=== PATIENT | female | born 1955 | race Caucasian/White ===

== ENCOUNTER → 2016-02-23 | Outpatient (CLI) | payer MEDICAID, OTHER ==
[~2016-02-23] MED LIST: ALPR.5 PO; FLUC200T63 PO; FLUO20CA4 PO; GABA300C3 PO; HYDR-3129 PO; HYDR-3583 PO; IOHEXOL 350 MG/ML 10 ML VIAL (for RAD DIAG) IV ONE; LISI-363 PO; LISI-515 PO; NYST100010 PO; PROZ40CA PO; SULF-154 PO
--- NOTE | 2016-02-23 15:13 | RADRPT ---
EXAM DATE/TIME: 02/23/2016 14:25 This report includes an Addendum and supersedes previous reports for this exam. [facility] COMPARISON: ABDOMEN KUB ONLY, August 03, 2015, 11:28. CT SIMULATION, June 10, 2015, 14:32. INDICATIONS : History of tongue cancer, abnormal abdominal finding on PET/CT scan. IV CONTRAST: 75 cc Omnipaque 350 (iohexol) IV ORAL CONTRAST: Prescribed oral contrast ingested. RADIATION DOSE: 9.96 CTDIvol (mGy) MEDICAL HISTORY : Carcinoma, tongue. Hypertension. SURGICAL HISTORY : None. ENCOUNTER: Initial ACUITY: 1 day PAIN SCALE: 0/10 LOCATION: abdomen TECHNIQUE: Volumetric scanning of the abdomen and pelvis was performed. Using automated exposure control and adjustment of the mA and/or kV according to patient size, radiation dose was kept as low as reasonably achievable to obtain optimal diagnostic quality images. FINDINGS: LOWER LUNGS: The visualized lower lungs are clear. LIVER: Homogeneous density without lesion. The there is mild dilation of the biliary system with the common bile duct dilated to 1.1 cm. There is also dilation of the pancreatic duct. No obstructing pancreatic head mass is seen. SPLEEN: Normal size without lesion. PANCREAS: Dilation of the common bile duct and main pancreatic duct. No visualized pancreatic mas s. KIDNEYS: Normal in size and shape. There is no mass, stone or hydronephrosis. ADRENAL GLANDS: Within normal limits. VASCULAR: There is no aortic aneurysm. BOWEL/MESENTERY: There is significant stool seen throughout the colon. In the region of the sigmo id colon there appears to be wall thickening and adjacent stranding of the mesenteric fat concerning for fluid or inflammation. ABDOMINAL WALL: Within normal limits. RETROPERITONEUM: There is no lymphadenopathy. BLADDER: No wall thickening or mass. REPRODUCTIVE: The uterus is absent. INGUINAL: There is no lymphadenopathy or hernia. MUSCULOSKELETAL: Within normal limits for patient age. No lytic or blastic lesion. CONCLUSION: 1. Abnormal biliary ductal dilation, prominence of the common bile duct and pancreatic duct without v isible obstructing mass. Recommend consultation with GI. 2. Significant stone burden seen throughout the colon. Within the sigmoid colon there is bowel wall t hickening and stranding of the adjacent mesenteric fat concerning for inflammation or edema. Correlat e with the patient's white count for possible colitis. Elaine Augustin MD on February 23, 2016 at 15:04 Board Certified Radiologist. This report was verified electronically. ADDENDUM: Not mentioned above is an 18 x 13 mm spiculated subpleural nodule on the left lateral basilar segment of the lower lobe. Rounded atelectasis is seen within the medial right lung base. This pulmonary nod ule is worrisome for malignancy. Consider PET CT to further evaluate. Alternatively, a percutaneous b iopsy could be performed as this lesion is accessible percutaneously. Dr. Solorzano is aware of the nodul luis Muller Jr., MD on March 03, 2016 at 13:58 Board Certified Radiologist. This report was verified electronically.
== END ==
LOC: HRAD 11:52
PROVIDERS: ATTEND Internal Medicine Hematology & Oncology
DX: C76.0 Malignant neoplasm of head, face and neck (principal)
CPT/HCPCS: 74177; Q9967

== ENCOUNTER 2016-04-25 07:59 | Day surgery (SDC) | payer MEDICAID, OTHER ==
[2016-04-25] VITALS (9 sets, daily range): BP systolic 79–126; BP diastolic 57–80; PULSE 75–96; RESP 16–20; TEMP 98.1–98.6; O2SAT 87–96
[~2016-04-25] VITALS: Ht 162.6 cm; Wt 45.5 kg
[~2016-04-25 07:59] MED LIST changes: -ALPR.5 PO; -FLUO20CA4 PO; -HYDR-3583 PO; -IOHEXOL 350 MG/ML 10 ML VIAL (for RAD DIAG) IV ONE; -LISI-515 PO
[2016-04-25] MEDS ORDERED: LISI-515 PO (08:25)
[2016-04-25] MEDS ORDERED: HYDR-3583 PO (08:25)
[2016-04-25] MEDS ORDERED: FLUO20CA4 PO (08:25)
[2016-04-25] MEDS ORDERED: ALPR.5 PO (08:25)
[2016-04-25] MEDS ORDERED: LIDOCAINE 1%/EPINEPHrine 1:100,000 SOLN 20 ML VIAL ONE ×2 (09:39→10:43)
[2016-04-25] MEDS ORDERED: SODIUM CHLORIDE 5 ML FLUSH PRN IVF (09:45)
[2016-04-25] MEDS ORDERED: IMPLANTED VASCULAR ACCESS DEVICE/PORT - SODIUM CHLORIDE FLUSH IVF SCH (09:45)
[2016-04-25] MEDS ORDERED: SODIUM CHLOR 0.9% 1000 ML IV SCH (09:45)
[2016-04-25] MEDS ORDERED: IMPLANTED VASCULAR ACCESS DEVICE/PORT - SODIUM CHLORIDE FLUSH PRN IVF (09:45)
[2016-04-25] MEDS ORDERED: MIDAZOLAM HCL 5 MG/5 ML VIAL ONE (10:11)
[2016-04-25] MEDS ORDERED: fentaNYL CITRATE 250 MCG/5 ML AMP ONE (10:11)
--- NOTE | 2016-04-25 11:10 | PD.RAD ---
Post CT Procedure Prog Note Pre Procedure Diagnosis: (1) Mass of left lung Post Procedure Diagnosis: (1) Mass of left lung Procedure Date: Apr 25, 2016 Supervising Radiologist: Sunny Farfan Proceduralist/Assist: Nichole Addison RT(R)(CT) Anesthesia: Local, Analgesia, Conscious Sedation Plan of Activity Patient to Unit: ROPU Patient Condition: Good See PACS Report for procedural detail/treatment Biopsy Imaging Guidance: CT Biopsy Procedure: Lung Specimen: Core Biopsy (18 gauge) Findings: Perilesional hemorrhage. No Sunny Douglas MD Apr 25, 2016 11:10
[2016-04-25] MEDS ORDERED: oxyCODONE/ACETAMINOPHEN 5 MG/325 MG TAB PO PRN (11:15)
--- NOTE | 2016-04-25 11:20 | RADRPT ---
EXAM DATE/TIME: 04/25/2016 10:19 [facility] COMPARISON: No previous studies available for comparison. INDICATIONS : Left lung mass. SEDATION TIME: 30 minutes BIOPSY SITE: Left MEDICATION(S): 1.) 3 mg midazolam (Versed) IV 2.) 150 mcg fentanyl (Sublimaze) IV DEVICE(S): 1.) 18 gauge Temno core biopsy needle MEDICAL HISTORY : Hypertension. Tongue cancer. SURGICAL HISTORY : section. ENCOUNTER: Initial ACUITY: 1 day PAIN SCORE: 0/10 LOCATION: Left chest A total of one core specimen(s) were obtained and sent to the laboratory for pathologic evaluation. PROCEDURE: 1. CT guided lung biopsy. 2. Conscious sedation with continuous EKG and oximetry monitoring. 3. EKG and oximetry remained stable throughout the procedure. Prior to the procedure informed consent was obtained. Any appropriate prior imaging studies were rev iewed. Using automated exposure control and adjustment of the mA and/or kV according to patient size, radiation dose was kept as low as reasonably achievable to obtain optimal diagnostic quality images. The site was prepped in a sterile fashion. Full sterile technique was used, including cap, mask, chuyita rile gloves and gown and a large sterile sheet. Hand hygiene and 2% chlorhexidine and/or betadine/al cohol prep was utilized per protocol for cutaneous antisepsis. The skin and subcutaneous tissues wer e infiltrated with local anesthetic solution. With CT guidance the previously identified target was localized. Biopsy was performed using the presc ribed needle as above. A single 18 gauge core biopsy was obtained. Adequate hemostasis was obtained with compression at the puncture site. Follow-up CT scan reveals no pneumothorax. However, there was perilesional hemorrhage. Conscious sedation was performed with the prescribed dosages and duration as above in the presence of an independent trained radiology nurse to assist in the monitoring of the patient. EKG and oximetry remained stable throughout the procedure. The patient tolerated the procedure well and there were no complications. The patient was sent to Radiology Outpatient Unit in stable condition. CONCLUSION: Uncomplicated CT guided biopsy. Sunny Farfan MD on April 25, 2016 at 11:18 Board Certified Radiologist. This report was verified electronically.
--- NOTE | 2016-04-25 13:26 | RADRPT ---
EXAM DATE/TIME: 04/25/2016 12:49 [facility] COMPARISON: No previous studies available for comparison. INDICATIONS : Post left side biopsy MEDICAL HISTORY : Carcinoma, tongue. Hypertension SURGICAL HISTORY : None. ENCOUNTER: Initial ACUITY: 1 day PAIN SCORE: 0/10 LOCATION: Bilateral chest FINDINGS: A single frontal expiratory view of the chest was performed. Bilateral pulmonary masses are seen in t he perihilar distribution. Interstitial-type density in the lower left lung field probably represents perilesional hemorrhage post biopsy. No pneumothorax. Right IJ [id number] catheter with the tip p rojecting over the central venous system. CONCLUSION: 1. Bilateral pulmonary mass lesions. 2. Interstitial density in the left lower lung field is characteristic of perilesional hemorrhage pos t biopsy. 3. No pneumothorax. Sunny Farfan MD on April 25, 2016 at 13:22 Board Certified Radiologist. This report was verified electronically.
[2016-04-25] MEDS ORDERED: SODIUM CHLORIDE 5 ML FLUSH BID IVF SCH (21:00)
== END 2016-04-25 15:20 | disposition home or self-care (01) ==
LOC: HRAD 07:59 → HRIP 08:02 → HRAD 15:20
PROVIDERS: ATTEND Internal Medicine Hematology & Oncology
DX: R91.8 Other nonspecific abnormal finding of lung field (principal); I10 Essential (primary) hypertension; Z85.810 Personal history of malignant neoplasm of tongue
CPT/HCPCS: 32405; 71010; 77012; 88305; 88341; 88342; J1642; J2250; J3010; J7030

== ENCOUNTER 2016-11-23 20:30 | Emergency (ER) | payer MEDICAID, OTHER ==
[~2016-11-23] VITALS: Ht 165.1 cm; Wt 43.0 kg
[~2016-11-23 20:30] MED LIST changes: +ALPR.5 PO; -FLUC200T63 PO; +FLUO20CA4 PO; -GABA300C3 PO; -HYDR-3129 PO; +HYDR-3583 PO; -LISI-363 PO; +LISI-515 PO; -NYST100010 PO; -PROZ40CA PO; -SULF-154 PO
[2016-11-23 20:34] VITALS: BP 101/68; PULSE 94; RESP 20; TEMP 98.1; O2SAT 96
--- NOTE | 2016-11-23 20:38 | PD ---
Physical Exam Date Seen by Provider: Nov 23, 2016 Time Seen by Provider: 20:34 Narrative 61-year-old female with history of stage IV lung cancer presents emergency Department with nausea, vomiting, chest and abdominal pain. She is here due to that she can't take the pain anymore. Patient also reports hoarseness and generalized pain. Patient states he has not eaten in 3 days due to loss of appetite and abdominal pain. Dr. Turcios is her oncologist. Patient has had Lortab for pain which she is currently out of, she is to see Dr. Turcios next Sunday. She states she is going to request a different pain medication at that time. Patient denies fevers. Patient states pain is 10 over 10. She has no known drug allergies. Data Data Last Documented VS Vital Signs Date Time Temp Pulse Resp B/P (MAP) Pulse Ox O2 Delivery O2 Flow Rate FiO2 11/23/16 20:34 98.1 94 20 101/68 (79) [address] [facility] Medical Record Reviewed: Yes Supervised Visit with BLAINE: Yes Narrative Course Vital signs are reviewed and found to be stable. Patient is awaiting bed placement. Condition: Stable Prabhakar Chavez Nov 23, 2016 20:38
--- NOTE | 2016-11-23 20:38 | PD ---
Physical Exam Date Seen by Provider: Nov 23, 2016 Time Seen by Provider: 20:34 Narrative 61-year-old female with history of stage IV lung cancer presents emergency Department with nausea, vomiting, chest and abdominal pain. She is here due to that she can't take the pain anymore. Patient also reports hoarseness and generalized pain. Patient states he has not eaten in 3 days due to loss of appetite and abdominal pain. Dr. Turcios is her oncologist. Patient has had Lortab for pain which she is currently out of, she is to see Dr. Turcios next Sunday. She states she is going to request a different pain medication at that time. Patient denies fevers. Patient states pain is 10 over 10. She has no known drug allergies. Data Data Last Documented VS Vital Signs Date Time Temp Pulse Resp B/P (MAP) Pulse Ox O2 Delivery O2 Flow Rate FiO2 11/23/16 20:34 98.1 94 20 101/68 (79) 96 Room Air [facility] Medical Record Reviewed: Yes Supervised Visit with BLAINE: Yes Narrative Course Vital signs are reviewed and found to be stable. Patient is awaiting bed placement. Condition: Stable Prabhakar Chavez Nov 23, 2016 20:38
[2016-11-23] MEDS ORDERED: ONDANSETRON HCL 4 MG/2 ML VIAL IV PUSH ONE (21:45)
[2016-11-23] MEDS ORDERED: SODIUM CHLOR 0.9% 1000 ML INJ 1,000 ML IV ONE (21:45)
[2016-11-23] MEDS ORDERED: MORPHINE SULFATE 2 MG/ML INJ IV PUSH ONE (21:45)
[2016-11-23 22:20] LABS: AMORPHOUS SEDIMENT, URINE RARE; BILIRUBIN, URINE NEG (NEG); BLOOD, URINE NEG (NEG); GLUCOSE,URINE NEG (NEG); HYALINE CAST, URINE 13 /lpf (RARE); KETONE, URINE NEG (NEG); MUCUS URINE FEW /lpf (OCC); NITRITE,URINE NEG (NEG); PH, URINE 5.5 (5.0-8.5); SQUAMOUS EPITHELIAL CELL URINE 1 /hpf (0-5); URINE COLOR YELLOW (YELLW/STRAW); URINE LEUKOCYTE ESTERASE TRACE (NEG)
[2016-11-23 22:24] LABS: AUTOMATED NEUTROPHIL # 13.3 TH/MM3 (1.8-7.7); BASOPHIL # 0.1 TH/MM3 (0-0.2); BASOPHIL % 0.4 % (0.0-2.0); EOSINOPHIL # 0.2 TH/MM3 (0-0.4); EOSINOPHIL % 1.2 % (0.0-4.0); HEMATOCRIT 34.2 % (35.0-46.0); HEMOGLOBIN 11.2 GM/DL (11.6-15.3); LYMPH % 3.6 % (9.0-44.0); LYMPHOCYTE # 0.6 TH/MM3 (1.0-4.8); MEAN CORPUSCULAR HGB CONC 32.6 % (32.0-36.0); MEAN PLATELET VOLUME 7.5 FL (7.0-11.0); MONO % 9.4 % (0.0-8.0); MONOCYTE # 1.5 TH/MM3 (0-0.9); NEUT % 85.4 % (16.0-70.0); PLATELET COUNT 649 TH/MM3 (150-450); RED BLOOD COUNT 3.98 MIL/MM3 (4.00-5.30); RED CELL DISTRIBUTION WIDTH 14.9 % (11.6-17.2); WHITE BLOOD COUNT 15.5 TH/MM3 (4.0-11.0)
[2016-11-23 22:32] LABS: ALBUMIN 3.5 GM/DL (3.4-5.0); AST (GOT) 9 U/L (15-37); BICARBONATE 26.6 MEQ/L (21.0-32.0); BLOOD UREA NITROGEN 19 MG/DL (7-18); CALCIUM 9.8 MG/DL (8.5-10.1); CHLORIDE 94 MEQ/L (98-107); CREATININE 1.09 MG/DL (0.50-1.00); GLOMERULAR FILTRATION RATE 51 ML/MIN (>89); GLUCOSE,RANDOM 104 MG/DL (74-106); SODIUM (NA) 131 MEQ/L (136-145)
[2016-11-23 22:33] LABS: ALT (GPT) 13 U/L (10-53)
[2016-11-23 22:36] LABS: ALKALINE PHOSPHATASE 111 U/L (45-117); TOTAL BILIRUBIN ADULT 0.2 MG/DL (0.2-1.0)
[2016-11-23] MEDS ORDERED: PERC5TAB12 PO (23:02)
[2016-11-23] MEDS ORDERED: PROM25TA10 PO (23:02)
--- NOTE | 2016-11-23 23:03 | PD ---
HPI Chief Complaint: Pain: Acute or Chronic Time Seen by Provider: 21:09 Travel History International Travel<30 days: No Contact w/Intl Traveler<30days: No Traveled to known affect area: No History of Present Illness HPI This is a 61-year-old female who has a history of head and neck cancer with metastatic lung cancer who is currently being treated by Dr. Solorzano who presents to the emergency department with generalized fatigue, weakness, increasing nausea and vomiting and pain all over her body that's been going on for several weeks, constant, moderate severity, worse with exerting herself. She's been taking Lortab for her pain but it's not been helping and she's been taking Zofran for the nausea but she feels that has not been helping either. She's getting weaker on her feet and has difficulty going about her daily tasks. She has an appointment with Dr. Solorzano scheduled on Sunday and she recently had a CT of her chest abdomen pelvis that she doesn't know the results of. PFSH Past Medical History Anxiety: No Depression: Yes Cancer: Yes (TONGUE CANCER, LUNG CANCER) Cardiovascular Problems: No Diabetes: No Diminished Hearing: No Endocrine: No Genitourinary: No Hepatitis: No Hiatal Hernia: No Hypertension: Yes Immune Disorder: No Implanted Vascular Access Dvce: Yes Musculoskeletal: No Neurologic: No Psychiatric: No Reproductive: No Respiratory: No Immunizations Current: No Radiation Therapy: No (HX) Thyroid Disease: No Tetanus Vaccination: > 5 Years Influenza Vaccination: No Menopausal: Yes Past Surgical History Abdominal Surgery: Yes (g tube placement 12/21) AICD: No Cardiac Surgery: No Section: Yes (X 2) Ear Surgery: No Endocrine Surgery: No Eye Surgery: No Genitourinary Surgery: No Gynecologic Surgery: Yes (2 CSECTIONS) Joint Replacement: No Neurologic Surgery: No Oral Surgery: No Pacemaker: No Thoracic Surgery: No Other Surgery: Yes (PORT PLACEMENT TO RIGTH CHEST WALL) Social History Alcohol Use: No Tobacco Use: No Substance Use: No Allergies-Medications (Allergen,Severity, Reaction): Coded Allergies: No Known Allergies (Verified , 04/25/16) Reported Meds & Prescriptions Reported Meds & Active Scripts Active Reported Xanax (Alprazolam) 0.5 Mg Tab 0.5 Mg PO Q6H PRN Lisinopril 20 Mg Tab 20 Mg PO DAILY Hydrocodone-Acetaminophen 10-325 mg Tab 1 Tab PO Q4H PRN Fluoxetine (Fluoxetine HCl) 20 Mg Cap 20 Mg PO DAILY Review of Systems Except as stated in HPI: all other systems reviewed are Neg Physical Exam Narrative GENERAL: Frail SKIN: Dry with skin tenting HEAD: Atraumatic. Normocephalic. EYES: Pupils equal and round. No injection or drainage. ENT: Dry mucous membranes NECK: Trachea midline. CARDIOVASCULAR: Regular rate and rhythm. No murmur appreciated. RESPIRATORY: Clear to auscultation. Breath sounds equal bilaterally. GASTROINTESTINAL: Abdomen soft, mildly tender to palpation in the epigastrium with no rebound or guarding. MUSCULOSKELETAL: No obvious deformities. NEUROLOGICAL: Awake and alert. No obvious cranial nerve deficits. Moving all extremities. PSYCHIATRIC: Appropriate mood and affect; insight and judgment normal. Data Data Last Documented VS Vital Signs Date Time Temp Pulse Resp B/P (MAP) Pulse Ox O2 Delivery O2 Flow Rate FiO2 11/23/16 20:34 98.1 94 20 101/68 (79) 96 Room Air Orders Orders Complete Blood Count With Diff (11/23/16 21:39) Comprehensive Metabolic Panel (11/23/16 21:39) ^ Insert Iv (11/23/16 21:39) Urinalysis - C+S If Indicated (11/23/16 21:39) Sodium Chlor 0.9% 1000 Ml Inj (Ns 1000 M (11/23/16 21:45) Ondansetron Inj (Zofran Inj) (11/23/16 21:45) Morphine Inj (Morphine Inj) (11/23/16 21:45) Electrocardiogram (11/23/16 21:09) Labs Laboratory Tests Test 11/23/16 21:40 11/23/16 21:45 White Blood Count 15.5 TH/MM3 Red Blood Count 3.98 MIL/MM3 Hemoglobin 11.2 GM/DL Hematocrit 34.2 % Mean Corpuscular Volume 86.0 FL Mean Corpuscular Hemoglobin 28.0 PG Mean Corpuscular Hemoglobin Concent 32.6 % Red Cell Distribution Width 14.9 % Platelet Count 649 TH/MM3 Mean Platelet Volume 7.5 FL Neutrophils (%) (Auto) 85.4 % Lymphocytes (%) (Auto) 3.6 % Monocytes (%) (Auto) 9.4 % Eosinophils (%) (Auto) 1.2 % Basophils (%) (Auto) 0.4 % Neutrophils # (Auto) 13.3 TH/MM3 Lymphocytes # (Auto) 0.6 TH/MM3 Monocytes # (Auto) 1.5 TH/MM3 Eosinophils # (Auto) 0.2 TH/MM3 Basophils # (Auto) 0.1 TH/MM3 CBC Comment DIFF FINAL Differential Comment Blood Urea Nitrogen 19 MG/DL Creatinine 1.09 MG/DL Random Glucose 104 MG/DL Total Protein 8.0 GM/DL Albumin 3.5 GM/DL Calcium Level 9.8 MG/DL Alkaline Phosphatase 111 U/L Aspartate Amino Transf (AST/SGOT) 9 U/L Alanine Aminotransferase (ALT/SGPT) 13 U/L Total Bilirubin 0.2 MG/DL Sodium Level 131 MEQ/L Potassium Level 3.5 MEQ/L Chloride Level 94 MEQ/L Carbon Dioxide Level 26.6 MEQ/L Anion Gap 10 MEQ/L Estimat Glomerular Filtration Rate 51 ML/MIN Urine Color YELLOW Urine Turbidity HAZY Urine pH 5.5 Urine Specific [place] 1.018 Urine Protein 30 mg/dL Urine Glucose (UA) NEG mg/dL Urine Ketones NEG mg/dL Urine Occult Blood NEG Urine Nitrite NEG Urine Bilirubin NEG Urine Urobilinogen LESS THAN 2.0 MG/DL Urine Leukocyte Esterase TRACE Urine RBC 1 /hpf Urine WBC 4 /hpf Urine Squamous Epithelial Cells 1 /hpf Urine Amorphous Sediment RARE Urine Hyaline Casts 13 /lpf Urine Mucus FEW /lpf Microscopic Urinalysis Comment CULT NOT INDICATED MDM Medical Decision Making Medical Screen Exam Complete: Yes Emergency Medical Condition: Yes Medical Record Reviewed: Yes (CT of the chest from November 15 demonstrates advancing disease in the lungs) Interpretation(s) Afebrile, mild tachycardia, normotensive Leukocytosis Anemia Thrombocytosis Mild hyponatremia Urinalysis negative for infection CT chest from November 15 demonstrates deterioration in the appearance of the left chest with advancing adenopathy and mass in the left lung base Differential Diagnosis Cancer pain, dehydration, electrolyte abnormality Narrative Course This is a 61-year-old female who presents to the emergency department with metastatic cancer with increasing generalized pain, weakness and vomiting. Labs are obtained which demonstrated a leukocytosis which is likely in the setting of her baseline malignancy as she is afebrile and has no signs or symptoms of infection at this time. She has some mild hyponatremia. Urinalysis is negative for infection. CT from 1 week ago demonstrates worsening malignancy and the patient's chest as well as a new lesion at the L3 vertebral body. I had a long conversation with the patient. I did offer her admission but I made a recommendation to try stronger pain medication and antiemetics. She was given a liter of IV fluid. She would like to try to go home. She will follow up with Dr. Solorzaon as scheduled on Sunday and she'll call tomorrow to see if he can move up her appointment. She understands that she can return at any time if her symptoms worsen. Diagnosis Primary Impression: Cancer related pain Patient Instructions: General Instructions Additional Instructions: If you develop weakness of your legs, difficulty walking, numbness of your legs or your genital or rectal area, loss of your bowel or bladder, or difficulty urinating return to the emergency department immediately. Follow-up with Dr. Solorzano as soon as possible. Med/Other Pt SpecificInfo: Prescription(s) given Scripts Promethazine (Phenergan) 25 Mg Tablet 25 MG PO Q6H Y for NAUSEA OR VOMITING, #15 TAB 0 Refills Prov: Dia Oh MD 11/23/16 Oxycodone-Acetaminophen (Percocet) 5-325 mg Tab 1 TAB PO Q6H Y for PAIN, #20 TAB 0 Refills Prov: Dia Oh MD 11/23/16 Disposition: 01 DISCHARGE HOME Condition: Stable Dia Oh MD Nov 23, 2016 23:02
--- NOTE | 2016-11-24 21:28 | EKG ---
Date Performed: 11/23/2016 Time Performed: 21:09:36 PTAGE: 61 years EKG: Sinus rhythm NORMAL ECG NO PREVIOUS TRACING DOCTOR: Ld Marie Interpretating Date/Time 11/24/2016 21:26:42
--- NOTE | 2016-11-24 21:28 | EKG ---
Date Performed: 11/23/2016 Time Performed: 21:09:36 PTAGE: 61 years EKG: Sinus rhythm NORMAL ECG NO PREVIOUS TRACING DOCTOR: Ld Marie Interpretating Date/Time 11/24/2016 21:26:42
--- NOTE | 2016-11-24 21:28 | EKG ---
Date Performed: 11/23/2016 Time Performed: 21:09:36 PTAGE: 61 years EKG: Sinus rhythm NORMAL ECG NO PREVIOUS TRACING DOCTOR: Ld Marie Interpretating Date/Time 11/24/2016 21:26:42
== END 2016-11-23 23:19 | disposition home or self-care (01) ==
LOC: NEPD 20:30
DX: G89.3 Neoplasm related pain (acute) (chronic) (principal); R53.1 Weakness; R11.2 Nausea with vomiting, unspecified; D72.829 Elevated white blood cell count, unspecified; E87.1 Hypo-osmolality and hyponatremia; D64.9 Anemia, unspecified; D47.3 Essential (hemorrhagic) thrombocythemia; C76.0 Malignant neoplasm of head, face and neck; C78.00 Secondary malignant neoplasm of unspecified lung; I10 Essential (primary) hypertension; Z86.59 Personal history of other mental and behavioral disorders
CPT/HCPCS: 80053; 81001; 85025; 93005; 96361; 96374; 96375; 99284; J2270; J2405; J7030

== ENCOUNTER 2016-12-15 13:44 | Inpatient (IN) | payer MEDICAID, OTHER ==
[~2016-12-15] VITALS: Ht 167.6 cm; Wt 41.0 kg
[~2016-12-15 13:44] MED LIST changes: +PERC5TAB12 PO; +PROM25TA10 PO
[2016-12-15 13:48] VITALS: BP 106/58; PULSE 97; RESP 18; TEMP 97.7; O2SAT 94
--- NOTE | 2016-12-15 14:03 | PD ---
HPI Chief Complaint: Pain: Acute or Chronic Time Seen by Provider: 13:55 Travel History International Travel<30 days: No Contact w/Intl Traveler<30days: No Traveled to known affect area: No History of Present Illness HPI 61-year-old female with PMH of metastatic oropharyngeal cancer under the care of Dr. Solorzano presents to the ED for evaluation of worsening pain in the lower back accompanied by weakness and pain in the right lower extremity. Pain rated 8/10. Worsened by ambulation. No alleviating factors reported. She has a known lesion of the vertebral body at L3. She denies saddle anesthesia, urinary or fecal incontinence. She is prescribed MS Contin 30 mg twice a day but has been taking it 3 times a day due to worsening pain. She discussed comfort measures with Dr. Solorzano but is also seeing Dr. Graves for palliative radiation of the spinal lesion. At her last visit with Dr. Solorzano on 12/04 she was ordered to undergo radiological studies of the back but she has not followed up. She is unable to state clearly what her treatment goals are today. PFSH Past Medical History Anxiety: No Depression: Yes Cancer: Yes (TONGUE CANCER, LUNG CANCER) Cardiovascular Problems: No Chemotherapy: Yes Diabetes: No Diminished Hearing: No Endocrine: No Genitourinary: No Hepatitis: No Hiatal Hernia: No Hypertension: Yes Immune Disorder: No Implanted Vascular Access Dvce: Yes Musculoskeletal: No Neurologic: No Psychiatric: No Reproductive: No Respiratory: No Immunizations Current: No Radiation Therapy: No (HX) Thyroid Disease: No Menopausal: Yes Past Surgical History Abdominal Surgery: Yes (g tube placement 12/21) AICD: No Cardiac Surgery: No Section: Yes (X 2) Ear Surgery: No Endocrine Surgery: No Eye Surgery: No Genitourinary Surgery: No Gynecologic Surgery: Yes (2 CSECTIONS) Joint Replacement: No Neurologic Surgery: No Oral Surgery: No Pacemaker: No Thoracic Surgery: No Other Surgery: Yes (PORT PLACEMENT TO RIGTH CHEST WALL) Social History Alcohol Use: No Tobacco Use: No Substance Use: No Allergies-Medications (Allergen,Severity, Reaction): Coded Allergies: No Known Allergies (Verified , 04/25/16) Reported Meds & Prescriptions Reported Meds & Active Scripts Active Phenergan (Promethazine HCl) 25 Mg Tablet 25 Mg PO Q6H PRN Percocet (Oxycodone-Acetaminophen) 5-325 mg Tab 1 Tab PO Q6H PRN Reported Xanax (Alprazolam) 0.5 Mg Tab 0.5 Mg PO Q6H PRN Lisinopril 20 Mg Tab 20 Mg PO DAILY Hydrocodone-Acetaminophen 10-325 mg Tab 1 Tab PO Q4H PRN Fluoxetine (Fluoxetine HCl) 20 Mg Cap 20 Mg PO DAILY Review of Systems Except as stated in HPI: all other systems reviewed are Neg Physical Exam Narrative GENERAL: Frail, petite, chronically ill-appearing white female in no acute distress. SKIN: Focused skin assessment warm/dry. HEAD: Normocephalic. EYES: No scleral icterus. No injection or drainage. NECK: Supple, trachea midline. No JVD or lymphadenopathy. CARDIOVASCULAR: Regular rate and rhythm without murmurs, gallops, or rubs. RESPIRATORY: Breath sounds clear and equal bilaterally. No accessory muscle use. GASTROINTESTINAL: Abdomen scaphoid, soft, non-tender, nondistended. MUSCULOSKELETAL: No cyanosis, or edema. NEUROLOGICAL: Awake and alert. Cranial nerves II through XII intact. Motor and sensory grossly within normal limits. 5/5 strength of dorsiflexion, plantarflexion, hip and knee flexion bilaterally. Normal speech. BACK: No obvious deformity. No CVA tenderness. Tender to palpation in the midline lumbar spine. Data Data Last Documented VS Vital Signs Date Time Temp Pulse Resp B/P (MAP) Pulse Ox O2 Delivery O2 Flow Rate FiO2 12/15/16 13:48 97.7 97 18 106/58 (74) 94 Orders Orders Consult Palliative Care (12/15/16 ) Iv Access Insert/Monitor (12/15/16 14:16) Sodium Chlor 0.9% 1000 Ml Inj (Ns 1000 M (12/15/16 14:30) Hydromorphone Pf Inj (Dilaudid Pf Inj) (12/15/16 14:30) (Hub Use Only)Inp Phy Cons/Ref (12/15/16 ) Complete Blood Count With Diff (12/15/16 16:53) Comprehensive Metabolic Panel (12/15/16 16:53) Urinalysis - C+S If Indicated (12/15/16 16:53) Admit Order (Ed Use Only) (12/15/16 16:53) MDM Medical Decision Making Medical Screen Exam Complete: Yes Emergency Medical Condition: Yes Differential Diagnosis Metastatic cancer versus cauda equina syndrome versus intractable pain versus other Narrative Course 61-year-old female with PMH of metastatic oropharyngeal cancer under the care of Dr. Solorzano presents to the ED for evaluation of worsening pain in the lower back accompanied by weakness and pain in the right lower extremity. She has a known lesion of the vertebral body at L3. She denies saddle anesthesia, urinary or fecal incontinence. She discussed comfort measures with Dr. Solorzano and is also seeing Dr. Graves for palliative radiation of the spinal lesion. At her last visit with Dr. Solorzano on 12/04 she was ordered to undergo radiological studies of the back but she has not followed up. She is unable to state clearly what her treatment goals are today. The patient is afebrile, heart rate 97, BP 106/78 on presentation. She is a chronically ill appearing, petite, thin white female in no acute distress. There is a port in the left chest, well-healed without signs of infection. She does have tenderness to palpation in the low lumbar area but she has 5/5 strength in the bilateral lower extremities. IV was established. Patient was administered a liter of normal saline and 0.5 mg Dilaudid. Palliative care consult was placed. I discussed the case with the palliativecare nurse. The patient has chosen to complete a DNR. She would still like to explore her palliative treatments with Dr. Graves. At this point I think that we should admit her for intractable pain and have Dr. Graves consult with her in the hospital. The patient and her family are agreeable with this plan. Spoke with Dr. Lauren who agrees to accept the patient to the medicine service under Dr. Bravo. Please see medicine notes for disposition. Xuan Rain Dec 15, 2016 14:03
[2016-12-15] MEDS ORDERED: HYDROmorphone HCL PF 0.5 MG/0.5 ML SYRINGE IV PUSH ONE (14:30)
[2016-12-15] MEDS ORDERED: SODIUM CHLOR 0.9% 1000 ML INJ 1,000 ML IV ONE (14:30)
--- NOTE | 2016-12-15 15:20 | PD.CONS ---
Consult Service Palliative Care . Consult Requested By Xuan FIGUEROA . Primary Care Physician Steve Graves MD . Reason for Consultation a. To assist with evaluation and management of symptoms including: pain, weakness, decreased appetite b. To assist medical decision maker(s) with: better understanding of current medical conditions; weighing benefits/burdens of medical treatment options; making medical treatment decisions. . HPI History of Present Illness Mrs. 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 Patient received concurrent chemotherapy and radiation. In February, the patient presented with a pulmonary mass consistent with metastatic disease; the presence of poorly differentiated squamous cell carcinoma was confirmed in April, via CT- guided biopsy. Patient has a known lesion of the vertebral body at L3. She has progressive disease in the thorax. The most recent CT imaging scans did not include the pelvis. However, metastatic disease is present in the pelvis is suspected given the patient's symptoms of increasing pain and tenderness along the right hip and proximal femur. Patient presented to [facility] ED on 12/15/2016 ED with complaints of progressively increased lower back pain accompanied by weakness and pain in the right lower extremity. Hemodynamically stable. Pulse; 97, respirations 18, BP 106/58, oxygen saturation 94% on room air, oral temperature 97.7. The patient's spouse is increasingly forgetful/confused. He reports the patient has almost fallen several times in the past week. There is a known lesion of the vertebral body at L3. Patient denies saddle anesthesia; denies urinary or fecal incontinence. She reports severe pain in her right hip and leg. She is prescribed MS Contin 30 mg twice a day but has been taking it 3 times a day due to worsening pain; pain is currently poorly controlled rated 8 out of 10 after pain medication. She has discussed comfort measures with Dr. Solorzano but is also seeing Dr. Graves for palliative radiation of the spinal lesion. Palliative Care was consulted to assist with symptom management and to discuss with the patient/family the benefits and burdens of her current illnesses and the options regarding future care. Palliative care met with the patient and her ; hospice services were introduced. Patient would like to continue following Dr. Graves for palliative radiation of the spinal lesion if it will improve her quality of life; she is considering transitioning to comfort focused care when radiation treatments are completed. Function/Cognitive Trajectory Ms. Wagoner is a 61-year-old female who was first diagnosed with squamous cell carcinoma of the oropharynx in May,. She is increasingly symptomatic with worsening appetite and reports a 20+ weight loss in the past 12 months. She is having Increasing difficulty ambulating; generally failing to thrive. The patient's reports it is more difficult for the patient to be left alone. He states she is increasingly confused and has had multiple recent falls in the past week secondary to increasing with weakness in the right lower extremity. . Review of Systems ROS Limitations: Clinical Condition Constitutional: COMPLAINS OF: Fatigue, Weight loss (20+ pound weight loss), Change in appetite (decreased weight loss), Pain (severe pain in right hip and right lower extremity; patient rates pain 8 out of 10 AFTER pain medication.), Generalized weakness Ears, nose, mouth, throat: DENIES: Hearing loss Respiratory: DENIES: Hemoptysis Cardiovascular: COMPLAINS OF: Dyspnea on Exertion, DENIES: Chest pain, Lower Extremity Edema Musculoskeletal: COMPLAINS OF: Back pain (lower back pain) Integumentary: COMPLAINS OF: Excessive dryness Neurologic: COMPLAINS OF: Abnormal gait, Localized weakness (right lower extremity), Poor Balance Psychiatric: COMPLAINS OF: Anxiety Past Family Social History Coded Allergies: No Known Allergies (Verified , 04/25/16) Past Medical History Essential hypertension, Depression, Squamous cell carcinoma left mandible, known to Dr. Graves (radiation oncology) , Dr. Solorzano (medical oncology) and Dr. Corral (interventional radiology). . Past Surgical History Colonoscopy in 2005 U/S guided left lung mass in 2017 CT-guided left lung mass biopsy in 2017 Teeth extraction in 2015 Port placement in 2016 Feeding tube in 2015 Reported Medications Xanax (Alprazolam) 0.5 Mg Tab 0.5 Mg PO Q6H PRN Lisinopril 20 Mg Tab 20 Mg PO DAILY Hydrocodone-Acetaminophen 10-325 mg Tab 1 Tab PO Q4H PRN Fluoxetine (Fluoxetine HCl) 20 Mg Cap 20 Mg PO DAILY . Current Medications Medications (Trade) Dose Ordered Sig/Acacia Route Start Time Stop Time Status Last Admin Sodium Chloride 1,000 ml @ 999 mls/hr BOLUS ONCE IV 12/15/16 14:30 12/15/16 15:30 12/15/16 14:43 . Family History Mother with colon Carcinoma at the age of 80. No throat cancer in the family. . Substance Use Tobacco: Smoked 1 PPD x 40 years. Quit several months ago Alcohol: No excessive alcohol consumption reported Prescription med abuse: None known Illicits: None known . Psychosocial History Patient is originally from [place]. She moved to [place] in the mid 1970s. She met her , Gene, after moving to [place]. They have been for approximately 22 years. They have adult children who live locally ( Gene and Jane, ages 22 and 20). The patient and her work as a [employer]. . Spiritual/Cultural Factors Taoist gustabo . Living Will: Never completed Health Care Surrogate: Never completed Durable Power of Cabinet Finisher: Never completed Documented care wishes: No known documented care wishes were completed. . Today's verbally stated goals: Palliative care met with the patient and her ; hospice services were introduced. Patient would like to continue following Dr. Graves for palliative radiation of the spinal lesion if it will improve her quality of life; she is considering transitioning to comfort focused care when radiation treatments are completed. . Family/friends goals: Patient's , Gene, would like the patient to be admitted for symptom management of pain. He is encouraging his to complete palliative radiation with Dr. Graves and then consider hospice services at some point in the future. . Ethical and Legal Issues Per [place] statutes, in the absence of written advanced directives healthcare proxy decision-making falls to the patient's (Gene Ciaran). . Physical Exam Vital Signs Date Time Temp Pulse Resp B/P (MAP) Pulse Ox O2 Delivery O2 Flow Rate FiO2 12/15/16 13:48 97.7 97 18 106/58 (74) 94 . Exam CONSTITUTIONAL/GENERAL: This is a cachectic 61-year-old female who appears older than her stated age. TUBES/LINES/DRAINS: [id number], PIV 1 SKIN: No jaundice, rashes, or lesions. No wounds seen anteriorly. Skin temperature appropriate. Not diaphoretic. HEAD: Atraumatic. Normocephalic. EYES: Pupils equal and round and reactive. Extraocular motions intact. No scleral icterus. No injection or drainage. Fundi not examined. ENT: Hearing grossly normal. Nose without bleeding or purulent drainage. Poor dentition NECK: Trachea midline. Supple, nontender. No palpable thyroid enlargement or nodularity. CARDIOVASCULAR: Regular rate and rhythm without murmurs, gallops, or rubs. No JVD. Peripheral pulses symmetric. RESPIRATORY/CHEST: Symmetric, unlabored respirations. Clear to auscultation. Diminished breath sounds bilaterally, left >right. GASTROINTESTINAL: Abdomen soft, non-tender, nondistended. No guarding. Bowel sounds present. GENITOURINARY: Without palpable bladder distension. MUSCULOSKELETAL: Extremities without clubbing, cyanosis, or edema. Right hip and right lower extremity painful to touch LYMPHATICS: No palpable cervical or supraclavicular adenopathy. NEUROLOGICAL: Awake and alert. Follows commands. Cognitively sharp. Moves all extremities. PSYCHIATRIC: No obvious anxiety/depression. no apparent hallucinations or other psychotic thought process. . Patient/Family Conference Present at Family Conference: Met with the patient and her spouse in the emergency department, room C-30 . Family Conference Location: Bedside Issues Discussed: * Palliative care role, purpose, approach * Additional medical, psychosocial, and spiritual history * Patients general health, functional status, and cognitive changes in the months leading up to the current hospitalization * Patient/family understanding of the current medical problems * Patient/family understanding of prognosis * Patients goals of care as best understood from advance directives and/or conversations and/or values * Current medical treatment options and benefits/burdens of those options * Likely scenarios comparing ongoing aggressive care with a transition to comfort measures only * Questions answered to the best of my ability * Palliative care contact information provided . Assessment and Plan Disease Oriented Problem List: (1) Protein calorie malnutrition (2) Cancer (3) Depression (4) Squamous cell carcinoma of neck (5) HTN (hypertension) Symptom Scale: (1) Pain (2) Decrease in appetite (3) Weakness Pertinent Non-Medical Issues Psychosocial:Patient is originally from [place]. She moved to [place] in the mid . She met her , Gene, after moving to [place]. They have been for approximately 22 years. They have adult children who live locally (Gene and Jane, ages 22 and 20). 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 Spiritual: Taoist gustabo Legal: Per [place] statutes, in the absence of written advanced directives healthcare proxy decision-making falls to the patient's spouse Ethical issues impacting care: No known ethical issues impacting care. . Important Contacts Gene Wagoner, spouse: [phone] and [phone] . 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 Patient has a known lesion of the vertebral body at L3. She has progressive disease in the thorax. Metastatic disease to the pelvis suspected given the patient's symptoms of increasing pain and tenderness along the right hip and proximal femur. Patient would like to pursue ongoing palliative radiation with Dr. Graves despite general decline with increasing pain, increasing weakness and poor nutritional intake. Patient's overall prognosis is quite poor. . Code Status: No Code Plan * NO CODE * Decision-making: Patient currently has adequate insight and judgment related to her current medical conditions. In the event that the patient loses capacity , [place] statutes state in the absence of written advanced directives healthcare proxy decision-making falls to the patient's spouse (Gene Pillai). * Goals:Palliative care met with the patient and her ; hospice services were introduced. Patient would like to continue following Dr. Graves for palliative radiation of the spinal lesion if it will improve her quality of life ; she is considering transitioning to comfort focused care when radiation treatments are completed. * Discussed with patient with Dr. Roach and Xuan FIGUEROA * Palliative care contact information provided to the patient and her spouse * Symptom management-pain: Patient reports severe pain in her right hip and leg. She is prescribed MS Contin 30 mg twice a day but has been taking it 3 times a day due to worsening pain; pain is currently poorly controlled rated 8 out of 10 after pain medication. Would recommend starting the patient on short acting morphine PRN for improved symptom management. * Symptom management-debility: Patient is is increasingly symptomatic. She is having Increasing difficulty ambulating; generally failing to thrive. The patient's reports it is more difficult for the patient to be left alone. He states she is increasingly confused and has had multiple recent falls in the past week secondary to increasing with weakness in the right lower extremity. Expected ongoing decline secondary to disease progression. * Symptom management-decreased appetite: Patient reports worsening appetite and reports a 20+ weight loss in the past 12 months. She states she was started on Megace and Dexamethasone last week but cannot tell me the dose. May consider titrating dexamethasone upward, depending on current dose, to 2mg PO BID which may assist with patient's poor appetite, pain and decreased energy. * Palliative care will continue to follow this patient throughout her hospitalization to establish trust, assist with symptom management and clarification of medical treatment goals. . Thank you for the opportunity to participate in the care of Ms. Wagoner. . Attestation To help prompt me to consider important information that might be impacting today's encounter and assessment, information from prior notes written by myself or my colleagues may have been "brought forward" into today's note. My signature on this note, however, is an attestation that I personally performed the exam, history, and/or decision-making noted today, and, unless otherwise indicated, the interactions with patient, family, and staff as well as the review of records all occurred today. I also attest that the listed assessment and stated plan reflect my best clinical judgment today based on the combination of historical information, prior notes, and today's exam/ interactions. When time spent is documented, it refers only to time spent today by the signer, or if indicated, combined time spent today by collaborating physician/nurse practitioner. . Belinda Sanders Dec 15, 2016 15:20
[2016-12-15] MEDS ORDERED: GADODIAMIDE PF 287 MG/ML 10 ML VIAL (for RAD MRI) IVCONTRAST ONE (16:57)
[2016-12-15 17:51] VITALS: BP 128/74; PULSE 71; RESP 15; O2SAT 97
[2016-12-15 18:14] LABS: AUTOMATED NEUTROPHIL # 20.4 TH/MM3 (1.8-7.7); BASOPHIL # 0.1 TH/MM3 (0-0.2); BASOPHIL % 0.4 % (0.0-2.0); EOSINOPHIL # 0.1 TH/MM3 (0-0.4); EOSINOPHIL % 0.5 % (0.0-4.0); HEMATOCRIT 31.3 % (35.0-46.0); HEMO FLAGS DIFF FINAL; LYMPH % 2.2 % (9.0-44.0); LYMPHOCYTE # 0.5 TH/MM3 (1.0-4.8); MEAN CELL VOLUME 86.5 FL (80.0-100.0); MEAN CORPUSCULAR HEMOGLOBIN 28.9 PG (27.0-34.0); MEAN CORPUSCULAR HGB CONC 33.4 % (32.0-36.0); MONO % 5.3 % (0.0-8.0); NEUT % 91.6 % (16.0-70.0); PLATELET COUNT 654 TH/MM3 (150-450); RED BLOOD COUNT 3.62 MIL/MM3 (4.00-5.30); RED CELL DISTRIBUTION WIDTH 15.4 % (11.6-17.2); WHITE BLOOD COUNT 22.2 TH/MM3 (4.0-11.0)
[2016-12-15 18:35] LABS: ALT (GPT) 74 U/L (10-53); ANION GAP 8 MEQ/L (5-15); AST (GOT) 18 U/L (15-37); BICARBONATE 25.3 MEQ/L (21.0-32.0); BLOOD UREA NITROGEN 19 MG/DL (7-18); CHLORIDE 100 MEQ/L (98-107); GLOMERULAR FILTRATION RATE 82 ML/MIN (>89); POTASSIUM 4.1 MEQ/L (3.5-5.1); SODIUM (NA) 133 MEQ/L (136-145)
[2016-12-15 18:37] LABS: ALKALINE PHOSPHATASE 194 U/L (45-117); TOTAL BILIRUBIN ADULT 0.3 MG/DL (0.2-1.0)
--- NOTE | 2016-12-15 19:19 | HHI.HP ---
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 Patient has chronic pain from metastasized cancer but states that the pain in her back has become increasingly worse. She was at the ED 3 weeks ago for pain but was discharged and states that she was told to return if the pain got worse. She reports that she has had difficulty walking due to pain okay. Notably, the patient missed an appointment with radiation oncology for palliative treatment for her back with radiation oncologist Dr. Graves because she was in a lot of pain. Her PCP is Dr. Olsen. (Mena Lauren MD R2) Review of Systems Constitutional: COMPLAINS OF: Fatigue, Chills, Dizziness, DENIES: Fever Eyes: COMPLAINS OF: Blurred vision (sometimes) Ears, nose, mouth, throat: DENIES: Throat pain, Running Nose, Sinus Pain Respiratory: COMPLAINS OF: Cough (yellowish-green), Shortness of breath Cardiovascular: COMPLAINS OF: Chest pain, DENIES: Syncope Gastrointestinal: COMPLAINS OF: Abdominal pain, Nausea, Vomiting, DENIES: Diarrhea Genitourinary: DENIES: Dysuria Musculoskeletal: COMPLAINS OF: Joint pain, Muscle aches Integumentary: COMPLAINS OF: Pruritus, DENIES: Rash Neurologic: COMPLAINS OF: Headache, Paresthesias (numbness and tingling in feet and hands) Psychiatric: COMPLAINS OF: Confusion (at times ) (Mena Lauren MD R2) Past Family Social History Past Medical History Essential hypertension, Depression, Squamous cell carcinoma of the oropharynx, first diagnosed in May 2015, known to Dr. Graves (radiation oncology), Dr. Solorzano (medical oncology) Past Surgical History PEG tube placement Reported Medications Reported Meds & Active Scripts Active Phenergan (Promethazine HCl) 25 Mg Tablet 25 Mg PO Q6H PRN Percocet (Oxycodone-Acetaminophen) 5-325 mg Tab 1 Tab PO Q6H PRN Reported Xanax (Alprazolam) 0.5 Mg Tab 0.5 Mg PO Q6H PRN Lisinopril 20 Mg Tab 20 Mg PO DAILY Hydrocodone-Acetaminophen 10-325 mg Tab 1 Tab PO Q4H PRN Fluoxetine (Fluoxetine HCl) 20 Mg Cap 20 Mg PO DAILY (Mena Lauren MD R2) Allergies: Coded Allergies: No Known Allergies (Verified , 04/25/16) Family History Mother with colon Carcinoma at the age of 80 No throat cancer in the family Social History Smoked for 40 years, 1 pack per day. Quit 2 years ago. Denies alcohol use currently, no IV drug use. 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 (Mena Lauren MD R2) Physical Exam Vital Signs Vital Signs Date Time Temp Pulse Resp B/P (MAP) Pulse Ox O2 Delivery O2 Flow Rate FiO2 12/15/16 17:51 71 15 128/74 (92) 97 Room Air 12/15/16 13:48 97.7 97 18 106/58 (74) 94 Physical Exam GENERAL: This is a thin, well-developed patient, in no apparent distress. SKIN: No rashes, ecchymoses or lesions. Cool and dry. HEAD: Atraumatic. Normocephalic. No temporal or scalp tenderness. EYES: Pupils equal round and reactive. Extraocular motions intact. No scleral icterus. No injection or drainage. ENT: Nose without bleeding, purulent drainage or septal hematoma. Throat without erythema, tonsillar hypertrophy or exudate. MMM. Uvula midline. Airway patent. NECK: Trachea midline. No JVD or lymphadenopathy. Supple, nontender, no meningeal signs. CARDIOVASCULAR: Regular rate and rhythm without murmurs, gallops, or rubs. RESPIRATORY: Clear to auscultation. Breath sounds equal bilaterally. No wheezes , vibratory sound with expiration GASTROINTESTINAL: Abdomen soft, non-tender, nondistended. No hepato-splenomegaly , or palpable masses. No guarding. MUSCULOSKELETAL: Extremities without clubbing, cyanosis, or edema. Tender to palpation over the right leg and right lower back. No calf tenderness. NEUROLOGICAL: Awake and alert. Cranial nerves II through XII intact. Motor and sensory grossly within normal limits. Five out of 5 muscle strength in all muscle groups. Normal speech. Laboratory Laboratory Tests Test 12/15/16 17:47 White Blood Count 22.2 Red Blood Count 3.62 Hemoglobin 10.5 Hematocrit 31.3 Mean Corpuscular Volume 86.5 Mean Corpuscular Hemoglobin 28.9 Mean Corpuscular Hemoglobin Concent 33.4 Red Cell Distribution Width 15.4 Platelet Count 654 Mean Platelet Volume 7.2 Neutrophils (%) (Auto) 91.6 Lymphocytes (%) (Auto) 2.2 Monocytes (%) (Auto) 5.3 Eosinophils (%) (Auto) 0.5 Basophils (%) (Auto) 0.4 Neutrophils # (Auto) 20.4 Lymphocytes # (Auto) 0.5 Monocytes # (Auto) 1.2 Eosinophils # (Auto) 0.1 Basophils # (Auto) 0.1 CBC Comment DIFF FINAL Differential Comment Blood Urea Nitrogen 19 Creatinine 0.72 Random Glucose 89 Total Protein 6.8 Albumin 2.7 Calcium Level 7.8 Alkaline Phosphatase 194 Aspartate Amino Transf (AST/SGOT) 18 Alanine Aminotransferase (ALT/SGPT) 74 Total Bilirubin 0.3 Sodium Level 133 Potassium Level 4.1 Chloride Level 100 Carbon Dioxide Level 25.3 Anion Gap 8 Estimat Glomerular Filtration Rate 82 (Mena Lauren MD R2) Result Diagram: 12/15/16174612/15/161746 Course In the ED, patient received 0.5 mg IV push of Dilaudid which helped control her pain. Palliative care was consulted who spent a lot time answering the patient' s and her 's questions. At the end of the discussion, patient was placed on DNR CODE STATUS. (Mena Lauren MD R2) Caprini VTE Risk Assessment Caprini VTE Risk Assessment: Mod/High Risk (score >= 2) Caprini Risk Assessment Model Point Value = 1 Point Value = 2 Point Value = 3 Point Value = 5 Age 41-60 Minor surgery BMI > 25 kg/m2 Swollen legs Varicose veins or History of unexplained or recurrent spontaneous Oral contraceptives or hormone replacement Sepsis (< 1 month) Serious lung disease, including pneumonia (< 1 month) Abnormal pulmonary function Acute myocardial infarction Congestive heart failure (< 1 month) History of inflammatory bowel disease Medical patient at bed rest Age 61-74 Arthroscopic surgery Major open surgery (> 45 min) Laparoscopic surgery (> 45 min) Malignancy Confined to bed (> 72 hours) Immobilizing plaster cast Central venous access Age >= 75 History of VTE Family history of VTE Factor V Leiden Prothrombin [id number] Lupus anticoagulant Anticardiolipin antibodies Elevated serum homocysteine Heparin-induced thrombocytopenia Other congenital or acquired thrombophilia Stroke (< 1 month) Elective arthroplasty Hip, pelvis, or leg fracture Acute spinal cord injury (< 1 month) Prophylaxis Regimen Total Risk Factor Score Risk Level Prophylaxis Regimen 0-1 Low Early ambulation 2 Moderate Order ONE of the following: *Sequential Compression Device (SCD) *Heparin 5000 units SQ BID 3-4 Higher Order ONE of the following medications: *Heparin 5000 units SQ TID *Enoxaparin/Lovenox 40 mg SQ daily (WT < 150 kg, CrCl > 30 mL/min) *Enoxaparin/Lovenox 30 mg SQ daily (WT < 150 kg, CrCl > 10-29 mL/min) *Enoxaparin/Lovenox 30 mg SQ BID (WT < 150 kg, CrCl > 30 mL/min) AND/OR *Sequential Compression Device (SCD) 5 or more Highest Order ONE of the following medications: *Heparin 5000 units SQ TID (Preferred with Epidurals) *Enoxaparin/Lovenox 40 mg SQ daily (WT < 150 kg, CrCl > 30 mL/min) *Enoxaparin/Lovenox 30 mg SQ daily (WT < 150 kg, CrCl > 10-29 mL/min) *Enoxaparin/Lovenox 30 mg SQ BID (WT < 150 kg, CrCl > 30 mL/min) AND *Sequential Compression Device (SCD) (Mena Lauren MD R2) Assessment and Plan Assessment and Plan 61-year-old female with history of oropharyngeal cancer presents with intractable pain secondary to metastatic cancer. Initially, goals of care were unclear but were clarified after discussion with a palliative nurse practitioner. Patient would be admitted under observation for management of pain and pending consult with Dr. Graves for palliative chemotherapy for her back. Code Status DNR Discussed Condition With Discussed with Dr. Bravo (Mena Lauren MD R2) Attending Attestation The patient has been seen and examined. The chart and all resident notes have been reviewed. I agree that inpatient care is appropriate and that a two midnight stay is expected for the reasons documented in the resident history and physical. I have discussed this with the resident and certify the resident s order for inpatient admission. 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 Graves for possible palliative radiation treatment for her back -Hospice has been introduced but she would like to discuss palliative treatments with Dr. Graves first (3) Decrease in appetite ICD Codes: R63.0 - Anorexia Plan: -Patient recently started on Megace for anorexia but unsure of dose -Will attempt to confirm patient's current dose and titrate up to 2 mg by mouth twice a day 2 assist with her for appetite, pain, and decreased energy (4) Depression ICD Codes: F32.9 - Major depressive disorder, single episode, unspecified Status: Acute Plan: -Continue fluoxetine 20 mg by mouth daily -Continue alprazolam 0.5 mg every 6 hours when necessary anxiety (5) FEN/DVT PPX/GI PPX/Nursing Orders Plan: Fluids: Oral fluids currently Electrolytes: Will monitor and replace as needed. Currently mildly hyponatremic , consider fluids if does not improve Nutrition: Regular adult diet, DVT Prophylaxis: Lovenox 40mg daily Constipation prophylaxis: Constipation regimen PRN Medications Tylenol 650 mg by mouth every 4 hours when necessary pain 1-10 or temperature greater than 100.4F Zofran 4 mg IV push every 6 hours when necessary nausea vomiting Morphine 4 mg IV push every 3 hours pain greater than 5 -Vitals Q4h -Monitor I's and O's -Neurochecks -Seizure precautions -Activity OOB ad kathy -PT to assist with ambulation -Case management consult to assist with discharge disposition Disposition: Possibly in 1-2 days pending consult with radiation oncology or if patient opts for hospice (Mena Lauren MD R2) Mena Lauren MD R2 Dec 15, 2016 19:19 Monica Bravo MD Dec 16, 2016 14:39
[2016-12-15] MEDS: MORPHINE SULFATE 4 MG/ML INJ IV PUSH PRN (19:54)
[2016-12-15] MEDS: SODIUM CHLORIDE 0.9% FLUSH 10 ML FLUSH IV FLUSH SCH (19:54)
[2016-12-15 20:02] VITALS: O2SAT 94
[2016-12-15 21:02] VITALS: BP 102/67; PULSE 68; RESP 18; TEMP 98.7; O2SAT 98
[2016-12-15] MEDS ORDERED: MAGNESIUM HYDROXIDE SUSP 30 ML CUP PO PRN (21:15)
[2016-12-15] MEDS ORDERED: ACETAMINOPHEN 325 MG TAB PO PRN (21:15)
[2016-12-15] MEDS: ENOXAPARIN SODIUM 40 MG/0.4 ML SYRINGE SQ SCH (22:00)
[2016-12-16] VITALS (8 sets, daily range): BP systolic 89–112; BP diastolic 53–70; PULSE 68–95; RESP 16–18; TEMP 98–99.9; O2SAT 93–98
[2016-12-16] MEDS ORDERED: SENNOSIDES 8.6 MG TAB PO PRN (04:30)
[2016-12-16] MEDS ORDERED: LACTULOSE SYRUP 20 GM/30 ML CUP PO PRN (04:30)
[2016-12-16] MEDS ORDERED: BISACODYL 10 MG SUPP RECTAL PRN (04:30)
[2016-12-16] MEDS ORDERED: ONDANSETRON HCL 4 MG/2 ML VIAL IV PUSH PRN (04:45)
[2016-12-16] MEDS: MORPHINE SULFATE 4 MG/ML INJ IV PUSH PRN ×2 (05:11→08:54)
[2016-12-16] MEDS: FLUoxetine HCL 20 MG CAP PO SCH (08:51)
[2016-12-16] MEDS: SODIUM CHLORIDE 0.9% FLUSH 10 ML FLUSH IV FLUSH SCH ×2 (08:52→20:37)
[2016-12-16] MEDS: DOCUSATE SODIUM 50 MG/SENNA 8.6 MG TAB PO SCH ×2 (08:52→20:37)
[2016-12-16] MEDS: MORPHINE SULFATE 30 MG CONTROLLED RELEASE TAB PO SCH ×2 (12:32→20:37)
--- NOTE | 2016-12-16 15:02 | HHI.FPPN ---
Subjective Subjective Patient seen and examined with the resident team this am. Case reviewed and discussed Please refer to resident H&P for further details regarding HPI, ROS, PMH, SurgHx , FH and SocHx In summary, patient is a very pleasant 61yoF with metastatic OP CA to the spine. She has been working through plans for palliative radiation therapy, Dr. Graves Patient came into the ED with intractable pain not controlled with her home regimen. She is seen with the resident team resting in bed, pain improved with IV morphine Hospital Objective Objective Laboratory Tests - Abnormals Test 12/15/16 17:47 12/15/16 21:20 White Blood Count 22.2 TH/MM3 Red Blood Count 3.62 MIL/MM3 Hemoglobin 10.5 GM/DL Hematocrit 31.3 % Platelet Count 654 TH/MM3 Neutrophils (%) (Auto) 91.6 % Lymphocytes (%) (Auto) 2.2 % Neutrophils # (Auto) 20.4 TH/MM3 Lymphocytes # (Auto) 0.5 TH/MM3 Monocytes # (Auto) 1.2 TH/MM3 Blood Urea Nitrogen 19 MG/DL Albumin 2.7 GM/DL Calcium Level 7.8 MG/DL Alkaline Phosphatase 194 U/L Alanine Aminotransferase (ALT/SGPT) 74 U/L Sodium Level 133 MEQ/L Estimat Glomerular Filtration Rate 82 ML/MIN Vital Signs 12/15/16 12/15/16 12/15/16 12/15/16 17:51 20:02 20:04 21:02 Temp 98.7 Pulse 71 68 Resp 15 18 B/P (MAP) 128/74 (92) 102/67 (79) Pulse Ox 97 94 98 O2 Delivery Room Air FiO2 21 12/16/16 12/16/16 12/16/16 12/16/16 00:53 04:13 04:54 07:51 Temp 98.4 98.3 98.1 99.8 Pulse 68 90 90 92 Resp 18 16 18 18 B/P (MAP) 112/58 (76) 89/57 (68) 96/60 (72) 97/70 (79) Pulse Ox 97 94 98 95 Physical exam GENERAL: Cachectic female, mild painful distress with movement. SKIN: Warm and dry. No lesions, rashes HEAD: Normocephalic. AT EYES: No scleral icterus. No injection or drainage. ENT: OP with missing bottom teeth, poor dentition NECK: Supple, trachea midline. CARDIOVASCULAR: Regular rate and rhythm without murmurs, gallops, or rubs. RESPIRATORY: Breath sounds equal bilaterally. Poor inspiratory effort. No accessory muscle use. GASTROINTESTINAL: Abdomen soft, non-tender, nondistended. MUSCULOSKELETAL: No cyanosis, or edema. No calf tenderness, muscle wasting. BACK: Nontender without obvious deformity. No CVA tenderness. NEURO: Awake and alert. Normal speech. CN grossly intact. Assessment Assessment Intractable pain Malnutrition Essential hypertension Depression Squamous cell carcinoma of the oropharynx, diagnosed May 2015, known to Dr. Graves (radiation oncology), Dr. Solorzano (medical oncology) PLAN PLAN Pain control Palliative care consult for goals of care Oncology and Rad Onc consultation Resume home meds as appropriate Boost with meals Lovenox Patient seen and examined. Case reviewed and discussed Agree with plan of care as discussed with me and documented in the resident note. Monica Bravo MD Dec 16, 2016 15:02
[2016-12-16] MEDS ORDERED: OMEP20TA93 PO (15:03)
[2016-12-16] MEDS ORDERED: HYDR-3366 PO (15:06)
[2016-12-16] MEDS ORDERED: MORP1TAB25 PO (15:06)
[2016-12-16] MEDS ORDERED: DEXA2TAB PO (15:06)
[2016-12-16] MEDS: PANTOPRAZOLE SOD 40 MG DELAYED RELEASE TAB PO SCH (15:21)
--- NOTE | 2016-12-16 15:39 | RADRPT ---
EXAM DATE/TIME: 12/16/2016 14:48 [facility] COMPARISON: No previous studies available for comparison. INDICATIONS : Right leg pain MEDICAL HISTORY : Metastatic, lung. Tongue cancer SURGICAL HISTORY : None. ENCOUNTER: Initial ACUITY: 1 day PAIN SCORE: 7/10 LOCATION: Right femur FINDINGS: Two view examination of the right femur demonstrates no evidence of fracture or dislocation. Bony mi neralization is normal. The soft tissue structures are intact. CONCLUSION: No fracture. Sunny Farfan MD on December 16, 2016 at 15:37 Board Certified Radiologist. This report was verified electronically.
[2016-12-16] MEDS: ALPRAZolam 0.5 MG TAB PO PRN (15:55)
--- NOTE | 2016-12-16 17:18 | RADRPT ---
EXAM DATE/TIME: 12/16/2016 16:19 [facility] COMPARISON: CT ABDOMEN W CONTRAST, November 15, 2016, 14:28. INDICATIONS : Metastatic disease. CONTRAST: 8 cc Omniscan (gadodiamide) IV MEDICAL HISTORY : Metastatic, bone. Carcinoma, tongue. Metastatic, lung. Hypertension. SURGICAL HISTORY : section. ENCOUNTER: Initial ACUITY: 2 day PAIN SCORE: 5/10 LOCATION: Paraspinal TECHNIQUE: Multiplanar multisequence MRI of the lumbar spine was performed with and without contrast. FINDINGS: The most caudal appearing lumbar vertebra is numbered as L5. MRI confirms the presence of a lytic process along the right posterior superior endplate of L3 with a n associated soft tissue mass the total lesion measuring approximately 2.5 cm in the AP dimension. Th ere is rim enhancement on the edges of the lesion with some epidural extension. This appears to fill the lateral recess. Otherwise, marrow signal is normal throughout the remaining portions of the lumba r spine. Spinal canal is otherwise adequate. T12-L1: The thecal sac has a normal diameter. No evidence of disc bulge or protrusion. The neural foramina are patent bilaterally. L1-L2: The thecal sac has a normal diameter. No evidence of disc bulge or protrusion. The neural foramina are patent bilaterally. L2-L3: The thecal sac has a normal diameter. No evidence of disc bulge or protrusion. The neural foramina are patent bilaterally. L3-L4: 2.5 cm lytic process in the right posterior aspect of the superior endplate of L3 with epidural exten jacinda into the lateral recess. This appears to significantly compromise the right L3 nerve root. The l eft side of the spinal canal and neural foramina are adequate despite some regional facet hypertrophy . L4-L5: Bilateral facet hypertrophy with mild to moderate central spinal stenosis. Both neural foramina are a dequate. L5-S1: The thecal sac has a normal diameter. No evidence of disc bulge or protrusion. The neural foramina are patent bilaterally. CONCLUSION: 1. 2.5 x 1.4 cm lytic area with associated soft tissue mass in the right posterior superior aspect of the L3 vertebral body. There is some epidural extension into the lateral recess which appears to com promise the right L3 nerve root. 2. Facet hypertrophy predominantly at L3-4 and L4-5 with some mild to moderate encroachment on the sp inal canal at these 2 levels, respectively. Canal and foramina are otherwise adequate at all remainin g levels. Sunny Farfan MD on December 16, 2016 at 17:06 Board Certified Radiologist. This report was verified electronically.
--- NOTE | 2016-12-16 17:36 | RADRPT ---
EXAM DATE/TIME: 12/16/2016 16:19 [facility] COMPARISON: CT ABDOMEN W CONTRAST, November 15, 2016, 14:28. INDICATIONS : Metastatic disease. CONTRAST: 8 cc Omniscan (gadodiamide) IV MEDICAL HISTORY : Metastatic, lung. Carcinoma, tongue. Metastatic, bone. Hypertension. SURGICAL HISTORY : section. ENCOUNTER: Initial ACUITY: 2 day PAIN SCORE: 5/10 LOCATION: Paraspinal TECHNIQUE: Multiplanar, multisequence magnetic resonance imaging of the pelvis was performed. FINDINGS: REPRODUCTIVE: No mass is visualized. There are high T1 and mildly high T2 signal intensity mass is adjacent to the vaginal introitus bilaterally measuring 1.3 cm on the right and 1.6 cm on the left. BLADDER: No wall thickening or mass. RETROPERITONEUM: There is no lymphadenopathy. Vascular structures demonstrate no acute finding. BOWEL/MESENTERY: Visualized small and large bowel demonstrates no acute abnormality. There is no free fluid. There is sigmoid diverticulosis. INGUINAL: No lymphadenopathy or hernia. MUSCULOSKELETAL: No bone lesion is identified. CONCLUSION: 1. There are no findings to indicate metastatic disease within the pelvis. 2. There are bilateral Bartholin gland cysts. Tito Goldberg MD on December 16, 2016 at 17:17 Board Certified Radiologist. This report was verified electronically.
--- NOTE | 2016-12-16 20:18 | RC ---
cc: WALLACE MAGAÑA MD, ALVARO FACTOR, BRAD A. MD DATE OF SERVICE: 12/16/2016. DATE OF : 1955. 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 CHIEF COMPLAINT: Pain of the lower back and right hip and right femur. REASON FOR VISIT: The patient is being evaluated for palliative radiotherapeutic treatment options. HISTORY OF PRESENT ILLNESS: This is a 60-year-old white female who was seen by Dr. Graves initially in April of 2015 with a diagnosis of squamous cell carcinoma of the left base of the tongue. The patient was treated by Dr. Graves with concomitant chemoradiotherapy to a dose of 70 cGy. It appears that the patient was last seen by him developing metastatic disease to the above-mentioned areas. It appears that the patient was last seen by Dr. Graves on 12/15/2016 and was recommended to undergo radiation therapy for palliation to the right hip as well as the lumbar spine. Dr. Graves had indicated for the patient to have a lumbar imaging and pelvic imaging but she never went for this. She also was supposed to return for simulation and treatment planning and she also did not show up for planning. The patient recently has been admitted with intractable pain. I have been consulted for discussion about radiotherapeutic treatment options. PAST MEDICAL HISTORY: Her past medical history is as above as well as: 1. History of essential hypertension. 2. Depression. 3. PEG-tube placement. MEDICATIONS: 1. Pantoprazole. 2. Morphine sulfate. 3. Fluoxetine hydrochloride. 4. Ondansetron. 5. Lactulose. ALLERGIES: NO KNOWN DRUG ALLERGIES. REVIEW OF SYSTEMS: CONSTITUTIONAL: The patient has had loss of weight and general malaise. ALLERGIES: The patient has not had a major allergic reaction recently. EYES: Denies any double vision. ENT: The patient has been having difficulty with pain with swallowing but since being admitted to the hospital is able to swallow better. NECK: Denies any neck masses. CARDIOVASCULAR: Unremarkable. Denies any chest pain. RESPIRATORY: She says she has slight pain with breathing but denies any hemoptysis. GASTROINTESTINAL: Denies any rectal bleeding. No abdominal pain. GENITOURINARY: Unremarkable. MUSCULOSKELETAL: The patient admits to lower back pain and right hip pain. NEUROLOGICAL: The patient denies any decrease in cognitive functions. No motor function deficits. Denies any loss of bowel or bladder control. PSYCHIATRIC Unremarkable. ENDOCRINE: Unremarkable. HEMATOLOGIC: Unremarkable. DERMATOLOGIC: Unremarkable. PHYSICAL EXAMINATION: GENERAL: The patient is alert and oriented times three with some distress due to the pain. When I asked the patient, she says her pain is 9/10. When I evaluated the patient, the patient had her legs crossed and seemed comfortable this is the pain rating scale that she is giving. VITAL SIGNS: Temperature 98.8, pulse 92, respiratory rate 18, blood pressure 97/70, pulse oximetry 95% on room air. BACK: To deep palpation and percussion of the posterior back, no pain was elicited. LUNGS: Decreased ventilatory respiratory effort and had some wheezing and rhonchi but I believe this is from upper airway. HEART: Regular in rate and rhythm. No murmurs. NECK: Palpation of the neck and bilateral supraclavicular areas are free. ABDOMEN: Palpation of the abdominal cavity reveals no hepatosplenomegaly. No pain elicited. EXTREMITIES: Lower extremities without edema. NEUROLOGIC: No neurological deficits detected. No pain was noted to range of motion on the right femur. On deep palpation of bilateral hips, no pain. No other positive findings. SURGICAL PATHOLOGY: Surgical pathology is recorded on the electronic record. IMAGING STUDIES: CT of the abdomen 11/15/[address] CHEST on 11/15/2016 reviewed. 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 The patient being evaluated for palliative radiotherapeutic treatment options. PLAN: I had an extensive discussion with the patient in regards to the present condition. I have read Dr. Graves's last note done on 12/15/2016. I advised the patient that Dr. Graves is on vacation and I would like to continue with his plan of radiotherapy to the lumbar spine and possibly the right hip. The patient was supposed to have imaging studies and as a result of this, I have ordered an MRI of the lumbar spine, MRI of the pelvis and plain x-ray films of the right femur. Depending on the results, the radiation will be planned accordingly. The patient was advised that I would like simulate her today so we can start radiation therapy by tomorrow or Sunday. The patient declined to have simulation done today and wants to wait until Sunday. The patient was advised that I cannot do the simulation tomorrow and again, I repeated that I would like to the simulation today and she declined again. The patient was advised of the side effects and complications of radiotherapy as well as the merits, the side effects and complications including but are not limited to weakness and fatigue, decreased blood counts, necrosis of the skin, nausea, vomiting, diarrhea, bowel and bladder damage, bowel and bladder bleeding, bowel and bladder incontinence, rectal bleeding and bladder bleeding, hemorrhoidal flare-up, loss of hair in the treated area, swelling of the treated area. Pain of the treated area, bone fracture, nerve damage, spinal cord damage. After a thorough discussion again the patient does not want to proceed forward with simulation today and wants to wait until Sunday. The patient was advised that if I can be of any further assistance to please let me know. I intend to simulate on Sunday and hopefully start her treatments by next week. Arnold Ogden MD Radiation Oncologist REYNALDO VIGIL/BETH /2:57 PM /8:00 PM [place]
[2016-12-16] MEDS: DEXAMETHASONE 4 MG TAB PO SCH (20:35)
[2016-12-16] MEDS: ENOXAPARIN SODIUM 40 MG/0.4 ML SYRINGE SQ SCH (20:37)
[2016-12-17 04:05] VITALS: BP 98/57; PULSE 78; RESP 18; TEMP 98.1; O2SAT 96
[2016-12-17 08:05] LABS: HEMATOCRIT 29.9 % (35.0-46.0); MEAN CELL VOLUME 85.7 FL (80.0-100.0); MEAN CORPUSCULAR HEMOGLOBIN 28.7 PG (27.0-34.0); MEAN CORPUSCULAR HGB CONC 33.5 % (32.0-36.0); PLATELET COUNT 590 TH/MM3 (150-450); RED BLOOD COUNT 3.49 MIL/MM3 (4.00-5.30); RED CELL DISTRIBUTION WIDTH 15.1 % (11.6-17.2); REVIEW FLAG FINAL; WHITE BLOOD COUNT 21.2 TH/MM3 (4.0-11.0)
[2016-12-17 08:08] VITALS: BP 99/56; PULSE 82; RESP 16; TEMP 98.2; O2SAT 96
[2016-12-17 08:26] LABS: BICARBONATE 24.6 MEQ/L (21.0-32.0); POTASSIUM 4.7 MEQ/L (3.5-5.1)
--- NOTE | 2016-12-17 08:37 | HHI.FPPN ---
Subjective Remarks Pt is doing the same as before. She is still experiencing a lot of pain but does not want to bother the nurses so she does not call for her prn pain medications. She is looking forward to starting stimulation treatments tomorrow. (Mena Lauren MD R2) Objective Vitals Vital Signs Date Time Temp Pulse Resp B/P (MAP) Pulse Ox O2 Delivery O2 Flow Rate FiO2 12/17/16 08:08 98.2 82 16 99/56 (70) 96 12/17/16 04:05 98.1 78 18 98/57 (71) 96 12/16/16 23:59 98.8 95 18 98/53 (68) 93 12/16/16 21:10 99.9 95 18 97/62 (74) 96 12/16/16 19:25 95 12/16/16 15:30 98.0 84 16 111/59 (76) 94 I/O 12/16/16 12/16/16 12/16/16 12/17/16 12/17/16 12/17/16 07:00 15:00 23:00 07:00 15:00 23:00 Intake Total 240 ml Balance 240 ml Intake Oral 240 ml # Voids 3 (Mena Lauren MD R2) Result Diagram: 12/17/1670412/17/16704 Imaging Last 72 hours Impressions Pelvis MRI 12/16/16 0000 Signed Impressions: Service Date/Time: Friday, December 16, 2016 16:19 - CONCLUSION: 1. There are no findings to indicate metastatic disease within the pelvis. 2. There are bilateral Bartholin gland cysts. Tito Goldberg MD Lumbar Spine MRI 12/16/16 0000 Signed Impressions: Service Date/Time: Friday, December 16, 2016 16:19 - CONCLUSION: 1. 2.5 x 1.4 cm lytic area with associated soft tissue mass in the right posterior superior aspect of the L3 vertebral body. There is some epidural extension into the lateral recess which appears to compromise the right L3 nerve root. 2. Facet hypertrophy predominantly at L3-4 and L4-5 with some mild to moderate encroachment on the spinal canal at these 2 levels, respectively. Canal and foramina are otherwise adequate at all remaining levels. Sunny Farfan MD Femur X-Ray 12/16/16 0000 Signed Impressions: Service Date/Time: Friday, December 16, 2016 14:48 - CONCLUSION: No fracture. Sunny Farfan MD Objective Remarks GENERAL: This is a thin, well-developed patient, in no apparent distress. SKIN: No rashes, ecchymoses or lesions. Cool and dry. HEAD: Atraumatic. Normocephalic. No temporal or scalp tenderness. EYES: Pupils equal round and reactive. Extraocular motions intact. No scleral icterus. No injection or drainage. ENT: MMM. Uvula midline. Airway patent. NECK: Trachea midline. Supple, nontender, no meningeal signs. CARDIOVASCULAR: Regular rate and rhythm without murmurs, gallops, or rubs. RESPIRATORY: Clear to auscultation. Breath sounds equal bilaterally but faint due to weak effort. No wheezes GASTROINTESTINAL: Abdomen soft, non-tender, nondistended. No hepato-splenomegaly , or palpable masses. No guarding. MUSCULOSKELETAL: Extremities without clubbing, cyanosis, or edema. Tender to palpation over the right leg and right lower back. NEUROLOGICAL: Awake and alert. Cranial nerves II through XII intact. Motor and sensory grossly within normal limits. (Mena Lauren MD R2) A/P Assessment and Plan 61-year-old female with history of oropharyngeal cancer presents with intractable pain secondary to metastatic cancer. Initially, goals of care were unclear but were clarified after discussion with a palliative nurse practitioner. Patient was initially admitted under observation for management of pain and pending consult with Dr. Graves for palliative chemotherapy for her back. Based on consult with radiation oncologist Dr. Collins, she was fully admitted on 12/17 with plans for simulation on Sunday in preparation for palliative radiation therapy treatments per radiation oncology. Discussed with Dr. Bravo Discharge Planning Pending recommendations from radiation oncology due to need for simulation and palliative radiation therapy treatments. (Mena Lauren MD R2) Attending Attestation Patient seen and examined. Case reviewed and discussed Agree with plan of care as discussed with me and documented in the resident note. (Monica Bravo MD) Problem List: (1) Pain ICD Codes: R52 - Pain, unspecified Status: Chronic Plan: -Experiencing breakthrough pain from metastatic cancer -Continue morphine 30 mg by mouth every 12 hours scheduled -Continue morphine 4 mg IV every 3 hours when necessary for pain>5, to titrate up as needed -Patient may benefit from a TEST BAKER for pain control (2) 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 ICD Codes: C02.9 - Malignant neoplasm of tongue, unspecified; C79.89 - Secondary malignant neoplasm of other specified sites Plan: -Known lesion at L3 -Leukocytosis is most likely due to chronic inflammatory state from metastatic cancer -Will hold off on antibiotics at this time although sepsis criteria was fulfilled with tachycardia and elevated white blood cell count - patient is currently afebrile -Per radiation oncology and patient's preference, simulation to begin on Sunday in preparation for palliative radiation therapy treatment (3) Decrease in appetite ICD Codes: R63.0 - Anorexia Plan: -Continue dexamethasone 2 mg by mouth twice a day (4) Depression ICD Codes: F32.9 - Major depressive disorder, single episode, unspecified Status: Acute Plan: -Continue fluoxetine 20 mg by mouth daily -Continue alprazolam 0.5 mg every 6 hours when necessary anxiety (5) FEN/DVT PPX/GI PPX/Nursing Orders Plan: Fluids: Oral fluids currently Electrolytes: Will monitor and replace as needed. Nutrition: Regular adult diet DVT Prophylaxis: Lovenox 40mg daily Constipation prophylaxis: Constipation regimen PRN Medications Tylenol 650 mg by mouth every 4 hours when necessary pain 1-10 or temperature greater than 100.4F Zofran 4 mg IV push every 6 hours when necessary nausea vomiting Morphine 4 mg IV push every 3 hours pain greater than 5 -Vitals Q4h -Monitor I's and O's -Neurochecks -Seizure precautions -Activity OOB ad kathy -PT to assist with ambulation and strengthening exercises - recommend home with home health -Case management consult to assist with discharge disposition (Mena Lauren MD R2) Mena Lauren MD R2 Dec 17, 2016 08:37 Monica Bravo MD Dec 18, 2016 08:57
[2016-12-17] MEDS: MORPHINE SULFATE 30 MG CONTROLLED RELEASE TAB PO SCH ×2 (08:50→20:52)
[2016-12-17] MEDS: DOCUSATE SODIUM 50 MG/SENNA 8.6 MG TAB PO SCH ×2 (08:50→20:53)
[2016-12-17] MEDS: PANTOPRAZOLE SOD 40 MG DELAYED RELEASE TAB PO SCH (08:50)
[2016-12-17] MEDS: FLUoxetine HCL 20 MG CAP PO SCH (08:50)
[2016-12-17] MEDS: SODIUM CHLORIDE 0.9% FLUSH 10 ML FLUSH IV FLUSH SCH ×2 (08:50→20:56)
[2016-12-17] MEDS: DEXAMETHASONE 4 MG TAB PO SCH ×2 (08:51→23:00)
--- NOTE | 2016-12-17 09:02 | PD.ONC.PN ---
Subjective Subjective Remarks Patient seen on 12/16/16 Consult Note dictated Patient with progressive oropharyngeal cancer poor PFS she is requesting hospice referral will ask palliative to see patient continue pain management Objective Data Date Time Temp Pulse Resp B/P (MAP) Pulse Ox O2 Delivery O2 Flow Rate FiO2 12/17/16 08:08 98.2 82 16 99/56 (70) 96 12/17/16 04:05 98.1 78 18 98/57 (71) 96 12/16/16 23:59 98.8 95 18 98/53 (68) 93 12/16/16 21:10 99.9 95 18 97/62 (74) 96 12/16/16 19:25 95 12/16/16 15:30 98.0 84 16 111/59 (76) 94 Result Diagram: 12/17/1670412/17/16704 Laboratory Results Laboratory Tests Test 12/17/16 07:05 White Blood Count 21.2 TH/MM3 Red Blood Count 3.49 MIL/MM3 Hemoglobin 10.0 GM/DL Hematocrit 29.9 % Mean Corpuscular Volume 85.7 FL Mean Corpuscular Hemoglobin 28.7 PG Mean Corpuscular Hemoglobin Concent 33.5 % Red Cell Distribution Width 15.1 % Platelet Count 590 TH/MM3 Mean Platelet Volume 7.6 FL Blood Urea Nitrogen 11 MG/DL Creatinine 0.52 MG/DL Random Glucose 111 MG/DL Calcium Level 7.9 MG/DL Sodium Level 134 MEQ/L Potassium Level 4.7 MEQ/L Chloride Level 102 MEQ/L Carbon Dioxide Level 24.6 MEQ/L Anion Gap 7 MEQ/L Estimat Glomerular Filtration Rate 119 ML/MIN Administered Medications Medications (Trade) Dose Ordered Sig/Acacia Route PRN Reason Start Time Stop Time Status Last Admin Dose Admin Sodium Chloride (NS Flush) 2 ml BID IV FLUSH 12/15/16 21:00 12/17/16 08:50 Alprazolam (Xanax) 0.5 mg Q6H PRN PO ANXIETY 12/15/16 19:45 12/16/16 15:55 Morphine Sulfate (Morphine Inj) 4 mg Q3H PRN IV PUSH PAIN GREATER THAN 5 12/15/16 20:00 12/16/16 08:54 Fluoxetine HCl (PROzac) 20 mg DAILY PO 12/16/16 09:00 12/17/16 08:50 Senna/Docusate Sodium (Dasha-Colace) 1 tab BID PO 12/16/16 09:00 12/17/16 08:50 Morphine Sulfate (Oramorph Sr) 30 mg Q12HR PO 12/16/16 11:30 12/17/16 08:50 Pantoprazole Sodium (Protonix) 40 mg DAILY PO 12/16/16 14:15 12/17/16 08:50 Dexamethasone (Decadron) 2 mg BID PO 12/16/16 21:00 12/17/16 08:51 Objective Remarks GENERAL: thin, cachectic SKIN: Warm and dry. NECK: Supple, trachea midline. No JVD or lymphadenopathy. LYMPHATIC: No adenopathy. CARDIOVASCULAR: Regular rate and rhythm without murmurs. RESPIRATORY: Breath sounds equal bilaterally. No accessory muscle use. GASTROINTESTINAL: Abdomen soft, non-tender, nondistended. EXTREMITIES: No cyanosis, or edema. MUSCULOSKELETAL: Adequate muscle tone. Assessment/Plan Problem List: (1) 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: C02.9 - Malignant neoplasm of tongue, unspecified Status: Acute (2) Mass of left lung ICD Codes: R91.8 - Other nonspecific abnormal finding of lung field Status: Acute (3) Weakness ICD Codes: R53.1 - Weakness (4) HTN (hypertension) ICD Codes: I10 - Essential (primary) hypertension Status: Acute (5) 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 ICD Codes: C02.9 - Malignant neoplasm of tongue, unspecified; C79.89 - Secondary malignant neoplasm of other specified sites (6) Pain ICD Codes: R52 - Pain, unspecified Status: Chronic (7) Physical deconditioning ICD Codes: R53.81 - Other malaise Ismael Vizcaino MD Dec 17, 2016 09:02
[2016-12-17 09:25] LABS: BACTERIA, URINE RARE /hpf; BLOOD, URINE NEG (NEG); COMMENT (UR) CULT NOT INDICATED; CULTURE IF INDICATED CULT NOT INDICATED; GLUCOSE,URINE NEG (NEG); KETONE, URINE NEG (NEG); MUCUS URINE FEW /lpf (OCC); NITRITE,URINE NEG (NEG); SQUAMOUS EPITHELIAL CELL URINE <1 /hpf (0-5); URINE COLOR YELLOW (YELLW/STRAW)
[2016-12-17 11:51] VITALS: BP 105/56; PULSE 80; RESP 18; TEMP 98.2; O2SAT 96
[2016-12-17 15:40] VITALS: BP 94/56; PULSE 88; RESP 16; TEMP 98.6; O2SAT 95
--- NOTE | 2016-12-17 15:53 | PD.ONC.PN ---
Subjective Subjective Remarks Afebrile Patient reports her pain is the same She is hopeful that palliative radiation will ease some of the pain Complains of some wheezing Objective Data Date Time Temp Pulse Resp B/P (MAP) Pulse Ox O2 Delivery O2 Flow Rate FiO2 12/17/16 11:51 98.2 80 18 105/56 (72) 96 12/17/16 08:08 98.2 82 16 99/56 (70) 96 12/17/16 04:05 98.1 78 18 98/57 (71) 96 12/16/16 23:59 98.8 95 18 98/53 (68) 93 12/16/16 21:10 99.9 95 18 97/62 (74) 96 12/16/16 19:25 95 Result Diagram: 12/17/1670412/17/16704 Laboratory Results Laboratory Tests Test 12/17/16 07:05 12/17/16 08:30 White Blood Count 21.2 TH/MM3 Red Blood Count 3.49 MIL/MM3 Hemoglobin 10.0 GM/DL Hematocrit 29.9 % Mean Corpuscular Volume 85.7 FL Mean Corpuscular Hemoglobin 28.7 PG Mean Corpuscular Hemoglobin Concent 33.5 % Red Cell Distribution Width 15.1 % Platelet Count 590 TH/MM3 Mean Platelet Volume 7.6 FL Blood Urea Nitrogen 11 MG/DL Creatinine 0.52 MG/DL Random Glucose 111 MG/DL Calcium Level 7.9 MG/DL Sodium Level 134 MEQ/L Potassium Level 4.7 MEQ/L Chloride Level 102 MEQ/L Carbon Dioxide Level 24.6 MEQ/L Anion Gap 7 MEQ/L Estimat Glomerular Filtration Rate 119 ML/MIN Urine Color YELLOW Urine Turbidity CLEAR Urine pH 6.0 Urine Specific [place] 1.013 Urine Protein TRACE mg/dL Urine Glucose (UA) NEG mg/dL Urine Ketones NEG mg/dL Urine Occult Blood NEG Urine Nitrite NEG Urine Bilirubin NEG Urine Urobilinogen LESS THAN 2.0 MG/DL Urine Leukocyte Esterase TRACE Urine RBC LESS THAN 1 /hpf Urine WBC 2 /hpf Urine Squamous Epithelial Cells <1 /hpf Urine Bacteria RARE /hpf Urine Mucus FEW /lpf Microscopic Urinalysis Comment CULT NOT INDICATED Imaging Studies Last Impressions Pelvis MRI 12/16/16 0000 Signed Impressions: Service Date/Time: Friday, December 16, 2016 16:19 - CONCLUSION: 1. There are no findings to indicate metastatic disease within the pelvis. 2. There are bilateral Bartholin gland cysts. Tito Goldberg MD Lumbar Spine MRI 12/16/16 0000 Signed Impressions: Service Date/Time: Friday, December 16, 2016 16:19 - CONCLUSION: 1. 2.5 x 1.4 cm lytic area with associated soft tissue mass in the right posterior superior aspect of the L3 vertebral body. There is some epidural extension into the lateral recess which appears to compromise the right L3 nerve root. 2. Facet hypertrophy predominantly at L3-4 and L4-5 with some mild to moderate encroachment on the spinal canal at these 2 levels, respectively. Canal and foramina are otherwise adequate at all remaining levels. Sunny Farfan MD Femur X-Ray 12/16/16 0000 Signed Impressions: Service Date/Time: Friday, December 16, 2016 14:48 - CONCLUSION: No fracture. Sunny Farfan MD Administered Medications Medications (Trade) Dose Ordered Sig/Acacia Route PRN Reason Start Time Stop Time Status Last Admin Dose Admin Sodium Chloride (NS Flush) 2 ml BID IV FLUSH 12/15/16 21:00 12/17/16 08:50 Alprazolam (Xanax) 0.5 mg Q6H PRN PO ANXIETY 12/15/16 19:45 12/16/16 15:55 Morphine Sulfate (Morphine Inj) 4 mg Q3H PRN IV PUSH PAIN GREATER THAN 5 12/15/16 20:00 12/16/16 08:54 Fluoxetine HCl (PROzac) 20 mg DAILY PO 12/16/16 09:00 12/17/16 08:50 Senna/Docusate Sodium (Dasha-Colace) 1 tab BID PO 12/16/16 09:00 12/17/16 08:50 Morphine Sulfate (Oramorph Sr) 30 mg Q12HR PO 12/16/16 11:30 12/17/16 08:50 Pantoprazole Sodium (Protonix) 40 mg DAILY PO 12/16/16 14:15 12/17/16 08:50 Dexamethasone (Decadron) 2 mg BID PO 12/16/16 21:00 12/17/16 08:51 Objective Remarks GENERAL: Cachectic older female sitting up in bed watching TV in no acute distress SKIN: Warm and dry. HEAD: Normocephalic. EYES: No injection or drainage. NECK: Supple, trachea midline. CARDIOVASCULAR: + S1/S2 RESPIRATORY: Extremity wheezing heard bilaterally. Breathing unlabored at rest GASTROINTESTINAL: Abdomen soft, non-tender, nondistended. EXTREMITIES: No cyanosis, or edema. MUSCULOSKELETAL: Adequate muscle tone. NEUROLOGICAL: No obvious focal deficit. Awake, alert, and oriented x3. Assessment/Plan Problem List: (1) Oropharyngeal carcinoma ICD Codes: C10.9 - Malignant neoplasm of oropharynx, unspecified Plan: -- MRI shows 2.5 x 1.4 cm lytic area with associated soft tissue mass in the right posterior superior aspect of the L3 vertebral body. -- Plan for XRT simulation on Sunday for palliation to symptoms. -- Pt with overall poor prognosis; palliative care following -- Has Oramorph scheduled 30mg po BID with prn morphine 4mg IV Q3H. Hx/Workup: Pt has an extensive past history of tobaccoism. 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 She underwent concurrent chemoradiotherapy to a definitive dose and had a good local response to treatment. Unfortunately in February 2016 she presented with pulmonary masses consistent with metastatic disease. These were biopsy proven. She was subsequently initiated on systemic therapy and has been on treatment with pembrolizumab Assessment 61 y/o female with metastatic oropharyngeal carcinoma admitted for relentless pain Plan 1. Continue current pain regimen. 2. Will add on Duonebs for expiratory wheeze. 3. Transfer to Hem/onc floor. 4. Supportive care. Attending Statement The exam, history, and the medical decision-making described in the above note were completed with the assistance of the mid-level provider. I reviewed and agree with the findings presented. I attest that I had a [id number] encounter with the patient on the same day, and personally performed and documented my assessment and findings in the medical record Palliative XRT on sunday Palliative care to see on sunday//wants to pursue hospice on Oramorph and prn Morphine sulfate for pain control d/w rn o/n events reviewed Tammy Hatfield Dec 17, 2016 15:53 Ismael Vizcaino MD Dec 17, 2016 15:57
[2016-12-17] MEDS ORDERED: RESP: ALBUTEROL 2.5 MG/IPRATROPIUM 0.5 MG NEB (SCH) NEB ONE (16:00)
[2016-12-17] MEDS ORDERED: RESP: ALBUTEROL 2.5 MG/IPRATROPIUM 0.5 MG NEB (PRN) NEB (20:00)
[2016-12-17 20:22] VITALS: PULSE 78
[2016-12-17 20:53] VITALS: BP 104/68; PULSE 84; RESP 16; TEMP 99; O2SAT 95
[2016-12-17] MEDS: MORPHINE SULFATE 4 MG/ML INJ IV PUSH PRN (20:53)
[2016-12-17] MEDS: ENOXAPARIN SODIUM 40 MG/0.4 ML SYRINGE SQ SCH (23:04)
[2016-12-18] VITALS (9 sets, daily range): BP systolic 92–109; BP diastolic 65–73; PULSE 72–83; RESP 16–18; TEMP 98–98.7; O2SAT 95–99
[2016-12-18] MEDS: SODIUM CHLORIDE 0.9% FLUSH 10 ML FLUSH IV FLUSH SCH ×2 (04:50→20:44)
[2016-12-18] MEDS: MORPHINE SULFATE 4 MG/ML INJ IV PUSH PRN ×4 (04:50→16:25)
[2016-12-18] MEDS: PANTOPRAZOLE SOD 40 MG DELAYED RELEASE TAB PO SCH (07:52)
[2016-12-18] MEDS: DOCUSATE SODIUM 50 MG/SENNA 8.6 MG TAB PO SCH ×2 (07:53→20:40)
[2016-12-18] MEDS: FLUoxetine HCL 20 MG CAP PO SCH (07:53)
[2016-12-18] MEDS: DEXAMETHASONE 4 MG TAB PO SCH ×2 (07:53→20:40)
[2016-12-18] MEDS: MORPHINE SULFATE 30 MG CONTROLLED RELEASE TAB PO SCH ×2 (07:53→20:43)
--- NOTE | 2016-12-18 08:25 | PD.ONC.PN ---
Subjective Subjective Remarks Ms. Wagoner was seen and examined, events of the weekend, imaging studies, vital signs, medications were reviewed. She tells me her back pain had been progressing over the past 1 week to the point where she was unable to walk. She came in to [facility] for further workup and management. MRI of the lumbar spine indicated destructive metastatic lesion involving the upper lumbar vertebral bodies. She was evaluated by radiation oncology and is scheduled to undergo simulation for palliative radiation to the lumbar spine later today. She tells me her pain control has improved since she's been in the hospital. Palliative care has been appropriately involved in her care as the patient will be transitioned to hospice following completion of palliative radiation. Objective Data Date Time Temp Pulse Resp B/P (MAP) Pulse Ox O2 Delivery O2 Flow Rate FiO2 12/18/16 07:49 98.7 78 16 109/69 (82) 95 12/18/16 04:48 98.0 72 16 106/69 (81) 95 12/18/16 04:00 75 12/18/16 00:06 82 12/18/16 00:02 98.4 75 16 92/66 (75) 95 12/17/16 20:53 99.0 84 16 104/68 (80) 95 12/17/16 20:22 78 12/17/16 15:40 98.6 88 16 94/56 (69) 95 12/17/16 11:51 98.2 80 18 105/56 (72) 96 12/18/16 12/18/16 12/18/16 07:00 15:00 23:00 Intake Total 720 ml Balance 720 ml Result Diagram: 12/17/1670412/17/16704 Laboratory Results Laboratory Tests Test 12/17/16 08:30 Urine Color YELLOW Urine Turbidity CLEAR Urine pH 6.0 Urine Specific [place] 1.013 Urine Protein TRACE mg/dL Urine Glucose (UA) NEG mg/dL Urine Ketones NEG mg/dL Urine Occult Blood NEG Urine Nitrite NEG Urine Bilirubin NEG Urine Urobilinogen LESS THAN 2.0 MG/DL Urine Leukocyte Esterase TRACE Urine RBC LESS THAN 1 /hpf Urine WBC 2 /hpf Urine Squamous Epithelial Cells <1 /hpf Urine Bacteria RARE /hpf Urine Mucus FEW /lpf Microscopic Urinalysis Comment CULT NOT INDICATED Administered Medications Medications (Trade) Dose Ordered Sig/Acacia Route PRN Reason Start Time Stop Time Status Last Admin Dose Admin Sodium Chloride (NS Flush) 2 ml BID IV FLUSH 12/15/16 21:00 12/18/16 04:50 Alprazolam (Xanax) 0.5 mg Q6H PRN PO ANXIETY 12/15/16 19:45 12/16/16 15:55 Morphine Sulfate (Morphine Inj) 4 mg Q3H PRN IV PUSH PAIN GREATER THAN 5 12/15/16 20:00 12/18/16 07:53 Fluoxetine HCl (PROzac) 20 mg DAILY PO 12/16/16 09:00 12/18/16 07:53 Enoxaparin Sodium (Lovenox Inj) 40 mg Q24H SQ 12/15/16 22:00 12/17/16 23:04 Senna/Docusate Sodium (Dasha-Colace) 1 tab BID PO 12/16/16 09:00 12/18/16 07:53 Morphine Sulfate (Oramorph Sr) 30 mg Q12HR PO 12/16/16 11:30 12/18/16 07:53 Pantoprazole Sodium (Protonix) 40 mg DAILY PO 12/16/16 14:15 12/18/16 07:52 Dexamethasone (Decadron) 2 mg BID PO 12/16/16 21:00 12/18/16 07:53 Objective Remarks GENERAL: Middle-aged female, she appears to be cachectic and chronically ill. She is awake and alert. She appears to be no acute distress at this time. SKIN: Warm and dry. HEAD: Normocephalic. EYES: No scleral icterus. No injection or drainage. NECK: Supple, trachea midline. No JVD or lymphadenopathy. LYMPHATIC: No adenopathy. CARDIOVASCULAR: Regular rate and rhythm without murmurs. RESPIRATORY: Breath sounds equal bilaterally. No accessory muscle use. GASTROINTESTINAL: Abdomen soft, non-tender, nondistended. Thin abdomen, no organ enlargement. EXTREMITIES: No cyanosis, or edema. MUSCULOSKELETAL: Atrophic muscle mass, adequate tone decreased strength. Tenderness over her back and posterior ribs in the midline. NEUROLOGICAL: No obvious focal deficit. Awake, alert, and oriented x3. PSYCHIATRIC: Appropriate mood and affect; insight and judgment normal. Assessment/Plan Problem List: (1) Oropharyngeal carcinoma ICD Codes: C10.9 - Malignant neoplasm of oropharynx, unspecified Plan: -- MRI shows 2.5 x 1.4 cm lytic area with associated soft tissue mass in the right posterior superior aspect of the L3 vertebral body. -- Plan for XRT simulation on Sunday for palliation to symptoms. -- Pt with overall poor prognosis; palliative care following -- Has Oramorph scheduled 30mg po BID with prn morphine 4mg IV Q3H. Hx/Workup: Pt has an extensive past history of tobaccoism. 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 She underwent concurrent chemoradiotherapy to a definitive dose and had a good local response to treatment. Unfortunately in February 2016 she presented with pulmonary masses consistent with metastatic disease. These were biopsy proven. She was subsequently initiated on systemic therapy and has been on treatment with pembrolizumab Assessment 61 y/o female with metastatic oropharyngeal carcinoma admitted for relentless pain. Initially diagnosed in the spring with locally advanced disease without metastases. She was treated with definitive dose chemoradiotherapy. She subsequently was found to have metastatic disease with pulmonary metastases in February 2016. She has been on palliative systemic therapy ever since with Keytruda. Her disease is now progressive and she has multiple new metastatic deposits involving her spine and pelvis. She was admitted to the hospital for symptom management. Plan 1. Continue current pain regimen; long-acting morphine sulfate with IV morphine for breakthrough pain. She is also on dexamethasone. 2. Continue duo nebs. 3. Simulation for palliative radiation to the lumbar spine later today. Appreciate palliative care input. Patient is an appropriate candidate for hospice upon completion of palliative radiation. Jenaro Solorzano MD Dec 18, 2016 08:25
--- NOTE | 2016-12-18 10:51 | HHI.HCPN ---
Reason for visit a. To assist with evaluation and management of symptoms including: pain, weakness, decreased appetite, constipation b. To assist medical decision maker(s) with: better understanding of current medical conditions; weighing benefits/burdens of medical treatment options; making medical treatment decisions. . Subjective/Interval History Mrs. 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 Patient presented to [facility] on 12/[facility]16 for evaluation of intractable pain and generalized weakness; she was subsequently admitted with metastatic cancer versus cauda equina syndrome intractable pain versus other. Follow-up visit for symptom management and clarification of medical treatment goals. Patient reporting ongoing back and hip pain that makes it difficult for her to walk. Pain is exacerbated with movement and rated 10 out of 10; patient states baseline pain is constant and rated 5 out of 5. However, she states her pain is currently adequately managed on Oramorph SR 30 mg PO q12 hours and PRN morphine 4 mg IV q4 hours or pain > 5; patient has required 3 doses of PRN morphine and past 24 hours for breakthrough pain. Patient is frail and cachetic with poor nutritional intake. Current weight: 96 pounds; BMI 15.5. She states her nutritional intake is further compromised secondary to poor dentition and some pain with swallowing. A mechanically soft diet with supplemental shakes has been ordered. Patient is on dexamethasone 2 mg PO BID which may improve patient's appetite. May consider starting the patient on Megace 400mg-800mg PO daily. Imaging showed no indication of metastatic disease in the pelvis and confirmed disease progression to the lumbar spine. No fracture was noted on an x-ray of the femur. Oncology and radiation oncology were consulted; patient would like to proceed with palliative radiation and simulation is planned for today. Patient has previously experienced anxiety with radiation treatments; alprazolam is available every 6 hours as needed. Palliative care met with Ms. Wagoner who states she would like to complete her the recommended number of palliative radiation treatments for symptom management, but she thinks she will transition to comfort focused care when that is completed. . Advance Directives Living Will: Never completed Health Care Surrogate: Never completed Durable Power of Carpet Floor Layer Apprentice: Never completed Advance Directive Specifics Documented care wishes: No known documented care wishes were completed. . Objective Vital Signs Date Time Temp Pulse Resp B/P (MAP) Pulse Ox O2 Delivery O2 Flow Rate FiO2 12/18/16 07:49 98.7 78 16 109/69 (82) 95 12/18/16 04:48 98.0 72 16 106/69 (81) 95 12/18/16 04:00 75 12/18/16 00:06 82 12/18/16 00:02 98.4 75 16 92/66 (75) 95 12/17/16 20:53 99.0 84 16 104/68 (80) 95 12/17/16 20:22 78 12/17/16 15:40 98.6 88 16 94/56 (69) 95 12/17/16 11:51 98.2 80 18 105/56 (72) 96 Intake & Output 12/18/16 12/18/16 07:00 19:00 Intake Total 720 ml Balance 720 ml Intake Oral 720 ml # Voids 2 . Physical Exam CONSTITUTIONAL/GENERAL: This is a cachectic 61-year-old female who appears older than her stated age. TUBES/LINES/DRAINS: Eqxale-[id number], PIV 1 SKIN: No jaundice, rashes, or lesions. No wounds seen anteriorly. Skin temperature appropriate. Not diaphoretic. HEAD: Atraumatic. Normocephalic. EYES: Pupils equal and round and reactive. Extraocular motions intact. No scleral icterus. No injection or drainage. Fundi not examined. ENT: Hearing grossly normal. Nose without bleeding or purulent drainage. Poor dentition NECK: Trachea midline. Supple, nontender. No palpable thyroid enlargement or nodularity. CARDIOVASCULAR: Regular rate and rhythm without murmurs, gallops, or rubs. No JVD. Peripheral pulses symmetric. RESPIRATORY/CHEST: Symmetric, unlabored respirations. Diminished breath sounds bilaterally, left >right. + Wheezing GASTROINTESTINAL: Abdomen soft, non-tender, nondistended. No guarding. Bowel sounds present. GENITOURINARY: Without palpable bladder distension. MUSCULOSKELETAL: Extremities without clubbing, cyanosis, or edema. Right hip and right lower extremity painful to touch LYMPHATICS: No palpable cervical or supraclavicular adenopathy. NEUROLOGICAL: Awake and alert. Follows commands. Cognitively sharp. Moves all extremities. PSYCHIATRIC: No obvious anxiety/depression. no apparent hallucinations or other psychotic thought process. . Diagnostic Tests Laboratory Laboratory Tests Test 12/15/16 17:47 11/12/17 07:05 12/17/16 08:30 White Blood Count 22.2 TH/MM3 (4.0-11.0) 21.2 TH/MM3 (4.0-11.0) Red Blood Count 3.62 MIL/MM3 (4.00-5.30) 3.49 MIL/MM3 (4.00-5.30) Hemoglobin 10.5 GM/DL (11.6-15.3) 10.0 GM/DL (11.6-15.3) Hematocrit 31.3 % (35.0-46.0) 29.9 % (35.0-46.0) Mean Corpuscular Volume 86.5 FL (80.0-100.0) 85.7 FL (80.0-100.0) Mean Corpuscular Hemoglobin 28.9 PG (27.0-34.0) 28.7 PG (27.0-34.0) Mean Corpuscular Hemoglobin Concent 33.4 % (32.0-36.0) 33.5 % (32.0-36.0) Red Cell Distribution Width 15.4 % (11.6-17.2) 15.1 % (11.6-17.2) Platelet Count 654 TH/MM3 (150-450) 590 TH/MM3 (150-450) Mean Platelet Volume 7.2 FL (7.0-11.0) 7.6 FL (7.0-11.0) Neutrophils (%) (Auto) 91.6 % (16.0-70.0) Lymphocytes (%) (Auto) 2.2 % (9.0-44.0) Monocytes (%) (Auto) 5.3 % (0.0-8.0) Eosinophils (%) (Auto) 0.5 % (0.0-4.0) Basophils (%) (Auto) 0.4 % (0.0-2.0) Neutrophils # (Auto) 20.4 TH/MM3 (1.8-7.7) Lymphocytes # (Auto) 0.5 TH/MM3 (1.0-4.8) Monocytes # (Auto) 1.2 TH/MM3 (0-0.9) Eosinophils # (Auto) 0.1 TH/MM3 (0-0.4) Basophils # (Auto) 0.1 TH/MM3 (0-0.2) CBC Comment DIFF FINAL Differential Comment Blood Urea Nitrogen 19 MG/DL (7-18) 11 MG/DL (7-18) Creatinine 0.72 MG/DL (0.50-1.00) 0.52 MG/DL (0.50-1.00) Random Glucose 89 MG/DL (74-106) 111 MG/DL (74-106) Total Protein 6.8 GM/DL (6.4-8.2) Albumin 2.7 GM/DL (3.4-5.0) Calcium Level 7.8 MG/DL (8.5-10.1) 7.9 MG/DL (8.5-10.1) Alkaline Phosphatase 194 U/L (45-117) Aspartate Amino Transf (AST/SGOT) 18 U/L (15-37) Alanine Aminotransferase (ALT/SGPT) 74 U/L (10-53) Total Bilirubin 0.3 MG/DL (0.2-1.0) Sodium Level 133 MEQ/L (136-145) 134 MEQ/L (136-145) Potassium Level 4.1 MEQ/L (3.5-5.1) 4.7 MEQ/L (3.5-5.1) Chloride Level 100 MEQ/L (98-107) 102 MEQ/L (98-107) Carbon Dioxide Level 25.3 MEQ/L (21.0-32.0) 24.6 MEQ/L (21.0-32.0) Anion Gap 8 MEQ/L (5-15) 7 MEQ/L (5-15) Estimat Glomerular Filtration Rate 82 ML/MIN (>89) 119 ML/MIN (>89) Urine Color YELLOW (YELLW/STRAW) Urine Turbidity CLEAR (CLEAR) Urine pH 6.0 (5.0-8.5) Urine Specific [place] 1.013 (1.002-1.035) Urine Protein TRACE mg/dL (NEG-TRACE) Urine Glucose (UA) NEG mg/dL (NEG) Urine Ketones NEG mg/dL (NEG) Urine Occult Blood NEG (NEG) Urine Nitrite NEG (NEG) Urine Bilirubin NEG (NEG) Urine Urobilinogen LESS THAN 2.0 MG/DL (LESS Urine Leukocyte Esterase TRACE (NEG) Urine RBC LESS THAN 1 /hpf (0-3) Urine WBC 2 /hpf (0-5) Urine Squamous Epithelial Cells <1 /hpf (0-5) Urine Bacteria RARE /hpf (NONE) Urine Mucus FEW /lpf (OCC) Microscopic Urinalysis Comment CULT NOT INDICATED . Result Diagram: 12/17/1605 12/17/16704 Imaging Last 72 hours Impressions Pelvis MRI 12/16/16 0000 Signed Impressions: Service Date/Time: Friday, December 16, 2016 16:19 - CONCLUSION: 1. There are no findings to indicate metastatic disease within the pelvis. 2. There are bilateral Bartholin gland cysts. Tito Goldberg MD Lumbar Spine MRI 12/16/16 0000 Signed Impressions: Service Date/Time: Friday, December 16, 2016 16:19 - CONCLUSION: 1. 2.5 x 1.4 cm lytic area with associated soft tissue mass in the right posterior superior aspect of the L3 vertebral body. There is some epidural extension into the lateral recess which appears to compromise the right L3 nerve root. 2. Facet hypertrophy predominantly at L3-4 and L4-5 with some mild to moderate encroachment on the spinal canal at these 2 levels, respectively. Canal and foramina are otherwise adequate at all remaining levels. Sunny Farfan MD Femur X-Ray 12/16/16 0000 Signed Impressions: Service Date/Time: Friday, December 16, 2016 14:48 - CONCLUSION: No fracture. Sunny Farfan MD . Assessment and Plan Disease Oriented Problem List: (1) Protein calorie malnutrition (2) Cancer (3) Depression (4) Squamous cell carcinoma of neck (5) HTN (hypertension) Symptom Scale: (1) Pain (2) Decrease in appetite (3) Weakness (4) Constipation Pertinent Non-Medical Issues Psychosocial:Patient is originally from [place]. She moved to [place] in the mid 1970s. She met her , Gene, after moving to [place]. They have been for approximately 22 years. They have adult children who live locally (Gene and Jane, ages 22 and 20). 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 Spiritual: [employer] gustabo Legal: Per [place] statutes, in the absence of written advanced directives healthcare proxy decision-making falls to the patient's spouse Ethical issues impacting care: No known ethical issues impacting care. . Important Contacts Gene Wagoner, spouse: [phone] and [phone] . 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 Patient has a known lesion of the vertebral body at L3. She has progressive disease in the thorax. Metastatic disease to the pelvis suspected given the patient's symptoms of increasing pain and tenderness along the right hip and proximal femur. Patient would like to pursue ongoing palliative radiation with Dr. Graves despite general decline with increasing pain, increasing weakness and poor nutritional intake. Patient's overall prognosis is quite poor. . Code Status: No Code Plan * NO CODE * Decision-making: Patient currently has adequate insight and judgment related to her current medical conditions. In the event that the patient loses capacity , [place] statutes state in the absence of written advanced directives healthcare proxy decision-making falls to the patient's spouse (Gene Pillai). * Goals:Palliative care met with the patient and her ; hospice services were introduced. Patient would like to continue following Dr. Graves for palliative radiation of the spinal lesion if it will improve her quality of life ; she is considering transitioning to comfort focused care when radiation treatments are completed. * Discussed with patient with Dr. Roach and Xuan FIGUEROA * Palliative care contact information provided to the patient and her spouse * Symptom management-pain: Patient reporting ongoing back and hip pain that makes it difficult for her to walk. Pain is exacerbated with movement and rated 10 out of 10; patient states baseline pain is constant and rated 5 out of 5. However, she states her pain is currently adequately managed on Oramorph SR 30 mg PO q12 hours and PRN morphine 4 mg IV q4 hours or pain > 5; patient has required 3 doses of PRN morphine and past 24 hours for breakthrough pain. * Symptom management-debility: Patient is is increasingly symptomatic. She is having Increasing difficulty ambulating; generally failing to thrive. The patient's reports it is more difficult for the patient to be left alone. He states she is increasingly confused and has had multiple recent falls in the past week secondary to increasing with weakness in the right lower extremity. Expected ongoing decline secondary to disease progression; patient considering transitioning to comfort focused care after completing recommended number of height of radiation treatments. * Symptom management-decreased appetite: Patient reports worsening appetite and reports a 20+ weight loss in the past 12 months. Patient is frail and cachetic with poor nutritional intake. Current weight: 96 pounds; BMI 15.5. She states her nutritional intake is further compromised secondary to poor dentition and some pain with swallowing. A mechanically soft diet with supplemental shakes has been ordered. Patient is on dexamethasone 2 mg PO BID which may improve patient's appetite. May consider starting the patient on Megace 400mg-800mg PO daily * Symptom management-constipation: LBM unknown, prior to hospital admission on 12/15/2016. Current orders for Dasha-Colace one tablet PO 2 times daily; PRN sennosides, PRN lactulose, PRN dulcolax suppository and PRN magnesia. * Palliative care will continue to follow this patient throughout her hospitalization to establish trust, assist with symptom management and clarification of medical treatment goals. . Attestation To help prompt me to consider important information that might be impacting today's encounter and assessment, information from prior notes written by myself or my colleagues may have been "brought forward" into today's note. My signature on this note, however, is an attestation that I personally performed the exam, history, and/or decision-making noted today, and, unless otherwise indicated, the interactions with patient, family, and staff as well as the review of records all occurred today. I also attest that the listed assessment and stated plan reflect my best clinical judgment today based on the combination of historical information, prior notes, and today's exam/ interactions. When time spent is documented, it refers only to time spent today by the signer, or if indicated, combined time spent today by collaborating physician/nurse practitioner. . Belinda Sanders Dec 18, 2016 10:51
--- NOTE | 2016-12-18 11:19 | HHI.FPPN ---
Subjective Remarks Ms Wagoner had no acute events overnight. She says her pain is controlled and she is excited to go to the simulation session today in preparation for palliative radiation. Denies CP, SOB, N/V/D and DVT pain. (Jose Manuel Carson MD R1) Objective Vitals Vital Signs Date Time Temp Pulse Resp B/P (MAP) Pulse Ox O2 Delivery O2 Flow Rate FiO2 12/18/16 11:08 98.1 77 18 106/65 (79) 97 12/18/16 07:49 98.7 78 16 109/69 (82) 95 12/18/16 04:48 98.0 72 16 106/69 (81) 95 12/18/16 04:00 75 12/18/16 00:06 82 12/18/16 00:02 98.4 75 16 92/66 (75) 95 12/17/16 20:53 99.0 84 16 104/68 (80) 95 12/17/16 20:22 78 12/17/16 15:40 98.6 88 16 94/56 (69) 95 12/17/16 11:51 98.2 80 18 105/56 (72) 96 I/O 12/17/16 12/17/16 12/17/16 12/18/16 12/18/16 12/18/16 07:00 15:00 23:00 07:00 15:00 23:00 Intake Total 720 ml Balance 720 ml Intake Oral 720 ml # Voids 2 (Jose Manuel Carson MD R1) Result Diagram: 12/17/1670412/17/1605 Imaging Last Impressions Pelvis MRI 12/16/16 0000 Signed Impressions: Service Date/Time: Friday, December 16, 2016 16:19 - CONCLUSION: 1. There are no findings to indicate metastatic disease within the pelvis. 2. There are bilateral Bartholin gland cysts. Tito Goldberg MD Lumbar Spine MRI 12/16/16 0000 Signed Impressions: Service Date/Time: Friday, December 16, 2016 16:19 - CONCLUSION: 1. 2.5 x 1.4 cm lytic area with associated soft tissue mass in the right posterior superior aspect of the L3 vertebral body. There is some epidural extension into the lateral recess which appears to compromise the right L3 nerve root. 2. Facet hypertrophy predominantly at L3-4 and L4-5 with some mild to moderate encroachment on the spinal canal at these 2 levels, respectively. Canal and foramina are otherwise adequate at all remaining levels. Sunny Farfan MD Femur X-Ray 12/16/16 0000 Signed Impressions: Service Date/Time: Friday, December 16, 2016 14:48 - CONCLUSION: No fracture. Sunny Farfan MD Objective Remarks GENERAL: This is a thin, cachectic female in no apparent distress. SKIN: No rashes, ecchymoses or lesions. Cool and dry. HEAD: Atraumatic. Normocephalic. EYES: Pupils equal round and reactive. Extraocular motions intact. No scleral icterus. No injection or drainage. ENT: MMM. Uvula midline. Airway patent. NECK: Trachea midline. Supple, nontender, no meningeal signs. CARDIOVASCULAR: Regular rate and rhythm without murmurs, gallops, or rubs. RESPIRATORY: Mild end inspiratory and end expiratory wheezing. No increased WOB. GASTROINTESTINAL: Abdomen soft, non-tender, nondistended. No hepato-splenomegaly , or palpable masses. No guarding. MUSCULOSKELETAL: Extremities without clubbing, cyanosis, or edema. NEUROLOGICAL: Awake and alert. Cranial nerves II through XII intact. Motor and sensory grossly within normal limits. Medications and IVs Current Medications Medications (Trade) Dose Ordered Sig/Acacia Route Start Time Stop Time Status Last Admin (NS Flush) 2 ml UNSCH PRN IV FLUSH 12/15/16 18:00 (NS Flush) 2 ml BID IV FLUSH 12/15/16 21:00 12/18/16 04:50 (Xanax) 0.5 mg Q6H PRN PO 12/15/16 19:45 12/16/16 15:55 (Morphine Inj) 4 mg Q3H PRN IV PUSH 12/15/16 20:00 12/18/16 16:25 (PROzac) 20 mg DAILY PO 12/16/16 09:00 12/18/16 07:53 (Milk Of Magnesia Liq) 15 ml DAILY PRN PO 12/15/16 21:15 (Tylenol) 650 mg Q4H PRN PO 12/15/16 21:15 (Lovenox Inj) 40 mg Q24H SQ 12/15/16 22:00 12/17/16 23:04 (Dasha-Colace) 1 tab BID PO 12/16/16 09:00 12/18/16 07:53 (Senokot) 17.2 mg Q12H PRN PO 12/16/16 04:30 (Dulcolax Supp) 10 mg DAILY PRN RECTAL 12/16/16 04:30 (Lactulose Liq) 30 ml DAILY PRN PO 12/16/16 04:30 (Zofran Inj) 4 mg Q6HR PRN IV PUSH 12/16/16 04:45 (Oramorph Sr) 30 mg Q12HR PO 12/16/16 11:30 12/18/16 07:53 (Protonix) 40 mg DAILY PO 12/16/16 14:15 12/18/16 07:52 (Decadron) 2 mg BID PO 12/16/16 21:00 12/18/16 07:53 (Pill Splitter) 1 ea UNSCH PRN OTHER 12/16/16 15:15 (Duoneb Neb) 1 ampule Q4HR NEB PRN NEB 12/17/16 20:00 ([place] 10-325 Mg) 1 tab Q6H PRN PO 12/18/16 16:30 UNV (Jose Manuel Carson MD R1) A/P Assessment and Plan 61-year-old female with history of oropharyngeal cancer presents with intractable pain secondary to metastatic cancer. Initially, goals of care were unclear but were clarified after discussion with a palliative nurse practitioner. Patient was initially admitted under observation for management of pain and pending consult with Dr. Graves for palliative chemotherapy for her back. Based on consult with radiation oncologist Dr. Collins, she was fully admitted on 12/17 with plans for simulation on Sunday in preparation for palliative radiation therapy treatments per radiation oncology. Discussed with Drs. Bravo and Xin Discharge Planning Pending recommendations from radiation oncology due to need for simulation and palliative radiation therapy treatments. (Jose Manuel Carson MD R1) Attending Attestation Patient seen and examined. Case reviewed and discussed Agree with plan of care as discussed with me and documented in the resident note. 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 ICD Codes: C02.9 - Malignant neoplasm of tongue, unspecified; C79.89 - Secondary malignant neoplasm of other specified sites Plan: -Known lesion at L3 -Leukocytosis is most likely due to chronic inflammatory state from metastatic cancer -Will hold off on antibiotics at this time although sepsis criteria was fulfilled with tachycardia and elevated white blood cell count - patient is currently afebrile -Per radiation oncology and patient's preference, simulation to begin 12/18 in preparation for palliative radiation therapy treatment (3) Decrease in appetite ICD Codes: R63.0 - Anorexia Plan: -Continue dexamethasone 2 mg by mouth twice a day (4) Depression ICD Codes: F32.9 - Major depressive disorder, single episode, unspecified Status: Acute Plan: -Continue fluoxetine 20 mg by mouth daily -Continue alprazolam 0.5 mg every 6 hours when necessary anxiety (5) FEN/DVT PPX/GI PPX/Nursing Orders Plan: Fluids: Oral fluids currently Electrolytes: Will monitor and replace as needed. Nutrition: Regular adult diet DVT Prophylaxis: Lovenox 40mg daily Constipation prophylaxis: Constipation regimen PRN Medications Tylenol 650 mg by mouth every 4 hours when necessary temperature greater than 100.4F Zofran 4 mg IV push every 6 hours when necessary nausea vomiting Morphine 4 mg IV push every 3 hours breakthrough pain -Vitals Q4h -Monitor I's and O's -Neurochecks -Seizure precautions -Activity OOB ad kathy -PT to assist with ambulation and strengthening exercises - recommend home with home health -Case management consult to assist with discharge disposition (Jose Manuel Carson MD R1) Jose Manuel Carson MD R1 Dec 18, 2016 11:19 Monica Bravo MD Dec 25, 2016 16:32
[2016-12-18] MEDS ORDERED: ACETAMINOPHEN/HYDROcodone 325 MG/10 MG TAB PO PRN ×2 (16:30→17:15)
[2016-12-18] MEDS: ACETAMINOPHEN/HYDROcodone 325 MG/10 MG TAB PO PRN (19:10)
[2016-12-18] MEDS: ENOXAPARIN SODIUM 40 MG/0.4 ML SYRINGE SQ SCH (20:43)
[2016-12-19] VITALS (7 sets, daily range): BP systolic 95–125; BP diastolic 64–82; PULSE 70–83; RESP 16–22; TEMP 98.3–99; O2SAT 94–97
[2016-12-19] MEDS: ACETAMINOPHEN/HYDROcodone 325 MG/10 MG TAB PO PRN ×4 (04:15→23:51)
[2016-12-19 06:49] LABS: AUTOMATED NEUTROPHIL # 19.1 TH/MM3 (1.8-7.7); BASOPHIL # 0.1 TH/MM3 (0-0.2); BASOPHIL % 0.5 % (0.0-2.0); EOSINOPHIL % 0.1 % (0.0-4.0); HEMATOCRIT 29.5 % (35.0-46.0); HEMO FLAGS DIFF FINAL; LYMPH % 1.7 % (9.0-44.0); LYMPHOCYTE # 0.3 TH/MM3 (1.0-4.8); MEAN CELL VOLUME 86.1 FL (80.0-100.0); MEAN CORPUSCULAR HEMOGLOBIN 28.7 PG (27.0-34.0); MEAN CORPUSCULAR HGB CONC 33.4 % (32.0-36.0); MONO % 5.2 % (0.0-8.0); NEUT % 92.5 % (16.0-70.0); PLATELET COUNT 555 TH/MM3 (150-450); RED BLOOD COUNT 3.43 MIL/MM3 (4.00-5.30); WHITE BLOOD COUNT 20.7 TH/MM3 (4.0-11.0)
[2016-12-19] MEDS: MORPHINE SULFATE 4 MG/ML INJ IV PUSH PRN ×2 (06:55→20:44)
[2016-12-19] MEDS: SODIUM CHLORIDE 0.9% FLUSH 10 ML FLUSH IV FLUSH PRN (06:55)
[2016-12-19 07:15] LABS: ANION GAP 10 MEQ/L (5-15); AST (GOT) 15 U/L (15-37); BICARBONATE 24.3 MEQ/L (21.0-32.0); BLOOD UREA NITROGEN 13 MG/DL (7-18); CHLORIDE 98 MEQ/L (98-107); GLOMERULAR FILTRATION RATE 112 ML/MIN (>89); POTASSIUM 4.4 MEQ/L (3.5-5.1); SODIUM (NA) 132 MEQ/L (136-145)
[2016-12-19 07:17] LABS: ALT (GPT) 32 U/L (10-53)
[2016-12-19 07:19] LABS: ALKALINE PHOSPHATASE 130 U/L (45-117); TOTAL BILIRUBIN ADULT 0.3 MG/DL (0.2-1.0)
--- NOTE | 2016-12-19 07:52 | PD.ONC.PN ---
Subjective Subjective Remarks Patient seen and examined, she continues to have pain in her back. She feels the long and short acting opioids help. She underwent simulation for palliative RT to the L spine yesterday. Objective Data Date Time Temp Pulse Resp B/P (MAP) Pulse Ox O2 Delivery O2 Flow Rate FiO2 12/19/16 04:07 98.3 76 16 97/71 (80) 96 12/19/16 00:01 98.5 82 16 95/70 (78) 95 12/18/16 20:30 98.7 83 18 104/67 (79) 95 12/18/16 16:18 98.1 72 18 109/73 (85) 99 12/18/16 11:38 74 12/18/16 11:08 98.1 77 18 106/65 (79) 97 12/19/16 12/19/16 12/19/16 07:00 15:00 23:00 Intake Total 480 ml Balance 480 ml Result Diagram: 12/19/16 0443 12/19/16 0443 Laboratory Results Laboratory Tests Test 12/19/16 04:43 White Blood Count 20.7 TH/MM3 Red Blood Count 3.43 MIL/MM3 Hemoglobin 9.9 GM/DL Hematocrit 29.5 % Mean Corpuscular Volume 86.1 FL Mean Corpuscular Hemoglobin 28.7 PG Mean Corpuscular Hemoglobin Concent 33.4 % Red Cell Distribution Width 15.0 % Platelet Count 555 TH/MM3 Mean Platelet Volume 7.7 FL Neutrophils (%) (Auto) 92.5 % Lymphocytes (%) (Auto) 1.7 % Monocytes (%) (Auto) 5.2 % Eosinophils (%) (Auto) 0.1 % Basophils (%) (Auto) 0.5 % Neutrophils # (Auto) 19.1 TH/MM3 Lymphocytes # (Auto) 0.3 TH/MM3 Monocytes # (Auto) 1.1 TH/MM3 Eosinophils # (Auto) 0.0 TH/MM3 Basophils # (Auto) 0.1 TH/MM3 CBC Comment DIFF FINAL Differential Comment Blood Urea Nitrogen 13 MG/DL Creatinine 0.55 MG/DL Random Glucose 98 MG/DL Total Protein 6.5 GM/DL Albumin 2.5 GM/DL Calcium Level 8.3 MG/DL Alkaline Phosphatase 130 U/L Aspartate Amino Transf (AST/SGOT) 15 U/L Alanine Aminotransferase (ALT/SGPT) 32 U/L Total Bilirubin 0.3 MG/DL Sodium Level 132 MEQ/L Potassium Level 4.4 MEQ/L Chloride Level 98 MEQ/L Carbon Dioxide Level 24.3 MEQ/L Anion Gap 10 MEQ/L Estimat Glomerular Filtration Rate 112 ML/MIN Administered Medications Medications (Trade) Dose Ordered Sig/Acacia Route PRN Reason Start Time Stop Time Status Last Admin Dose Admin Sodium Chloride (NS Flush) 2 ml UNSCH PRN IV FLUSH FLUSH AFTER USING IV ACCESS 12/15/16 18:00 12/19/16 06:55 Sodium Chloride (NS Flush) 2 ml BID IV FLUSH 12/15/16 21:00 12/18/16 20:44 Alprazolam (Xanax) 0.5 mg Q6H PRN PO ANXIETY 12/15/16 19:45 12/16/16 15:55 Morphine Sulfate (Morphine Inj) 4 mg Q3H PRN IV PUSH BREAKTHROUGH PAIN 12/15/16 20:00 12/19/16 06:55 Fluoxetine HCl (PROzac) 20 mg DAILY PO 12/16/16 09:00 12/18/16 07:53 Enoxaparin Sodium (Lovenox Inj) 40 mg Q24H SQ 12/15/16 22:00 12/18/16 20:43 Senna/Docusate Sodium (Dasha-Colace) 1 tab BID PO 12/16/16 09:00 12/18/16 20:40 Morphine Sulfate (Oramorph Sr) 30 mg Q12HR PO 12/16/16 11:30 12/18/16 20:43 Pantoprazole Sodium (Protonix) 40 mg DAILY PO 12/16/16 14:15 12/18/16 07:52 Dexamethasone (Decadron) 2 mg BID PO 12/16/16 21:00 12/18/16 20:40 Acetaminophen/ Hydrocodone Bitart ([place] 10-325 Mg) 2 tab Q6H PRN PO PAIN SCALE 5 TO 10 12/18/16 17:15 12/19/16 04:15 Objective Remarks GENERAL: Middle-aged female, she appears to be cachectic and chronically ill. She is awake and alert. She appears to be no acute distress at this time. SKIN: Warm and dry. HEAD: Normocephalic. EYES: No scleral icterus. No injection or drainage. NECK: Supple, trachea midline. No JVD or lymphadenopathy. LYMPHATIC: No adenopathy. CARDIOVASCULAR: Regular rate and rhythm without murmurs. RESPIRATORY: Breath sounds equal bilaterally. No accessory muscle use. GASTROINTESTINAL: Abdomen soft, non-tender, nondistended. Thin abdomen, no organ enlargement. EXTREMITIES: No cyanosis, or edema. MUSCULOSKELETAL: Atrophic muscle mass, adequate tone decreased strength. Tenderness over her back and posterior ribs in the midline. NEUROLOGICAL: No obvious focal deficit. Awake, alert, and oriented x3. PSYCHIATRIC: Appropriate mood and affect; insight and judgment normal. Assessment/Plan Problem List: (1) Oropharyngeal carcinoma ICD Codes: C10.9 - Malignant neoplasm of oropharynx, unspecified Plan: -- MRI shows 2.5 x 1.4 cm lytic area with associated soft tissue mass in the right posterior superior aspect of the L3 vertebral body. -- Plan for XRT simulation on Sunday for palliation to symptoms. -- Pt with overall poor prognosis; palliative care following -- Has Oramorph scheduled 30mg po BID with prn morphine 4mg IV Q3H. Hx/Workup: Pt has an extensive past history of tobaccoism. 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 She underwent concurrent chemoradiotherapy to a definitive dose and had a good local response to treatment. Unfortunately in February 2016 she presented with pulmonary masses consistent with metastatic disease. These were biopsy proven. She was subsequently initiated on systemic therapy and has been on treatment with pembrolizumab Assessment 61 y/o female with metastatic oropharyngeal carcinoma admitted for relentless pain. Initially diagnosed in the spring with locally advanced disease without metastases. She was treated with definitive dose chemoradiotherapy. She subsequently was found to have metastatic disease with pulmonary metastases in February 2016. She has been on palliative systemic therapy ever since with Keytruda. Her disease is now progressive and she has multiple new metastatic deposits involving her spine and pelvis. She was admitted to the hospital for symptom management. Plan 1. Continue current pain regimen, this seems to be effective. Long-acting morphine sulfate with IV morphine for breakthrough pain. She is also on dexamethasone. 2. Continue duo nebs. 3. Palliative RT to the L spine. This may take a few days to plan and initiate. She may be d/minor home with out patient follow up for RT. Appreciate palliative care input. Patient is an appropriate candidate for hospice upon completion of palliative radiation. May d/c home if pain meds can be transitioned to oral. Jenaro Solorzano MD Dec 19, 2016 07:52
[2016-12-19] MEDS: PILL SPLITTER OTHER PRN (09:23)
[2016-12-19] MEDS: MORPHINE SULFATE 30 MG CONTROLLED RELEASE TAB PO SCH ×2 (09:24→20:48)
[2016-12-19] MEDS: PANTOPRAZOLE SOD 40 MG DELAYED RELEASE TAB PO SCH (09:24)
[2016-12-19] MEDS: FLUoxetine HCL 20 MG CAP PO SCH (09:24)
[2016-12-19] MEDS: SODIUM CHLORIDE 0.9% FLUSH 10 ML FLUSH IV FLUSH SCH ×2 (09:24→20:45)
[2016-12-19] MEDS: DOCUSATE SODIUM 50 MG/SENNA 8.6 MG TAB PO SCH ×2 (09:24→20:48)
[2016-12-19] MEDS: DEXAMETHASONE 4 MG TAB PO SCH ×2 (09:24→20:48)
--- NOTE | 2016-12-19 10:55 | HHI.FPPN ---
Subjective Remarks Ms Wagoner is doing okay today although she was a little irritated by how many people come into the room. She had the simulation performed yesterday and did well with it. She is not sure when she will have the palliative radiation treatments for her back. (Mena Lauren MD R2) Objective Vitals Vital Signs Date Time Temp Pulse Resp B/P (MAP) Pulse Ox O2 Delivery O2 Flow Rate FiO2 12/19/16 08:23 98.7 77 16 110/70 (83) 95 12/19/16 04:07 98.3 76 16 97/71 (80) 96 12/19/16 00:01 98.5 82 16 95/70 (78) 95 12/18/16 20:30 98.7 83 18 104/67 (79) 95 12/18/16 16:18 98.1 72 18 109/73 (85) 99 12/18/16 11:38 74 12/18/16 11:08 98.1 77 18 106/65 (79) 97 I/O 12/18/16 12/18/16 12/18/16 12/19/16 12/19/16 12/19/16 07:00 15:00 23:00 07:00 15:00 23:00 Intake Total 720 ml 375 ml 480 ml Balance 720 ml 375 ml 480 ml Intake Oral 720 ml 375 ml 480 ml # Voids 2 5 3 # Bowel Movements 1 (Mena Lauren MD R2) Result Diagram: 12/19/1644212/19/163 Objective Remarks GENERAL: This is a thin, cachectic female in no apparent distress. SKIN: No rashes, ecchymoses or lesions. Cool and dry. HEAD: Atraumatic. Normocephalic. EYES: Pupils equal round and reactive. No scleral icterus. No injection or drainage. ENT: MMM. Uvula midline. Airway patent. NECK: Trachea midline. Supple, nontender, no meningeal signs. CARDIOVASCULAR. No increased WOB. GASTROINTESTINAL: Abdomen soft, non-tender, nondistended. No guarding. MUSCULOSKELETAL: Extremities without clubbing, cyanosis, or edema. NEUROLOGICAL: Awake and alert. Motor and sensory grossly within normal limits. (Mena Lauren MD R2) A/P Assessment and Plan 61-year-old female with history of oropharyngeal cancer presents with intractable pain secondary to metastatic cancer. Initially, goals of care were unclear but were clarified after discussion with a palliative nurse practitioner. Patient was initially admitted under observation for management of pain and pending consult with Dr. Graves for palliative chemotherapy for her back. Based on consult with radiation oncologist Dr. Collins, she was fully admitted on 12/17 and simulation was performed on Sunday in preparation for palliative radiation therapy treatments per radiation oncology. Seen and examined with Dr. Carson Discharge Planning Pending recommendations from radiation oncology based on when palliative radiation therapy treatments will be performed. (Mena Lauren MD R2) Attending Attestation Patient seen and examined. Case reviewed and discussed Agree with plan of care as discussed with me and documented in the resident note. 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 ICD Codes: C02.9 - Malignant neoplasm of tongue, unspecified; C79.89 - Secondary malignant neoplasm of other specified sites Plan: -Known lesion at L3 -Leukocytosis is most likely due to chronic inflammatory state from metastatic cancer -Simulation was performed on 12/18 in preparation for palliative radiation therapy treatments (3) Decrease in appetite ICD Codes: R63.0 - Anorexia Plan: -Continue dexamethasone 2 mg by mouth twice a day (4) Depression ICD Codes: F32.9 - Major depressive disorder, single episode, unspecified Status: Acute Plan: -Continue fluoxetine 20 mg by mouth daily -Continue alprazolam 0.5 mg every 6 hours when necessary anxiety (5) FEN/DVT PPX/GI PPX/Nursing Orders Plan: Fluids: Oral fluids currently Electrolytes: Will monitor and replace as needed. Nutrition: Regular adult diet DVT Prophylaxis: Lovenox 40mg daily Constipation prophylaxis: Constipation regimen PRN Medications Tylenol 650 mg by mouth every 4 hours when necessary temperature greater than 100.4F Zofran 4 mg IV push every 6 hours when necessary nausea vomiting Morphine 4 mg IV push every 3 hours breakthrough pain -Vitals Q4h -Monitor I's and O's -Activity OOB ad kathy -PT to assist with ambulation and strengthening exercises - recommend home with home health -Case management consult to assist with discharge disposition (Mena Lauren MD R2) Mena Lauren MD R2 Dec 19, 2016 10:55 Monica Bravo MD Dec 25, 2016 16:32
[2016-12-19] MEDS: ALPRAZolam 0.5 MG TAB PO PRN (12:15)
--- NOTE | 2016-12-19 14:08 | HHI.HCPN ---
Reason for visit a. To assist with evaluation and management of symptoms including: pain, debility, decreased appetite, constipation b. To assist medical decision maker(s) with: better understanding of current medical conditions; weighing benefits/burdens of medical treatment options; making medical treatment decisions. . Subjective/Interval History Mrs. 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 Patient presented to [facility] on 12/15/16 for evaluation of intractable pain and generalized weakness; she was subsequently admitted with metastatic cancer versus cauda equina syndrome intractable pain versus other. Follow-up visit for symptom management and clarification of medical treatment goals. Patient had first palliative radiation treatment earlier today, required alprazolam 0.5 mg prior treatment secondary to anxiety. She reports persistent back and hip pain that makes it difficult for her to walk; painful sitting in the w/c waiting for radiation. Pain is exacerbated with movement and rated 10 out of 10; patient states baseline pain is constant and rated 5 out of 5. However, she states her pain is currently adequately managed on Oramorph SR 30 mg PO q12 hours and PRN morphine 4 mg IV q4 hours or pain > 5, started on Bromide (10-325mg/tab) 2 tabs PO q6 hours PRN for pain scale 5-10. PRN 24 hours requirements: Bromide (2 tabs) x 3; morphine 4 mg IV 2. Patient is frail and cachetic with poor nutritional intake. Current weight: 96 pounds; BMI 15.5. She states her nutritional intake is further compromised secondary to poor dentition and some pain with swallowing. A mechanically soft diet with supplemental shakes has been ordered. Patient is on dexamethasone 2 mg PO BID which may improve patient's appetite. LBM: 12/19/16 Imaging showed no indication of metastatic disease in the pelvis and confirmed disease progression to the lumbar spine. No fracture was noted on an x-ray of the femur. She is having increasing difficulty ambulating; generally failing to thrive. The patient's reports it is more difficult for the patient to be left alone. He states she is increasingly confused and has had multiple recent falls in the past week secondary to increasing with weakness in the right lower extremity. Expect ongoing decline secondary to disease progression ; patient considering transitioning to comfort focused care after completing recommended number of palliative radiation treatments. . Advance Directives Living Will: Never completed Health Care Surrogate: Never completed Durable Power of Cable Puller: Never completed Advance Directive Specifics Documented care wishes: No known documented care wishes were completed. . Objective Vital Signs Date Time Temp Pulse Resp B/P (MAP) Pulse Ox O2 Delivery O2 Flow Rate FiO2 12/19/16 08:23 98.7 77 16 110/70 (83) 95 12/19/16 04:07 98.3 76 16 97/71 (80) 96 12/19/16 00:01 98.5 82 16 95/70 (78) 95 12/18/16 20:30 98.7 83 18 104/67 (79) 95 12/18/16 16:18 98.1 72 18 109/73 (85) 99 Intake & Output 12/19/16 12/19/16 07:00 19:00 Intake Total 480 ml Balance 480 ml Intake Oral 480 ml # Voids 3 # Bowel Movements 1 . Physical Exam CONSTITUTIONAL/GENERAL: This is a cachectic 61-year-old female who appears older than her stated age. TUBES/LINES/DRAINS: [id number], PIV 1 SKIN: No jaundice, rashes, or lesions. No wounds seen anteriorly. Skin temperature appropriate. Not diaphoretic. HEAD: Atraumatic. Normocephalic. EYES: Pupils equal and round and reactive. Extraocular motions intact. No scleral icterus. No injection or drainage. Fundi not examined. ENT: Hearing grossly normal. Nose without bleeding or purulent drainage. Poor dentition NECK: Trachea midline. Supple, nontender. No palpable thyroid enlargement or nodularity. CARDIOVASCULAR: Regular rate and rhythm without murmurs, gallops, or rubs. No JVD. Peripheral pulses symmetric. RESPIRATORY/CHEST: Symmetric, unlabored respirations. Diminished breath sounds bilaterally, left >right. + Wheezing GASTROINTESTINAL: Abdomen soft, non-tender, nondistended. No guarding. Bowel sounds present. GENITOURINARY: Without palpable bladder distension. MUSCULOSKELETAL: Extremities without clubbing, cyanosis, or edema. No obvious deformities. LYMPHATICS: No palpable cervical or supraclavicular adenopathy. NEUROLOGICAL: Awake and alert. Follows commands. Cognitively sharp. Moves all extremities. PSYCHIATRIC: No apparent hallucinations or other psychotic thought process. Intermittent anxiety . Diagnostic Tests Laboratory Laboratory Tests Test 12/17/16 07:05 12/17/16 08:30 12/19/16 04:43 White Blood Count 21.2 TH/MM3 (4.0-11.0) 20.7 TH/MM3 (4.0-11.0) Red Blood Count 3.49 MIL/MM3 (4.00-5.30) 3.43 MIL/MM3 (4.00-5.30) Hemoglobin 10.0 GM/DL (11.6-15.3) 9.9 GM/DL (11.6-15.3) Hematocrit 29.9 % (35.0-46.0) 29.5 % (35.0-46.0) Mean Corpuscular Volume 85.7 FL (80.0-100.0) 86.1 FL (80.0-100.0) Mean Corpuscular Hemoglobin 28.7 PG (27.0-34.0) 28.7 PG (27.0-34.0) Mean Corpuscular Hemoglobin Concent 33.5 % (32.0-36.0) 33.4 % (32.0-36.0) Red Cell Distribution Width 15.1 % (11.6-17.2) 15.0 % (11.6-17.2) Platelet Count 590 TH/MM3 (150-450) 555 TH/MM3 (150-450) Mean Platelet Volume 7.6 FL (7.0-11.0) 7.7 FL (7.0-11.0) Blood Urea Nitrogen 11 MG/DL (7-18) 13 MG/DL (7-18) Creatinine 0.52 MG/DL (0.50-1.00) 0.55 MG/DL (0.50-1.00) Random Glucose 111 MG/DL (74-106) 98 MG/DL (74-106) Calcium Level 7.9 MG/DL (8.5-10.1) 8.3 MG/DL (8.5-10.1) Sodium Level 134 MEQ/L (136-145) 132 MEQ/L (136-145) Potassium Level 4.7 MEQ/L (3.5-5.1) 4.4 MEQ/L (3.5-5.1) Chloride Level 102 MEQ/L (98-107) 98 MEQ/L (98-107) Carbon Dioxide Level 24.6 MEQ/L (21.0-32.0) 24.3 MEQ/L (21.0-32.0) Anion Gap 7 MEQ/L (5-15) 10 MEQ/L (5-15) Estimat Glomerular Filtration Rate 119 ML/MIN (>89) 112 ML/MIN (>89) Urine Color YELLOW (YELLW/STRAW) Urine Turbidity CLEAR (CLEAR) Urine pH 6.0 (5.0-8.5) Urine Specific Grady 1.013 (1.002-1.035) Urine Protein TRACE mg/dL (NEG-TRACE) Urine Glucose (UA) NEG mg/dL (NEG) Urine Ketones NEG mg/dL (NEG) Urine Occult Blood NEG (NEG) Urine Nitrite NEG (NEG) Urine Bilirubin NEG (NEG) Urine Urobilinogen LESS THAN 2.0 MG/DL (LESS Urine Leukocyte Esterase TRACE (NEG) Urine RBC LESS THAN 1 /hpf (0-3) Urine WBC 2 /hpf (0-5) Urine Squamous Epithelial Cells <1 /hpf (0-5) Urine Bacteria RARE /hpf (NONE) Urine Mucus FEW /lpf (OCC) Microscopic Urinalysis Comment CULT NOT INDICATED Neutrophils (%) (Auto) 92.5 % (16.0-70.0) Lymphocytes (%) (Auto) 1.7 % (9.0-44.0) Monocytes (%) (Auto) 5.2 % (0.0-8.0) Eosinophils (%) (Auto) 0.1 % (0.0-4.0) Basophils (%) (Auto) 0.5 % (0.0-2.0) Neutrophils # (Auto) 19.1 TH/MM3 (1.8-7.7) Lymphocytes # (Auto) 0.3 TH/MM3 (1.0-4.8) Monocytes # (Auto) 1.1 TH/MM3 (0-0.9) Eosinophils # (Auto) 0.0 TH/MM3 (0-0.4) Basophils # (Auto) 0.1 TH/MM3 (0-0.2) CBC Comment DIFF FINAL Differential Comment Total Protein 6.5 GM/DL (6.4-8.2) Albumin 2.5 GM/DL (3.4-5.0) Alkaline Phosphatase 130 U/L (45-117) Aspartate Amino Transf (AST/SGOT) 15 U/L (15-37) Alanine Aminotransferase (ALT/SGPT) 32 U/L (10-53) Total Bilirubin 0.3 MG/DL (0.2-1.0) Result Diagram: 12/19/1644212/19/16442 Assessment and Plan Disease Oriented Problem List: (1) Protein calorie malnutrition (2) Cancer (3) Depression (4) Squamous cell carcinoma of neck (5) HTN (hypertension) Symptom Scale: (1) Pain (2) Decrease in appetite (3) Constipation (4) Debility Pertinent Non-Medical Issues Psychosocial:Patient is originally from [place]. She moved to [place] in the mid 1970s. She met her , Gene, after moving to [place]. They have been for approximately 22 years. They have adult children who live locally (Gene and Jane, ages 22 and 20). 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 Spiritual: [employer] Legal: Per [place] statutes, in the absence of written advanced directives healthcare proxy decision-making falls to the patient's spouse Ethical issues impacting care: No known ethical issues impacting care. . Important Contacts Gene Wagoner, spouse: [phone] and [phone] . 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 Patient has a known lesion of the vertebral body at L3. She has progressive disease in the thorax. Metastatic disease to the pelvis suspected given the patient's symptoms of increasing pain and tenderness along the right hip and proximal femur. Patient would like to pursue ongoing palliative radiation with Dr. Graves despite general decline with increasing pain, increasing weakness and poor nutritional intake. Patient's overall prognosis is quite poor. . Code Status: No Code Plan * NO CODE * Decision-making: Patient currently has adequate insight and judgment related to her current medical conditions. In the event that the patient loses capacity , [place] statutes state in the absence of written advanced directives healthcare proxy decision-making falls to the patient's spouse (Gene Pillai). * Goals:Palliative care met with the patient and her ; hospice services were introduced. Patient would like to continue following Dr. Graves for palliative radiation of the spinal lesion if it will improve her quality of life ; she is considering transitioning to comfort focused care when radiation treatments are completed. * Discussed with patient with Dr. Roach and Xuan FIGUEROA * Palliative care contact information provided to the patient and her spouse * Symptom management-pain: Patient reports persistent back and hip pain that makes it difficult for her to walk; painful sitting in the w/c waiting for radiation. Pain is exacerbated with movement and rated 10 out of 10; patient states baseline pain is constant and rated 5 out of 5. However, she states her pain is currently adequately managed on Oramorph SR 30 mg PO q12 hours and PRN morphine 4 mg IV q4 hours or pain > 5, started on Bromide (10-325mg/tab) 2 tabs PO q6 hours PRN for pain scale 5-10. PRN 24 hours requirements: Bromide (2 tabs) x 3; morphine 4 mg IV 2. * Symptom management-debility: Patient is is increasingly symptomatic. She is having Increasing difficulty ambulating; generally failing to thrive. The patient's reports it is more difficult for the patient to be left alone. He states she is increasingly confused and has had multiple recent falls in the past week secondary to increasing with weakness in the right lower extremity. Expected ongoing decline secondary to disease progression; patient considering transitioning to comfort focused care after completing recommended number of palliative radiation treatments. * Symptom management-decreased appetite: Patient reports worsening appetite and reports a 20+ weight loss in the past 12 months. Patient is frail and cachetic with poor nutritional intake. Current weight: 96 pounds; BMI 15.5. She states her nutritional intake is further compromised secondary to poor dentition and some pain with swallowing. A mechanically soft diet with supplemental shakes has been ordered. Patient is on dexamethasone 2 mg PO BID which may improve patient's appetite. May consider starting the patient on Megace 400mg-800mg PO daily * Symptom management-constipation: LBM: 12/19/16 Current orders for Dasha- Colace one tablet PO 2 times daily; PRN sennosides, PRN lactulose, PRN dulcolax suppository and PRN magnesia. * Palliative care will continue to follow this patient throughout her hospitalization to establish trust, assist with symptom management and clarification of medical treatment goals. . Attestation To help prompt me to consider important information that might be impacting today's encounter and assessment, information from prior notes written by myself or my colleagues may have been "brought forward" into today's note. My signature on this note, however, is an attestation that I personally performed the exam, history, and/or decision-making noted today, and, unless otherwise indicated, the interactions with patient, family, and staff as well as the review of records all occurred today. I also attest that the listed assessment and stated plan reflect my best clinical judgment today based on the combination of historical information, prior notes, and today's exam/ interactions. When time spent is documented, it refers only to time spent today by the signer, or if indicated, combined time spent today by collaborating physician/nurse practitioner. . Belinda Sanders Dec 19, 2016 14:08
[2016-12-19] MEDS: ENOXAPARIN SODIUM 40 MG/0.4 ML SYRINGE SQ SCH (22:51)
[2016-12-20 04:48] VITALS: BP 104/66; PULSE 73; RESP 18; TEMP 98.9; O2SAT 96
[2016-12-20] MEDS: MORPHINE SULFATE 4 MG/ML INJ IV PUSH PRN ×4 (04:57→18:45)
[2016-12-20] MEDS: SODIUM CHLORIDE 0.9% FLUSH 10 ML FLUSH IV FLUSH PRN ×2 (04:58→12:49)
[2016-12-20 06:13] LABS: BASOPHIL # 0.1 TH/MM3 (0-0.2); BASOPHIL % 0.3 % (0.0-2.0); EOSINOPHIL % 0.1 % (0.0-4.0); HEMATOCRIT 30.3 % (35.0-46.0); HEMO FLAGS DIFF FINAL; LYMPH % 2.3 % (9.0-44.0); LYMPHOCYTE # 0.5 TH/MM3 (1.0-4.8); MEAN CELL VOLUME 85.7 FL (80.0-100.0); MEAN CORPUSCULAR HEMOGLOBIN 27.3 PG (27.0-34.0); MEAN CORPUSCULAR HGB CONC 31.9 % (32.0-36.0); MONO % 5.7 % (0.0-8.0); NEUT % 91.6 % (16.0-70.0); PLATELET COUNT 579 TH/MM3 (150-450); RED BLOOD COUNT 3.54 MIL/MM3 (4.00-5.30); RED CELL DISTRIBUTION WIDTH 14.8 % (11.6-17.2); WHITE BLOOD COUNT 19.6 TH/MM3 (4.0-11.0)
[2016-12-20 06:41] LABS: BICARBONATE 24.8 MEQ/L (21.0-32.0); POTASSIUM 4.3 MEQ/L (3.5-5.1)
[2016-12-20] MEDS: ACETAMINOPHEN/HYDROcodone 325 MG/10 MG TAB PO PRN (07:18)
[2016-12-20 09:00] VITALS: BP 104/75; PULSE 77; RESP 18; TEMP 98.9; O2SAT 95
[2016-12-20] MEDS: DEXAMETHASONE 4 MG TAB PO SCH ×2 (09:41→21:00)
[2016-12-20] MEDS: MORPHINE SULFATE 30 MG CONTROLLED RELEASE TAB PO SCH ×3 (09:41→23:34)
[2016-12-20] MEDS: PANTOPRAZOLE SOD 40 MG DELAYED RELEASE TAB PO SCH (09:41)
[2016-12-20] MEDS: FLUoxetine HCL 20 MG CAP PO SCH (09:41)
[2016-12-20] MEDS: DOCUSATE SODIUM 50 MG/SENNA 8.6 MG TAB PO SCH ×2 (09:41→21:00)
[2016-12-20] MEDS: SODIUM CHLORIDE 0.9% FLUSH 10 ML FLUSH IV FLUSH SCH ×2 (09:43→21:00)
[2016-12-20 12:00] VITALS: BP 91/65; PULSE 76; RESP 18; TEMP 98.5; O2SAT 96
[2016-12-20] MEDS ORDERED: PROCHLORPERAZINE INJ 10 MG/2 ML VIAL IM ONE (12:30)
[2016-12-20] MEDS ORDERED: oxyCODONE/ACETAMINOPHEN 5 MG/325 MG TAB PO PRN ×3 (12:45→12:46)
--- NOTE | 2016-12-20 13:10 | HHI.FPPN ---
Subjective Remarks Ms Wagoner is doing okay this morning although she still has a lot of pain. Bedside nurse states that she was given double her dose of hydrocodone but it did not touch her pain. She states that she does not think she can go home because she cannot walk due to pain. She has a palliative radiation therapy treatment at 5pm today. (Mena Lauren MD R2) Objective Vitals Vital Signs Date Time Temp Pulse Resp B/P (MAP) Pulse Ox O2 Delivery O2 Flow Rate FiO2 12/20/16 04:48 98.9 73 18 104/66 (79) 96 12/19/16 23:51 98.9 83 20 111/73 (86) 94 12/19/16 20:39 98.7 81 20 125/82 (96) 97 12/19/16 16:00 99.0 77 22 101/64 (76) 96 12/19/16 14:05 98.8 70 18 111/68 (82) 97 I/O 12/19/16 12/19/16 12/19/16 12/20/16 12/20/16 12/20/16 07:00 15:00 23:00 07:00 15:00 23:00 Intake Total 480 ml 840 ml 270 ml Balance 480 ml 840 ml 270 ml Intake Oral 480 ml 840 ml 270 ml # Voids 3 3 3 # Bowel Movements 1 1 0 (Mena Lauren MD R2) Result Diagram: 12/20/1652512/20/16525 Objective Remarks GENERAL: This is a thin, cachectic female in no apparent distress. SKIN: No rashes, ecchymoses or lesions. Cool and dry. HEAD: Atraumatic. Normocephalic. EYES: Pupils equal round and reactive. No scleral icterus. No injection or drainage. ENT: MMM. Uvula midline. Airway patent. NECK: Trachea midline. Supple, nontender, no meningeal signs. CARDIOVASCULAR. No increased WOB. GASTROINTESTINAL: Abdomen soft, non-tender, nondistended. No guarding. MUSCULOSKELETAL: Extremities without clubbing, cyanosis, or edema. NEUROLOGICAL: Awake and alert. Motor and sensory grossly within normal limits. (Mena Lauren MD R2) A/P Assessment and Plan 61-year-old female with history of oropharyngeal cancer presents with intractable pain secondary to metastatic cancer. Initially, goals of care were unclear but were clarified after discussion with a palliative nurse practitioner. Patient was initially admitted under observation for management of pain and pending consult with Dr. Graves for palliative chemotherapy for her back. Based on consult with radiation oncologist Dr. Collins, she was fully admitted on 12/17 and simulation was performed on Sunday with palliative radiation therapy treatments begun on 12/20. Per oncology, she can be discharged home as soon as her pain is well controlled and she is not requiring IV pain medication. She is being followed by palliative care during this hospitalization. Seen and examined with Dr. Bravo and Dr. Carson Discharge Planning Pending management of patient's pain. (Mena Lauren MD R2) Attending Attestation Patient seen and examined. Case reviewed and discussed Agree with plan of care as discussed with me and documented in the resident note. 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 ICD Codes: C02.9 - Malignant neoplasm of tongue, unspecified; C79.89 - Secondary malignant neoplasm of other specified sites Plan: -Known lesion at L3 -Leukocytosis is most likely due to chronic inflammatory state from metastatic cancer -Simulation was performed on 12/18 in preparation for palliative radiation therapy treatments (3) Decrease in appetite ICD Codes: R63.0 - Anorexia Plan: -Continue dexamethasone 2 mg by mouth twice a day -Consider Megace per palliative care (4) Depression ICD Codes: F32.9 - Major depressive disorder, single episode, unspecified Status: Acute Plan: -Continue fluoxetine 20 mg by mouth daily -Continue alprazolam 0.5 mg every 6 hours when necessary anxiety (5) FEN/DVT PPX/GI PPX/Nursing Orders Plan: Fluids: Oral fluids currently Electrolytes: Will monitor and replace as needed. Nutrition: Regular adult diet DVT Prophylaxis: Lovenox 40mg daily Constipation prophylaxis: Constipation regimen PRN Medications Tylenol 650 mg by mouth every 4 hours when necessary temperature greater than 100.4F Zofran 4 mg IV push every 6 hours when necessary nausea vomiting -Vitals Q4h -Monitor I's and O's -Activity OOB ad kathy -PT to assist with ambulation and strengthening exercises - recommend home with home health -Case management consult to assist with discharge disposition (Mena Lauren MD R2) Mena Lauren MD R2 Dec 20, 2016 13:10 Monica Bravo MD Dec 25, 2016 16:32
[2016-12-20] MEDS: ALPRAZolam 0.5 MG TAB PO PRN (15:52)
--- NOTE | 2016-12-20 16:24 | HHI.HCPN ---
Reason for visit a. To assist with evaluation and management of symptoms including: pain, debility, decreased appetite, constipation b. To assist medical decision maker(s) with: better understanding of current medical conditions; weighing benefits/burdens of medical treatment options; making medical treatment decisions. . Subjective/Interval History Mrs. 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 Patient presented to [facility] on 12/15/16 for evaluation of intractable pain and generalized weakness; she was subsequently admitted with metastatic cancer versus cauda equina syndrome intractable pain versus other. Follow-up visit for symptom management and clarification of medical treatment goals. Patient had her first palliative radiation treatment yesterday, second treatment latter today. Lethargic, complaining of progressively worsening generalized weakness. She reports intractable pain rated 10 out of 10 in her back and hip. Previous orders for Oramorph SR 30 mg PO q12 hours; PRN morphine 4 mg IV q4 hours or pain > 5 and PRN [place] (10-325mg/tab) 1-2 tabs PO q6 hours PRN for pain scale 5-10. 24 hour PRN total = [place] (10-325mg/tab) 2 tabs x 3 and Morphine 4mg IV x 4. Oramorph was increased to 30mg PO q8 hours and [place] frequency was increased to q4 hours PRN Patient is frail and cachetic with poor nutritional intake < 25%. Current weight: 96 pounds; BMI 15.5. She states her nutritional intake is further compromised secondary to poor dentition and some pain with swallowing. A mechanically soft diet with supplemental shakes has been ordered. Patient is on dexamethasone 2 mg PO BID which may improve patient's appetite. LBM: 12/19/16 Imaging showed no indication of metastatic disease in the pelvis and confirmed disease progression to the lumbar spine. No fracture was noted on an x-ray of the femur. She is having increasing difficulty ambulating; generally failing to thrive. The patient's reports it is more difficult for the patient to be left alone. He states she is increasingly confused and has had multiple recent falls in the past week secondary to increasing with weakness in the right lower extremity. Expect ongoing decline secondary to disease progression ; patient considering transitioning to comfort focused care after completing recommended number of palliative radiation treatments. . Advance Directives Living Will: Never completed Health Care Surrogate: Never completed Durable Power of State Assessed Properties Director: Never completed Advance Directive Specifics Documented care wishes: No known documented care wishes were completed. . Objective Vital Signs Date Time Temp Pulse Resp B/P (MAP) Pulse Ox O2 Delivery O2 Flow Rate FiO2 12/20/16 12:00 98.5 76 18 91/65 (74) 96 12/20/16 09:00 98.9 77 18 104/75 (85) 95 12/20/16 04:48 98.9 73 18 104/66 (79) 96 12/19/16 23:51 98.9 83 20 111/73 (86) 94 12/19/16 20:39 98.7 81 20 125/82 (96) 97 Intake & Output 12/20/16 12/20/16 07:00 19:00 Intake Total 270 ml Balance 270 ml Intake Oral 270 ml # Voids 3 # Bowel Movements 0 . Physical Exam CONSTITUTIONAL/GENERAL: This is a cachectic 61-year-old female who appears older than her stated age. TUBES/LINES/DRAINS: [id number], PIV 1 SKIN: No jaundice, rashes, or lesions. No wounds seen anteriorly. Skin temperature appropriate. Not diaphoretic. HEAD: Atraumatic. Normocephalic. EYES: Pupils equal and round and reactive. Extraocular motions intact. No scleral icterus. No injection or drainage. Fundi not examined. ENT: Hearing grossly normal. Nose without bleeding or purulent drainage. Poor dentition NECK: Trachea midline. Supple, nontender. No palpable thyroid enlargement or nodularity. CARDIOVASCULAR: Regular rate and rhythm without murmurs, gallops, or rubs. No JVD. Peripheral pulses symmetric. RESPIRATORY/CHEST: Symmetric, unlabored respirations. Diminished breath sounds bilaterally, left >right. + Wheezing GASTROINTESTINAL: Abdomen soft, non-tender, nondistended. No guarding. Bowel sounds present. GENITOURINARY: Without palpable bladder distension. MUSCULOSKELETAL: Extremities without clubbing, cyanosis, or edema. No obvious deformities. LYMPHATICS: No palpable cervical or supraclavicular adenopathy. NEUROLOGICAL: Awake and alert. Follows commands. Cognitively sharp. Moves all extremities. PSYCHIATRIC: No apparent hallucinations or other psychotic thought process. Intermittent anxiety . Diagnostic Tests Laboratory Laboratory Tests Test 12/19/16 04:43 12/20/16 05:26 White Blood Count 20.7 TH/MM3 (4.0-11.0) 19.6 TH/MM3 (4.0-11.0) Red Blood Count 3.43 MIL/MM3 (4.00-5.30) 3.54 MIL/MM3 (4.00-5.30) Hemoglobin 9.9 GM/DL (11.6-15.3) 9.7 GM/DL (11.6-15.3) Hematocrit 29.5 % (35.0-46.0) 30.3 % (35.0-46.0) Mean Corpuscular Volume 86.1 FL (80.0-100.0) 85.7 FL (80.0-100.0) Mean Corpuscular Hemoglobin 28.7 PG (27.0-34.0) 27.3 PG (27.0-34.0) Mean Corpuscular Hemoglobin Concent 33.4 % (32.0-36.0) 31.9 % (32.0-36.0) Red Cell Distribution Width 15.0 % (11.6-17.2) 14.8 % (11.6-17.2) Platelet Count 555 TH/MM3 (150-450) 579 TH/MM3 (150-450) Mean Platelet Volume 7.7 FL (7.0-11.0) 7.2 FL (7.0-11.0) Neutrophils (%) (Auto) 92.5 % (16.0-70.0) 91.6 % (16.0-70.0) Lymphocytes (%) (Auto) 1.7 % (9.0-44.0) 2.3 % (9.0-44.0) Monocytes (%) (Auto) 5.2 % (0.0-8.0) 5.7 % (0.0-8.0) Eosinophils (%) (Auto) 0.1 % (0.0-4.0) 0.1 % (0.0-4.0) Basophils (%) (Auto) 0.5 % (0.0-2.0) 0.3 % (0.0-2.0) Neutrophils # (Auto) 19.1 TH/MM3 (1.8-7.7) 18.0 TH/MM3 (1.8-7.7) Lymphocytes # (Auto) 0.3 TH/MM3 (1.0-4.8) 0.5 TH/MM3 (1.0-4.8) Monocytes # (Auto) 1.1 TH/MM3 (0-0.9) 1.1 TH/MM3 (0-0.9) Eosinophils # (Auto) 0.0 TH/MM3 (0-0.4) 0.0 TH/MM3 (0-0.4) Basophils # (Auto) 0.1 TH/MM3 (0-0.2) 0.1 TH/MM3 (0-0.2) CBC Comment DIFF FINAL DIFF FINAL Differential Comment Blood Urea Nitrogen 13 MG/DL (7-18) 13 MG/DL (7-18) Creatinine 0.55 MG/DL (0.50-1.00) 0.50 MG/DL (0.50-1.00) Random Glucose 98 MG/DL (74-106) 112 MG/DL (74-106) Total Protein 6.5 GM/DL (6.4-8.2) Albumin 2.5 GM/DL (3.4-5.0) Calcium Level 8.3 MG/DL (8.5-10.1) 8.3 MG/DL (8.5-10.1) Alkaline Phosphatase 130 U/L (45-117) Aspartate Amino Transf (AST/SGOT) 15 U/L (15-37) Alanine Aminotransferase (ALT/SGPT) 32 U/L (10-53) Total Bilirubin 0.3 MG/DL (0.2-1.0) Sodium Level 132 MEQ/L (136-145) 133 MEQ/L (136-145) Potassium Level 4.4 MEQ/L (3.5-5.1) 4.3 MEQ/L (3.5-5.1) Chloride Level 98 MEQ/L (98-107) 99 MEQ/L (98-107) Carbon Dioxide Level 24.3 MEQ/L (21.0-32.0) 24.8 MEQ/L (21.0-32.0) Anion Gap 10 MEQ/L (5-15) 9 MEQ/L (5-15) Estimat Glomerular Filtration Rate 112 ML/MIN (>89) 125 ML/MIN (>89) . Result Diagram: 12/20/1652512/20/16525 Assessment and Plan Disease Oriented Problem List: (1) Protein calorie malnutrition (2) Cancer (3) Depression (4) Squamous cell carcinoma of neck (5) HTN (hypertension) Symptom Scale: (1) Pain (2) Decrease in appetite (3) Constipation (4) Debility Pertinent Non-Medical Issues Psychosocial:Patient is originally from [place]. She moved to [place] in the mid 1970s. She met her , Gene, after moving to [place]. They have been for approximately 22 years. They have adult children who live locally (Gene and Jane, ages 22 and 20). The patient and her work as a [employer]. Spiritual: Alevism gustabo Legal: Per [place] statutes, in the absence of written advanced directives healthcare proxy decision-making falls to the patient's spouse Ethical issues impacting care: No known ethical issues impacting care. . Important Contacts Gene Wagoner, spouse: [phone] and [phone] . 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 Patient has a known lesion of the vertebral body at L3. She has progressive disease in the thorax. Metastatic disease to the pelvis suspected given the patient's symptoms of increasing pain and tenderness along the right hip and proximal femur. Patient would like to pursue ongoing palliative radiation with Dr. Graves despite general decline with increasing pain, increasing weakness and poor nutritional intake. Patient's overall prognosis is quite poor. . Code Status: No Code Plan * NO CODE * Decision-making: Patient currently has adequate insight and judgment related to her current medical conditions. In the event that the patient loses capacity , [place] statutes state in the absence of written advanced directives healthcare proxy decision-making falls to the patient's spouse (Gene Dodsonnk). * Goals:Palliative care met with the patient and her ; hospice services were introduced. Patient would like to continue following Dr. Graves for palliative radiation of the spinal lesion if it will improve her quality of life ; she is considering transitioning to comfort focused care when radiation treatments are completed. * Symptom management-pain: Patient She reports intractable pain rated 10 out of 10 in her back and hip. Previous orders for Oramorph SR 30 mg PO q12 hours; PRN morphine 4 mg IV q4 hours or pain > 5 and PRN [place] (10-325mg/tab) 1-2 tabs PO q6 hours PRN for pain scale 5-10. 24 hour PRN total = [place] (10-325mg/tab) 2 tabs x 3 and Morphine 4mg IV x 4. Oramorph was increased to 30mg PO q8 hours and [place] frequency was increased to q4 hours PRN. * Symptom management-debility: Patient is is increasingly symptomatic. She is having Increasing difficulty ambulating; generally failing to thrive. The patient's reports it is more difficult for the patient to be left alone. He states she is increasingly confused and has had multiple recent falls in the past week secondary to increasing with weakness in the right lower extremity. Expected ongoing decline secondary to disease progression; patient considering transitioning to comfort focused care after completing recommended number of palliative radiation treatments. * Symptom management-decreased appetite: Patient reports worsening appetite and reports a 20+ weight loss in the past 12 months. Patient is frail and cachetic with poor nutritional intake. Current weight: 96 pounds; BMI 15.5. She states her nutritional intake is further compromised secondary to poor dentition and some pain with swallowing. A mechanically soft diet with supplemental shakes has been ordered. Patient is on dexamethasone 2 mg PO BID which may improve patient's appetite. May consider starting the patient on Megace 400mg-800mg PO daily * Symptom management-constipation: LBM: 12/19/16 Current orders for Dasha- Colace one tablet PO 2 times daily; PRN sennosides, PRN lactulose, PRN dulcolax suppository and PRN magnesia. * Palliative care will continue to follow this patient throughout her hospitalization to establish trust, assist with symptom management and clarification of medical treatment goals. . Attestation To help prompt me to consider important information that might be impacting today's encounter and assessment, information from prior notes written by myself or my colleagues may have been "brought forward" into today's note. My signature on this note, however, is an attestation that I personally performed the exam, history, and/or decision-making noted today, and, unless otherwise indicated, the interactions with patient, family, and staff as well as the review of records all occurred today. I also attest that the listed assessment and stated plan reflect my best clinical judgment today based on the combination of historical information, prior notes, and today's exam/ interactions. When time spent is documented, it refers only to time spent today by the signer, or if indicated, combined time spent today by collaborating physician/nurse practitioner. . Belinda Sanders Dec 20, 2016 16:24
[2016-12-20] MEDS ORDERED: MORPHINE SULFATE 30 MG CONTROLLED RELEASE TAB PO SCH (17:00)
[2016-12-20] MEDS: oxyCODONE/ACETAMINOPHEN 10 MG/325 MG TAB PO PRN (17:38)
[2016-12-20 20:00] VITALS: BP 112/72; PULSE 81; RESP 20; TEMP 98.6; O2SAT 97
[2016-12-20] MEDS: ENOXAPARIN SODIUM 40 MG/0.4 ML SYRINGE SQ SCH (21:17)
[2016-12-21] VITALS (7 sets, daily range): BP systolic 101–124; BP diastolic 62–80; PULSE 74–83; RESP 16–20; TEMP 98.6–98.9; O2SAT 94–98
[2016-12-21 06:56] LABS: HEMATOCRIT 29.8 % (35.0-46.0); MEAN CELL VOLUME 85.8 FL (80.0-100.0); MEAN CORPUSCULAR HEMOGLOBIN 28.7 PG (27.0-34.0); MEAN CORPUSCULAR HGB CONC 33.4 % (32.0-36.0); PLATELET COUNT 515 TH/MM3 (150-450); RED BLOOD COUNT 3.47 MIL/MM3 (4.00-5.30); RED CELL DISTRIBUTION WIDTH 14.7 % (11.6-17.2); REVIEW FLAG FINAL; WHITE BLOOD COUNT 20.1 TH/MM3 (4.0-11.0)
[2016-12-21 07:31] LABS: BICARBONATE 26.9 MEQ/L (21.0-32.0); POTASSIUM 4.2 MEQ/L (3.5-5.1)
--- NOTE | 2016-12-21 07:42 | HHI.FPPN ---
Subjective Remarks Patient is doing okay this morning except for continuous pain in her lower back and right leg. She did not have the palliative radiation treatments yesterday because she was given her pain medication too close to the time for the treatments. She is scheduled to have radiation treatment at 11:30 AM this morning and she let her nurse know to give her the medication at least an hour before. (Mena Lauren MD R2) Objective Vitals Vital Signs Date Time Temp Pulse Resp B/P (MAP) Pulse Ox O2 Delivery O2 Flow Rate FiO2 12/21/16 04:39 98.9 74 16 114/72 (86) 97 12/21/16 01:15 18 12/21/16 00:22 98.8 83 20 124/80 (95) 94 12/20/16 20:00 98.6 81 20 112/72 (85) 97 12/20/16 12:00 98.5 76 18 91/65 (74) 96 12/20/16 09:00 98.9 77 18 104/75 (85) 95 I/O 12/20/16 12/20/16 12/20/16 12/21/16 12/21/16 12/21/16 07:00 15:00 23:00 07:00 15:00 23:00 Intake Total 270 ml 240 ml Balance 270 ml 240 ml Intake Oral 270 ml 240 ml # Voids 3 1 # Bowel Movements 0 (Mena Lauren MD R2) Result Diagram: 12/21/16 0542 12/21/16 0541 Objective Remarks GENERAL: This is a thin, cachectic female in no apparent distress. SKIN: No rashes, ecchymoses or lesions. Cool and dry. HEAD: Atraumatic. Normocephalic. EYES: Pupils equal round and reactive. No scleral icterus. No injection or drainage. ENT: MMM. Uvula midline. Airway patent. NECK: Trachea midline. Supple, nontender, no meningeal signs. CARDIOVASCULAR. No increased WOB. GASTROINTESTINAL: Abdomen soft, non-tender, nondistended. No guarding. MUSCULOSKELETAL: Extremities without clubbing, cyanosis, or edema. NEUROLOGICAL: Awake and alert. Motor and sensory grossly within normal limits. (Mena Lauren MD R2) A/P Assessment and Plan 61-year-old female with history of oropharyngeal cancer presents with intractable pain secondary to metastatic cancer. Initially, goals of care were unclear but were clarified after discussion with a palliative nurse practitioner. Patient was initially admitted under observation for management of pain and pending consult with Dr. Graves for palliative chemotherapy for her back. Based on consult with radiation oncologist Dr. Collins, she was fully admitted on 12/17 and simulation was performed on Sunday with palliative radiation therapy treatment attempted on 12/20. Per oncology, she can be discharged home as soon as her pain is well controlled and she is not requiring IV pain medication. She is being followed by palliative care during this hospitalization. Seen and examined with Dr. Carson Discharge Planning Pending management of patient's pain. (Mena Lauren MD R2) Attending Attestation Patient seen and examined. Case reviewed and discussed Agree with plan of care as discussed with me and documented in the resident note. 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 ICD Codes: C02.9 - Malignant neoplasm of tongue, unspecified; C79.89 - Secondary malignant neoplasm of other specified sites Plan: -Known lesion at L3 -Leukocytosis is most likely due to chronic inflammatory state from metastatic cancer -Simulation was performed on 12/18 in preparation for palliative radiation therapy treatment -Palliative radiation therapy was attempted on 12/20 that could not be performed because patient had been given too soon before she was picked up - pain medication should be given 1 hour before radiation therapy -Plan for palliative radiation at 11:30 am today (3) Decrease in appetite ICD Codes: R63.0 - Anorexia Plan: -Continue dexamethasone 2 mg by mouth twice a day -Consider Megace per palliative care (4) Depression ICD Codes: F32.9 - Major depressive disorder, single episode, unspecified Status: Acute Plan: -Continue fluoxetine 20 mg by mouth daily -Continue alprazolam 0.5 mg every 6 hours when necessary anxiety (5) FEN/DVT PPX/GI PPX/Nursing Orders Plan: Fluids: Oral fluids currently Electrolytes: Will monitor and replace as needed. Nutrition: Regular adult diet DVT Prophylaxis: Lovenox 40mg daily Constipation prophylaxis: Constipation regimen PRN Medications Tylenol 650 mg by mouth every 4 hours when necessary temperature greater than 100.4F Zofran 4 mg IV push every 6 hours when necessary nausea vomiting -Vitals Q4h -Monitor I's and O's -Activity OOB ad kathy -PT to assist with ambulation and strengthening exercises - recommend home with home health -Case management consult to assist with discharge disposition (Mena Lauren MD R2) Mena Lauren MD R2 Dec 21, 2016 07:42 Monica Bravo MD Dec 25, 2016 16:31
[2016-12-21] MEDS: DOCUSATE SODIUM 50 MG/SENNA 8.6 MG TAB PO SCH ×2 (09:00→21:14)
[2016-12-21] MEDS: FLUoxetine HCL 20 MG CAP PO SCH (09:22)
[2016-12-21] MEDS: DEXAMETHASONE 4 MG TAB PO SCH ×2 (09:22→21:14)
[2016-12-21] MEDS: MORPHINE SULFATE 30 MG CONTROLLED RELEASE TAB PO SCH ×2 (09:22→15:07)
[2016-12-21] MEDS: PANTOPRAZOLE SOD 40 MG DELAYED RELEASE TAB PO SCH (09:22)
[2016-12-21] MEDS: SODIUM CHLORIDE 0.9% FLUSH 10 ML FLUSH IV FLUSH SCH ×2 (09:23→21:14)
[2016-12-21] MEDS: oxyCODONE/ACETAMINOPHEN 10 MG/325 MG TAB PO PRN ×3 (09:30→18:16)
[2016-12-21] MEDS: MORPHINE SULFATE 4 MG/ML INJ IV PUSH PRN (10:46)
[2016-12-21] MEDS: ALPRAZolam 0.5 MG TAB PO PRN ×2 (10:50→21:14)
--- NOTE | 2016-12-21 13:42 | HHI.FF ---
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 My clinical findings support the need for the requested home health care services because: Ltd mobility - disease progression Deconditioned w/ increased weakness Limited ability to care for self Need for psychosocial assistance High risk of falls I certify that my clinical findings support that this patient is homebound because: Unsteady gait/balance Unsafe to leave home unassisted Need for psychosocial assistance [id number] bed/chair Unable to use public transportation Mena Lauren MD R2 Dec 21, 2016 13:42
[2016-12-21] MEDS ORDERED: COMMODE 3-IN-11 MIS (14:31)
[2016-12-21] MEDS ORDERED: WALKER WHEELS/F1 MIS (14:31)
[2016-12-21] MEDS ORDERED: fentaNYL 25 MCG/HR PATCH T-DERMAL ONE (15:00)
--- NOTE | 2016-12-21 15:21 | HHI.HCPN ---
Reason for visit a. To assist with evaluation and management of symptoms including: pain, debility, decreased appetite, constipation b. To assist medical decision maker(s) with: better understanding of current medical conditions; weighing benefits/burdens of medical treatment options; making medical treatment decisions. . Subjective/Interval History Mrs. 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 Patient presented to [facility] on 12/15/16 for evaluation of intractable pain and generalized weakness; she was subsequently admitted with metastatic cancer versus cauda equina syndrome intractable pain versus other. Follow-up visit for symptom management and clarification of medical treatment goals. Patient was unable to receive palliative radiation yesterday 12/20/16 because her pain medication had not taken effect, and she was too painful to tolerate the treatment. She did go to scheduled radiation treatment earlier today. The patient states she is able to ambulate to the bathroom but is unable to get back to bed secondary to her progressively increasing weakness. She reports intractable pain rated 10 out of 10 in her right hip and femur. Imaging showed no indication of metastatic disease in the pelvis, confirmed disease progression to the lumbar spine. No fracture was noted on an x-ray of the femur. Patient's pain medication regimen has required frequent changes for better symptom management. Patient is currently on long-acting morphine 30 mg PO every 8 hours, additionally the patient was started on a Duragesic patch today 12/21/2016 - 25 g every 72 hours. She has Percocet 5-325mg q4 hours PRN for pain <5 and Percocet 10-325mg q4 hours PRN for pain < 5. Morphine 4mg IV is also available q3 hours PRN. 24-hour PRN requirements = Percocet 10-325mg x 3 ; Morphine 4mg IV x 2 Per oncology, she can be discharged home as soon as her pain is well controlled and she is not requiring IV pain medication. Patient is frail and cachetic with poor nutritional intake < 20%. Current weight: 88 pounds; BMI 14.3 She states her nutritional intake is further compromised secondary to poor dentition and some pain with swallowing. A mechanically soft diet with supplemental shakes has been ordered; she states she tries to drink 2-3 Ensures daily.Patient is on dexamethasone 2 mg PO BID which may improve patient's appetite. LBM: 12/19/16 Patient is having increasing difficulty ambulating; generally failing to thrive. The patient's has stated that the patient's gait is unsteady with multiple recent falls secondary to increasing weakness in the right lower extremity. Physical therapy is following. Expect ongoing decline secondary to disease progression. Palliative care met with the patient today to clarify treatment goals moving forward. The patient states she thinks hospice is the only option to get the pain under control. She states she does not think she will be a candidate for further palliative radiation and she would not opt for further chemotherapy even if it was an option. I offered to consult hospice today so hospice could follow the patient until she is ready to transition to comfort focused care, but the patient stated she wanted to speak with Dr. Solorzano first to hear his opinions. Discussed with Tammy Lau, oncology PLUSH FINISHER. . Advance Directives Living Will: Never completed Health Care Surrogate: Never completed Durable Power of Interior Design Director: Never completed Advance Directive Specifics Documented care wishes: No known documented care wishes were completed. . Objective Vital Signs Date Time Temp Pulse Resp B/P (MAP) Pulse Ox O2 Delivery O2 Flow Rate FiO2 12/21/16 12:49 98.8 83 18 101/62 (75) 98 12/21/16 09:38 98.9 80 16 105/71 (82) 96 12/21/16 04:39 98.9 74 16 114/72 (86) 97 12/21/16 01:15 18 12/21/16 00:22 98.8 83 20 124/80 (95) 94 12/20/16 20:00 98.6 81 20 112/72 (85) 97 Intake & Output 12/21/16 12/21/16 07:00 19:00 Intake Total 240 ml 680 ml Balance 240 ml 680 ml Intake Oral 240 ml 240 ml Oral Supplement 440 ml # Voids 1 Physical Exam CONSTITUTIONAL/GENERAL: This is a cachectic 61-year-old female who appears older than her stated age. TUBES/LINES/DRAINS: [id number], PIV 1 SKIN: No jaundice, rashes, or lesions. No wounds seen anteriorly. Skin temperature appropriate. Not diaphoretic. HEAD: Atraumatic. Normocephalic. EYES: Pupils equal and round and reactive. Extraocular motions intact. No scleral icterus. No injection or drainage. Fundi not examined. ENT: Hearing grossly normal. Nose without bleeding or purulent drainage. Poor dentition NECK: Trachea midline. Supple, nontender. No palpable thyroid enlargement or nodularity. CARDIOVASCULAR: Regular rate and rhythm without murmurs, gallops, or rubs. No JVD. Peripheral pulses symmetric. RESPIRATORY/CHEST: Symmetric, unlabored respirations. Diminished breath sounds bilaterally, left >right. + Wheezing GASTROINTESTINAL: Abdomen soft, non-tender, nondistended. No guarding. Bowel sounds present. GENITOURINARY: Without palpable bladder distension. MUSCULOSKELETAL: Extremities without clubbing, cyanosis, or edema. No obvious deformities. LYMPHATICS: No palpable cervical or supraclavicular adenopathy. NEUROLOGICAL: Awake and alert. Follows commands. Cognitively sharp. Moves all extremities. PSYCHIATRIC: No apparent hallucinations or other psychotic thought process. Intermittent anxiety . Diagnostic Tests Laboratory Laboratory Tests Test 12/19/16 04:43 12/20/16 05:26 12/21/16 05:41 12/21/16 05:42 White Blood Count 20.7 TH/MM3 (4.0-11.0) 19.6 TH/MM3 (4.0-11.0) 20.1 TH/MM3 (4.0-11.0) Red Blood Count 3.43 MIL/MM3 (4.00-5.30) 3.54 MIL/MM3 (4.00-5.30) 3.47 MIL/MM3 (4.00-5.30) Hemoglobin 9.9 GM/DL (11.6-15.3) 9.7 GM/DL (11.6-15.3) 9.9 GM/DL (11.6-15.3) Hematocrit 29.5 % (35.0-46.0) 30.3 % (35.0-46.0) 29.8 % (35.0-46.0) Mean Corpuscular Volume 86.1 FL (80.0-100.0) 85.7 FL (80.0-100.0) 85.8 FL (80.0-100.0) Mean Corpuscular Hemoglobin 28.7 PG (27.0-34.0) 27.3 PG (27.0-34.0) 28.7 PG (27.0-34.0) Mean Corpuscular Hemoglobin Concent 33.4 % (32.0-36.0) 31.9 % (32.0-36.0) 33.4 % (32.0-36.0) Red Cell Distribution Width 15.0 % (11.6-17.2) 14.8 % (11.6-17.2) 14.7 % (11.6-17.2) Platelet Count 555 TH/MM3 (150-450) 579 TH/MM3 (150-450) 515 TH/MM3 (150-450) Mean Platelet Volume 7.7 FL (7.0-11.0) 7.2 FL (7.0-11.0) 7.4 FL (7.0-11.0) Neutrophils (%) (Auto) 92.5 % (16.0-70.0) 91.6 % (16.0-70.0) Lymphocytes (%) (Auto) 1.7 % (9.0-44.0) 2.3 % (9.0-44.0) Monocytes (%) (Auto) 5.2 % (0.0-8.0) 5.7 % (0.0-8.0) Eosinophils (%) (Auto) 0.1 % (0.0-4.0) 0.1 % (0.0-4.0) Basophils (%) (Auto) 0.5 % (0.0-2.0) 0.3 % (0.0-2.0) Neutrophils # (Auto) 19.1 TH/MM3 (1.8-7.7) 18.0 TH/MM3 (1.8-7.7) Lymphocytes # (Auto) 0.3 TH/MM3 (1.0-4.8) 0.5 TH/MM3 (1.0-4.8) Monocytes # (Auto) 1.1 TH/MM3 (0-0.9) 1.1 TH/MM3 (0-0.9) Eosinophils # (Auto) 0.0 TH/MM3 (0-0.4) 0.0 TH/MM3 (0-0.4) Basophils # (Auto) 0.1 TH/MM3 (0-0.2) 0.1 TH/MM3 (0-0.2) CBC Comment DIFF FINAL DIFF FINAL Differential Comment Blood Urea Nitrogen 13 MG/DL (7-18) 13 MG/DL (7-18) 12 MG/DL (7-18) Creatinine 0.55 MG/DL (0.50-1.00) 0.50 MG/DL (0.50-1.00) 0.45 MG/DL (0.50-1.00) Random Glucose 98 MG/DL (74-106) 112 MG/DL (74-106) 95 MG/DL (74-106) Total Protein 6.5 GM/DL (6.4-8.2) Albumin 2.5 GM/DL (3.4-5.0) Calcium Level 8.3 MG/DL (8.5-10.1) 8.3 MG/DL (8.5-10.1) 8.3 MG/DL (8.5-10.1) Alkaline Phosphatase 130 U/L (45-117) Aspartate Amino Transf (AST/SGOT) 15 U/L (15-37) Alanine Aminotransferase (ALT/SGPT) 32 U/L (10-53) Total Bilirubin 0.3 MG/DL (0.2-1.0) Sodium Level 132 MEQ/L (136-145) 133 MEQ/L (136-145) 132 MEQ/L (136-145) Potassium Level 4.4 MEQ/L (3.5-5.1) 4.3 MEQ/L (3.5-5.1) 4.2 MEQ/L (3.5-5.1) Chloride Level 98 MEQ/L (98-107) 99 MEQ/L (98-107) 97 MEQ/L (98-107) Carbon Dioxide Level 24.3 MEQ/L (21.0-32.0) 24.8 MEQ/L (21.0-32.0) 26.9 MEQ/L (21.0-32.0) Anion Gap 10 MEQ/L (5-15) 9 MEQ/L (5-15) 8 MEQ/L (5-15) Estimat Glomerular Filtration Rate 112 ML/MIN (>89) 125 ML/MIN (>89) 141 ML/MIN (>89) Result Diagram: 12/21/16 0542 12/21/16 0541 Assessment and Plan Disease Oriented Problem List: (1) Protein calorie malnutrition (2) Cancer (3) Depression (4) Squamous cell carcinoma of neck (5) HTN (hypertension) Symptom Scale: (1) Pain (2) Decrease in appetite (3) Constipation (4) Debility Pertinent Non-Medical Issues Psychosocial:Patient is originally from [place]. She moved to [place] in the mid 1970s. She met her , Gene, after moving to [place]. They have been for approximately 22 years. They have adult children who live locally (Gene and Jane, ages 22 and 20). 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 Spiritual: Worship gustabo Legal: Per [place] statutes, in the absence of written advanced directives healthcare proxy decision-making falls to the patient's spouse Ethical issues impacting care: No known ethical issues impacting care. . Important Contacts Gene Wagoner, spouse: [phone] and [phone] . 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 Patient has a known lesion of the vertebral body at L3. She has progressive disease in the thorax. Metastatic disease to the pelvis suspected given the patient's symptoms of increasing pain and tenderness along the right hip and proximal femur. Patient would like to pursue ongoing palliative radiation with Dr. Graves despite general decline with increasing pain, increasing weakness and poor nutritional intake. Patient's overall prognosis is quite poor. . Code Status: No Code Plan * NO CODE * Decision-making: Patient currently has adequate insight and judgment related to her current medical conditions. In the event that the patient loses capacity , [place] statutes state in the absence of written advanced directives healthcare proxy decision-making falls to the patient's spouse (Gene Dodsonnk). * Goals:Palliative care met with the patient and her ; hospice services were introduced. Patient would like to continue following Dr. Graves for palliative radiation of the spinal lesion if it will improve her quality of life ; she is considering transitioning to comfort focused care when radiation treatments are completed. * Symptom management-pain: Patient was unable to receive palliative radiation yesterday her pain medication had not taken effect and she was too painful to tolerate the treatment. She did go to scheduled radiation treatment earlier today. The patient states she is able to ambulate to the bathroom but is unable to get back to bed secondary to her progressively increasing weakness. She reports intractable pain rated 10 out of 10 in her right hip and femur. Imaging showed no indication of metastatic disease in the pelvis and confirmed disease progression to the lumbar spine. No fracture was noted on an x-ray of the femur. Her first palliative radiation treatment yesterday, second treatment latter today. Lethargic, complaining of progressively worsening generalized weakness. Patient is currently on long-acting morphine 30 mg PO every 8 hours, additionally the patient was started on a Duragesic patch 2016 25 g every 72 hours. She has Percocet 5-325mg q4 hours PRN for pain <5 and Percocet 10-325mg q4 hours PRN for pain < 5. Morphine 4mg IV is also available q3 hours PRN. 24-hour PRN requirements = Percocet 10-325mg x 3; Morphine 4mg IV x 2 Per oncology, she can be discharged home as soon as her pain is well controlled and she is not requiring IV pain medication. * Symptom management-debility: Patient is is increasingly symptomatic. She is having Increasing difficulty ambulating; generally failing to thrive. The patient's reports it is more difficult for the patient to be left alone. He states she is increasingly confused and has had multiple recent falls in the past week secondary to increasing with weakness in the right lower extremity. Expected ongoing decline secondary to disease progression; patient considering transitioning to comfort focused care after completing recommended number of palliative radiation treatments. * Symptom management-decreased appetite: Patient reports worsening appetite and reports a 20+ weight loss in the past 12 months. Patient is frail and cachetic with poor nutritional intake. Current weight: 88 pounds; BMI 14.3. She states her nutritional intake is further compromised secondary to poor dentition and some pain with swallowing. A mechanically soft diet with supplemental shakes has been ordered. Patient is on dexamethasone 2 mg PO BID which may improve patient's appetite. May consider starting the patient on Megace 400mg-800mg PO daily * Symptom management-constipation: LBM: 12/19/16 Current orders for Dasha- Colace one tablet PO 2 times daily; PRN sennosides, PRN lactulose, PRN dulcolax suppository and PRN magnesia. * Palliative care met with the patient today to discuss medical treatment goals moving forward. The patient states it is becoming increasingly difficult to manage her pain and she thinks hospice is the only option to get the pain under control, and she doubts she will be offered further radiation. The patient states she would not object for further chemotherapy even if it was an option. I offered to consult hospice today and hospice could follow the patient in until she is ready to transition to comfort focused care, but the patient stated she wanted to speak with Dr. Solorzano first to hear his opinions. Discussed with Tammy Lau, oncology PLUSH FINISHER. * Palliative care will continue to follow this patient throughout her hospitalization to establish trust, assist with symptom management and clarification of medical treatment goals. . Attestation To help prompt me to consider important information that might be impacting today's encounter and assessment, information from prior notes written by myself or my colleagues may have been "brought forward" into today's note. My signature on this note, however, is an attestation that I personally performed the exam, history, and/or decision-making noted today, and, unless otherwise indicated, the interactions with patient, family, and staff as well as the review of records all occurred today. I also attest that the listed assessment and stated plan reflect my best clinical judgment today based on the combination of historical information, prior notes, and today's exam/ interactions. When time spent is documented, it refers only to time spent today by the signer, or if indicated, combined time spent today by collaborating physician/nurse practitioner. Belinda Sanders Dec 21, 2016 15:21
[2016-12-21] MEDS: ENOXAPARIN SODIUM 40 MG/0.4 ML SYRINGE SQ SCH (21:14)
[2016-12-22] VITALS: BP 105/67; PULSE 79; RESP 16; TEMP 98.8; O2SAT 94
[2016-12-22] MEDS: MORPHINE SULFATE 30 MG CONTROLLED RELEASE TAB PO SCH ×2 (00:13→06:42)
[2016-12-22 04:00] VITALS: BP 100/67; PULSE 72; RESP 16; TEMP 98.4; O2SAT 95
[2016-12-22 07:42] LABS: AUTOMATED NEUTROPHIL # 20.5 TH/MM3 (1.8-7.7); BASOPHIL % 0.1 % (0.0-2.0); EOSINOPHIL # 0.1 TH/MM3 (0-0.4); EOSINOPHIL % 0.5 % (0.0-4.0); HEMATOCRIT 29.8 % (35.0-46.0); HEMO FLAGS DIFF FINAL; LYMPH % 1.9 % (9.0-44.0); LYMPHOCYTE # 0.4 TH/MM3 (1.0-4.8); MEAN CELL VOLUME 85.9 FL (80.0-100.0); MEAN CORPUSCULAR HEMOGLOBIN 29.1 PG (27.0-34.0); MEAN CORPUSCULAR HGB CONC 33.8 % (32.0-36.0); MONO % 5.8 % (0.0-8.0); NEUT % 91.7 % (16.0-70.0); PLATELET COUNT 527 TH/MM3 (150-450); RED BLOOD COUNT 3.47 MIL/MM3 (4.00-5.30); RED CELL DISTRIBUTION WIDTH 14.9 % (11.6-17.2); WHITE BLOOD COUNT 22.3 TH/MM3 (4.0-11.0)
[2016-12-22 08:07] LABS: ANION GAP 6 MEQ/L (5-15); AST (GOT) 11 U/L (15-37); BICARBONATE 27.8 MEQ/L (21.0-32.0); BLOOD UREA NITROGEN 16 MG/DL (7-18); CHLORIDE 96 MEQ/L (98-107); GLOMERULAR FILTRATION RATE 125 ML/MIN (>89); POTASSIUM 4.1 MEQ/L (3.5-5.1); SODIUM (NA) 130 MEQ/L (136-145)
[2016-12-22 08:11] LABS: ALKALINE PHOSPHATASE 119 U/L (45-117); ALT (GPT) 22 U/L (10-53); TOTAL BILIRUBIN ADULT 0.4 MG/DL (0.2-1.0)
[2016-12-22 09:36] VITALS: BP 112/73; PULSE 82; RESP 20; TEMP 98.2; O2SAT 95
[2016-12-22] MEDS: PANTOPRAZOLE SOD 40 MG DELAYED RELEASE TAB PO SCH (09:39)
[2016-12-22] MEDS: oxyCODONE/ACETAMINOPHEN 10 MG/325 MG TAB PO PRN ×3 (09:39→19:24)
[2016-12-22] MEDS: DEXAMETHASONE 4 MG TAB PO SCH ×2 (09:39→20:36)
[2016-12-22] MEDS: FLUoxetine HCL 20 MG CAP PO SCH (09:39)
[2016-12-22] MEDS: DOCUSATE SODIUM 50 MG/SENNA 8.6 MG TAB PO SCH ×2 (09:39→20:36)
[2016-12-22] MEDS: SODIUM CHLORIDE 0.9% FLUSH 10 ML FLUSH IV FLUSH SCH ×2 (09:40→20:36)
[2016-12-22] MEDS ORDERED: DIMETHICONE/OXYBENZONE/PADMIATE LIP BALM 4.25 GM TOPICAL PRN (12:00)
[2016-12-22 12:28] VITALS: BP 118/73; PULSE 78; RESP 18; TEMP 99; O2SAT 94
[2016-12-22] MEDS: NYSTATIN SUSP 500,000 U/5 ML CUP SWISH-SWAL SCH ×3 (13:10→20:35)
--- NOTE | 2016-12-22 13:47 | HHI.FPPN ---
Subjective Remarks Ms Wagoner was in pain last night and did not sleep well. Her pain is not well controlled, especially in her right upper leg and lower back. She would like fewer people coming into her room at night. She is getting weaker and having trouble making it to the bathroom on her own. She shows us skin breakdown inside her lower lip and the white plaque on her tongue and says she is getting hoarse. Denies CP, SOB, Objective Vitals Vital Signs Date Time Temp Pulse Resp B/P (MAP) Pulse Ox O2 Delivery O2 Flow Rate FiO2 12/22/16 12:28 99.0 78 18 118/73 (88) 94 12/22/16 09:36 98.2 82 20 112/73 (86) 95 12/22/16 04:00 98.4 72 16 100/67 (78) 95 12/22/16 01:14 16 12/22/16 00:00 98.8 79 16 105/67 (80) 94 12/21/16 20:00 98.6 80 16 108/71 (83) 96 12/21/16 18:09 98.8 80 20 101/67 (78) 98 12/21/16 15:11 98.6 78 20 114/73 (87) 98 I/O 12/21/16 12/21/16 12/21/16 12/22/16 12/22/16 12/22/16 07:00 15:00 23:00 07:00 15:00 23:00 Intake Total 680 ml Balance 680 ml Intake Oral 240 ml Oral Supplement 440 ml # Voids 4 Result Diagram: 12/22/1671212/22/16712 Objective Remarks GENERAL: This is a thin, cachectic female in no apparent distress. SKIN: No rashes, ecchymoses or lesions. Cool and dry. HEAD: Atraumatic. Normocephalic. EYES: Pupils equal round and reactive. No scleral icterus. No injection or drainage. ENT: Dry mouth with epidermal peeling and erythema inside the upper and lower lips, and a white plaque on the tongue. Uvula midline. Airway patent. NECK: Trachea midline. Supple, nontender, no meningeal signs. CARDIOVASCULAR. No increased WOB. Coarse breath sounds in the lower lung cervantes and bibasilar. GASTROINTESTINAL: Abdomen soft, non-tender, nondistended. No guarding. MUSCULOSKELETAL: Extremities without clubbing, cyanosis, or edema. NEUROLOGICAL: Awake and alert. Motor and sensory grossly within normal limits. Medications and IVs Current Medications Medications (Trade) Dose Ordered Sig/Acacia Route Start Time Stop Time Status Last Admin (NS Flush) 2 ml UNSCH PRN IV FLUSH 12/15/16 18:00 12/20/16 12:49 (NS Flush) 2 ml BID IV FLUSH 12/15/16 21:00 12/22/16 09:40 (Xanax) 0.5 mg Q6H PRN PO 12/15/16 19:45 12/21/16 21:14 (Morphine Inj) 4 mg Q3H PRN IV PUSH 12/15/16 20:00 12/21/16 10:46 (PROzac) 20 mg DAILY PO 12/16/16 09:00 12/22/16 09:39 (Milk Of Magnesia Liq) 15 ml DAILY PRN PO 12/15/16 21:15 (Tylenol) 650 mg Q4H PRN PO 12/15/16 21:15 (Lovenox Inj) 40 mg Q24H SQ 12/15/16 22:00 12/21/16 21:14 (Dasha-Colace) 1 tab BID PO 12/16/16 09:00 12/22/16 09:39 (Senokot) 17.2 mg Q12H PRN PO 12/16/16 04:30 (Dulcolax Supp) 10 mg DAILY PRN RECTAL 12/16/16 04:30 (Lactulose Liq) 30 ml DAILY PRN PO 12/16/16 04:30 (Zofran Inj) 4 mg Q6HR PRN IV PUSH 12/16/16 04:45 (Protonix) 40 mg DAILY PO 12/16/16 14:15 12/22/16 09:39 (Decadron) 2 mg BID PO 12/16/16 21:00 12/22/16 09:39 (Pill Splitter) 1 ea UNSCH PRN OTHER 12/16/16 15:15 12/19/16 09:23 (Duoneb Neb) 1 ampule Q4HR NEB PRN NEB 12/17/16 20:00 (Percocet 5-325 Mg) 1 tab Q4H PRN PO 12/20/16 12:45 (Percocet 10-325 Mg) 1 tab Q4H PRN PO 12/20/16 16:45 12/22/16 13:09 Miscellaneous Information 1 ONCE ONCE T-DERMAL 12/24/16 15:00 12/24/16 15:01 (Mycostatin Liq) 5 ml QID SWISH-SWAL 12/22/16 13:00 12/22/16 13:10 (Blistex Lip Sparks) 1 applic UNSCH PRN TOPICAL 12/22/16 12:00 (Oramorph Sr) 60 mg Q12H PO 12/22/16 18:00 Urinary Catheter: No A/P Assessment and Plan 61-year-old female with history of oropharyngeal cancer presents with intractable pain secondary to metastatic cancer. Initially, goals of care were unclear but were clarified after discussion with a palliative nurse practitioner. Patient was initially admitted under observation for management of pain and pending consult with Dr. Graves for palliative chemotherapy for her back. Based on consult with radiation oncologist Dr. Collins, she was fully admitted on 12/17 and simulation was performed on Sunday with palliative radiation therapy treatment attempted on 12/20. Per oncology, she can be discharged home as soon as her pain is well controlled and she is not requiring IV pain medication. She is being followed by palliative care during this hospitalization. 12/22: Goals today: 1. Pain control: Per discussion with James in Palliative Care, have come up with following plan: increased Oramorph to 60mg q12h scheduled at 0600/1800 hours; encourage use of Percocet 10-326 PO q6h first before giving Morphine 4mg IV q3h for breakthru 2. Reduce traffic in room: discontinued neuro checks, reduced vital signs to q4h while awake only, removed telemetry 3. Treat oral thrush: nystatin swish and swallow QID Seen and examined with Dr. Simpson Discharge Planning Pending management of patient's pain. 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 ICD Codes: C02.9 - Malignant neoplasm of tongue, unspecified; C79.89 - Secondary malignant neoplasm of other specified sites Plan: -Known lesion at L3; WBC 22.3 (increased from 20.1) -Leukocytosis is most likely due to chronic inflammatory state from metastatic cancer -Simulation was performed on 12/18 in preparation for palliative radiation therapy treatment -Palliative radiation therapy was attempted on 12/20 that could not be performed because patient had been given pain medication too soon before she was picked up - pain medication should be given at least 1 hour before radiation therapy -Scheduled for 5 Palliative Radiation treatments; received 1st 12/21, 2nd @ 5: 15PM today; no radiation over the weekend; will get final 3 treatments 12/25- (3) Thrush of mouth and esophagus ICD Codes: B37.81 - Candidal esophagitis; B37.0 - Candidal stomatitis Status: Acute Plan: Pt w/metastatic cancer and cachexia on Decadron has mucositis with white plaque on tongue and becoming hoarse -Nystatin 5ml swish and swallow qid (4) Decrease in appetite ICD Codes: R63.0 - Anorexia Plan: -Continue dexamethasone 2 mg by mouth twice a day -Consider Megace per palliative care (5) Depression ICD Codes: F32.9 - Major depressive disorder, single episode, unspecified Status: Acute Plan: -Continue fluoxetine 20 mg by mouth daily -Continue alprazolam 0.5 mg every 6 hours when necessary anxiety (6) FEN/DVT PPX/GI PPX/Nursing Orders Plan: Fluids: Oral fluids currently Electrolytes: Will monitor and replace as needed. Nutrition: Regular adult diet DVT Prophylaxis: Lovenox 40mg daily Constipation prophylaxis: Constipation regimen PRN Medications Tylenol 650 mg by mouth every 4 hours when necessary temperature greater than 100.4F Zofran 4 mg IV push every 6 hours when necessary nausea vomiting -Vitals Q4h while awake -Monitor I's and O's -Activity OOB with assistance due to increasing weakness -Fall precautions due to progressive weakness -Discontinued tele and neuro checks -PT to assist with ambulation and strengthening exercises - recommend home with home health -Case management consult to assist with discharge disposition Jose Manuel Carson MD R1 Dec 22, 2016 13:47
--- NOTE | 2016-12-22 14:30 | HHI.HCPN ---
Reason for visit a. To assist with evaluation and management of symptoms including: pain, debility, decreased appetite, constipation b. To assist medical decision maker(s) with: better understanding of current medical conditions; weighing benefits/burdens of medical treatment options; making medical treatment decisions. . Subjective/Interval History Mrs. 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 Patient presented to [facility] on 12/15/16 for evaluation of intractable pain and generalized weakness; she was subsequently admitted with metastatic cancer versus cauda equina syndrome intractable pain versus other. Follow-up visit for symptom management and signing of [place] DNR Patient seen and assessed in her room. Patient is sitting up in bed, showing signs of discomfort. Patient complaining of achy pain to her right hip radiating towards her back. Patient reports her pain level as 10/10. Patient alert and oriented to self person and situation. Patient had Morphine sulfate changed today from 30mg p.o Q 8 hrs to 60mg Q 12 hrs. Patient also has a Fentanyl patch that was started 12/21/16. Patient has Morphine Sulfate 4mg IVP Q 3 hours prn and Oxycodone/Acetaminophen 10/325 po Q 4 hours prn. Patient is afebrile and hemodynamically stable. Patient`s p.o intake poor, consuming 0-25 % of her meals. Last BM 12/21/16. Reintroduced hospice philosophy and benefits and patient stated that she has not spoken to Dr. Solorzano yet and would like to speak to him first before she decides whether she would enroll in hospice or not. Patient seemed adamant to talk about hospice at this time. Case discussed with Dr. Carson and bedside RN [id number] Discussed case via telephone with Tammy HERNANDEZ. . Family/friend interactions No family at bedside. . Advance Directives Living Will: Never completed Health Care Surrogate: Never completed Durable Power of Quill Cleaning Machine Operator: Never completed Advance Directive Specifics Documented care wishes: No known documented care wishes were completed. . Objective Vital Signs Date Time Temp Pulse Resp B/P (MAP) Pulse Ox O2 Delivery O2 Flow Rate FiO2 12/22/16 12:28 99.0 78 18 118/73 (88) 94 12/22/16 09:36 98.2 82 20 112/73 (86) 95 12/22/16 04:00 98.4 72 16 100/67 (78) 95 12/22/16 01:14 16 12/22/16 00:00 98.8 79 16 105/67 (80) 94 12/21/16 20:00 98.6 80 16 108/71 (83) 96 12/21/16 18:09 98.8 80 20 101/67 (78) 98 12/21/16 15:11 98.6 78 20 114/73 (87) 98 Intake & Output 12/22/16 12/22/16 07:00 19:00 # Voids 4 Physical Exam CONSTITUTIONAL/GENERAL: This is a cachectic 61-year-old female who appears older than her stated age, in moderate discomfort- reporting pain as 10/10 to left hip area. TUBES/LINES/DRAINS: [id number], PIV 1 SKIN: No jaundice, rashes, or lesions. No wounds seen anteriorly. Skin temperature appropriate. Not diaphoretic. HEAD: Atraumatic. Normocephalic. EYES: Pupils equal and round and reactive. Extraocular motions intact. No scleral icterus. No injection or drainage. Fundi not examined. ENT: Hearing grossly normal. Nose without bleeding or purulent drainage. Poor dentition NECK: Trachea midline. Supple, nontender. CARDIOVASCULAR: Regular rate and rhythm without murmurs, gallops, or rubs. No JVD. Peripheral pulses symmetric. RESPIRATORY/CHEST: Symmetric, unlabored respirations. Diminished breath sounds bilaterally, left >right GASTROINTESTINAL: Abdomen flat, soft, non-tender, nondistended. No guarding. Positive bowel sounds. GENITOURINARY: Without palpable bladder distension. MUSCULOSKELETAL: Extremities without clubbing, cyanosis, or edema. No obvious deformities. NEUROLOGICAL: Awake and alert. Follows commands. Cognitively sharp. Moves all extremities. PSYCHIATRIC: No apparent hallucinations or other psychotic thought process. Intermittent anxiety . Diagnostic Tests Laboratory Laboratory Tests Test 12/20/16 05:26 12/21/16 05:41 12/21/16 05:42 12/22/16 07:13 White Blood Count 19.6 TH/MM3 (4.0-11.0) 20.1 TH/MM3 (4.0-11.0) 22.3 TH/MM3 (4.0-11.0) Red Blood Count 3.54 MIL/MM3 (4.00-5.30) 3.47 MIL/MM3 (4.00-5.30) 3.47 MIL/MM3 (4.00-5.30) Hemoglobin 9.7 GM/DL (11.6-15.3) 9.9 GM/DL (11.6-15.3) 10.1 GM/DL (11.6-15.3) Hematocrit 30.3 % (35.0-46.0) 29.8 % (35.0-46.0) 29.8 % (35.0-46.0) Mean Corpuscular Volume 85.7 FL (80.0-100.0) 85.8 FL (80.0-100.0) 85.9 FL (80.0-100.0) Mean Corpuscular Hemoglobin 27.3 PG (27.0-34.0) 28.7 PG (27.0-34.0) 29.1 PG (27.0-34.0) Mean Corpuscular Hemoglobin Concent 31.9 % (32.0-36.0) 33.4 % (32.0-36.0) 33.8 % (32.0-36.0) Red Cell Distribution Width 14.8 % (11.6-17.2) 14.7 % (11.6-17.2) 14.9 % (11.6-17.2) Platelet Count 579 TH/MM3 (150-450) 515 TH/MM3 (150-450) 527 TH/MM3 (150-450) Mean Platelet Volume 7.2 FL (7.0-11.0) 7.4 FL (7.0-11.0) 7.4 FL (7.0-11.0) Neutrophils (%) (Auto) 91.6 % (16.0-70.0) 91.7 % (16.0-70.0) Lymphocytes (%) (Auto) 2.3 % (9.0-44.0) 1.9 % (9.0-44.0) Monocytes (%) (Auto) 5.7 % (0.0-8.0) 5.8 % (0.0-8.0) Eosinophils (%) (Auto) 0.1 % (0.0-4.0) 0.5 % (0.0-4.0) Basophils (%) (Auto) 0.3 % (0.0-2.0) 0.1 % (0.0-2.0) Neutrophils # (Auto) 18.0 TH/MM3 (1.8-7.7) 20.5 TH/MM3 (1.8-7.7) Lymphocytes # (Auto) 0.5 TH/MM3 (1.0-4.8) 0.4 TH/MM3 (1.0-4.8) Monocytes # (Auto) 1.1 TH/MM3 (0-0.9) 1.3 TH/MM3 (0-0.9) Eosinophils # (Auto) 0.0 TH/MM3 (0-0.4) 0.1 TH/MM3 (0-0.4) Basophils # (Auto) 0.1 TH/MM3 (0-0.2) 0.0 TH/MM3 (0-0.2) CBC Comment DIFF FINAL DIFF FINAL Differential Comment Blood Urea Nitrogen 13 MG/DL (7-18) 12 MG/DL (7-18) 16 MG/DL (7-18) Creatinine 0.50 MG/DL (0.50-1.00) 0.45 MG/DL (0.50-1.00) 0.50 MG/DL (0.50-1.00) Random Glucose 112 MG/DL (74-106) 95 MG/DL (74-106) 97 MG/DL (74-106) Calcium Level 8.3 MG/DL (8.5-10.1) 8.3 MG/DL (8.5-10.1) 8.1 MG/DL (8.5-10.1) Sodium Level 133 MEQ/L (136-145) 132 MEQ/L (136-145) 130 MEQ/L (136-145) Potassium Level 4.3 MEQ/L (3.5-5.1) 4.2 MEQ/L (3.5-5.1) 4.1 MEQ/L (3.5-5.1) Chloride Level 99 MEQ/L (98-107) 97 MEQ/L (98-107) 96 MEQ/L (98-107) Carbon Dioxide Level 24.8 MEQ/L (21.0-32.0) 26.9 MEQ/L (21.0-32.0) 27.8 MEQ/L (21.0-32.0) Anion Gap 9 MEQ/L (5-15) 8 MEQ/L (5-15) 6 MEQ/L (5-15) Estimat Glomerular Filtration Rate 125 ML/MIN (>89) 141 ML/MIN (>89) 125 ML/MIN (>89) Total Protein 6.7 GM/DL (6.4-8.2) Albumin 2.6 GM/DL (3.4-5.0) Alkaline Phosphatase 119 U/L (45-117) Aspartate Amino Transf (AST/SGOT) 11 U/L (15-37) Alanine Aminotransferase (ALT/SGPT) 22 U/L (10-53) Total Bilirubin 0.4 MG/DL (0.2-1.0) Result Diagram: 12/22/1671212/22/16712 Assessment and Plan Disease Oriented Problem List: (1) Protein calorie malnutrition (2) Cancer (3) Depression (4) Squamous cell carcinoma of neck (5) HTN (hypertension) Symptom Scale: (1) Pain (2) Decrease in appetite (3) Constipation (4) Debility Pertinent Non-Medical Issues Psychosocial:Patient is originally from [place]. She moved to [place] in the mid 1970s. She met her , Gene, after moving to [place]. They have been for approximately 22 years. They have adult children who live locally (Gene and Jane, ages 22 and 20). 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 Spiritual: Baptism gustabo Legal: Per [place] statutes, in the absence of written advanced directives healthcare proxy decision-making falls to the patient's spouse Ethical issues impacting care: No known ethical issues impacting care. . Important Contacts Gene Wagoner, spouse: [phone] and [phone] . 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 Patient has a known lesion of the vertebral body at L3. She has progressive disease in the thorax. Metastatic disease to the pelvis suspected given the patient's symptoms of increasing pain and tenderness along the right hip and proximal femur. Patient would like to pursue ongoing palliative radiation with Dr. Graves despite general decline with increasing pain, increasing weakness and poor nutritional intake. Patient's overall prognosis is quite poor. . Code Status: No Code Plan * NO CODE * Decision-making: Patient currently has adequate insight and judgment related to her current medical conditions. In the event that the patient loses capacity , [place] statutes state in the absence of written advanced directives healthcare proxy decision-making falls to the patient's spouse (Gene Pillai). * Goals:12/22/16- State of [place] DNR signed today. Reintroduced hospice philosophy and benefits and patient stated that she has not spoken to Dr. Solorzano yet and would like to speak to him first before she decides whether she would enroll in hospice or not. Patient seemed adamant to talk about hospice at this time. * Symptom management-pain: Patient had palliative radiation treatment . Patient complaining of achy pain to her right hip radiating towards her back. Patient reports her pain level as 10/10. Patient had Morphine sulfate changed today from 30mg p.o Q 8 hrs to 60mg Q 12 hrs. Patient also has a Fentanyl patch that was started 12/21/16. Patient has Morphine Sulfate 4mg IVP Q 3 hours prn and has required x4 prn doses over a 24 hours period and Oxycodone /Acetaminophen 10/325 po Q 4 hours prn- patient has required x4 prn doses over 24 hours. Patient reports that her pain level drops to a 6/10 after she takes oxycodone. Recommending monitoring patient`s pain control after recent medication adjustments. Encouraged patient to request Oxycodone for breakthrough pain instead of parenteral Morphine sulfate. . * Symptom management-debility: Patient is is increasingly symptomatic. She is having Increasing difficulty ambulating; generally failing to thrive. Patient has history of recent multiple falls in the past week secondary to increasing weakness in the right lower extremity. Expected ongoing decline secondary to disease progression; patient considering transitioning to comfort focused care after completing recommended number of palliative radiation treatments. * Symptom management-decreased appetite: Patient reports worsening appetite and reports a 20+ weight loss in the past 12 months. Patient is frail and cachetic with poor nutritional intake. Current weight: 88 pounds; BMI 14.3. She states her nutritional intake is further compromised secondary to poor dentition and some pain with swallowing. A mechanically soft diet with supplemental shakes has been ordered. Patient is on dexamethasone 2 mg PO BID which may improve patient's appetite. Last aAlbumin level 12/22 = 2.6, total protein 6.7. May consider starting the patient on Megace 400mg-800mg PO daily * Symptom management-constipation: LBM: 12/21/16 Current orders for Dasha- Colace one tablet PO 2 times daily; PRN sennosides, PRN lactulose, PRN dulcolax suppository and PRN magnesia. * Reintroduced hospice philosophy and benefits and patient stated that she has not spoken to Dr. Solorzano yet and would like to speak to him first before she decides whether she would enroll in hospice or not. Patient seemed adamant to talk about hospice at this time. Patient still experiencing pain to right hip radiating to her back- Medication changes done today-recommending monitoring patient`s pain control after recent medication adjustments. * Palliative care will continue to follow this patient throughout her hospitalization to establish trust, assist with symptom management and clarification of medical treatment goals. . Nasra Fernández Dec 22, 2016 14:30
[2016-12-22] MEDS: ALPRAZolam 0.5 MG TAB PO PRN ×2 (15:43→23:35)
[2016-12-22 15:47] VITALS: BP 94/59; PULSE 88; RESP 18; TEMP 98.8; O2SAT 96
[2016-12-22] MEDS: MORPHINE SULFATE 4 MG/ML INJ IV PUSH PRN (16:56)
[2016-12-22] MEDS: MORPHINE SULFATE 60 MG CONTROLLED RELEASE TAB PO SCH (16:57)
--- NOTE | 2016-12-22 19:00 | PD.ONC.PN ---
Subjective Subjective Remarks Pt seen and examined, vitals, meds and labs reviewed. She reports severe mid line back pain and R hip pain. She has been on RT most of this week. She wants to transition to hospice, however she needs to either finish RT or to d/c RT early to enrol on hospice. Objective Data Date Time Temp Pulse Resp B/P (MAP) Pulse Ox O2 Delivery O2 Flow Rate FiO2 12/22/16 15:47 98.8 88 18 94/59 (71) 96 12/22/16 12:28 99.0 78 18 118/73 (88) 94 12/22/16 09:36 98.2 82 20 112/73 (86) 95 12/22/16 04:00 98.4 72 16 100/67 (78) 95 12/22/16 01:14 16 12/22/16 00:00 98.8 79 16 105/67 (80) 94 12/21/16 20:00 98.6 80 16 108/71 (83) 96 12/22/16 12/22/16 12/22/16 07:00 15:00 23:00 Intake Total 720 ml Balance 720 ml Result Diagram: 12/22/16 0713 12/22/16 0713 Laboratory Results Laboratory Tests Test 12/22/16 07:13 White Blood Count 22.3 TH/MM3 Red Blood Count 3.47 MIL/MM3 Hemoglobin 10.1 GM/DL Hematocrit 29.8 % Mean Corpuscular Volume 85.9 FL Mean Corpuscular Hemoglobin 29.1 PG Mean Corpuscular Hemoglobin Concent 33.8 % Red Cell Distribution Width 14.9 % Platelet Count 527 TH/MM3 Mean Platelet Volume 7.4 FL Neutrophils (%) (Auto) 91.7 % Lymphocytes (%) (Auto) 1.9 % Monocytes (%) (Auto) 5.8 % Eosinophils (%) (Auto) 0.5 % Basophils (%) (Auto) 0.1 % Neutrophils # (Auto) 20.5 TH/MM3 Lymphocytes # (Auto) 0.4 TH/MM3 Monocytes # (Auto) 1.3 TH/MM3 Eosinophils # (Auto) 0.1 TH/MM3 Basophils # (Auto) 0.0 TH/MM3 CBC Comment DIFF FINAL Differential Comment Blood Urea Nitrogen 16 MG/DL Creatinine 0.50 MG/DL Random Glucose 97 MG/DL Total Protein 6.7 GM/DL Albumin 2.6 GM/DL Calcium Level 8.1 MG/DL Alkaline Phosphatase 119 U/L Aspartate Amino Transf (AST/SGOT) 11 U/L Alanine Aminotransferase (ALT/SGPT) 22 U/L Total Bilirubin 0.4 MG/DL Sodium Level 130 MEQ/L Potassium Level 4.1 MEQ/L Chloride Level 96 MEQ/L Carbon Dioxide Level 27.8 MEQ/L Anion Gap 6 MEQ/L Estimat Glomerular Filtration Rate 125 ML/MIN Administered Medications Medications (Trade) Dose Ordered Sig/Acacia Route PRN Reason Start Time Stop Time Status Last Admin Dose Admin Sodium Chloride (NS Flush) 2 ml UNSCH PRN IV FLUSH FLUSH AFTER USING IV ACCESS 12/15/16 18:00 12/20/16 12:49 Sodium Chloride (NS Flush) 2 ml BID IV FLUSH 12/15/16 21:00 12/22/16 09:40 Alprazolam (Xanax) 0.5 mg Q6H PRN PO ANXIETY 12/15/16 19:45 12/22/16 15:43 Morphine Sulfate (Morphine Inj) 4 mg Q3H PRN IV PUSH BREAKTHROUGH PAIN 12/15/16 20:00 12/22/16 16:56 Fluoxetine HCl (PROzac) 20 mg DAILY PO 12/16/16 09:00 12/22/16 09:39 Enoxaparin Sodium (Lovenox Inj) 40 mg Q24H SQ 12/15/16 22:00 12/21/16 21:14 Senna/Docusate Sodium (Dasha-Colace) 1 tab BID PO 12/16/16 09:00 12/22/16 09:39 Pantoprazole Sodium (Protonix) 40 mg DAILY PO 12/16/16 14:15 12/22/16 09:39 Dexamethasone (Decadron) 2 mg BID PO 12/16/16 21:00 12/22/16 09:39 Miscellaneous (Pill Splitter) 1 ea UNSCH PRN OTHER SEE LABEL COMMENTS 12/16/16 15:15 12/19/16 09:23 Oxycodone/ Acetaminophen (Percocet 10-325 Mg) 1 tab Q4H PRN PO PAIN GREATER THAN 5 12/20/16 16:45 12/22/16 13:09 Nystatin (Mycostatin Liq) 5 ml QID SWISH-SWAL 12/22/16 13:00 12/22/16 15:50 Morphine Sulfate (Oramorph Sr) 60 mg Q12H PO 12/22/16 18:00 12/22/16 16:57 Objective Remarks GENERAL: Middle-aged female, she appears to be cachectic and chronically ill. She is awake and alert. She appears to be no acute distress at this time. SKIN: Warm and dry. HEAD: Normocephalic. EYES: No scleral icterus. No injection or drainage. NECK: Supple, trachea midline. No JVD or lymphadenopathy. LYMPHATIC: No adenopathy. CARDIOVASCULAR: Regular rate and rhythm without murmurs. RESPIRATORY: Breath sounds equal bilaterally. No accessory muscle use. GASTROINTESTINAL: Abdomen soft, non-tender, nondistended. Thin abdomen, no organ enlargement. EXTREMITIES: No cyanosis, or edema. MUSCULOSKELETAL: Atrophic muscle mass, adequate tone decreased strength. Tenderness over her back and posterior ribs in the midline. NEUROLOGICAL: No obvious focal deficit. Awake, alert, and oriented x3. PSYCHIATRIC: Appropriate mood and affect; insight and judgment normal. Assessment/Plan Problem List: (1) Oropharyngeal carcinoma ICD Codes: C10.9 - Malignant neoplasm of oropharynx, unspecified Plan: -- MRI shows 2.5 x 1.4 cm lytic area with associated soft tissue mass in the right posterior superior aspect of the L3 vertebral body. -- Plan for XRT simulation on Sunday for palliation to symptoms. -- Pt with overall poor prognosis; palliative care following -- Has Oramorph scheduled 30mg po BID with prn morphine 4mg IV Q3H. Hx/Workup: Pt has an extensive past history of tobaccoism. 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 She underwent concurrent chemoradiotherapy to a definitive dose and had a good local response to treatment. Unfortunately in February 2016 she presented with pulmonary masses consistent with metastatic disease. These were biopsy proven. She was subsequently initiated on systemic therapy and has been on treatment with pembrolizumab Assessment 61 y/o female with metastatic oropharyngeal carcinoma admitted for relentless pain. Initially diagnosed in the spring with locally advanced disease without metastases. She was treated with definitive dose chemoradiotherapy. She subsequently was found to have metastatic disease with pulmonary metastases in February 2016. She has been on palliative systemic therapy ever since with Keytruda. Her disease is now progressive and she has multiple new metastatic deposits involving her spine and pelvis. She was admitted to the hospital for symptom management. Plan 1. Continue current pain regimen, this seems to be effective. Now also on Fentanyl. She is also on dexamethasone. 2. Continue duo nebs. 3. Palliative RT to the L spine. Appreciate palliative care input. Patient is an appropriate candidate for hospice upon completion of palliative radiation. May d/c home if pain meds can be transitioned to oral/transdermal. Jenaro Solorzano MD Dec 22, 2016 19:00
[2016-12-22 20:00] VITALS: BP 115/70; PULSE 94; RESP 16; TEMP 98.5; O2SAT 92
[2016-12-22] MEDS: ENOXAPARIN SODIUM 40 MG/0.4 ML SYRINGE SQ SCH (20:36)
[2016-12-22] MEDS: PILL SPLITTER OTHER PRN (20:37)
[2016-12-22] MEDS ORDERED: MORPHINE SULFATE 60 MG CONTROLLED RELEASE TAB PO SCH (21:00)
[2016-12-23] VITALS: BP 97/60; PULSE 79; RESP 16; TEMP 98.7; O2SAT 95
[2016-12-23] MEDS: oxyCODONE/ACETAMINOPHEN 10 MG/325 MG TAB PO PRN ×3 (01:15→17:23)
[2016-12-23] MEDS: MORPHINE SULFATE 4 MG/ML INJ IV PUSH PRN ×3 (03:11→19:01)
[2016-12-23 04:00] VITALS: BP 93/60; PULSE 71; RESP 15; TEMP 98.6; O2SAT 96
[2016-12-23 04:54] LABS: HEMATOCRIT 29.7 % (35.0-46.0); MEAN CELL VOLUME 86.2 FL (80.0-100.0); MEAN CORPUSCULAR HEMOGLOBIN 28.9 PG (27.0-34.0); MEAN CORPUSCULAR HGB CONC 33.5 % (32.0-36.0); PLATELET COUNT 494 TH/MM3 (150-450); RED BLOOD COUNT 3.45 MIL/MM3 (4.00-5.30); RED CELL DISTRIBUTION WIDTH 14.8 % (11.6-17.2); REVIEW FLAG FINAL
[2016-12-23] MEDS: MORPHINE SULFATE 60 MG CONTROLLED RELEASE TAB PO SCH ×2 (05:19→17:23)
[2016-12-23 05:22] LABS: ANION GAP 8 MEQ/L (5-15); AST (GOT) 8 U/L (15-37); BICARBONATE 28.2 MEQ/L (21.0-32.0); BLOOD UREA NITROGEN 17 MG/DL (7-18); CHLORIDE 96 MEQ/L (98-107); GLOMERULAR FILTRATION RATE 134 ML/MIN (>89); POTASSIUM 4.4 MEQ/L (3.5-5.1); SODIUM (NA) 132 MEQ/L (136-145)
[2016-12-23 05:25] LABS: ALKALINE PHOSPHATASE 143 U/L (45-117); ALT (GPT) 23 U/L (10-53); TOTAL BILIRUBIN ADULT 0.4 MG/DL (0.2-1.0)
[2016-12-23 09:04] VITALS: BP 95/68; PULSE 92; RESP 20; TEMP 97.6; O2SAT 98
[2016-12-23] MEDS: DOCUSATE SODIUM 50 MG/SENNA 8.6 MG TAB PO SCH ×2 (09:16→21:00)
[2016-12-23] MEDS: NYSTATIN SUSP 500,000 U/5 ML CUP SWISH-SWAL SCH ×4 (09:16→20:20)
[2016-12-23] MEDS: DEXAMETHASONE 4 MG TAB PO SCH ×2 (09:16→20:21)
[2016-12-23] MEDS: PANTOPRAZOLE SOD 40 MG DELAYED RELEASE TAB PO SCH (09:16)
[2016-12-23] MEDS: FLUoxetine HCL 20 MG CAP PO SCH (09:16)
--- NOTE | 2016-12-23 09:54 | HHI.FPPN ---
Subjective Remarks Ms Wagoner had no acute events overnight, but felt like there were a lot of people coming into her room late in the evening around 10PM. She received her 2nd dose of Palliative Radiation therapy yesterday afternoon. She is still in significant pain in spite of a robust pain medication regimen. She is tolerating PO now that her mouth feels better, voiding, but hasn't stooled in at least two days. Tells us oncology wants to keep her in the hospital at least until Sunday, about the time she should complete radiation therapy. She is hungry and about to eat her breakfast during our visit today. No CP, SOB, N/V/D , DVT pain. (Jose Manuel Carson MD R1) Objective Vitals Vital Signs Date Time Temp Pulse Resp B/P (MAP) Pulse Ox O2 Delivery O2 Flow Rate FiO2 12/23/16 09:04 97.6 92 20 95/68 (77) 98 12/23/16 04:00 98.6 71 15 93/60 (71) 96 12/23/16 00:00 98.7 79 16 97/60 (72) 95 12/22/16 20:00 98.5 94 16 115/70 (85) 92 12/22/16 15:47 98.8 88 18 94/59 (71) 96 12/22/16 12:28 99.0 78 18 118/73 (88) 94 12/22/16 09:36 98.2 82 20 112/73 (86) 95 I/O 12/22/16 12/22/16 12/22/16 12/23/16 12/23/16 12/23/16 07:00 15:00 23:00 07:00 15:00 23:00 Intake Total 720 ml Balance 720 ml Intake Oral 240 ml Oral Supplement 480 ml # Voids 4 4 2 (Jose Manuel Carson MD R1) Result Diagram: 12/23/1643212/23/16432 Objective Remarks GENERAL: This is a thin, cachectic female in no apparent distress, sitting up in bed, drinking coffee. SKIN: No rashes, ecchymoses or lesions. Cool and dry. HEAD: Atraumatic. Normocephalic. EYES: Pupils equal round and reactive. No scleral icterus. No injection or drainage. ENT: Thrush resolving as well as mucositis. Uvula midline. Airway patent. NECK: Trachea midline. Supple, nontender, no meningeal signs. CARDIOVASCULAR. No increased WOB. Lung cervantes clear to auscultation bilaterally. GASTROINTESTINAL: Abdomen soft, non-tender, nondistended. No guarding. MUSCULOSKELETAL: Extremities without clubbing, cyanosis, or edema. NEUROLOGICAL: Awake and alert. Motor and sensory grossly within normal limits. Procedures Palliative Radiation therapy 12/21 and 12/22 Medications and IVs Current Medications Medications (Trade) Dose Ordered Sig/Acacia Route Start Time Stop Time Status Last Admin (NS Flush) 2 ml UNSCH PRN IV FLUSH 12/15/16 18:00 12/20/16 12:49 (NS Flush) 2 ml BID IV FLUSH 12/15/16 21:00 12/22/16 20:36 (Xanax) 0.5 mg Q6H PRN PO 12/15/16 19:45 12/22/16 23:35 (Morphine Inj) 4 mg Q3H PRN IV PUSH 12/15/16 20:00 12/23/16 03:11 (PROzac) 20 mg DAILY PO 12/16/16 09:00 12/23/16 09:16 (Milk Of Magnesia Liq) 15 ml DAILY PRN PO 12/15/16 21:15 (Tylenol) 650 mg Q4H PRN PO 12/15/16 21:15 (Lovenox Inj) 40 mg Q24H SQ 12/15/16 22:00 12/22/16 20:36 (Dasha-Colace) 1 tab BID PO 12/16/16 09:00 12/23/16 09:16 (Senokot) 17.2 mg Q12H PRN PO 12/16/16 04:30 (Dulcolax Supp) 10 mg DAILY PRN RECTAL 12/16/16 04:30 (Lactulose Liq) 30 ml DAILY PRN PO 12/16/16 04:30 (Zofran Inj) 4 mg Q6HR PRN IV PUSH 12/16/16 04:45 (Protonix) 40 mg DAILY PO 12/16/16 14:15 12/23/16 09:16 (Decadron) 2 mg BID PO 12/16/16 21:00 12/23/16 09:16 (Pill Splitter) 1 ea UNSCH PRN OTHER 12/16/16 15:15 12/22/16 20:37 (Duoneb Neb) 1 ampule Q4HR NEB PRN NEB 12/17/16 20:00 (Percocet 5-325 Mg) 1 tab Q4H PRN PO 12/20/16 12:45 (Percocet 10-325 Mg) 1 tab Q4H PRN PO 12/20/16 16:45 12/23/16 09:21 Miscellaneous Information 1 ONCE ONCE T-DERMAL 12/24/16 15:00 12/24/16 15:01 (Mycostatin Liq) 5 ml QID SWISH-SWAL 12/22/16 13:00 12/23/16 09:16 (Blistex Lip [place]) 1 applic UNSCH PRN TOPICAL 12/22/16 12:00 12/22/16 20:37 (Oramorph Sr) 60 mg Q12H PO 12/22/16 18:00 12/23/16 05:19 (Jose Manuel Carson MD R1) Urinary Catheter: No (Jose Manuel Carson MD R1) Vascular Central Line Catheter: No (Jose Manuel Carson MD R1) A/P Assessment and Plan 61-year-old female with history of oropharyngeal cancer presents with intractable pain secondary to metastatic cancer. Initially, goals of care were unclear but were clarified after discussion with a palliative nurse practitioner. Patient was initially admitted under observation for management of pain and pending consult with Dr. Graves for palliative chemotherapy for her back. Based on consult with radiation oncologist Dr. Collins, she was fully admitted on 12/17 and simulation was performed on Sunday with palliative radiation therapy treatment attempted on 12/20. Per oncology, she can be discharged home as soon as her pain is well controlled and she is not requiring IV pain medication. She is being followed by palliative care during this hospitalization. 12/23: Goals today: 1. Pain control: Continue current regimen to allow increased Oramorph to 60mg q12h scheduled at 0600/1800 hours to titrate to effect; continue to encourage use of Percocet 10-326 PO q6h first before giving Morphine 4mg IV q3h for breakthru 2. Reduce traffic in room: discontinued neuro checks, reduced vital signs to q4h while awake only, and removed telemetry 12/22; will give nursing order to limit entry into room after 9PM 3. Continue nystatin swish and swallow QID to resolve thrush; add magic mouthwash to reduce mouth pain 4. Miralax scheduled due to constipation Seen and examined with Dr. Lauren Discharge Planning Pending management of patient's pain anf Palliative Radiation therapy (5 doses scheduled) (Jose Manuel Carson MD R1) Attending Attestation Case reviewed and discussed with the resident team. Agree with plan of care as discussed with me and documented in the resident note. 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 ICD Codes: C02.9 - Malignant neoplasm of tongue, unspecified; C79.89 - Secondary malignant neoplasm of other specified sites Plan: -Known lesion at L3; WBC 22.3 (increased from 20.1) -Leukocytosis is most likely due to chronic inflammatory state from metastatic cancer -Simulation was performed on 12/18 in preparation for palliative radiation therapy treatment -Palliative radiation therapy was attempted on 12/20 that could not be performed because patient had been given pain medication too soon before she was picked up - pain medication should be given at least 1 hour before radiation therapy -Scheduled for 5 Palliative Radiation treatments; received 2 doses 1st 12/21-; no radiation over the weekend; will get final 3 treatments 12/25-12/28 (3) Thrush of mouth and esophagus ICD Codes: B37.81 - Candidal esophagitis; B37.0 - Candidal stomatitis Status: Acute Plan: Pt w/metastatic cancer and cachexia on Decadron has mucositis with white plaque on tongue and becoming hoarse; she tells us it is much improved today -Nystatin 5ml swish and swallow qid -Start magic mouthwash 5ml swish and swallow QID (4) Decrease in appetite ICD Codes: R63.0 - Anorexia Plan: She was getting ready to eat breakfast today and appeared to have more of an appetite today; reassess this afternoon -Continue dexamethasone 2 mg by mouth twice a day -Consider Megace per palliative care (5) Depression ICD Codes: F32.9 - Major depressive disorder, single episode, unspecified Status: Acute Plan: -Continue fluoxetine 20 mg by mouth daily -Continue alprazolam 0.5 mg every 6 hours when necessary anxiety (6) FEN/DVT PPX/GI PPX/Nursing Orders Plan: Fluids: Oral fluids currently Electrolytes: Will monitor and replace as needed. Nutrition: Regular adult diet DVT Prophylaxis: Lovenox 40mg daily Constipation prophylaxis: Constipation regimen -Add Miralax scheduled once per day for constipation in addition to Dasha-colace PRN Medications Tylenol 650 mg by mouth every 4 hours when necessary temperature greater than 100.4F Zofran 4 mg IV push every 6 hours when necessary nausea vomiting -Vitals Q4h while awake -Monitor I's and O's -Activity OOB with assistance due to increasing weakness -Fall precautions due to progressive weakness -Discontinued tele and neuro checks -Quiet hours in room nursing order from 9PM-6AM -PT to assist with ambulation and strengthening exercises - recommend home with home health -Case management consult to assist with discharge disposition (Jose Manuel Carson MD R1) Jose Manuel Carson MD R1 Dec 23, 2016 09:54 Dexter Arenas MD Dec 24, 2016 20:26
[2016-12-23] MEDS: ALPRAZolam 0.5 MG TAB PO PRN ×2 (11:42→20:21)
[2016-12-23] MEDS: POLYETHYLENE GLYCOL 17 GM PKG PO SCH (11:42)
[2016-12-23] MEDS: SODIUM CHLORIDE 0.9% FLUSH 10 ML FLUSH IV FLUSH SCH ×2 (11:45→20:22)
[2016-12-23] MEDS: NYSTAT/DIPHENHY/LIDO MOUTHWASH (Adult) 120ML SWISH-SWAL SCH ×3 (13:00→20:19)
[2016-12-23 13:06] VITALS: BP 100/69; PULSE 80; RESP 20; TEMP 99; O2SAT 94
[2016-12-23 17:00] VITALS: BP 98/66; PULSE 82; RESP 20; TEMP 99; O2SAT 96
[2016-12-23 20:18] VITALS: BP 93/69; PULSE 77; RESP 17; TEMP 99; O2SAT 96
[2016-12-23] MEDS: ENOXAPARIN SODIUM 40 MG/0.4 ML SYRINGE SQ SCH (20:22)
[2016-12-24 06:27] VITALS: BP 96/59; PULSE 71; RESP 18; TEMP 98.7; O2SAT 96
[2016-12-24] MEDS: MORPHINE SULFATE 60 MG CONTROLLED RELEASE TAB PO SCH ×2 (06:27→18:22)
[2016-12-24] MEDS: oxyCODONE/ACETAMINOPHEN 10 MG/325 MG TAB PO PRN ×4 (06:33→20:38)
[2016-12-24 08:02] LABS: AUTOMATED NEUTROPHIL # 17.2 TH/MM3 (1.8-7.7); BASOPHIL # 0.1 TH/MM3 (0-0.2); BASOPHIL % 0.5 % (0.0-2.0); EOSINOPHIL % 0.2 % (0.0-4.0); HEMATOCRIT 30.1 % (35.0-46.0); HEMO FLAGS DIFF FINAL; LYMPHOCYTE # 0.4 TH/MM3 (1.0-4.8); MEAN CELL VOLUME 87.1 FL (80.0-100.0); MEAN CORPUSCULAR HEMOGLOBIN 28.6 PG (27.0-34.0); MEAN CORPUSCULAR HGB CONC 32.9 % (32.0-36.0); MONO % 5.2 % (0.0-8.0); NEUT % 92.1 % (16.0-70.0); PLATELET COUNT 522 TH/MM3 (150-450); RED BLOOD COUNT 3.46 MIL/MM3 (4.00-5.30); WHITE BLOOD COUNT 18.7 TH/MM3 (4.0-11.0)
[2016-12-24 08:37] LABS: ANION GAP 9 MEQ/L (5-15); AST (GOT) 7 U/L (15-37); BICARBONATE 26.4 MEQ/L (21.0-32.0); BLOOD UREA NITROGEN 21 MG/DL (7-18); CHLORIDE 98 MEQ/L (98-107); GLOMERULAR FILTRATION RATE 105 ML/MIN (>89); POTASSIUM 4.2 MEQ/L (3.5-5.1); SODIUM (NA) 133 MEQ/L (136-145)
[2016-12-24 08:39] LABS: ALT (GPT) 17 U/L (10-53)
[2016-12-24 08:40] LABS: ALKALINE PHOSPHATASE 127 U/L (45-117); TOTAL BILIRUBIN ADULT 0.5 MG/DL (0.2-1.0)
[2016-12-24] MEDS: SODIUM CHLORIDE 0.9% FLUSH 10 ML FLUSH IV FLUSH SCH ×2 (09:00→20:37)
[2016-12-24] MEDS: FLUoxetine HCL 20 MG CAP PO SCH (09:20)
[2016-12-24] MEDS: NYSTATIN SUSP 500,000 U/5 ML CUP SWISH-SWAL SCH ×4 (09:20→20:37)
[2016-12-24] MEDS: PANTOPRAZOLE SOD 40 MG DELAYED RELEASE TAB PO SCH (09:20)
[2016-12-24] MEDS: DEXAMETHASONE 4 MG TAB PO SCH ×2 (09:20→20:37)
[2016-12-24] MEDS: DOCUSATE SODIUM 50 MG/SENNA 8.6 MG TAB PO SCH ×2 (09:20→20:38)
[2016-12-24] MEDS: POLYETHYLENE GLYCOL 17 GM PKG PO SCH (09:20)
[2016-12-24] MEDS: NYSTAT/DIPHENHY/LIDO MOUTHWASH (Adult) 120ML SWISH-SWAL SCH ×4 (09:21→20:39)
[2016-12-24 09:51] VITALS: BP 88/62; PULSE 88; RESP 20; TEMP 98.1; O2SAT 96
[2016-12-24] MEDS ORDERED: ALPRAZolam 0.25 MG TAB PO SCH (11:45)
--- NOTE | 2016-12-24 12:24 | HHI.FPPN ---
Subjective Remarks Ms Wagoner is feeling better today, especially her mouth. She is in pain as yesterday and nursing tells us she is a little dry and is not eating much except for Ensure. She slept better and is happy we cut down on the traffic in her room overnight. She has a wet cough with no sputum production, but is having no CP, SOB, N/V/D, or DVT pain. (Jose Manuel Carson MD R1) Objective Vitals Vital Signs Date Time Temp Pulse Resp B/P (MAP) Pulse Ox O2 Delivery O2 Flow Rate FiO2 12/24/16 09:51 98.1 88 20 88/62 (71) 96 12/24/16 06:27 98.7 71 18 96/59 (71) 96 12/23/16 20:18 99.0 77 17 93/69 (77) 96 12/23/16 17:00 99.0 82 20 98/66 (77) 96 12/23/16 13:06 99.0 80 20 100/69 (79) 94 I/O 12/23/16 12/23/16 12/23/16 12/24/16 12/24/16 12/24/16 07:00 15:00 23:00 07:00 15:00 23:00 Intake Total 960 ml 480 ml Output Total 400 ml Balance 960 ml 80 ml Intake Oral 960 ml 480 ml Output Urine Total 400 ml # Voids 2 4 # Bowel Movements 1 (Jose Manuel Carson MD R1) Result Diagram: 12/24/16 0707 12/24/16 0707 Objective Remarks GENERAL: This is a thin, cachectic female in no apparent distress, sitting in bed, with a hoarse voice. SKIN: No rashes, ecchymoses or lesions. Cool and dry. HEAD: Atraumatic. Normocephalic. EYES: Pupils equal round and reactive. No scleral icterus. No injection or drainage. ENT: Thrush and mucositis resolving. Uvula midline. Airway patent. NECK: Trachea midline. Supple, nontender, no meningeal signs. CARDIOVASCULAR: RRR with no murmur, rub or gallop. RESPIRATORY: No increased WOB. Lung cervantes clear to auscultation bilaterally. GASTROINTESTINAL: Abdomen soft, non-tender, nondistended. No guarding. MUSCULOSKELETAL: Extremities without clubbing, cyanosis, or edema. NEUROLOGICAL: Awake and alert. Motor and sensory grossly within normal limits. Procedures Palliative Radiation therapy 12/21 and 12/22 Medications and IVs Current Medications Medications (Trade) Dose Ordered Sig/Acacia Route Start Time Stop Time Status Last Admin (NS Flush) 2 ml UNSCH PRN IV FLUSH 12/15/16 18:00 12/20/16 12:49 (NS Flush) 2 ml BID IV FLUSH 12/15/16 21:00 12/24/16 09:00 (Xanax) 0.5 mg Q6H PRN PO 12/15/16 19:45 12/23/16 20:21 (Morphine Inj) 4 mg Q3H PRN IV PUSH 12/15/16 20:00 12/23/16 19:01 (PROzac) 20 mg DAILY PO 12/16/16 09:00 12/24/16 09:20 (Milk Of Magnesia Liq) 15 ml DAILY PRN PO 12/15/16 21:15 (Tylenol) 650 mg Q4H PRN PO 12/15/16 21:15 (Lovenox Inj) 40 mg Q24H SQ 12/15/16 22:00 12/23/16 20:22 (Dasha-Colace) 1 tab BID PO 12/16/16 09:00 12/24/16 09:20 (Senokot) 17.2 mg Q12H PRN PO 12/16/16 04:30 (Dulcolax Supp) 10 mg DAILY PRN RECTAL 12/16/16 04:30 (Lactulose Liq) 30 ml DAILY PRN PO 12/16/16 04:30 (Zofran Inj) 4 mg Q6HR PRN IV PUSH 12/16/16 04:45 (Protonix) 40 mg DAILY PO 12/16/16 14:15 12/24/16 09:20 (Decadron) 2 mg BID PO 12/16/16 21:00 12/24/16 09:20 (Pill Splitter) 1 ea UNSCH PRN OTHER 12/16/16 15:15 12/22/16 20:37 (Duoneb Neb) 1 ampule Q4HR NEB PRN NEB 12/17/16 20:00 (Percocet 5-325 Mg) 1 tab Q4H PRN PO 12/20/16 12:45 (Percocet 10-325 Mg) 1 tab Q4H PRN PO 12/20/16 16:45 12/24/16 11:13 Miscellaneous Information 1 ONCE ONCE T-DERMAL 12/24/16 15:00 12/24/16 15:01 (Mycostatin Liq) 5 ml QID SWISH-SWAL 12/22/16 13:00 12/24/16 09:20 (Blistex Lip [place]) 1 applic UNSCH PRN TOPICAL 12/22/16 12:00 12/22/16 20:37 (Oramorph Sr) 60 mg Q12H PO 12/22/16 18:00 12/24/16 06:27 (Magic Mouthwash Adult Liq) 5 ml QID SWISH-SWAL 12/23/16 13:00 12/24/16 09:21 (Miralax) 17 gm DAILY PO 12/23/16 09:45 12/24/16 09:20 Sodium Chloride 1,000 ml @ 70 mls/hr [id number] IV 12/24/16 11:45 12/24/16 20:00 (Xanax) 0.25 mg Q12HR PO 12/24/16 11:45 (Jose Manuel Carson MD R1) Urinary Catheter: No (Jose Manuel Carson MD R1) A/P Assessment and Plan 61-year-old female with history of oropharyngeal cancer presents with intractable pain secondary to metastatic cancer. Initially, goals of care were unclear but were clarified after discussion with a palliative nurse practitioner. Patient was initially admitted under observation for management of pain and pending consult with Dr. Graves for palliative chemotherapy for her back. Based on consult with radiation oncologist Dr. Collins, she was fully admitted on 12/17 and simulation was performed on Sunday with palliative radiation therapy treatment attempted on 12/20. Per oncology, she can be discharged home as soon as her pain is well controlled and she is not requiring IV pain medication. She is being followed by palliative care during this hospitalization. 12/24: Goals today: 1. Pain control: Continue current regimen (Oramorph to 60mg q12h scheduled at 0600/1800 hours; Percocet 10-326 PO q6h; Morphine 4mg IV q3h for breakthru) 2. Reduce traffic in room: discontinued neuro checks, reduced vital signs to q4h while awake only, and removed telemetry 12/22; nursing order to limit entry into room after 9PM 3. Continue nystatin swish and swallow QID to resolve thrush; add magic mouthwash to reduce mouth pain 4. Miralax scheduled due to constipation 5. Two more scheduled Palliative radiation treatments scheduled 12/25-12/26 Seen and examined with Dr. Simpson Discharge Planning Pending management of patient's pain anf Palliative Radiation therapy (5 doses scheduled) (Jose Manuel Carson MD R1) Attending Attestation Case reviewed and discussed with the resident team. Agree with plan of care as discussed with me and documented in the resident note. 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 ICD Codes: C02.9 - Malignant neoplasm of tongue, unspecified; C79.89 - Secondary malignant neoplasm of other specified sites Plan: -Known lesion at L3; WBC 22.3 (increased from 20.1) -Leukocytosis is most likely due to chronic inflammatory state from metastatic cancer -Simulation was performed on 12/18 in preparation for palliative radiation therapy treatment -Palliative radiation therapy was attempted on 12/20 that could not be performed because patient had been given pain medication too soon before she was picked up - pain medication should be given at least 1 hour before radiation therapy -Pt actively considering hospice and spoke with them yesterday -Scheduled for 5 Palliative Radiation treatments; received 2 doses 1st 12/21-; did not receive dose scheduled 12/20 due to pain meds being administered too close to the appt; no radiation over the weekend; will get 2 treatments -12/26; need to check whether 12/20 dose needs to be rescheduled (3) Thrush of mouth and esophagus ICD Codes: B37.81 - Candidal esophagitis; B37.0 - Candidal stomatitis Status: Acute Plan: Pt w/metastatic cancer and cachexia on Decadron has mucositis with white plaque on tongue and becoming hoarse; she tells us it is much improved today -Nystatin 5ml swish and swallow qid -Start magic mouthwash 5ml swish and swallow QID (4) Decrease in appetite ICD Codes: R63.0 - Anorexia Plan: Nursing tells us she is taking less PO -Continue dexamethasone 2 mg by mouth twice a day -Consider Megace per palliative care (5) Depression ICD Codes: F32.9 - Major depressive disorder, single episode, unspecified Status: Acute Plan: -Fluoxetine 20 mg by mouth daily -Xanax 0.5 mg every 6 hours when necessary anxiety (6) FEN/DVT PPX/GI PPX/Nursing Orders Plan: Fluids: Oral fluids currently Electrolytes: Will monitor and replace as needed. Nutrition: Regular adult diet DVT Prophylaxis: Lovenox 40mg daily Constipation prophylaxis: Constipation regimen -Miralax scheduled once per day for constipation in addition to Dasha-colace PRN Medications Tylenol 650 mg by mouth every 4 hours when necessary temperature greater than 100.4F Zofran 4 mg IV push every 6 hours when necessary nausea vomiting -Vitals Q4h while awake -Monitor I's and O's -Activity OOB with assistance due to increasing weakness -Fall precautions due to progressive weakness -Discontinued tele and neuro checks -Quiet hours in room nursing order from 9PM-6AM -PT to assist with ambulation and strengthening exercises - recommend home with home health -Case management consult to assist with discharge disposition (Jose Manuel Carson MD R1) Jose Manuel Carson MD R1 Dec 24, 2016 12:24 Dexter Arenas MD Dec 24, 2016 20:36
[2016-12-24 12:48] VITALS: BP 100/72; PULSE 82; RESP 18; TEMP 98.6; O2SAT 97
[2016-12-24] MEDS: ALPRAZolam 0.5 MG TAB PO PRN ×2 (12:51→20:38)
[2016-12-24] MEDS: SODIUM CHLOR 0.9% 1000 ML INJ 1,000 ML IV SCH (12:51)
[2016-12-24] MEDS ORDERED: REMOVE OLD DURAGESIC (FENTANYL) PATCH T-DERMAL ONE (15:00)
--- NOTE | 2016-12-24 16:27 | HHI.FPPN ---
Addendum to progress note ADDENDUM Reason for addendum: Additonal documentation Additional information Addendum to progress note: Nursing contacted me this afternoon about Ms Wagoner's fentanyl patch which is expiring today. The nurse indicated Ms Wagoner has been much more comfortable while the patch has been on, a fact witnessed by me and Dr Simpson. The nurse requested we continue the patch in addition to her other opioid pain medications. In consultation with Dr Simpson, we decided to continue the patch (fentanyl 25mcg). We also ordered vital signs to be conducted around 1AM to ensure no respiratory depression. This decision is also supported by my discussion with Palliative Care about the pt's pain control last week. Jose Manuel Carson MD R1 Dec 24, 2016 16:27
[2016-12-24] MEDS ORDERED: fentaNYL 25 MCG/HR PATCH T-DERMAL ONE (17:00)
[2016-12-24 17:01] VITALS: BP 107/57; PULSE 77; RESP 20; TEMP 98.6; O2SAT 95
[2016-12-24 20:00] VITALS: BP 105/66; PULSE 76; RESP 20; TEMP 99.5; O2SAT 94
[2016-12-24] MEDS: ENOXAPARIN SODIUM 40 MG/0.4 ML SYRINGE SQ SCH (20:37)
[2016-12-25] VITALS (8 sets, daily range): BP systolic 90–109; BP diastolic 56–75; PULSE 74–116; RESP 18–20; TEMP 97.6–99.1; O2SAT 95–98
[2016-12-25] MEDS: oxyCODONE/ACETAMINOPHEN 10 MG/325 MG TAB PO PRN ×5 (04:35→21:45)
[2016-12-25] MEDS: SODIUM CHLOR 0.9% 1000 ML INJ 1,000 ML IV SCH (04:35)
[2016-12-25] MEDS: MORPHINE SULFATE 60 MG CONTROLLED RELEASE TAB PO SCH ×2 (06:02→17:38)
[2016-12-25 06:24] LABS: AUTOMATED NEUTROPHIL # 17.4 TH/MM3 (1.8-7.7); BASOPHIL # 0.1 TH/MM3 (0-0.2); BASOPHIL % 0.3 % (0.0-2.0); HEMATOCRIT 30.3 % (35.0-46.0); HEMO FLAGS DIFF FINAL; LYMPH % 2.1 % (9.0-44.0); LYMPHOCYTE # 0.4 TH/MM3 (1.0-4.8); MEAN CELL VOLUME 87.1 FL (80.0-100.0); MEAN CORPUSCULAR HEMOGLOBIN 28.4 PG (27.0-34.0); MEAN CORPUSCULAR HGB CONC 32.7 % (32.0-36.0); MONO % 3.4 % (0.0-8.0); NEUT % 94.2 % (16.0-70.0); PLATELET COUNT 549 TH/MM3 (150-450); RED BLOOD COUNT 3.47 MIL/MM3 (4.00-5.30); RED CELL DISTRIBUTION WIDTH 15.2 % (11.6-17.2); WHITE BLOOD COUNT 18.4 TH/MM3 (4.0-11.0)
[2016-12-25 06:46] LABS: POTASSIUM 4.2 MEQ/L (3.5-5.1)
[2016-12-25] MEDS: DOCUSATE SODIUM 50 MG/SENNA 8.6 MG TAB PO SCH ×2 (09:00→21:45)
[2016-12-25] MEDS: NYSTAT/DIPHENHY/LIDO MOUTHWASH (Adult) 120ML SWISH-SWAL SCH ×4 (09:31→21:00)
[2016-12-25] MEDS: PANTOPRAZOLE SOD 40 MG DELAYED RELEASE TAB PO SCH (09:31)
[2016-12-25] MEDS: FLUoxetine HCL 20 MG CAP PO SCH (09:31)
[2016-12-25] MEDS: POLYETHYLENE GLYCOL 17 GM PKG PO SCH (09:31)
[2016-12-25] MEDS: DEXAMETHASONE 4 MG TAB PO SCH ×2 (09:32→21:45)
[2016-12-25] MEDS: NYSTATIN SUSP 500,000 U/5 ML CUP SWISH-SWAL SCH ×4 (09:32→21:46)
[2016-12-25] MEDS: SODIUM CHLORIDE 0.9% FLUSH 10 ML FLUSH IV FLUSH SCH ×2 (09:33→21:47)
[2016-12-25] MEDS: ALPRAZolam 0.5 MG TAB PO PRN ×2 (10:32→17:38)
[2016-12-25] MEDS ORDERED: NAPROXEN 500 MG TAB PO PRN (14:00)
--- NOTE | 2016-12-25 14:15 | HHI.FPPN ---
Subjective Remarks Ms Wagoner had no acute events overnight. She went to palliative radiation therapy today and says she is starting to feel less pain from the treatment; her pain is controlled today. She had one bout of emesis today with some nausea and felt better afterwards. States she isn't hungry today though. She asked to have some Naproxen available to take if she needs it. Denies CP, SOB, diarrhea, and DVT pain. Objective Vitals Vital Signs Date Time Temp Pulse Resp B/P (MAP) Pulse Ox O2 Delivery O2 Flow Rate FiO2 12/25/16 12:11 20 12/25/16 09:34 97.6 82 20 102/64 (77) 96 12/25/16 07:02 20 12/25/16 06:02 18 12/25/16 04:00 97.9 106 18 101/73 (82) 96 12/25/16 02:00 111 18 90/69 (76) 96 12/25/16 01:00 111 20 90/56 (67) 97 12/25/16 00:00 99.0 116 20 90/67 (75) 97 12/24/16 20:00 99.5 76 20 105/66 (79) 94 12/24/16 17:01 98.6 77 20 107/57 (74) 95 I/O 12/24/16 12/24/16 12/24/16 12/25/16 12/25/16 12/25/16 07:00 15:00 23:00 07:00 15:00 23:00 Intake Total 480 ml 1200 ml 1480 ml Output Total 400 ml 600 ml Balance 80 ml 1200 ml 1480 ml -600 ml Intake Oral 480 ml 1200 ml 480 ml IV Total 1000 ml Output Urine Total 400 ml 600 ml # Voids 4 2 Result Diagram: 12/25/1635 12/25/1635 Objective Remarks GENERAL: This is a thin, cachectic female in no apparent distress, sitting in bed, with a hoarse voice. SKIN: No rashes, ecchymoses or lesions. Cool and dry. HEAD: Atraumatic. Normocephalic. EYES: Pupils equal round and reactive. No scleral icterus. No injection or drainage. ENT: Thrush and mucositis resolving. Uvula midline. Airway patent. NECK: Trachea midline. Supple, nontender, no meningeal signs. CARDIOVASCULAR: RRR with no murmur, rub or gallop. RESPIRATORY: No increased WOB. Lung cervantes clear to auscultation bilaterally. GASTROINTESTINAL: Abdomen soft, non-tender, nondistended. No guarding. MUSCULOSKELETAL: Extremities without clubbing, cyanosis, or edema. NEUROLOGICAL: Awake and alert. Motor and sensory grossly within normal limits. Procedures Palliative Radiation therapy (scheduled for a total of 5) 12/21, 12/22, 12/25 Medications and IVs Current Medications Medications (Trade) Dose Ordered Sig/Acacia Route Start Time Stop Time Status Last Admin (NS Flush) 2 ml UNSCH PRN IV FLUSH 12/15/16 18:00 12/20/16 12:49 (NS Flush) 2 ml BID IV FLUSH 12/15/16 21:00 12/25/16 09:33 (Xanax) 0.5 mg Q6H PRN PO 12/15/16 19:45 12/25/16 10:32 (Morphine Inj) 4 mg Q3H PRN IV PUSH 12/15/16 20:00 12/23/16 19:01 (PROzac) 20 mg DAILY PO 12/16/16 09:00 12/25/16 09:31 (Milk Of Magnesia Liq) 15 ml DAILY PRN PO 12/15/16 21:15 (Tylenol) 650 mg Q4H PRN PO 12/15/16 21:15 (Lovenox Inj) 40 mg Q24H SQ 12/15/16 22:00 12/24/16 20:37 (Dasha-Colace) 1 tab BID PO 12/16/16 09:00 12/24/16 20:38 (Senokot) 17.2 mg Q12H PRN PO 12/16/16 04:30 (Dulcolax Supp) 10 mg DAILY PRN RECTAL 12/16/16 04:30 (Lactulose Liq) 30 ml DAILY PRN PO 12/16/16 04:30 (Zofran Inj) 4 mg Q6HR PRN IV PUSH 12/16/16 04:45 (Protonix) 40 mg DAILY PO 12/16/16 14:15 12/25/16 09:31 (Decadron) 2 mg BID PO 12/16/16 21:00 12/25/16 09:32 (Pill Splitter) 1 ea UNSCH PRN OTHER 12/16/16 15:15 12/22/16 20:37 (Duoneb Neb) 1 ampule Q4HR NEB PRN NEB 12/17/16 20:00 (Percocet 5-325 Mg) 1 tab Q4H PRN PO 12/20/16 12:45 (Percocet 10-325 Mg) 1 tab Q4H PRN PO 12/20/16 16:45 12/25/16 13:26 (Mycostatin Liq) 5 ml QID SWISH-SWAL 12/22/16 13:00 12/25/16 09:32 (Blistex Lip Emmet) 1 applic UNSCH PRN TOPICAL 12/22/16 12:00 12/22/16 20:37 (Oramorph Sr) 60 mg Q12H PO 12/22/16 18:00 12/25/16 06:02 (Magic Mouthwash Adult Liq) 5 ml QID SWISH-SWAL 12/23/16 13:00 12/25/16 09:31 (Miralax) 17 gm DAILY PO 12/23/16 09:45 12/25/16 09:31 Miscellaneous Information 1 Q3D T-DERMAL 12/27/16 17:00 12/30/16 17:01 (Naprosyn) 500 mg Q12HR PRN PO 12/25/16 14:00 Urinary Catheter: No A/P Assessment and Plan 61-year-old female with history of oropharyngeal cancer presents with intractable pain secondary to metastatic cancer. Initially, goals of care were unclear but were clarified after discussion with a palliative nurse practitioner. Patient was initially admitted under observation for management of pain and pending consult with Dr. Graves for palliative chemotherapy for her back. Based on consult with radiation oncologist Dr. Collins, she was fully admitted on 12/17 and simulation was performed on Sunday with palliative radiation therapy treatment attempted on 12/20. Per oncology, she can be discharged home as soon as her pain is well controlled and she is not requiring IV pain medication. She is being followed by palliative care during this hospitalization. 12/25: Goals today: 1. Pain control: Continue current regimen (Oramorph to 60mg q12h scheduled at 0600/1800 hours; Percocet 10-326 PO q6h; Fentanyl patch 25mcg q72h; Morphine 4mg IV q3h for breakthru) 2. Reduce traffic in room: discontinued neuro checks, reduced vital signs to q4h while awake only, and removed telemetry 12/22; nursing order to limit entry into room after 9PM 3. Continue nystatin swish and swallow QID to resolve thrush; add magic mouthwash to reduce mouth pain 4. Add naproxen 500mg q12h PRN for pain (requested by pt) 5. One more scheduled Palliative radiation treatment scheduled 12/26; possible add-on treatment since she missed the first scheduled treatment Seen and examined with Dr. Simpson Discharge Planning Pending management of patient's pain anf Palliative Radiation therapy (5 doses scheduled) Problem List: (1) Pain ICD Codes: R52 - Pain, unspecified Status: Chronic Plan: Experiencing breakthrough pain from metastatic cancer on admission; pain better controlled on 12/25; continue regimen below developed with Palliative Care 12/22 -Oramorph SR 60 mg PO q12h scheduled--@ 0600/1800hours -Percocet 10mg-325mg PO 1 tab q6h PRN, pain scale greater than 5; nursing to use this first before morphine -Fentanyl patch 25mcg q72h (once scheduled; reassess every 72 hours) -Morphine 4 mg IV q3h PRN breakthrough pain -Reevaluate tomorrow (2) 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 ICD Codes: C02.9 - Malignant neoplasm of tongue, unspecified; C79.89 - Secondary malignant neoplasm of other specified sites Plan: -Known lesion at L3; WBC 22.3 (increased from 20.1) -Leukocytosis is most likely due to chronic inflammatory state from metastatic cancer -Simulation was performed on 12/18 in preparation for palliative radiation therapy treatment -Palliative radiation therapy was attempted on 12/20 that could not be performed because patient had been given pain medication too soon before she was picked up - pain medication should be given at least 1 hour before radiation therapy -Pt actively considering hospice and spoke with them 12/23 -Scheduled for 5 Palliative Radiation treatments; 3 of 5 doses received with next 12/26; did not receive dose scheduled 12/20 due to pain meds being administered too close to the appt; no radiation over the weekend; nursing to check whether 12/20 dose will be rescheduled (3) Thrush of mouth and esophagus ICD Codes: B37.81 - Candidal esophagitis; B37.0 - Candidal stomatitis Status: Acute Plan: Resolving. Pt w/metastatic cancer and cachexia on Decadron has mucositis with white plaque on tongue and becoming hoarse -Nystatin 5ml swish and swallow qid -Start magic mouthwash 5ml swish and swallow QID (4) Decrease in appetite ICD Codes: R63.0 - Anorexia Plan: Nursing tells us she is taking less PO -Continue dexamethasone 2 mg by mouth twice a day -Consider Megace per palliative care (5) Depression ICD Codes: F32.9 - Major depressive disorder, single episode, unspecified Status: Acute Plan: -Fluoxetine 20 mg by mouth daily -Xanax 0.5 mg every 6 hours when necessary anxiety (6) FEN/DVT PPX/GI PPX/Nursing Orders Plan: Fluids: Oral fluids currently Electrolytes: Will monitor and replace as needed. Nutrition: Regular adult diet DVT Prophylaxis: Lovenox 40mg daily Constipation prophylaxis: Constipation regimen -Miralax scheduled once per day for constipation in addition to Dasha-colace PRN Medications Tylenol 650 mg by mouth every 4 hours when necessary temperature greater than 100.4F Zofran 4 mg IV push every 6 hours when necessary nausea vomiting -Vitals Q4h while awake -Monitor I's and O's -Activity OOB with assistance due to increasing weakness -Fall precautions due to progressive weakness -Discontinued tele and neuro checks -Quiet hours in room nursing order from 9PM-6AM (with one vitals check between 1 -2AM) -PT to assist with ambulation and strengthening exercises - recommend home with home health -Case management consult to assist with discharge disposition Jose Manuel Carson MD R1 Dec 25, 2016 14:15
--- NOTE | 2016-12-25 16:06 | HHI.HCPN ---
Reason for visit a. To assist with evaluation and management of symptoms including: pain, debility, decreased appetite, constipation b. To assist medical decision maker(s) with: better understanding of current medical conditions; weighing benefits/burdens of medical treatment options; making medical treatment decisions. . (Belinda Sanders) Subjective/Interval History Mrs. 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 Patient presented to [facility] on 12/15/16 for evaluation of intractable pain and generalized weakness; she was subsequently admitted with metastatic cancer versus cauda equina syndrome intractable pain versus other. Follow-up visit for symptom management and clarification of goals. Patient seen and assessed in her room. Patient is lying in bed with her eyes closed and face relaxed, awakens easily to verbal stimuli. Alert and oriented to person, place, time and situation. Afebrile. Hemodynamically stable. Patient had an emesis episode earlier today which has since resolved. Patient's PO intake remains poor; she like drinking Ensure. Last BM 12/23/16. Patient is having ongoing moderate to severe pain achy pain in her right hip that radiates towards her back. Pain is consistently > 5/10. She reports the pain is better controlled since Sunday12/22/16 when her Oramorph was changed from 30mg PO q8 hours to 60mg PO q2 hours. However, the patient is requiring significant PRN oxycodone/acetaminophen. Fentanyl patch was discontinued on . Patient has Morphine 4mg IVP Q 3 hours PRN and Oxycodone/ Acetaminophen PO (10-325mg or 5-325mg) q4 hours PRN. Patient has had 5 doses of oxycodone/acetaminophen (10-325mg) in the past 24 hours. Patient is appropriate for hospice upon completion of palliative radiation; patient did not want to discuss hospice today because she was tired and wanted to rest. Per oncology, patient may be discharged home when pain is well managed on oral/transdermal medications. Encouraged patient to request Oxycodone instead of parenteral Morphine for breakthrough pain . .. (Belinda Sanders) Advance Directives Living Will: Never completed Health Care Surrogate: Never completed Durable Power of Check Clerk: Never completed (Belinda Sanders) Advance Directive Specifics Documented care wishes: No known documented care wishes were completed. . (Belinda Sanders) Objective Vital Signs Date Time Temp Pulse Resp B/P (MAP) Pulse Ox O2 Delivery O2 Flow Rate FiO2 12/25/16 12:11 20 12/25/16 09:34 97.6 82 20 102/64 (77) 96 12/25/16 07:02 20 12/25/16 06:02 18 12/25/16 04:00 97.9 106 18 101/73 (82) 96 12/25/16 02:00 111 18 90/69 (76) 96 12/25/16 01:00 111 20 90/56 (67) 97 12/25/16 00:00 99.0 116 20 90/67 (75) 97 12/24/16 20:00 99.5 76 20 105/66 (79) 94 12/24/16 17:01 98.6 77 20 107/57 (74) 95 Intake & Output 12/25/16 12/25/16 07:00 19:00 Intake Total 1480 ml Output Total 600 ml Balance 1480 ml -600 ml Intake Oral 480 ml IV Total 1000 ml Output Urine Total 600 ml # Voids 2 . Physical Exam CONSTITUTIONAL/GENERAL: This is a cachectic 61-year-old female who appears older than her stated age in no acute distress TUBES/LINES/DRAINS: [id number], PIV 1 SKIN: No jaundice, rashes, or lesions. No wounds seen anteriorly. Skin temperature appropriate. Not diaphoretic. HEAD: Atraumatic. Normocephalic. EYES: Pupils equal and round and reactive. Extraocular motions intact. No scleral icterus. No injection or drainage. Fundi not examined. ENT: Hearing grossly normal. Nose without bleeding or purulent drainage. Poor dentition NECK: Trachea midline. Supple, nontender. CARDIOVASCULAR: Regular rate and rhythm without murmurs, gallops, or rubs. No JVD. Peripheral pulses symmetric. RESPIRATORY/CHEST: Symmetric, unlabored respirations. Lungs CTA GASTROINTESTINAL: Abdomen flat, soft, non-tender, nondistended. No guarding. Positive bowel sounds. GENITOURINARY: Without palpable bladder distension. MUSCULOSKELETAL: Extremities without clubbing, cyanosis, or edema. No obvious deformities. NEUROLOGICAL: Awake and alert to person, place, time and situation. Follows commands. Cognitively sharp. Moves all extremities. PSYCHIATRIC: No apparent hallucinations or other psychotic thought process. Intermittent anxiety . (Belinda Sanders) Diagnostic Tests Laboratory Laboratory Tests Test 12/23/16 04:33 12/24/16 07:07 12/25/16 05:35 White Blood Count 19.0 TH/MM3 (4.0-11.0) 18.7 TH/MM3 (4.0-11.0) 18.4 TH/MM3 (4.0-11.0) Red Blood Count 3.45 MIL/MM3 (4.00-5.30) 3.46 MIL/MM3 (4.00-5.30) 3.47 MIL/MM3 (4.00-5.30) Hemoglobin 10.0 GM/DL (11.6-15.3) 9.9 GM/DL (11.6-15.3) 9.9 GM/DL (11.6-15.3) Hematocrit 29.7 % (35.0-46.0) 30.1 % (35.0-46.0) 30.3 % (35.0-46.0) Mean Corpuscular Volume 86.2 FL (80.0-100.0) 87.1 FL (80.0-100.0) 87.1 FL (80.0-100.0) Mean Corpuscular Hemoglobin 28.9 PG (27.0-34.0) 28.6 PG (27.0-34.0) 28.4 PG (27.0-34.0) Mean Corpuscular Hemoglobin Concent 33.5 % (32.0-36.0) 32.9 % (32.0-36.0) 32.7 % (32.0-36.0) Red Cell Distribution Width 14.8 % (11.6-17.2) 15.0 % (11.6-17.2) 15.2 % (11.6-17.2) Platelet Count 494 TH/MM3 (150-450) 522 TH/MM3 (150-450) 549 TH/MM3 (150-450) Mean Platelet Volume 7.2 FL (7.0-11.0) 7.4 FL (7.0-11.0) 7.6 FL (7.0-11.0) Blood Urea Nitrogen 17 MG/DL (7-18) 21 MG/DL (7-18) 16 MG/DL (7-18) Creatinine 0.47 MG/DL (0.50-1.00) 0.58 MG/DL (0.50-1.00) 0.51 MG/DL (0.50-1.00) Random Glucose 112 MG/DL (74-106) 91 MG/DL (74-106) 111 MG/DL (74-106) Total Protein 6.8 GM/DL (6.4-8.2) 6.4 GM/DL (6.4-8.2) Albumin 2.6 GM/DL (3.4-5.0) 2.7 GM/DL (3.4-5.0) Calcium Level 8.4 MG/DL (8.5-10.1) 8.1 MG/DL (8.5-10.1) 7.8 MG/DL (8.5-10.1) Alkaline Phosphatase 143 U/L (45-117) 127 U/L (45-117) Aspartate Amino Transf (AST/SGOT) 8 U/L (15-37) 7 U/L (15-37) Alanine Aminotransferase (ALT/SGPT) 23 U/L (10-53) 17 U/L (10-53) Total Bilirubin 0.4 MG/DL (0.2-1.0) 0.5 MG/DL (0.2-1.0) Sodium Level 132 MEQ/L (136-145) 133 MEQ/L (136-145) 134 MEQ/L (136-145) Potassium Level 4.4 MEQ/L (3.5-5.1) 4.2 MEQ/L (3.5-5.1) 4.2 MEQ/L (3.5-5.1) Chloride Level 96 MEQ/L (98-107) 98 MEQ/L (98-107) 100 MEQ/L (98-107) Carbon Dioxide Level 28.2 MEQ/L (21.0-32.0) 26.4 MEQ/L (21.0-32.0) 26.0 MEQ/L (21.0-32.0) Anion Gap 8 MEQ/L (5-15) 9 MEQ/L (5-15) 8 MEQ/L (5-15) Estimat Glomerular Filtration Rate 134 ML/MIN (>89) 105 ML/MIN (>89) 122 ML/MIN (>89) Neutrophils (%) (Auto) 92.1 % (16.0-70.0) 94.2 % (16.0-70.0) Lymphocytes (%) (Auto) 2.0 % (9.0-44.0) 2.1 % (9.0-44.0) Monocytes (%) (Auto) 5.2 % (0.0-8.0) 3.4 % (0.0-8.0) Eosinophils (%) (Auto) 0.2 % (0.0-4.0) 0.0 % (0.0-4.0) Basophils (%) (Auto) 0.5 % (0.0-2.0) 0.3 % (0.0-2.0) Neutrophils # (Auto) 17.2 TH/MM3 (1.8-7.7) 17.4 TH/MM3 (1.8-7.7) Lymphocytes # (Auto) 0.4 TH/MM3 (1.0-4.8) 0.4 TH/MM3 (1.0-4.8) Monocytes # (Auto) 1.0 TH/MM3 (0-0.9) 0.6 TH/MM3 (0-0.9) Eosinophils # (Auto) 0.0 TH/MM3 (0-0.4) 0.0 TH/MM3 (0-0.4) Basophils # (Auto) 0.1 TH/MM3 (0-0.2) 0.1 TH/MM3 (0-0.2) CBC Comment DIFF FINAL DIFF FINAL Differential Comment . (Belinda Sanders) Result Diagram: 12/25/16 0535 12/25/16 0535 Assessment and Plan Disease Oriented Problem List: (1) Protein calorie malnutrition (2) Cancer (3) Depression (4) Squamous cell carcinoma of neck (5) HTN (hypertension) Symptom Scale: (1) Pain (2) Decrease in appetite (3) Constipation (4) Debility Pertinent Non-Medical Issues Psychosocial:Patient is originally from [place]. She moved to [place] in the mid 1970s. She met her , Gene, after moving to [place]. They have been for approximately 22 years. They have adult children who live locally (Gene and Jane, ages 22 and 20). 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 Spiritual: Confucianism gustabo Legal: Per [place] statutes, in the absence of written advanced directives healthcare proxy decision-making falls to the patient's spouse Ethical issues impacting care: No known ethical issues impacting care. . Important Contacts Gene Wagoner, spouse: [phone] and [phone] . 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 Patient has a known lesion of the vertebral body at L3. She has progressive disease in the thorax. Metastatic disease to the pelvis suspected given the patient's symptoms of increasing pain and tenderness along the right hip and proximal femur. Patient would like to pursue ongoing palliative radiation with Dr. Graves despite general decline with increasing pain, increasing weakness and poor nutritional intake. Patient's overall prognosis is quite poor. . Code Status: No Code Plan * NO CODE * Decision-making: Patient currently has adequate insight and judgment related to her current medical conditions. In the event that the patient loses capacity , [place] statutes state in the absence of written advanced directives healthcare proxy decision-making falls to the patient's spouse (Gene Pillai). * Community DNR completed * Goals: Considering hospice after completion of palliative radiation. * Symptom management-pain: Patient is having ongoing moderate to severe pain achy pain in her right hip that radiates towards her back. Pain is consistently > 5/10. She reports the pain is better controlled since Sunday12/22/16 when her Oramorph was changed from 30mg PO q8 hours to 60mg PO q12 hours. However, the patient is requiring significant PRN oxycodone/acetaminophen. Fentanyl patch was discontinued on 12/24/2016. Patient has Morphine 4mg IVP Q 3 hours PRN and Oxycodone/Acetaminophen PO (10-325mg or 5-325mg) q4 hours PRN. Patient has had 5 doses of oxycodone/acetaminophen (10-325mg) in the past 24 hours. Encouraged patient to request Oxycodone for breakthrough pain instead of parenteral Morphine sulfate. . * Symptom management-debility: Patient is is increasingly symptomatic. She is having Increasing difficulty ambulating; generally failing to thrive. Patient has history of recent multiple falls in the past week secondary to increasing weakness in the right lower extremity. Expected ongoing decline secondary to disease progression; patient considering transitioning to comfort focused care after completing recommended number of palliative radiation treatments. * Symptom management-decreased appetite: Patient reports worsening appetite and reports a 20+ weight loss in the past 12 months. Patient is frail and cachetic with poor nutritional intake. She states her nutritional intake is further compromised secondary to poor dentition and some pain with swallowing. A mechanically soft diet with supplemental shakes has been ordered. Patient is on dexamethasone 2 mg PO BID which may improve patient's appetite. Last Total protein 6.7; albumin 2.7. BMI:15.3 May consider starting the patient on Megace 400mg-800mg PO daily * Symptom management-constipation: LBM: 12/23/16. Current orders for Dasha- Colace one tablet PO 2 times daily; PRN sennosides, PRN lactulose, PRN dulcolax suppository and PRN magnesia. * Patient was hospitalized for pain management secondary to progressive metastatic oropharyngeal carcinoma. She is appropriate for hospice upon completion of palliative radiation; patient did not want to discuss hospice today because she was tired and wanted to rest. Per oncology, patient may be discharged home when pain is well managed on oral/transdermal medications. * Palliative care will continue to follow this patient throughout her hospitalization to establish trust, assist with symptom management and clarification of medical treatment goals. . (Belinda Sanders) Attestation To help prompt me to consider important information that might be impacting today's encounter and assessment, information from prior notes written by myself or my colleagues may have been "brought forward" into today's note. My signature on this note, however, is an attestation that I personally performed the exam, history, and/or decision-making noted today, and, unless otherwise indicated, the interactions with patient, family, and staff as well as the review of records all occurred today. I also attest that the listed assessment and stated plan reflect my best clinical judgment today based on the combination of historical information, prior notes, and today's exam/ interactions. When time spent is documented, it refers only to time spent today by the signer, or if indicated, combined time spent today by collaborating physician/nurse practitioner. . (Belinda Sanders) Collaborating MD Comments Discussed with MARY, agree with assessment and plan (Rodrigo Dumont MD) Belinda Sanders Dec 25, 2016 16:06 Rodrigo Dumont MD Dec 26, 2016 09:56
[2016-12-25] MEDS: ENOXAPARIN SODIUM 40 MG/0.4 ML SYRINGE SQ SCH (21:47)
[2016-12-26 01:11] VITALS: BP 107/69; PULSE 72; RESP 18; TEMP 98.9; O2SAT 97
[2016-12-26] MEDS: ALPRAZolam 0.5 MG TAB PO PRN ×2 (01:15→21:26)
[2016-12-26] MEDS: oxyCODONE/ACETAMINOPHEN 10 MG/325 MG TAB PO PRN ×5 (01:15→21:22)
[2016-12-26 05:12] VITALS: BP 90/59; PULSE 69; RESP 16; TEMP 98.4; O2SAT 99
[2016-12-26 05:15] VITALS: BP 101/66
[2016-12-26] MEDS: MORPHINE SULFATE 60 MG CONTROLLED RELEASE TAB PO SCH ×2 (05:16→18:42)
[2016-12-26 05:20] LABS: HEMATOCRIT 28.5 % (35.0-46.0); MEAN CELL VOLUME 86.5 FL (80.0-100.0); MEAN CORPUSCULAR HGB CONC 33.5 % (32.0-36.0); PLATELET COUNT 481 TH/MM3 (150-450); RED BLOOD COUNT 3.29 MIL/MM3 (4.00-5.30); RED CELL DISTRIBUTION WIDTH 14.7 % (11.6-17.2); REVIEW FLAG FINAL; WHITE BLOOD COUNT 15.3 TH/MM3 (4.0-11.0)
[2016-12-26 05:53] LABS: BICARBONATE 26.8 MEQ/L (21.0-32.0); POTASSIUM 4.2 MEQ/L (3.5-5.1)
[2016-12-26] MEDS: NYSTATIN SUSP 500,000 U/5 ML CUP SWISH-SWAL SCH ×4 (08:30→21:29)
[2016-12-26] MEDS: MEGESTROL ACETATE 40 MG TAB PO SCH (08:30)
[2016-12-26] MEDS: PANTOPRAZOLE SOD 40 MG DELAYED RELEASE TAB PO SCH (08:30)
[2016-12-26] MEDS: NYSTAT/DIPHENHY/LIDO MOUTHWASH (Adult) 120ML SWISH-SWAL SCH ×4 (08:31→21:27)
[2016-12-26] MEDS: FLUoxetine HCL 20 MG CAP PO SCH (08:31)
[2016-12-26] MEDS: DOCUSATE SODIUM 50 MG/SENNA 8.6 MG TAB PO SCH ×2 (08:31→21:00)
[2016-12-26] MEDS: SODIUM CHLORIDE 0.9% FLUSH 10 ML FLUSH IV FLUSH SCH ×2 (08:35→21:29)
[2016-12-26] MEDS: DEXAMETHASONE 4 MG TAB PO SCH ×2 (08:35→21:22)
[2016-12-26 08:39] VITALS: BP 101/69; PULSE 76; RESP 16; TEMP 98.8; O2SAT 96
--- NOTE | 2016-12-26 09:27 | HHI.FPPN ---
Subjective Remarks Patient is doing okay this morning, she still complains of pain everywhere especially in her back. She states that the pain regimen she is on is helping for the most part. She is not sure if she will be done with palliative radiation treatments today but will find out when she goes to the oncology Center this afternoon. Her next palliative radiation treatment is scheduled for 1 PM today. Her last bowel movement was yesterday. (Mena Lauren MD R2) Objective Vitals Vital Signs Date Time Temp Pulse Resp B/P (MAP) Pulse Ox O2 Delivery O2 Flow Rate FiO2 12/26/16 08:39 98.8 76 16 101/69 (80) 96 12/26/16 05:15 101/66 (78) 12/26/16 05:12 98.4 69 16 90/59 (69) 99 12/26/16 01:11 98.9 72 18 107/69 (82) 97 12/25/16 21:10 99.1 76 18 109/75 (86) 98 12/25/16 17:34 98.2 74 20 95/63 (74) 95 12/25/16 12:11 20 12/25/16 09:34 97.6 82 20 102/64 (77) 96 I/O 12/25/16 12/25/16 12/25/16 12/26/16 12/26/16 12/26/16 07:00 15:00 23:00 07:00 15:00 23:00 Intake Total 1480 ml 480 ml 240 ml Output Total 600 ml Balance 1480 ml -600 ml 480 ml 240 ml Intake Oral 480 ml 480 ml 240 ml IV Total 1000 ml Output Urine Total 600 ml # Voids 2 2 # Bowel Movements 1 (Mena Lauren MD R2) Result Diagram: 12/26/16 0508 12/26/16 0508 Objective Remarks GENERAL: This is a thin, cachectic female in no apparent distress, sitting in bed, with a hoarse voice. SKIN: No rashes, ecchymoses or lesions. Cool and dry. HEAD: Atraumatic. Normocephalic. EYES: Pupils equal round and reactive. No scleral icterus. No injection or drainage. ENT: Thrush and mucositis resolving. Uvula midline. Airway patent. NECK: Trachea midline. Supple, nontender, no meningeal signs. CARDIOVASCULAR: RRR with no murmur, rub or gallop. RESPIRATORY: No increased WOB. Lung cervantes clear to auscultation bilaterally. GASTROINTESTINAL: Abdomen soft, non-tender, nondistended. No guarding. MUSCULOSKELETAL: Extremities without clubbing, cyanosis, or edema. NEUROLOGICAL: Awake and alert. Motor and sensory grossly within normal limits. Procedures Palliative Radiation therapy (scheduled for a total of 5) 12/21, 12/22, 12/25 (Mena Lauren MD R2) A/P Assessment and Plan 61-year-old female with history of oropharyngeal cancer presents with intractable pain secondary to metastatic cancer. Initially, goals of care were unclear but were clarified after discussion with a palliative nurse practitioner. Patient was initially admitted under observation for management of pain and pending consult with Dr. Graves for palliative chemotherapy for her back. Based on consult with radiation oncologist Dr. Collins, she was fully admitted on 12/17 and simulation was performed on Sunday with palliative radiation therapy treatment attempted on 12/20. Per oncology, she can be discharged home as soon as her pain is well controlled and she is not requiring IV pain medication. She is being followed by palliative care during this hospitalization. 12/26: Goals today: 1. Pain control: Continue current regimen (Oramorph to 60mg q12h scheduled at 0600/1800 hours; Percocet 10-326 PO q6h; Fentanyl patch 25mcg q72h; naproxen 500mg q12h PRN for pain, oxycodone 5 mg by mouth every 4 hours for breakthrough pain) 2. Reduce traffic in room: vital signs to q4h while awake only; limit entry into room after 9PM 3. Continue nystatin swish and swallow QID to resolve thrush; continue magic mouthwash to reduce mouth pain 4. One more scheduled Palliative radiation treatment scheduled 12/26; possible add-on treatment since she missed the first scheduled treatment Will discuss with Dr. Bravo Discharge Planning Pending management of patient's pain anf Palliative Radiation therapy (5 doses scheduled) (Mena Lauren MD R2) Attending Attestation Patient seen and examined. Case reviewed and discussed Agree with plan of care as discussed with me and documented in the resident note. Pain control improving. Last radiation therapy tomorrow. 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 ICD Codes: C02.9 - Malignant neoplasm of tongue, unspecified; C79.89 - Secondary malignant neoplasm of other specified sites Plan: -Known lesion at L3; WBC 15.3 -Leukocytosis is most likely due to chronic inflammatory state from metastatic cancer -Simulation was performed on 12/18 in preparation for palliative radiation therapy treatment -Pt actively considering hospice and spoke with them 12/23 -Scheduled for 5 Palliative Radiation treatments; 3 of 5 doses received with next 12/26 scheduled 1pm; did not receive dose scheduled 12/20 due to pain meds being administered too close to the appt; no radiation over the weekend; nursing to check whether 12/20 dose will be rescheduled (3) Thrush of mouth and esophagus ICD Codes: B37.81 - Candidal esophagitis; B37.0 - Candidal stomatitis Status: Acute Plan: Resolving. Pt w/metastatic cancer and cachexia on Decadron has mucositis with white plaque on tongue and becoming hoarse -Nystatin 5ml swish and swallow qid -Start magic mouthwash 5ml swish and swallow QID (4) Decrease in appetite ICD Codes: R63.0 - Anorexia Plan: Nursing tells us she is taking less PO -Continue dexamethasone 2 mg by mouth twice a day -Continue Megace 40 mg by mouth daily (5) Depression ICD Codes: F32.9 - Major depressive disorder, single episode, unspecified Status: Acute Plan: -Fluoxetine 20 mg by mouth daily -Xanax 0.5 mg every 6 hours when necessary anxiety (6) FEN/DVT PPX/GI PPX/Nursing Orders Plan: Fluids: Oral fluids currently Electrolytes: Will monitor and replace as needed. Nutrition: Regular adult diet DVT Prophylaxis: Lovenox 40mg daily Constipation prophylaxis: Constipation regimen -Miralax scheduled once per day for constipation in addition to Dasha-colace PRN Medications Tylenol 650 mg by mouth every 4 hours when necessary temperature greater than 100.4F Zofran 4 mg IV push every 6 hours when necessary nausea vomiting -Vitals Q4h while awake -Monitor I's and O's -Activity OOB with assistance due to increasing weakness -Fall precautions due to progressive weakness -Discontinued tele and neuro checks -Quiet hours in room nursing order from 9PM-6AM (with one vitals check between 1 -2AM) -PT to assist with ambulation and strengthening exercises - recommend home with home health -Case management consult to assist with discharge disposition (Mena Lauren MD R2) Mena Lauren MD R2 Dec 26, 2016 09:27 Monica Bravo MD Dec 26, 2016 15:23
[2016-12-26 11:42] VITALS: BP 99/70; PULSE 77; RESP 16; TEMP 98.8; O2SAT 93
[2016-12-26 16:53] VITALS: BP 107/77; PULSE 113; RESP 16; TEMP 98.6; O2SAT 95
[2016-12-26] MEDS: POLYETHYLENE GLYCOL 17 GM PKG PO SCH (17:01)
[2016-12-26] MEDS: ENOXAPARIN SODIUM 40 MG/0.4 ML SYRINGE SQ SCH (21:29)
[2016-12-27 01:10] VITALS: BP 98/57; PULSE 99; RESP 16; TEMP 99; O2SAT 96
[2016-12-27] MEDS: oxyCODONE/ACETAMINOPHEN 10 MG/325 MG TAB PO PRN ×4 (01:17→13:19)
[2016-12-27 04:38] LABS: HEMATOCRIT 29.8 % (35.0-46.0); MEAN CELL VOLUME 85.2 FL (80.0-100.0); MEAN CORPUSCULAR HEMOGLOBIN 28.6 PG (27.0-34.0); MEAN CORPUSCULAR HGB CONC 33.5 % (32.0-36.0); PLATELET COUNT 535 TH/MM3 (150-450); RED BLOOD COUNT 3.49 MIL/MM3 (4.00-5.30); RED CELL DISTRIBUTION WIDTH 14.6 % (11.6-17.2); REVIEW FLAG FINAL; WHITE BLOOD COUNT 15.1 TH/MM3 (4.0-11.0)
[2016-12-27 05:15] LABS: BICARBONATE 26.2 MEQ/L (21.0-32.0)
[2016-12-27 05:24] VITALS: BP 104/73; PULSE 97; RESP 16; TEMP 98.2; O2SAT 97
[2016-12-27] MEDS: MORPHINE SULFATE 60 MG CONTROLLED RELEASE TAB PO SCH (05:26)
--- NOTE | 2016-12-27 07:30 | HHI.FPPN ---
Subjective Remarks Ms Wagoner had no acute events overnight. She has some newer pain at the posterior left costal margin that wraps around to the anterior left costal margin. Her pain is controlled. She had a BM last night and is voiding appropriately. She has one more palliative radiation treatment today which will be her final one. Discussed plan of care upon discharge and will send her out on current pain regimen minus IV morphine, antiemetic, nystatin, bowel regimen, etc. Denies CP, SOB, N/V/D and DVT pain. (Jose Manuel Carson MD R1) Objective Vitals Vital Signs Date Time Temp Pulse Resp B/P (MAP) Pulse Ox O2 Delivery O2 Flow Rate FiO2 12/27/16 05:24 98.2 97 16 104/73 (83) 97 12/27/16 01:10 99.0 99 16 98/57 (71) 96 12/26/16 16:53 98.6 113 16 107/77 (87) 95 12/26/16 11:42 98.8 77 16 99/70 (80) 93 12/26/16 08:39 98.8 76 16 101/69 (80) 96 I/O 12/26/16 12/26/16 12/26/16 12/27/16 12/27/16 12/27/16 07:00 15:00 23:00 07:00 15:00 23:00 Intake Total 240 ml 1200 ml Balance 240 ml 1200 ml Intake Oral 240 ml 1200 ml # Voids 2 4 3 (Jose Manuel Carson MD R1) Result Diagram: 12/27/1642812/27/16428 Objective Remarks GENERAL: This is a thin, cachectic female in no apparent distress, sitting up in bed, with a hoarse voice. SKIN: No rashes, ecchymoses or lesions. Cool and dry. HEAD: Atraumatic. Normocephalic. EYES: Pupils equal round and reactive. No scleral icterus. No injection or drainage. ENT: Thrush and mucositis resolved. Uvula midline. Airway patent. NECK: Trachea midline. Supple, nontender, no meningeal signs. CARDIOVASCULAR: RRR with no murmur, rub or gallop. CHEST: tender to palpation at right costal margin wrapping around to anterior; ribs prominent due to cachexia; no bony abnormality felt RESPIRATORY: No increased WOB. Lung cervantes clear to auscultation bilaterally. GASTROINTESTINAL: Abdomen soft, non-tender, nondistended. No guarding. MUSCULOSKELETAL: Extremities without clubbing, cyanosis, or edema. NEUROLOGICAL: Awake and alert. Motor and sensory grossly within normal limits. Procedures Palliative Radiation therapy (scheduled for a total of 5) 12/21, 12/22, 12/25, 12/26, and 12/27 scheduled today Medications and IVs Current Medications Medications (Trade) Dose Ordered Sig/Acacia Route Start Time Stop Time Status Last Admin (NS Flush) 2 ml UNSCH PRN IV FLUSH 12/15/16 18:00 12/20/16 12:49 (NS Flush) 2 ml BID IV FLUSH 12/15/16 21:00 12/26/16 21:29 (Xanax) 0.5 mg Q6H PRN PO 12/15/16 19:45 12/26/16 21:26 (PROzac) 20 mg DAILY PO 12/16/16 09:00 12/26/16 08:31 (Milk Of Magnesia Liq) 15 ml DAILY PRN PO 12/15/16 21:15 (Tylenol) 650 mg Q4H PRN PO 12/15/16 21:15 (Lovenox Inj) 40 mg Q24H SQ 12/15/16 22:00 12/26/16 21:29 (Dasha-Colace) 1 tab BID PO 12/16/16 09:00 12/26/16 08:31 (Senokot) 17.2 mg Q12H PRN PO 12/16/16 04:30 (Dulcolax Supp) 10 mg DAILY PRN RECTAL 12/16/16 04:30 (Lactulose Liq) 30 ml DAILY PRN PO 12/16/16 04:30 (Zofran Inj) 4 mg Q6HR PRN IV PUSH 12/16/16 04:45 (Protonix) 40 mg DAILY PO 12/16/16 14:15 12/26/16 08:30 (Decadron) 2 mg BID PO 12/16/16 21:00 12/26/16 21:22 (Pill Splitter) 1 ea UNSCH PRN OTHER 12/16/16 15:15 12/22/16 20:37 (Duoneb Neb) 1 ampule Q4HR NEB PRN NEB 12/17/16 20:00 (Percocet 5-325 Mg) 1 tab Q4H PRN PO 12/20/16 12:45 (Percocet 10-325 Mg) 1 tab Q4H PRN PO 12/20/16 16:45 12/27/16 05:26 (Mycostatin Liq) 5 ml QID SWISH-SWAL 12/22/16 13:00 12/26/16 21:29 (Blistex Lip [place]) 1 applic UNSCH PRN TOPICAL 12/22/16 12:00 12/22/16 20:37 (Oramorph Sr) 60 mg Q12H PO 12/22/16 18:00 12/27/16 05:26 (Magic Mouthwash Adult Liq) 5 ml QID SWISH-SWAL 12/23/16 13:00 12/26/16 21:27 (Miralax) 17 gm DAILY PO 12/23/16 09:45 12/26/16 17:01 Miscellaneous Information 1 Q3D T-DERMAL 12/27/16 17:00 12/30/16 17:01 (Naprosyn) 500 mg Q12HR PRN PO 12/25/16 14:00 (Megace) 40 mg DAILY PO 12/26/16 09:00 12/26/16 08:30 (Roxicodone) 5 mg Q4H PRN PO 12/26/16 06:30 12/26/16 11:38 (Jose Manuel Carson MD R1) Urinary Catheter: No (Jose Manuel Carson MD R1) A/P Assessment and Plan 61-year-old female with history of oropharyngeal cancer presents with intractable pain secondary to metastatic cancer. Initially, goals of care were unclear but were clarified after discussion with a palliative nurse practitioner. Patient was initially admitted under observation for management of pain and pending consult with Dr. Graves for palliative chemotherapy for her back. Based on consult with radiation oncologist Dr. Collins, she was fully admitted on 12/17 and simulation was performed on Sunday with palliative radiation therapy treatment attempted on 12/20. Per oncology, she can be discharged home as soon as her pain is well controlled and she is not requiring IV pain medication. She is being followed by palliative care during this hospitalization. 12/27: Goals today: 1. Pain control: Continue current regimen (Oramorph to 60mg q12h scheduled at 0600/1800 hours; Percocet 10-326 PO q6h; Fentanyl patch 25mcg q72h; naproxen 500mg q12h PRN for pain, oxycodone 5 mg by mouth every 4 hours for breakthrough pain) 2. Last Palliative radiation treatment scheduled today 3. Continue nystatin swish and swallow QID to resolve thrush; continue magic mouthwash to reduce mouth pain 4. Discharge with appropriate medications for comfort Will discuss with Drs. Bravo and Xin Discharge Planning Possible discharge today (Jose Manuel Carson MD R1) Attending Attestation Patient seen and examined. Case reviewed and discussed Agree with plan of care as discussed with me and documented in the resident note. 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 Pt w/metastatic cancer and cachexia on Decadron has mucositis with white plaque on tongue and becoming hoarse -Nystatin 5ml swish and swallow qid -Start magic mouthwash 5ml swish and swallow QID (4) Decrease in appetite ICD Codes: R63.0 - Anorexia Plan: Nursing tells us she is taking less PO -Continue dexamethasone 2 mg by mouth twice a day -Continue Megace 40 mg by mouth daily (5) Depression ICD Codes: F32.9 - Major depressive disorder, single episode, unspecified Status: Acute Plan: -Fluoxetine 20 mg by mouth daily -Xanax 0.5 mg every 6 hours when necessary anxiety (6) FEN/DVT PPX/GI PPX/Nursing Orders Plan: Fluids: Oral fluids currently Electrolytes: Will monitor and replace as needed. Nutrition: Regular adult diet DVT Prophylaxis: Lovenox 40mg daily Constipation prophylaxis: Constipation regimen -Miralax scheduled once per day for constipation in addition to Dasha-colace PRN Medications Tylenol 650 mg by mouth every 4 hours when necessary temperature greater than 100.4F Zofran 4 mg IV push every 6 hours when necessary nausea vomiting -Vitals Q4h while awake -Monitor I's and O's -Activity OOB with assistance due to increasing weakness -Fall precautions due to progressive weakness -Discontinued tele and neuro checks -Quiet hours in room nursing order from 9PM-6AM (with one vitals check between 1 -2AM) -PT to assist with ambulation and strengthening exercises - recommend home with home health -Case management consult to assist with discharge disposition (Jose Manuel Carson MD R1) Jose Manuel Carson MD R1 Dec 27, 2016 07:30 Monica Bravo MD Jan 02, 2017 16:40
[2016-12-27] MEDS ORDERED: MORP1TAB26 PO (08:33)
[2016-12-27] MEDS ORDERED: DEXA2TAB PO (08:33)
[2016-12-27] MEDS ORDERED: Nystatin Liq SWISH-SWAL (08:33)
[2016-12-27] MEDS ORDERED: OXYC1TAB63 PO (08:33)
[2016-12-27] MEDS ORDERED: NAPR500 PO (08:33)
[2016-12-27] MEDS ORDERED: PROM25TA10 PO (08:33)
[2016-12-27] MEDS ORDERED: OXYC-392 PO (08:33)
[2016-12-27] MEDS ORDERED: ALPR.5 PO (08:33)
[2016-12-27] MEDS ORDERED: MEGE40TA PO (08:33)
[2016-12-27] MEDS ORDERED: OXYC1TAB36 PO (08:39)
[2016-12-27] MEDS ORDERED: FENT25DI T-DERMAL (08:39)
[2016-12-27 09:32] VITALS: BP 96/59; PULSE 82; RESP 14; TEMP 98.7; O2SAT 96
[2016-12-27] MEDS: DOCUSATE SODIUM 50 MG/SENNA 8.6 MG TAB PO SCH (09:39)
[2016-12-27] MEDS: FLUoxetine HCL 20 MG CAP PO SCH (09:39)
[2016-12-27] MEDS: PANTOPRAZOLE SOD 40 MG DELAYED RELEASE TAB PO SCH (09:39)
[2016-12-27] MEDS: NYSTATIN SUSP 500,000 U/5 ML CUP SWISH-SWAL SCH ×2 (09:39→12:35)
[2016-12-27] MEDS: DEXAMETHASONE 4 MG TAB PO SCH (09:39)
[2016-12-27] MEDS: MEGESTROL ACETATE 40 MG TAB PO SCH (09:39)
[2016-12-27] MEDS: SODIUM CHLORIDE 0.9% FLUSH 10 ML FLUSH IV FLUSH SCH (09:40)
[2016-12-27] MEDS: POLYETHYLENE GLYCOL 17 GM PKG PO SCH (09:40)
[2016-12-27] MEDS: NYSTAT/DIPHENHY/LIDO MOUTHWASH (Adult) 120ML SWISH-SWAL SCH (09:40)
[2016-12-27] MEDS ORDERED: MORPHINE SULFATE 2 MG/ML INJ IV PUSH ONE (10:00)
[2016-12-27 12:00] VITALS: BP 106/68; PULSE 80; RESP 14; TEMP 97.5; O2SAT 97
[2016-12-27] MEDS ORDERED: REMOVE OLD DURAGESIC (FENTANYL) PATCH T-DERMAL SCH (17:00)
--- NOTE | 2016-12-31 14:31 | HHI.DS ---
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 Diagnosis: Principal ICD Codes: C02.9 - Malignant neoplasm of tongue, unspecified; C79.89 - Secondary malignant neoplasm of other specified sites (3) Thrush of mouth and esophagus Diagnosis: Secondary ICD Codes: B37.81 - Candidal esophagitis; B37.0 - Candidal stomatitis Status: Acute (4) Decrease in appetite Diagnosis: Secondary ICD Codes: R63.0 - Anorexia (5) Depression Diagnosis: Secondary ICD Codes: F32.9 - Major depressive disorder, single episode, unspecified Status: Acute Procedures Palliative Radiation therapy (scheduled for a total of 5) 12/21, 12/22, 12/25, 12/26, and 12/27 scheduled today Brief History Ms Wagoner is a 61-year-old female with a past medical history of 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 Patient has chronic pain from metastasized cancer but states that the pain in her back has become increasingly worse. She was at the ED 3 weeks ago for pain but was discharged and states that she was told to return if the pain got worse. She reports that she has had difficulty walking due to pain okay. Notably, the patient missed an appointment with radiation oncology for palliative treatment for her back with radiation oncologist Dr. Graves because she was in a lot of pain. Her PCP is Dr. Olsen. CBC/BMP: 12/27/1642812/27/16428 PE at Discharge GENERAL: This is a thin, cachectic female in no apparent distress, sitting up in bed, with a hoarse voice. SKIN: No rashes, ecchymoses or lesions. Cool and dry. HEAD: Atraumatic. Normocephalic. EYES: Pupils equal round and reactive. No scleral icterus. No injection or drainage. ENT: Thrush and mucositis resolved. Uvula midline. Airway patent. NECK: Trachea midline. Supple, nontender, no meningeal signs. CARDIOVASCULAR: RRR with no murmur, rub or gallop. CHEST: tender to palpation at right costal margin wrapping around to anterior; ribs prominent due to cachexia; no bony abnormality felt RESPIRATORY: No increased WOB. Lung cervantes clear to auscultation bilaterally. GASTROINTESTINAL: Abdomen soft, non-tender, nondistended. No guarding. MUSCULOSKELETAL: Extremities without clubbing, cyanosis, or edema. NEUROLOGICAL: Awake and alert. Motor and sensory grossly within normal limits. Hospital Course 61-year-old female with history of oropharyngeal cancer presented with intractable pain secondary to metastatic cancer. Initially, goals of care were unclear but were clarified after discussion with a palliative nurse practitioner. Based on consult with radiation oncologist Dr. Collins, she was fully admitted on 12/17 and simulation was performed on Sunday with palliative radiation therapy treatment attempted on 12/20. During the course of her hospital stay, she received five palliative radiation treatments for her back. Her pain medicine regimen was altered multiple times until we arrived at a regimen that worked best for her. However she continued to have pain although it was more tolerable. Initially, she could barely walk due to pain, but by the day of discharge, she could walk by herself to the bathroom and back. She felt ready for discharge on 12/27 and was sent home with home health service. She will follow up with palliative care/hospice as an outpatient to continue discussions about her goals of care. She will also follow-up with her oncologist Dr. Solorzano as an outpatient. Please see below for details on her updated pain regimen. She was also started on Megace to assist with appetite. Pt Condition on Discharge: Stable Discharge Disposition: Discharge Home Discharge Instructions DIET: Follow Instructions for: As Tolerated, No Restrictions Activities you can perform: Weight Bearing as Tina Follow up Referrals: Oncology - 1 Week with Zara Solorzano MD New Medications: Commode 3-in-1 (Commode 3-in-1) 1 Mis Mis EA .ROUTE DIRECTED, #1 0 Refills Fentanyl Patch 72 HR (Fentanyl Patch 72 HR) 25 Mcg/Hr Patch 25 MCG T-DERMAL Q72H for Pain Management, #3 PATCH 0 Refills Walker with Front Wheels (Walker with Front Wheels) 1 Mis Mis EA .ROUTE DIRECTED, #1 0 Refills Megestrol (Megestrol) 40 Mg Tab 40 MG PO DAILY, #7 TAB Morphine ER (Morphine ER) 60 Mg Tab 60 MG PO Q12H, #15 TAB Naproxen (Naprosyn) 500 Mg Tab 500 MG PO Q12HR PRN for PAIN, #14 TAB Oxycodone (Oxycodone) 5 Mg Tab 5 MG PO Q4H PRN for BREAKTHROUGH PAIN, #30 TAB Oxycodone HCl/Acetaminophen (Oxycodone-Acetaminophen 10-325) 10 Mg-325 Mg Tablet 1 TAB PO Q4H PRN for PAIN GREATER THAN 5, #42 [Nystatin Liq] () 5 ML SUSP 5 ML SWISH-SWAL QID, #25 ML Continued Medications: Alprazolam (Xanax) 0.5 Mg Tab 0.5 MG PO Q6H PRN for ANXIETY, #15 TAB 0 Refills (This prescription has been renewed) Dexamethasone (Dexamethasone) 2 Mg Tab 2 MG PO BID, #14 TAB 0 Refills (This prescription has been renewed) Fluoxetine (Fluoxetine) 20 Mg Cap 20 MG PO DAILY, #30 CAP 0 Refills Lisinopril (Lisinopril) 20 Mg Tab 20 MG PO DAILY, #30 TAB 0 Refills Omeprazole (Omeprazole) 20 Mg Tab 20 MG PO DAILY, #30 TAB 0 Refills Promethazine (Phenergan) 25 Mg Tablet 25 MG PO Q6H PRN for NAUSEA OR VOMITING, #15 TAB 0 Refills (This prescription has been renewed) Discontinued Medications: Hydrocodone-Acetaminophen ([place]) 10-325 Mg Tab 1-2 TAB PO Q6H PRN for PAIN, TAB 0 Refills Morphine ER (Morphine ER) 30 Mg Tab 30 MG PO BID for Pain Management, TAB 0 Refills Oxycodone-Acetaminophen (Percocet) 5-325 mg Tab 1 TAB PO Q6H PRN for PAIN, #20 TAB 0 Refills Monica Bravo MD 01/02/17 1640: Discharge Summary CBC/BMP: 12/27/1642812/27/16428 Discharge Instructions Follow up Referrals: Oncology - 1 Week with Zara Solorzano MD New Medications: Commode 3-in-1 (Commode 3-in-1) 1 Mis Mis EA .ROUTE DIRECTED, #1 0 Refills Fentanyl Patch 72 HR (Fentanyl Patch 72 HR) 25 Mcg/Hr Patch 25 MCG T-DERMAL Q72H for Pain Management, #3 PATCH 0 Refills Walker with Front Wheels (Walker with Front Wheels) 1 Mis Mis EA .ROUTE DIRECTED, #1 0 Refills Megestrol (Megestrol) 40 Mg Tab 40 MG PO DAILY, #7 TAB Morphine ER (Morphine ER) 60 Mg Tab 60 MG PO Q12H, #15 TAB Naproxen (Naprosyn) 500 Mg Tab 500 MG PO Q12HR PRN for PAIN, #14 TAB Oxycodone (Oxycodone) 5 Mg Tab 5 MG PO Q4H PRN for BREAKTHROUGH PAIN, #30 TAB Oxycodone HCl/Acetaminophen (Oxycodone-Acetaminophen 10-325) 10 Mg-325 Mg Tablet 1 TAB PO Q4H PRN for PAIN GREATER THAN 5, #42 [Nystatin Liq] () 5 ML SUSP 5 ML SWISH-SWAL QID, #25 ML Continued Medications: Alprazolam (Xanax) 0.5 Mg Tab 0.5 MG PO Q6H PRN for ANXIETY, #15 TAB 0 Refills (This prescription has been renewed) Dexamethasone (Dexamethasone) 2 Mg Tab 2 MG PO BID, #14 TAB 0 Refills (This prescription has been renewed) Fluoxetine (Fluoxetine) 20 Mg Cap 20 MG PO DAILY, #30 CAP 0 Refills Lisinopril (Lisinopril) 20 Mg Tab 20 MG PO DAILY, #30 TAB 0 Refills Omeprazole (Omeprazole) 20 Mg Tab 20 MG PO DAILY, #30 TAB 0 Refills Promethazine (Phenergan) 25 Mg Tablet 25 MG PO Q6H PRN for NAUSEA OR VOMITING, #15 TAB 0 Refills (This prescription has been renewed) Discontinued Medications: Hydrocodone-Acetaminophen ([place]) 10-325 Mg Tab 1-2 TAB PO Q6H PRN for PAIN, TAB 0 Refills Morphine ER (Morphine ER) 30 Mg Tab 30 MG PO BID for Pain Management, TAB 0 Refills Oxycodone-Acetaminophen (Percocet) 5-325 mg Tab 1 TAB PO Q6H PRN for PAIN, #20 TAB 0 Refills Mena Lauren MD Dec 31, 2016 14:31 Monica Bravo MD Jan 02, 2017 16:40
== END 2016-12-27 15:38 | disposition home health service (06) | DRG 948 ==
LOC: NEPC 13:44 → NEDA 16:56 → NEPHCDU 20:05 → OBSVTOIN 12-17 15:08 → HCIN 12-17 19:11
PROVIDERS: ADMIT Family Medicine; ATTEND Family Medicine
PROC: DPY97ZZ Contact Radiation of Femur (ICD-10-PCS; principal; 2016-12-21)
PROC: DPYC7ZZ Contact Radiation of Other Bone (ICD-10-PCS; 2016-12-21)
DX: G89.3 Neoplasm related pain (acute) (chronic) (principal); R64 Cachexia; B37.0 Candidal stomatitis; B37.81 Candidal esophagitis; E46 Unspecified protein-calorie malnutrition; C78.02 Secondary malignant neoplasm of left lung; C79.51 Secondary malignant neoplasm of bone; E87.1 Hypo-osmolality and hyponatremia; Z68.1 Body mass index [BMI] 19.9 or less, adult; C01 Malignant neoplasm of base of tongue; C10.9 Malignant neoplasm of oropharynx, unspecified; R29.6 Repeated falls; R62.7 Adult failure to thrive; I10 Essential (primary) hypertension; D72.828 Other elevated white blood cell count; K59.00 Constipation, unspecified; K12.30 Oral mucositis (ulcerative), unspecified; R49.0 Dysphonia; F41.9 Anxiety disorder, unspecified; F32.9 Major depressive disorder, single episode, unspecified; Z66 Do not resuscitate; Z87.891 Personal history of nicotine dependence; Z80.0 Family history of malignant neoplasm of digestive organs; Z92.21 Personal history of antineoplastic chemotherapy
CPT/HCPCS: 72158; 72197; 73552; 77261; 77290; 77295; 77300; 77334; 77412; 77417; 80048; 80053; 81001; 85025; 85027; 94150; 96361; 96374; 96375; 96376; J1170; A9579; G0378; G8987-GP; G8988-GP; J1650; J2270; J7030; J8540

== ENCOUNTER 2017-01-03 18:39 | Inpatient (IN) | payer OTHER ==
[2017-01-03] VITALS (9 sets, daily range): BP systolic 97–137; BP diastolic 60–85; PULSE 90–132; RESP 16–24; TEMP 98.2–98.5; O2SAT 97
[~2017-01-03] VITALS: Ht 165.1 cm; Wt 40.0 kg
[~2017-01-03 18:39] MED LIST changes: +COMMODE 3-IN-11 MIS; +DEXA2TAB PO; +FENT25DI T-DERMAL; -HYDR-3583 PO; +MEGE40TA PO; +MORP1TAB26 PO; +NAPR500 PO; +Nystatin Liq SWISH-SWAL; +OMEP20TA93 PO; +OXYC-392 PO; +OXYC1TAB36 PO; -PERC5TAB12 PO; +WALKER WHEELS/F1 MIS
--- NOTE | 2017-01-03 19:43 | PD ---
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 Over the past several days the patient has had minimal appetite, not eating or drinking very much at home and having complaints of generalized weakness. She had a syncopal event today at home when standing up. She hit left side of her chin against the ground. Her family is concerned with her lack of energy and lack of oral intake and her increasing weakness. Most recently the patient was admitted for intractable pain on December 17, discharged home on December 27. Symptoms have worsened since discharge. During review of systems the patient does note sharp substernal chest pain for over a month with no obvious aggravating factors. In addition she endorses nausea, decreased appetite as well as left-sided jaw pain from the fall. Denies palpitations, abdominal pain but she does endorse chronic lower back pain secondary to metastasis. Most recently received palliative radiation therapy last week. She has no other complaints. PFSH Past Medical History Blood Disorders: No Anxiety: Yes Depression: Yes Heart Rhythm Problems: No Cancer: Yes (TONGUE CANCER, LUNG CANCER, BONE CANCER) Cardiovascular Problems: Yes High Cholesterol: No Chemotherapy: Yes Chest Pain: Yes Congestive Heart Failure: No Diabetes: No Diminished Hearing: No Endocrine: No Gastrointestinal Disorders: Yes (G-TUBE PLACEMENT (NOW REMOVED)) Genitourinary: No Hepatitis: No Hiatal Hernia: No Hypertension: Yes Immune Disorder: No Implanted Vascular Access Dvce: Yes Musculoskeletal: Yes (CHRONIC NECK PAIN ) Neurologic: Yes Psychiatric: Yes Reproductive: No Respiratory: No Immunizations Current: No Migraines: Yes (chronic headaches) Radiation Therapy: Yes (finished treatment last sunday) Thyroid Disease: No Menopausal: Yes Past Surgical History Abdominal Surgery: Yes (g tube placement 12/21) AICD: No Cardiac Surgery: No Section: Yes (X 2) Ear Surgery: No Endocrine Surgery: No Eye Surgery: No Genitourinary Surgery: No Gynecologic Surgery: Yes (2 CSECTIONS) Joint Replacement: No Neurologic Surgery: No Oral Surgery: No Pacemaker: No Thoracic Surgery: No Social History Alcohol Use: No Tobacco Use: No (QUIT 2 YEARS AGO) Substance Use: No Allergies-Medications (Allergen,Severity, Reaction): Coded Allergies: No Known Allergies (Verified , 04/25/16) Reported Meds & Prescriptions Reported Meds & Active Scripts Active Fentanyl Patch 72 HR (Fentanyl) 25 Mcg/Hr Patch 25 Mcg T-DERMAL Q72H Oxycodone-Acetaminophen 10-325 (Oxycodone HCl/Acetaminophen) 10 Mg-325 Mg Tablet 1 Tab PO Q4H PRN Naprosyn (Naproxen) 500 Mg Tab 500 Mg PO Q12HR PRN Megestrol (Megestrol Acetate) 40 Mg Tab 40 Mg PO DAILY Morphine ER (Morphine Sulfate) 60 Mg Tab 60 Mg PO Q12H Oxycodone (Oxycodone HCl) 5 Mg Tab 5 Mg PO Q4H PRN [Nystatin Liq] 5 ML Susp 5 Ml SWISH-SWAL QID Dexamethasone 2 Mg Tab 2 Mg PO BID Phenergan (Promethazine HCl) 25 Mg Tablet 25 Mg PO Q6H PRN Xanax (Alprazolam) 0.5 Mg Tab 0.5 Mg PO Q6H PRN Commode 3-in-1 (Device) 1 Mis Mis Ea .ROUTE DIRECTED Walker with Front Wheels (Device) 1 Mis Mis Ea .ROUTE DIRECTED Reported Omeprazole 20 Mg Tab 20 Mg PO DAILY Lisinopril 20 Mg Tab 20 Mg PO DAILY Fluoxetine (Fluoxetine HCl) 20 Mg Cap 20 Mg PO DAILY Review of Systems Except as stated in HPI: all other systems reviewed are Neg Physical Exam Narrative GENERAL: Cachectic female in no acute distress SKIN: Warm and dry. Small Contusion left jaw. HEAD: Atraumatic. Normocephalic. EYES: Pupils equal and round. No scleral icterus. No injection or drainage. ENT: No nasal bleeding or discharge. Mucous membranes pink and moist. NECK: Trachea midline. No JVD. CARDIOVASCULAR: Regular rate and rhythm. No murmur appreciated. RESPIRATORY: No accessory muscle use. Clear to auscultation. Breath sounds equal bilaterally. GASTROINTESTINAL: Abdomen soft, non-tender, nondistended. Hepatic and splenic margins not palpable. MUSCULOSKELETAL: No obvious deformities. No clubbing. No cyanosis. No edema. NEUROLOGICAL: Awake and alert. No obvious cranial nerve deficits. Motor grossly within normal limits. Normal speech. PSYCHIATRIC: Appropriate mood and affect; insight and judgment normal. Data Data Last Documented VS Vital Signs Date Time Temp Pulse Resp B/P (MAP) Pulse Ox O2 Delivery O2 Flow Rate FiO2 01/03/17 21:00 94 22 123/79 (94) 97 Nasal Cannula 2.00 01/03/17 19:34 98.2 Orders Orders Electrocardiogram (01/03/17 19:39) Basic Metabolic Panel (Bmp) (01/03/17 19:39) Ckmb (Isoenzyme) Profile (01/03/17 19:39) Complete Blood Count With Diff (01/03/17 19:39) Magnesium (Mg) (01/03/17 19:39) Prothrombin Time / Inr (Pt) (01/03/17 19:39) Act Partial Throm Time (Ptt) (01/03/17 19:39) Troponin I (01/03/17 19:39) Chest, Single Ap (01/03/17 19:39) Ecg Monitoring (01/03/17 19:39) Iv Access Insert/Monitor (01/03/17 19:39) Oximetry (01/03/17 19:39) Oxygen Administration (01/03/17 19:39) Ct Pulmonary Angiogram (01/03/17 19:39) Ct Brain W/O Iv Contrast(Rout) (01/03/17 ) Ct Facial Bones W/O Iv Cont (01/03/17 ) Urinalysis - C+S If Indicated (01/03/17 20:30) Potassium Chloride (Kcl) (01/03/17 21:45) Iohexol 350 Inj (Omnipaque 350 Inj) (01/03/17 22:22) Heparin Central Flush (Heparin Central F (01/03/17 18:40) Sodium Chlor 0.9% 1000 Ml Inj (Ns 1000 M (01/03/17 22:25) Electrocardiogram (01/03/17 ) Diltiazem Inj (Cardizem Inj) (01/03/17 22:46) Diltiazem Inj (Cardizem Inj) (01/03/17 23:00) Admit Order (Ed Use Only) (01/03/17 22:51) Admit To Inpatient (01/03/17 ) Vital Signs (Adult) Q4H (01/03/17 22:48) Activity Oob With Assistance (01/03/17 22:48) Rn Advanced / Telemetry .CONTINUOUS (01/03/17 22:48) Intake + Output SHERIDAN.QSHIFT (01/03/17 22:48) Diet Regular Basic (01/04/17 Breakfast) Sodium Chloride 0.9% Flush (Ns Flush) (01/03/17 23:00) Sodium Chloride 0.9% Flush (Ns Flush) (01/04/17 09:00) Basic Metabolic Panel (Bmp) (01/04/17 06:00) Complete Blood Count With Diff (01/04/17 06:00) Pt Request For Service (01/03/17 22:48) Case Management Consult (01/03/17 22:48) Naloxone Inj (Narcan Inj) (01/03/17 23:00) Inpatient Certification (01/03/17 ) Labs Laboratory Tests Test 01/03/17 19:40 White Blood Count 16.6 TH/MM3 Red Blood Count 3.63 MIL/MM3 Hemoglobin 10.1 GM/DL Hematocrit 31.4 % Mean Corpuscular Volume 86.6 FL Mean Corpuscular Hemoglobin 27.9 PG Mean Corpuscular Hemoglobin Concent 32.2 % Red Cell Distribution Width 14.7 % Platelet Count 466 TH/MM3 Mean Platelet Volume 7.6 FL Neutrophils (%) (Auto) 93.7 % Lymphocytes (%) (Auto) 1.6 % Monocytes (%) (Auto) 4.1 % Eosinophils (%) (Auto) 0.3 % Basophils (%) (Auto) 0.3 % Neutrophils # (Auto) 15.5 TH/MM3 Lymphocytes # (Auto) 0.3 TH/MM3 Monocytes # (Auto) 0.7 TH/MM3 Eosinophils # (Auto) 0.1 TH/MM3 Basophils # (Auto) 0.1 TH/MM3 CBC Comment DIFF FINAL Differential Comment Prothrombin Time 12.7 SEC Prothromb Time International Ratio 1.1 RATIO Activated Partial Thromboplast Time 28.0 SEC Blood Urea Nitrogen 17 MG/DL Creatinine 0.43 MG/DL Random Glucose 112 MG/DL Calcium Level 8.9 MG/DL Magnesium Level 1.8 MG/DL Sodium Level 131 MEQ/L Potassium Level 3.2 MEQ/L Chloride Level 96 MEQ/L Carbon Dioxide Level 23.3 MEQ/L Anion Gap 12 MEQ/L Estimat Glomerular Filtration Rate 149 ML/MIN Total Creatine Kinase 69 U/L Troponin I LESS THAN 0.02 NG/ML MDM Medical Decision Making Medical Screen Exam Complete: Yes Emergency Medical Condition: Yes Medical Record Reviewed: Yes Interpretation(s) CT pulmonary angiogram CONCLUSION: 1. Severe COPD, most prominent in the apices. Scattered areas of parenchymal scarring. 2. Large, 7.7 x 4.3 cm pleural-based mass lesion in the left lower lobe. Associated bony destruction and cortical irregularity of the left posterior seventh and eighth ribs. 3. Left hilar and mediastinal adenopathy. Largest node in the AP window measures 5.7 cm in diameter with some impingement on the left pulmonary artery but the vessel does remain patent without pulmonary embolus. CT brain and facial bones reveals no acute abnormalities Differential Diagnosis Failure To thrive, dehydration, electrolyte abnormality, orthostatic hypotension Narrative Course Plan is for lab work, chest x-ray, CT pulmonary angiogram, CT of the brain and facial bones. The patient will be given IV fluids. EKG reveals sinus tachycardia with a rate of 100. WBC count is elevated at 16 which appears to be consistent with her previous. Potassium is 3.2 2235: Upon reexamination the patient's heart rate is noted to be in the 130s. A repeat EKG reveals atrial fibrillation with RVR, she has no history of atrial fibrillation.. The patient was given a 10 mg bolus of diltiazem and her heart rate was persistently elevated in the 120 range. Therefore a diltiazem drip has been started. Procedures EKG Prior to Arrival: Yes Diagnosis Primary Impression: Syncope Qualified Codes: R55 - Syncope and collapse Additional Impressions: Weakness Dehydration Atrial fibrillation with RVR Admitting Information Admitting Physician Requests: Admit Ritesh Chauhan Jan 03, 2017 19:43
[2017-01-03] MEDS ORDERED: SODIUM CHLORIDE 0.9% FLUSH 10 ML FLUSH IVF PRN (19:45)
--- NOTE | 2017-01-03 20:23 | RADRPT ---
EXAM DATE/TIME: 01/03/2017 20:11 [facility] COMPARISON: CHEST EXPIRATION ONLY, April 25, 2016, 12:49. INDICATIONS : Chest pain. Short of breath. MEDICAL HISTORY : Metastatic, bone. Carcinoma, tongue. Metastatic, lung. Hypertension. SURGICAL HISTORY : Port placement. ENCOUNTER: Initial ACUITY: 1 day PAIN SCORE: 02/14 LOCATION: Left chest FINDINGS: A single view of the chest demonstrates interval enlargement of the left perihilar mass lesion which previously measured approximately 2.6 cm in diameter and now measures 5.2 cm in diameter. Mass lesion in the right perihilar distribution in the left lower lobe are not clearly identified on the current exam. Interval elevation of the left hemidiaphragm. Right IJ [id number] catheter is unchanged in position with the tip projecting over the central venous system. Lungs remain hyperinflated character istic of some degree of COPD. Osseous structures are intact. CONCLUSION: 1. Minimal enlargement of the left perihilar mass lesion previously measured 2.6 cm in diameter now m easures 5.2 cm in diameter. 2. However, previous nodules in the right perihilar distribution and left lower lobe/lingula are not definitively identified on the current exam. 3. Interval elevation of the left hemidiaphragm. 4. Stable COPD. Sunny Farfan MD on January 03, 2017 at 20:18 Board Certified Radiologist. This report was verified electronically.
[2017-01-03 20:50] LABS: AUTOMATED NEUTROPHIL # 15.5 TH/MM3 (1.8-7.7); BASOPHIL # 0.1 TH/MM3 (0-0.2); BASOPHIL % 0.3 % (0.0-2.0); EOSINOPHIL # 0.1 TH/MM3 (0-0.4); EOSINOPHIL % 0.3 % (0.0-4.0); HEMATOCRIT 31.4 % (35.0-46.0); HEMO FLAGS DIFF FINAL; LYMPH % 1.6 % (9.0-44.0); LYMPHOCYTE # 0.3 TH/MM3 (1.0-4.8); MEAN CELL VOLUME 86.6 FL (80.0-100.0); MEAN CORPUSCULAR HEMOGLOBIN 27.9 PG (27.0-34.0); MEAN CORPUSCULAR HGB CONC 32.2 % (32.0-36.0); MONO % 4.1 % (0.0-8.0); NEUT % 93.7 % (16.0-70.0); PLATELET COUNT 466 TH/MM3 (150-450); RED BLOOD COUNT 3.63 MIL/MM3 (4.00-5.30); RED CELL DISTRIBUTION WIDTH 14.7 % (11.6-17.2); WHITE BLOOD COUNT 16.6 TH/MM3 (4.0-11.0)
[2017-01-03 21:10] LABS: INTERNATIONAL NORMALIZED RATIO 1.1 RATIO; PROTHROMBIN TIME - PATIENT 12.7 SEC (9.8-11.6)
[2017-01-03 21:12] LABS: ANION GAP 12 MEQ/L (5-15); BICARBONATE 23.3 MEQ/L (21.0-32.0); BLOOD UREA NITROGEN 17 MG/DL (7-18); CHLORIDE 96 MEQ/L (98-107); GLOMERULAR FILTRATION RATE 149 ML/MIN (>89); MAGNESIUM 1.8 MG/DL (1.5-2.5); POTASSIUM 3.2 MEQ/L (3.5-5.1); SODIUM (NA) 131 MEQ/L (136-145)
[2017-01-03 21:19] LABS: CREATINE KINASE 69 U/L (26-192)
[2017-01-03] MEDS ORDERED: POTASSIUM CHLORIDE 20 MEQ CONTROLLED RELEASE TAB PO ONE (21:45)
[2017-01-03] MEDS ORDERED: IOHEXOL 350 MG/ML 10 ML VIAL (for RAD DIAG) IVCONTRAST ONE (22:22)
[2017-01-03] MEDS ORDERED: SODIUM CHLOR 0.9% 1000 ML INJ 1,000 ML IV SCH (22:25)
--- NOTE | 2017-01-03 22:35 | RADRPT ---
EXAM DATE/TIME: 01/03/2017 21:50 [facility] COMPARISON: No previous studies available for comparison. INDICATIONS : Shortness of breath, midsternal chest pain and syncopal episode. Evaluate for pulmonary embolism. IV CONTRAST: 40 cc Omnipaque 350 (iohexol) IV RADIATION DOSE: 2.84 CTDIvol (mGy) MEDICAL HISTORY : Hypertension. Cardiovascular disease Chronic obstructive pulmonary disease.Lung, tongue and bone canc er. SURGICAL HISTORY : Port placement. ENCOUNTER: Initial ACUITY: 1 day PAIN SCALE: 8/10 LOCATION: chest TECHNIQUE: Volumetric scanning of the chest was performed using a pulmonary embolism protocol MIP images were re constructed. Using automated exposure control and adjustment of the mA and/or kV according to patien t size, radiation dose was kept as low as reasonably achievable to obtain optimal diagnostic quality images. DICOM format image data is available electronically for review and comparison. Follow-up recommendations for detected pulmonary nodules are based at a minimum on nodule size and pa tient risk factors according to Fleischner Society Guidelines. FINDINGS: PULMONARY ARTERIES: No filling defects are seen in the pulmonary arteries through the segmental level. LUNGS: Severe COPD, most prominent in the apices. Scattered areas of pulmonary parenchymal scarring in both the upper and lower lungs.. PLEURAE: Pleural-based mass lesion in the left lower lobe posteriorly measures 7.7 x 4.3 cm in diameter. There is some destruction of the adjacent left seventh and eighth ribs. MEDIASTINUM: Bulky left hilar and mediastinal adenopathy. Largest node in the AP window measures 5.7 cm in diamete r. Pretracheal node 2.5 cm with a left hilar node measuring 2.4 cm. The AP window node and changes on the left main pulmonary artery but the vessel remains patent. MUSCULOSKELETAL: Bony destruction of the left seventh and eighth ribs posteriorly as above. MISCELLANEOUS: The visualized upper abdominal organs demonstrate no acute abnormality. CONCLUSION: 1. Severe COPD, most prominent in the apices. Scattered areas of parenchymal scarring. 2. Large, 7.7 x 4.3 cm pleural-based mass lesion in the left lower lobe. Associated bony destruction and cortical irregularity of the left posterior seventh and eighth ribs. 3. Left hilar and mediastinal adenopathy. Largest node in the AP window measures 5.7 cm in diameter w ith some impingement on the left pulmonary artery but the vessel does remain patent without pulmonary embolus. Sunny Farfan MD on January 03, 2017 at 22:27 Board Certified Radiologist. This report was verified electronically.
--- NOTE | 2017-01-03 22:36 | RADRPT ---
EXAM DATE/TIME: 01/03/2017 21:46 [facility] COMPARISON: No previous studies available for comparison. INDICATIONS : Syncope. RADIATION DOSE: 45.79 CTDIvol (mGy) ; Tabletop CT Head MEDICAL HISTORY : Hypertension. Cardiovascular disease Tongue, bone and lung cancer. COPD. SURGICAL HISTORY : None. ENCOUNTER: Initial ACUITY: 1 day PAIN SCALE: 0/10 LOCATION: cranial TECHNIQUE: Multiple contiguous axial images were obtained of the head. Using automated exposure control and adj ustment of the mA and/or kV according to patient size, radiation dose was kept as low as reasonably a chievable to obtain optimal diagnostic quality images. DICOM format image data is available electro nically for review and comparison. FINDINGS: CEREBRUM: The ventricles are normal for age. No evidence of midline shift, mass lesion, hemorrhage or acute in farction. No extra-axial fluid collections are seen. POSTERIOR FOSSA: The cerebellum and brainstem are intact. The 4th ventricle is midline. The cerebellopontine angle i s unremarkable. EXTRACRANIAL: The visualized portion of the orbits is intact. SKULL: The calvaria is intact. No evidence of skull fracture. CONCLUSION: Negative exam. Sunny Farfan MD on January 03, 2017 at 22:33 Board Certified Radiologist. This report was verified electronically.
--- NOTE | 2017-01-03 22:37 | RADRPT ---
EXAM DATE/TIME: 01/03/2017 21:47 [facility] COMPARISON: No previous studies available for comparison. INDICATIONS : Trauma, fall. Struck chin on ground. RADIATION DOSE: 36.47 CTDIvol (mGy) MEDICAL HISTORY : Hypertension. Cardiovascular disease Tongue, bone and lung cancer. COPD. SURGICAL HISTORY : None. ENCOUNTER: Initial ACUITY: 1 day PAIN SCORE: 5/10 LOCATION: facial TECHNIQUE: Volumetric scanning of the facial bones was performed. Using automated exposure control and adjustme nt of the mA and/or kV according to patient size, radiation dose was kept as low as reasonably achiev able to obtain optimal diagnostic quality images. DICOM format image data is available electronicall y for review and comparison. FINDINGS: ORBITS: The orbital and infraorbital osseous structures are intact. The retroconal structures have a normal configuration. No radiopaque foreign bodies are seen. NASAL BONE: The nasal bone and maxillary spine are intact ZYGOMATIC ARCHES: Symmetric without evidence of fracture. SINUSES: The maxillary, ethmoid and frontal sinuses are intact. No air-fluid levels seen. NASAL CAVITY: The nasal septum is intact and midline. The lacrimal ducts are intact. SOFT TISSUES: No radiopaque foreign bodies seen. No soft-tissue swelling is seen. INTRACRANIAL: No intracranial air seen. CRIBIFORM PLATE: Grossly intact. CONCLUSION: No fracture. Sunny Farfan MD on January 03, 2017 at 22:34 Board Certified Radiologist. This report was verified electronically.
[2017-01-03] MEDS ORDERED: DILTIAZEM HCL 25 MG/5 ML VIAL ONE (22:46)
[2017-01-03] MEDS ORDERED: DILTIAZEM HCL 25 MG/5 ML VIAL IV PUSH ONE (23:00)
[2017-01-03] MEDS ORDERED: NALOXONE HCL 0.4 MG/ML AMP IV PUSH PRN (23:00)
[2017-01-03] MEDS: DILTIAZEM INJ 125 MG in SODIUM CHLORIDE 0.9% INJ 100 ML IV PRN (23:30)
[2017-01-03] MEDS: SODIUM CHLOR 0.9% 1000 ML INJ 1,000 ML IV SCH (23:30)
[2017-01-04] VITALS (12 sets, daily range): BP systolic 100–118; BP diastolic 62–77; PULSE 80–125; RESP 18–26; TEMP 97.8–99.2; O2SAT 94–98
[2017-01-04] MEDS: DILTIAZEM INJ 125 MG in SODIUM CHLORIDE 0.9% INJ 100 ML IV PRN ×3 (00:06→07:11)
[2017-01-04] MEDS ORDERED: ACETAMINOPHEN/HYDROcodone 325 MG/5 MG TAB PO PRN (05:00)
[2017-01-04 06:21] LABS: AUTOMATED NEUTROPHIL # 13.5 TH/MM3 (1.8-7.7); BASOPHIL % 0.3 % (0.0-2.0); EOSINOPHIL # 0.1 TH/MM3 (0-0.4); EOSINOPHIL % 0.5 % (0.0-4.0); HEMATOCRIT 26.6 % (35.0-46.0); HEMO FLAGS DIFF FINAL; LYMPH % 1.4 % (9.0-44.0); LYMPHOCYTE # 0.2 TH/MM3 (1.0-4.8); MEAN CELL VOLUME 85.7 FL (80.0-100.0); MEAN CORPUSCULAR HEMOGLOBIN 28.8 PG (27.0-34.0); MEAN CORPUSCULAR HGB CONC 33.6 % (32.0-36.0); MONO % 4.5 % (0.0-8.0); NEUT % 93.3 % (16.0-70.0); PLATELET COUNT 407 TH/MM3 (150-450); RED BLOOD COUNT 3.11 MIL/MM3 (4.00-5.30); RED CELL DISTRIBUTION WIDTH 14.6 % (11.6-17.2); WHITE BLOOD COUNT 14.5 TH/MM3 (4.0-11.0)
[2017-01-04 06:40] LABS: BICARBONATE 23.1 MEQ/L (21.0-32.0); POTASSIUM 3.7 MEQ/L (3.5-5.1)
--- NOTE | 2017-01-04 08:16 | HHI.HP ---
[facility] Elvin Olsen M.D. Admission Diagnosis new onset atrial fibrillation, weakness, syncope, dehydration Diagnoses: (1) Weakness Diagnosis: Principal (2) Syncope Diagnosis: Principal (3) Atrial fibrillation with RVR Diagnosis: Principal Chief Complaint: generalized weakness Travel History International Travel<30 Days: No Contact w/Intl Traveler <30 Da: No Traveled to Known Affected Are: No History of Present Illness patient is a 61 y/o female with history of metastatic oropharyngeal squamous cell carcinoma who was brought to ER after she passed out yesterday. she says that her chemo stopped about a month ago and she just finished her radiation treatment a week ago. she says that her appetite is poor and she doesn't eat or drink as much. she's feeling weak and had a few falls over that past year. she says that she felt weak and passed out yesterday. she denies any other prodromal symptoms like chest pain, sob, nausea prior to the incident. she has on and off occasional cough and abdominal pain. she's complaining of moderate to severe low back pain.she was found to be in a-fib with RVR for which she was started on Cardizem drip. Review of Systems Constitutional: COMPLAINS OF: Fatigue, Change in appetite, DENIES: Fever, Weight loss, Chills, Night Sweats Eyes: DENIES: Blurred vision, Diplopia, Vision loss, Double Vision Ears, nose, mouth, throat: DENIES: Tinnitus, Vertigo, Throat pain, Epistaxis Respiratory: COMPLAINS OF: Cough, DENIES: Apneas, Snoring, Wheezing, Hemoptysis , Sputum production, Shortness of breath Cardiovascular: DENIES: Chest pain, Palpitations, Syncope, Dyspnea on Exertion , PND, Lower Extremity Edema, Orthopnea, Claudication Gastrointestinal: DENIES: Abdominal pain, Black stools, Bloody stools, Constipation, Diarrhea, Nausea, Vomiting, Difficulty Swallowing, Anorexia Genitourinary: DENIES: Urinary frequency, Urgency, Hematuria, Dysuria Musculoskeletal: COMPLAINS OF: Back pain, DENIES: Joint pain, Muscle aches, Stiffness, Joint Swelling Integumentary: DENIES: Rash Neurologic: DENIES: Abnormal gait, Headache, Localized weakness, Paresthesias, Seizures, Speech Problems, Tremor, Poor Balance Psychiatric: DENIES: Anxiety, Confusion, Mood changes, Depression, Hallucinations, Agitation, Suicidal Ideation, Homicidal Ideation, Delusions Past Family Social History Past Medical History oropharyngeal cancer hypertension Reported Medications Fentanyl Patch 72 HR (Fentanyl) 25 Mcg/Hr Patch 25 Mcg T-DERMAL Q72H Oxycodone-Acetaminophen 10-325 (Oxycodone HCl/Acetaminophen) 10 Mg-325 Mg Tablet 1 Tab PO Q4H PRN Naprosyn (Naproxen) 500 Mg Tab 500 Mg PO Q12HR PRN Megestrol (Megestrol Acetate) 40 Mg Tab 40 Mg PO DAILY Morphine ER (Morphine Sulfate) 60 Mg Tab 60 Mg PO Q12H Oxycodone (Oxycodone HCl) 5 Mg Tab 5 Mg PO Q4H PRN [Nystatin Liq] 5 ML Susp 5 Ml SWISH-SWAL QID Dexamethasone 2 Mg Tab 2 Mg PO BID Phenergan (Promethazine HCl) 25 Mg Tablet 25 Mg PO Q6H PRN Xanax (Alprazolam) 0.5 Mg Tab 0.5 Mg PO Q6H PRN Commode 3-in-1 (Device) 1 Mis Mis Ea .ROUTE DIRECTED Walker with Front Wheels (Device) 1 Mis Mis Ea .ROUTE DIRECTED Reported Omeprazole 20 Mg Tab 20 Mg PO DAILY Lisinopril 20 Mg Tab 20 Mg PO DAILY Fluoxetine (Fluoxetine HCl) 20 Mg Cap 20 Mg PO DAILY Allergies: Coded Allergies: No Known Allergies (Verified , 04/25/16) Active Ordered Medications Current Medications Sodium Chloride (NS Flush) 2 ml UNSCH PRN IVF FLUSH AFTER USING IV ACCESS; Start 01/03/17 at 19:45; Status Cancel Potassium Chloride (KCl) 40 meq ONCE ONCE PO Last administered on 01/03/17 21:51; Start 01/03/17 at 21:45; Stop 01/03/17 at 21:46; Status DC Iohexol (Omnipaque 350 Inj) 40 ml STK-MED ONCE IVCONTRAST Last administered on 01/03/17 22:22; Start 01/03/17 at 22:22; Stop 01/03/17 at 22:24; Status DC Heparin Sodium (Porcine) (Heparin Central Flush) 5 units STK-MED ONCE IV FLUSH Last administered on 01/03/17 22:22; Start 01/03/17 at 18:40; Stop 01/03/17 at 22:25; Status DC Sodium Chloride 1,000 ml @ 1,000 mls/hr Q1H IV Last administered on 22:36; Start 01/03/17 at 22:25; Stop 01/03/17 at 23:24; Status DC Diltiazem HCl (Cardizem Inj) 25 mg STK-MED ONCE .ROUTE ; Start 01/03/17 at 22: 46; Stop 01/03/17 at 22:47; Status DC Diltiazem HCl (Cardizem Inj) 10 mg BOLUS ONCE IV PUSH Last administered on 22:52; Start 01/03/17 at 23:00; Stop 01/03/17 at 23:01; Status DC Sodium Chloride (NS Flush) 2 ml UNSCH PRN IV FLUSH FLUSH AFTER USING IV ACCESS ; Start 01/03/17 at 23:00 Sodium Chloride (NS Flush) 2 ml BID IV FLUSH ; Start 01/04/17 at 09:00 Naloxone HCl (Narcan Inj) 0.4 mg UNSCH PRN IV PUSH SEE LABEL COMMENTS; Start 01/03/17 at 23:00 Sodium Chloride 1,000 ml @ 84 mls/hr [id number] IV Last administered on 23:30; Start 01/03/17 at 23:00 Diltiazem HCl 125 mg/Sodium Chloride 125 ml @ 5 mls/hr TITRATE PRN IV tachycardia Last administered on 01/04/17 07:11; Start 01/03/17 at 23:00 Acetaminophen/ Hydrocodone Bitart ([place] 5-325 Mg) 1 tab Q6H PRN PO pain >5 Last administered on 01/04/17 06:13; Start 01/04/17 at 05:00 Social History quit smoking a year ago. Physical Exam Vital Signs Vital Signs Date Time Temp Pulse Resp B/P (MAP) Pulse Ox O2 Delivery O2 Flow Rate FiO2 01/04/17 07:11 79 108/64 01/04/17 06:00 82 01/04/17 05:30 98.4 82 26 106/69 (81) 96 01/04/17 05:18 01/04/17 04:28 90 18 113/67 (82) 98 Nasal Cannula 2.00 01/04/17 03:39 92 18 109/65 (80) 97 Nasal Cannula 2.00 01/04/17 00:46 115 20 116/74 (88) 96 Nasal Cannula 2.00 01/04/17 00:46 115 116/74 01/04/17 00:10 125 20 114/77 (89) 96 Nasal Cannula 2.00 01/04/17 00:06 125 114/77 01/03/17 23:30 126 108/89 01/03/17 22:56 110 16 106/69 (81) 97 Nasal Cannula 2.00 01/03/17 22:30 132 01/03/17 21:30 92 20 120/80 (93) 97 Nasal Cannula 2.00 01/03/17 21:00 94 22 123/79 (94) 97 Nasal Cannula 2.00 01/03/17 20:30 90 24 137/76 (96) 97 Room Air 01/03/17 20:00 94 20 127/85 (99) 97 Room Air 2.00 01/03/17 19:42 97 Nasal Cannula 2.00 01/03/17 19:42 97 Nasal Cannula 2.00 01/03/17 19:34 98.2 100 16 108/67 (81) 97 Room Air 01/03/17 18:40 98.5 97/60 (72) Room Air Physical Exam GENERAL:cachectic- in no acute distress. SKIN: No rashes, ecchymoses or lesions. Cool and dry. HEAD: Atraumatic. Normocephalic. No temporal or scalp tenderness. EYES: Pupils equal round and reactive. Extraocular motions intact. No scleral icterus. No injection or drainage. ENT: Nose without bleeding, purulent drainage or septal hematoma. Throat without erythema, tonsillar hypertrophy or exudate. Uvula midline. Airway patent. NECK: Trachea midline. No JVD or lymphadenopathy. Supple, nontender, no meningeal signs. CARDIOVASCULAR: Regular rate and rhythm without murmurs, gallops, or rubs. RESPIRATORY: Clear to auscultation. Breath sounds equal bilaterally. No wheezes , rales, or rhonchi. GASTROINTESTINAL: Abdomen soft, non-tender, nondistended. No hepato-splenomegaly , or palpable masses. No guarding. MUSCULOSKELETAL: Extremities without clubbing, cyanosis, or edema. No joint tenderness, effusion, or edema noted. No calf tenderness. Negative Homans sign bilaterally. NEUROLOGICAL: Awake and alert. Cranial nerves II through XII intact. Motor and sensory grossly within normal limits. Five out of 5 muscle strength in all muscle groups. Normal speech. Laboratory Laboratory Tests Test 01/03/17 19:40 01/04/17 06:05 White Blood Count 16.6 14.5 Red Blood Count 3.63 3.11 Hemoglobin 10.1 9.0 Hematocrit 31.4 26.6 Mean Corpuscular Volume 86.6 85.7 Mean Corpuscular Hemoglobin 27.9 28.8 Mean Corpuscular Hemoglobin Concent 32.2 33.6 Red Cell Distribution Width 14.7 14.6 Platelet Count 466 407 Mean Platelet Volume 7.6 7.3 Neutrophils (%) (Auto) 93.7 93.3 Lymphocytes (%) (Auto) 1.6 1.4 Monocytes (%) (Auto) 4.1 4.5 Eosinophils (%) (Auto) 0.3 0.5 Basophils (%) (Auto) 0.3 0.3 Neutrophils # (Auto) 15.5 13.5 Lymphocytes # (Auto) 0.3 0.2 Monocytes # (Auto) 0.7 0.6 Eosinophils # (Auto) 0.1 0.1 Basophils # (Auto) 0.1 0.0 CBC Comment DIFF FINAL DIFF FINAL Differential Comment Prothrombin Time 12.7 Prothromb Time International Ratio 1.1 Activated Partial Thromboplast Time 28.0 Blood Urea Nitrogen 17 11 Creatinine 0.43 0.20 Random Glucose 112 102 Calcium Level 8.9 7.8 Magnesium Level 1.8 Sodium Level 131 135 Potassium Level 3.2 3.7 Chloride Level 96 103 Carbon Dioxide Level 23.3 23.1 Anion Gap 12 9 Estimat Glomerular Filtration Rate 149 360 Total Creatine Kinase 69 Troponin I LESS THAN 0.02 Result Diagram: 01/04/1760401/04/17604 Imaging Last Impressions Chest X-Ray 01/03/17 193 Signed Impressions: Service Date/Time: Tuesday, January 03, 2017 20:11 - CONCLUSION: 1. Minimal enlargement of the left perihilar mass lesion previously measured 2.6 cm in diameter now measures 5.2 cm in diameter. 2. However, previous nodules in the right perihilar distribution and left lower lobe/lingula are not definitively identified on the current exam. 3. Interval elevation of the left hemidiaphragm. 4. Stable COPD. Sunny Farfan MD CT Angiography 01/03/17 1939 Signed Impressions: Service Date/Time: Tuesday, January 03, 2017 21:50 - CONCLUSION: 1. Severe COPD, most prominent in the apices. Scattered areas of parenchymal scarring. 2. Large, 7.7 x 4.3 cm pleural-based mass lesion in the left lower lobe. Associated bony destruction and cortical irregularity of the left posterior seventh and eighth ribs. 3. Left hilar and mediastinal adenopathy. Largest node in the AP window measures 5.7 cm in diameter with some impingement on the left pulmonary artery but the vessel does remain patent without pulmonary embolus. Sunny Farfan MD Maxillofacial CT 01/03/17 0000 Signed Impressions: Service Date/Time: Tuesday, January 03, 2017 21:47 - CONCLUSION: No fracture. Sunny Farfan MD Head CT 01/03/17 0000 Signed Impressions: Service Date/Time: Tuesday, January 03, 2017 21:46 - CONCLUSION: Negative exam. MD Mango Menendez VTE Risk Assessment Mango VTE Risk Assessment: Mod/High Risk (score >= 2) Caprini Risk Assessment Model Point Value = 1 Point Value = 2 Point Value = 3 Point Value = 5 Age 41-60 Minor surgery BMI > 25 kg/m2 Swollen legs Varicose veins or History of unexplained or recurrent spontaneous Oral contraceptives or hormone replacement Sepsis (< 1 month) Serious lung disease, including pneumonia (< 1 month) Abnormal pulmonary function Acute myocardial infarction Congestive heart failure (< 1 month) History of inflammatory bowel disease Medical patient at bed rest Age 61-74 Arthroscopic surgery Major open surgery (> 45 min) Laparoscopic surgery (> 45 min) Malignancy Confined to bed (> 72 hours) Immobilizing plaster cast Central venous access Age >= 75 History of VTE Family history of VTE Factor V Leiden Prothrombin [id number] Lupus anticoagulant Anticardiolipin antibodies Elevated serum homocysteine Heparin-induced thrombocytopenia Other congenital or acquired thrombophilia Stroke (< 1 month) Elective arthroplasty Hip, pelvis, or leg fracture Acute spinal cord injury (< 1 month) Prophylaxis Regimen Total Risk Factor Score Risk Level Prophylaxis Regimen 0-1 Low Early ambulation 2 Moderate Order ONE of the following: *Sequential Compression Device (SCD) *Heparin 5000 units SQ BID 3-4 Higher Order ONE of the following medications: *Heparin 5000 units SQ TID *Enoxaparin/Lovenox 40 mg SQ daily (WT < 150 kg, CrCl > 30 mL/min) *Enoxaparin/Lovenox 30 mg SQ daily (WT < 150 kg, CrCl > 10-29 mL/min) *Enoxaparin/Lovenox 30 mg SQ BID (WT < 150 kg, CrCl > 30 mL/min) AND/OR *Sequential Compression Device (SCD) 5 or more Highest Order ONE of the following medications: *Heparin 5000 units SQ TID (Preferred with Epidurals) *Enoxaparin/Lovenox 40 mg SQ daily (WT < 150 kg, CrCl > 30 mL/min) *Enoxaparin/Lovenox 30 mg SQ daily (WT < 150 kg, CrCl > 10-29 mL/min) *Enoxaparin/Lovenox 30 mg SQ BID (WT < 150 kg, CrCl > 30 mL/min) AND *Sequential Compression Device (SCD) Assessment and Plan Assessment and Plan A/P -a-fib with RVR started on IV Cardizem drip- start on PO cardizem and will try to taper off the cardizem drip- check echo and consult cardiology. -syncope/ generalized weakness- likely due to poor oral intake fall precautions- start on Megestrol and consult singe winder. continue to monitor on telemetry. consult PT. 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 hospice will be consulted per my discussion with . -anemia due to chronic disease- will monitor for now -hypertension; hold lisinopril since she's been started on Cardizem- will monitor and adjust the regimen as needed. -DVT prophylaxis with subq Lovenox -consult case management for dc planning. Code Status DNR per my d/w the patient. Discussed Condition With the patient and . Physician Certification 2 Midnight Certification Type: Admission for Inpatient Services Order for Inpatient Services The services are ordered in accordance with Medicare regulations or non- Medicare payer requirements, as applicable. In the case of services not specified as inpatient-only, they are appropriately provided as inpatient services in accordance with the 2-midnight benchmark. Estimated LOS (days): 2 days is the estimated time the patient will need to remain in the hospital, assuming treatment plan goals are met and no additional complications. Post-Hospital Plan: Not yet determined Problem Qualifiers (1) Syncope: Qualified Codes: R55 - Syncope and collapse Ronen Denson MD Jan 04, 2017 08:16
[2017-01-04] MEDS ORDERED: ONDANSETRON HCL 4 MG/2 ML VIAL IV PUSH PRN (08:30)
[2017-01-04] MEDS: SODIUM CHLORIDE 0.9% FLUSH 10 ML FLUSH IV FLUSH SCH ×2 (09:00→21:00)
[2017-01-04] MEDS: fentaNYL 25 MCG/HR PATCH T-DERMAL SCH (09:08)
[2017-01-04] MEDS: ENOXAPARIN SODIUM 40 MG/0.4 ML SYRINGE SQ SCH (09:08)
[2017-01-04] MEDS: SODIUM CHLOR 0.9% 1000 ML INJ 1,000 ML IV SCH ×2 (09:08→20:31)
[2017-01-04] MEDS: MEGESTROL ACETATE 40 MG TAB PO SCH (10:15)
[2017-01-04] MEDS: MORPHINE SULFATE 30 MG CONTROLLED RELEASE TAB PO SCH ×2 (10:15→20:31)
[2017-01-04] MEDS: PRAVASTATIN SOD 40 MG TAB PO SCH (11:19)
[2017-01-04] MEDS: DILTIAZEM HCL 30 MG TAB PO SCH ×3 (11:19→22:58)
--- NOTE | 2017-01-04 15:04 | MB ---
cc: LONNIE BRAVO M.D. DATE OF CONSULTATION: 01/04/2017 HISTORY OF PRESENT ILLNESS Odalys is a very pleasant 61-year-old lady with history of metastatic squamous cell carcinoma of the oropharynx, hypertension, peripheral neuropathy, came to [facility] due to a syncopal event and found to be in atrial fibrillation with rapid ventricular response. She reports anorexia, poor p.o. intake, generalized weakness, syncopal event occurred after standing. Review of systems is also positive for chest pain described as sharp, occurs randomly associated with exertion. PAST MEDICAL HISTORY Per history of present illness. 1. History of tongue cancer. 2. Lung cancer. 3. Bone cancer. 4. Chemotherapy. 5. Previous G tube placement, now removed. 6. Chronic neck pain. 7. Migraine headaches. 8. Recent radiation therapy completed on 01/03/2017. SOCIAL HISTORY Quit smoking 2 years ago. Denies alcohol use. ALLERGIES None. MEDICATIONS PRIOR TO ADMISSION 1. Fentanyl patch. 2. Oxycodone/acetaminophen. 3. Naprosyn. 4. Megestrol. 5. Morphine. 6. Oxycodone. 7. Nystatin. 8. Dexamethasone. 9. Phenergan. 10. Xanax. 11. Omeprazole 20 daily. 12. Lisinopril 20 daily. 13. ___ 20 mg daily. MEDICATIONS IN THE HOSPITAL 1. Cardizem 30 q.6 hours p.o. 2. Fentanyl patch. 3. Morphine 30 mg q.12 hours. 4. Megace 40 mg daily. 5. Pravastatin 40 mg daily. 6. Lovenox 40 mg subcu q. 24 hours. 7. Xanax 0.5 p.r.n. 8. Cardizem drip. PHYSICAL EXAMINATION VITAL SIGNS: Blood pressure 109/65, pulse 86, temperature 98.0, respiratory rate between 20 and 24. GENERAL: She is alert and oriented x 3, in no acute distress. NECK: Supple. No JVD. No bruit. CARDIOVASCULAR: S1, S2. No murmurs, rubs or gallops. LUNGS: Clear to auscultation bilaterally. ABDOMEN: Soft, nontender, nondistended with positive bowel sounds. EXTREMITIES: No lower extremity edema. LABORATORY DATA White count 14.5, hemoglobin 9.0, hematocrit 26.6, platelet count 407. Troponin less than 0.02, TSH 0.711. Sodium 131, potassium 3.2, chloride 96, bicarb 23.3, BUN 15, creatinine 0.43, INR 1.1. EKG Shows atrial fibrillation at a rate of 130 beats per minute. Repeat EKG shows normal sinus rhythm at a rate of 100 beats per minute. IMAGING STUDIES CTA of the chest shows COPD, most prominent in the apices, scattered areas of parenchymal scarring, large 7.7 x 4.3 cm pleural based mass lesion in the left lower lobe, associated bony destruction with cortical irregularity of the left posterior 7th and 8th ribs, left hilar and mediastinal adenopathy, largest on the AP window measuring 5.7 cm in diameter with some impingement on the left pulmonary artery but the vessel does remain patent without pulmonary embolus. Chest x-ray shows minimal enlargement of the left perihilar mass lesion previously measured 2.6 cm in diameter, now 5.[address] in diameter. Head CT negative exam. Maxillofacial CT shows no fracture. DIAGNOSIS 1. Atrial fibrillation with rapid ventricular response. 2. Paroxysmal atrial fibrillation. 3. Metastatic squamous cell carcinoma. 4. Anemia. 5. Elevated white count. 6. Anemia. 7. Thrombocytosis. 8. Hyponatremia. DISCUSSION At this point in time the patient is currently in sinus rhythm converted on a Cardizem drip. Oral Cardizem has been started. She has a CHADS 2 vas score of 1, based on her history of hypertension, she does not have congestive heart failure, she does not have diabetes, prior CVA or vascular disease that is known. Recommend 2-D Echo to further assess for congestive heart failure. Overall prognosis needs to be considered, however, as well as hospice consult has been obtained. Also need to consider bleeding risk given the metastases of her squamous cell carcinoma and risk of bleeding. 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 MD PURVI Adrian/TLL /1:55 PM /2:19 PM
--- NOTE | 2017-01-04 15:36 | ECHRPT ---
Indication: a fib/flutter CONCLUSIONS The left ventricular systolic function is normal with an estimated ejection fraction in the range of 55-60%. Normal left ventricular size. Wall thickness is normal. No regional wall motion abnormalities are present. Mild mitral valve regurgitation. There is mild tricuspid valve regurgitation. BP: / HR: Rhythm: MEASUREMENTS (Male / Female) Normal Values Technical Quality:Good 2D ECHO LV Diastolic Diameter PLAX 3.7 cm 4.2 - 5.9 / 3.9 - 5.3 cm LV Systolic Diameter PLAX 2.7 cm IVS Diastolic Thickness 0.8 cm 0.6 - 1.0 / 0.6 - 0.9 cm LVPW Diastolic Thickness 0.7 cm 0.6 - 1.0 / 0.6 - 0.9 cm LV Relative Wall Thickness 0.4 RV Internal Dim ED PLAX 2.8 cm M-MODE Aortic Root Diameter MM 2.3 cm LA Systolic Diameter MM 3.1 cm LA Ao Ratio MM 1.3 AV Cusp Separation MM 1.5 cm DOPPLER Mitral E Point Velocity 78.0 cm/s Mitral A Point Velocity 90.8 cm/s Mitral E to A Ratio 0.9 LV E' Lateral Velocity 14.4 cm/s Mitral E to LV E' Lateral Ratio 5.4 LV E' Septal Velocity 15.9 cm/s Mitral E to LV E' Septal Ratio 4.9 TR Peak Velocity 285.0 cm/s TR Peak Gradient 32.5 mmHg Right Atrial Pressure 10.0 mmHg Pulmonary Artery Systolic Pressu 42.5 mmHg Right Ventricular Systolic Press 42.5 mmHg FINDINGS LEFT VENTRICLE The left ventricular systolic function is normal with an estimated ejection fraction in the range of 55-60%. Normal left ventricular size. Wall thickness is normal. No regional wall motion abnormalities are present. RIGHT VENTRICLE Normal right ventricular size and systolic function. LEFT ATRIUM The left atrial size is normal. RIGHT ATRIUM The right atrial size is normal. ATRIAL SEPTUM Normal atrial septal thickness without atrial level shunting by limited color doppler interrogation. AORTA The aortic root and proximal ascending aorta are normal in size on limited imaging. MITRAL VALVE Mild mitral valve regurgitation. Structurally normal mitral valve. AORTIC VALVE Trileaflet aortic valve. No aortic valve stenosis or regurgitation. TRICUSPID VALVE There is mild tricuspid valve regurgitation. Structurally normal tricuspid valve. PULMONARY VALVE No pulmonary valve regurgitation or stenosis. VESSELS The inferior vena cava is normal in size. PERICARDIUM No pericardial effusion. Huber Dale MD (Electronically Signed) Final Date:04 January 2017 15:35
--- NOTE | 2017-01-04 16:06 | EKG ---
Date Performed: 01/03/2017 Time Performed: 19:10:04 PTAGE: 61 years EKG: SINUS TACHYCARDIA WITH SHORT ND INTERVAL When compared to previous tracing, no significant change. ABNORMAL RHYTHM ECG PREVIOUS TRACING : 11/23/2016 21.09 DOCTOR: Tatiana Jean Interpretating Date/Time 01/04/2017 16:05:02
--- NOTE | 2017-01-04 16:07 | EKG ---
Date Performed: 01/03/2017 Time Performed: 22:40:07 PTAGE: 61 years EKG: ATRIAL FIBRILLATION WITH RAPID VENTRICULAR RESPONSE When compared to previous tracing, ther e is now evidence of Atrial fibrillation with a rapid ventricular response. ABNORMAL RHYTHM ECG PREVIOUS TRACING : 01/03/2017 19.10 DOCTOR: Tatiana Jean Interpretating Date/Time 01/04/2017 16:06:36
--- NOTE | 2017-01-04 18:30 | MB ---
cc: GÓMEZWALLACE DATE OF CONSULTATION: 01/04/17 DATE OF : 1955 CONSULTATION REQUESTED BY [facility] Hospitalist Service. 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 CHIEF COMPLAINT The patient presented to the hospital with complaints of difficulty breathing and palpitations. She was found to have a-fib with RVR. She was admitted to the ICU for rate control. She has been evaluated by Cardiology and also underwent CT angiogram of the chest. HISTORY OF PRESENT ILLNESS Ms. Wagoner is a 61-year-old female who has been under my care for over a [id number]-v-half. She was initially diagnosed with a squamous cell carcinoma of the head and neck about a vyjg-ewr-z-half ago. She had localized disease that was treated with concurrent chemoradiotherapy initially. She had good local control however in February of 2016 she developed distal metastases involving her lungs. These were biopsy-proven. She was subsequently initiated on palliative systemic therapy and remained on this up until I believe October of 2016. Her disease began to progress, her ECOG performance status and nutritional status declined and the patient became increasingly frail. She was recommended palliative radiation which she completed to her lumbar spine. Unfortunately, Ms. Wagoner has been in and out of this hospital on multiple occasions over the past aclka-yrd-[id number]-half for issues stemming from her underlying malignancy including uncontrolled pain, respiratory difficulties and now what appears to be tachycardia related to a-fib perhaps due to due to metastatic disease to the pericardium. I have been asked to see her for counseling. At today's visit, I spent quite a bit of time with the patient at bedside offering comfort and support. We talked about her disease status, her progressive functional decline, her progressive disease as well as bony metastases. I talked to her about additional disease direct therapeutic options, which we had previously agreed would likely be detrimental to her overall condition due to the high risk of adverse effects. She was therefore recommended Hospice level of care at last visit. The plan was to discharge her home from [facility] and further initiate outpatient Hospice after that discharge. She tells me today she did not enroll in Hospice but was considering this. After reviewing her condition, the patient is now agreeable to Hospice and their services have been consulted. Her only request is that she be kept as comfortable as possible. She no longer seeks disease directed therapy. I would recommend continuing her outpatient regimen of long and short acting opioids and to transition her to Hospice. I did review our director of development notes. They had recommended I talk to the patient about anticoagulation for her a-fib, and due to her advanced malignancy and intention of going on to Hospice I do not think this would be necessary at this time. Consult for Hospice involvement has been requested. Whenever she is ready to be transitioned from the Critical Care Unit she ought to be moved to the oncology unit and from there she may be transitioned to either inpatient Hospice or outpatient Hospice. MD EVERETT Aquino/JAELYN /5:54 PM /6:09 PM
[2017-01-04] MEDS: ALPRAZolam 0.5 MG TAB PO PRN (21:55)
[2017-01-05] VITALS (11 sets, daily range): BP systolic 95–117; BP diastolic 59–72; PULSE 90–142; RESP 18–20; TEMP 98.6–99.6; O2SAT 89–95
[2017-01-05] MEDS: DILTIAZEM HCL 30 MG TAB PO SCH ×2 (05:14→11:01)
[2017-01-05] MEDS: SODIUM CHLORIDE 0.9% FLUSH 10 ML FLUSH IV FLUSH SCH ×2 (08:19→19:45)
[2017-01-05] MEDS: ENOXAPARIN SODIUM 40 MG/0.4 ML SYRINGE SQ SCH (08:20)
[2017-01-05] MEDS: MORPHINE SULFATE 30 MG CONTROLLED RELEASE TAB PO SCH ×2 (08:21→22:17)
[2017-01-05] MEDS: MEGESTROL ACETATE 40 MG TAB PO SCH (08:21)
[2017-01-05] MEDS: PRAVASTATIN SOD 40 MG TAB PO SCH (08:21)
[2017-01-05] MEDS: SODIUM CHLOR 0.9% 1000 ML INJ 1,000 ML IV SCH ×2 (09:34→19:45)
--- NOTE | 2017-01-05 11:55 | PD.CARD.PN ---
Subjective Subjective Remarks alert in nad Objective Medications Current Medications Medications (Trade) Dose Ordered Sig/Acacia Route Start Time Stop Time Status Last Admin (NS Flush) 2 ml UNSCH PRN IV FLUSH 01/03/17 23:00 (NS Flush) 2 ml BID IV FLUSH 01/04/17 09:00 (Narcan Inj) 0.4 mg UNSCH PRN IV PUSH 01/03/17 23:00 Sodium Chloride 1,000 ml @ 84 mls/hr [id number] IV 01/03/17 23:00 01/05/17 09:34 Diltiazem HCl 125 mg/Sodium Chloride 125 ml @ 5 mls/hr TITRATE PRN IV 01/03/17 23:00 01/04/17 07:11 (Oramorph Sr) 30 mg Q12HR PO 01/04/17 09:00 01/05/17 08:21 (Cardizem) 30 mg Q6HR PO 01/04/17 12:00 01/05/17 11:01 (Xanax) 0.5 mg Q6H PRN PO 01/04/17 08:30 01/04/17 21:55 (Duragesic 25 Mcg Patch.72 Hr) 1 patch Q72H T-DERMAL 01/04/17 09:00 01/04/17 09:08 (Megace) 40 mg DAILY PO 01/04/17 09:00 01/05/17 08:21 (Roxicodone) 5 mg Q4H PRN PO 01/04/17 08:30 01/05/17 10:59 (Pravachol) 40 mg DAILY PO 01/04/17 09:00 01/05/17 08:21 (Zofran Inj) 4 mg Q8HR PRN IV PUSH 01/04/17 08:30 (Lovenox Inj) 40 mg Q24H SQ 01/04/17 09:00 01/05/17 08:20 Miscellaneous Information 1 Q3D T-DERMAL 01/07/17 09:00 Vital Signs / I&O Vital Signs Date Time Temp Pulse Resp B/P (MAP) Pulse Ox O2 Delivery O2 Flow Rate FiO2 01/05/17 09:06 90 01/05/17 08:06 98.6 99 18 104/61 (75) 89 01/05/17 04:41 94 01/05/17 04:00 99.4 96 18 117/71 (86) 93 01/05/17 00:10 98.8 94 18 114/72 (86) 95 01/05/17 00:00 95 01/04/17 23:23 93 01/04/17 22:58 97.8 98 18 118/73 (88) 95 01/04/17 20:00 99.2 97 18 100/64 (76) 96 01/04/17 20:00 97 01/04/17 16:00 92 01/04/17 16:00 98.3 92 20 106/62 (77) 94 01/04/17 12:00 98.0 80 24 109/65 (80) 97 01/04/17 12:00 86 I/O 01/04/17 01/04/17 01/04/17 01/05/17 01/05/17 01/05/17 07:00 15:00 23:00 07:00 15:00 23:00 Intake Total 1100 ml 1125 ml 3312 ml 1000 ml Balance 1100 ml 1125 ml 3312 ml 1000 ml Intake Oral 100 ml 200 ml IV Total 1000 ml 1125 ml 3112 ml 1000 ml # Voids 4 1 # Bowel Movements 1 0 Physical Exam GENERAL: SKIN: Warm and dry. HEAD: Normocephalic. EYES: No scleral icterus. No injection or drainage. NECK: Supple, trachea midline. No JVD or lymphadenopathy. CARDIOVASCULAR: Regular rate and rhythm without murmurs, gallops, or rubs. RESPIRATORY: Breath sounds equal bilaterally. No accessory muscle use. GASTROINTESTINAL: Abdomen soft, non-tender, nondistended. MUSCULOSKELETAL: No cyanosis, or edema. BACK: Nontender without obvious deformity. No CVA tenderness. Assessment and Plan Problem List: (1) Nutrition, metabolism, and development symptoms ICD Codes: R63.8 - Other symptoms and signs concerning food and fluid intake Status: Acute (2) Squamous cell carcinoma of neck ICD Codes: C44.42 - Squamous cell carcinoma of skin of scalp and neck Status: Acute (3) Mass of left lung ICD Codes: R91.8 - Other nonspecific abnormal finding of lung field Status: Acute (4) 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: C02.9 - Malignant neoplasm of tongue, unspecified Status: Acute (5) Atrial fibrillation with RVR ICD Codes: I48.91 - Unspecified atrial fibrillation Status: Acute Assessment and Plan 1.) PAF - rate controlled, assymptomatic, Dr Solorzano rec no ac, change cardizem to xr, f/u hospice recommendations Tomas Fraser MD Jan 05, 2017 11:55
--- NOTE | 2017-01-05 15:33 | HHI.PR ---
Subjective Remarks Patient states that she feels pain all over. However states she feels comfortable now. Objective Vitals Vital Signs Date Time Temp Pulse Resp B/P (MAP) Pulse Ox O2 Delivery O2 Flow Rate FiO2 01/05/17 13:25 95 01/05/17 12:09 98.7 94 18 102/67 (79) 91 01/05/17 09:06 90 01/05/17 08:06 98.6 99 18 104/61 (75) 89 01/05/17 04:41 94 01/05/17 04:00 99.4 96 18 117/71 (86) 93 01/05/17 00:10 98.8 94 18 114/72 (86) 95 01/05/17 00:00 95 01/04/17 23:23 93 01/04/17 22:58 97.8 98 18 118/73 (88) 95 01/04/17 20:00 99.2 97 18 100/64 (76) 96 01/04/17 20:00 97 01/04/17 16:00 92 01/04/17 16:00 98.3 92 20 106/62 (77) 94 I/O 01/04/17 01/04/17 01/04/17 01/05/17 01/05/17 01/05/17 07:00 15:00 23:00 07:00 15:00 23:00 Intake Total 1100 ml 1125 ml 3312 ml 1000 ml Balance 1100 ml 1125 ml 3312 ml 1000 ml Intake Oral 100 ml 200 ml IV Total 1000 ml 1125 ml 3112 ml 1000 ml # Voids 4 1 # Bowel Movements 1 0 Result Diagram: 01/04/1760401/04/17604 Imaging Last Impressions Chest X-Ray 01/03/171938 Signed Impressions: Service Date/Time: Tuesday, January 03, 2017 20:11 - CONCLUSION: 1. Minimal enlargement of the left perihilar mass lesion previously measured 2.6 cm in diameter now measures 5.2 cm in diameter. 2. However, previous nodules in the right perihilar distribution and left lower lobe/lingula are not definitively identified on the current exam. 3. Interval elevation of the left hemidiaphragm. 4. Stable COPD. Sunny Farfan MD CT Angiography 01/03/171938 Signed Impressions: Service Date/Time: Tuesday, January 03, 2017 21:50 - CONCLUSION: 1. Severe COPD, most prominent in the apices. Scattered areas of parenchymal scarring. 2. Large, 7.7 x 4.3 cm pleural-based mass lesion in the left lower lobe. Associated bony destruction and cortical irregularity of the left posterior seventh and eighth ribs. 3. Left hilar and mediastinal adenopathy. Largest node in the AP window measures 5.7 cm in diameter with some impingement on the left pulmonary artery but the vessel does remain patent without pulmonary embolus. Sunny Farfan MD Maxillofacial CT 01/03/17 0000 Signed Impressions: Service Date/Time: Tuesday, January 03, 2017 21:47 - CONCLUSION: No fracture. Sunny Farfan MD Head CT 01/03/17 0000 Signed Impressions: Service Date/Time: Tuesday, January 03, 2017 21:46 - CONCLUSION: Negative exam. Sunny Farfan MD Objective Remarks GENERAL:cachectic- in no acute distress. SKIN: No rashes, ecchymoses or lesions. Cool and dry. HEAD: Atraumatic. Normocephalic. No temporal or scalp tenderness. EYES: Pupils equal round and reactive. Extraocular motions intact. No scleral icterus. No injection or drainage. ENT: Nose without bleeding, purulent drainage or septal hematoma. Throat without erythema, tonsillar hypertrophy or exudate. Uvula midline. Airway patent. NECK: Trachea midline. No JVD or lymphadenopathy. Supple, nontender, no meningeal signs. CARDIOVASCULAR: Regular rate and rhythm without murmurs, gallops, or rubs. RESPIRATORY: Clear to auscultation. Breath sounds equal bilaterally. No wheezes , rales, or rhonchi. GASTROINTESTINAL: Abdomen soft, non-tender, nondistended. No hepato-splenomegaly , or palpable masses. No guarding. MUSCULOSKELETAL: Extremities without clubbing, cyanosis, or edema. No joint tenderness, effusion, or edema noted. No calf tenderness. Negative Homans sign bilaterally. NEUROLOGICAL: Awake and alert. Cranial nerves II through XII intact. Motor and sensory grossly within normal limits. Five out of 5 muscle strength in all muscle groups. Normal speech. A/P Problem List: (1) Weakness ICD Code: R53.1 - Weakness (2) Syncope ICD Code: R55 - Syncope and collapse Status: Acute (3) Atrial fibrillation with RVR ICD Code: I48.91 - Unspecified atrial fibrillation Status: Acute Assessment and Plan A/P -a-fib with RVR started on IV Cardizem drip- start on PO cardizem and will try to taper off the cardizem drip- check echo and consult cardiology. 01/05 2-D echocardiogram shows a normal left ventricular ejection fraction with an estimated EF of 55-60% and no regional wall motion abnormalities. Mild mitral valve regurgitation and mild tricuspid valve regurgitation. Appreciate Dr. Fraser consultation recommendations. 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 continue to monitor on telemetry. consult PT. 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 Hospice consult pending. -anemia due to chronic disease- will monitor for now. Hemoglobin trending down from 10.1-9.0. However patient awaiting hospice consult and requesting comfort measures only. -hypertension; hold lisinopril since she's been started on Cardizem- will monitor and adjust the regimen as needed. -DVT prophylaxis with subq Lovenox Problem Qualifiers (1) Syncope: Qualified Codes: R55 - Syncope and collapse Primitivo Medina MD Jan 05, 2017 15:33
[2017-01-05] MEDS ORDERED: DIGOXIN 0.5 MG/2 ML VIAL IV PUSH ONE (18:45)
[2017-01-05] MEDS: ALPRAZolam 0.5 MG TAB PO PRN (19:48)
[2017-01-06] VITALS (7 sets, daily range): BP systolic 92–110; BP diastolic 58–65; PULSE 91–140; RESP 18–20; TEMP 98.9–99.8; O2SAT 90–95
[2017-01-06] MEDS: SODIUM CHLOR 0.9% 1000 ML INJ 1,000 ML IV SCH ×2 (00:01→10:15)
[2017-01-06] MEDS: SODIUM CHLORIDE 0.9% FLUSH 10 ML FLUSH IV FLUSH PRN (00:15)
[2017-01-06] MEDS ORDERED: DIGOXIN 0.5 MG/2 ML VIAL IV PUSH ONE (01:00)
[2017-01-06] MEDS: SODIUM CHLORIDE 0.9% FLUSH 10 ML FLUSH IV FLUSH SCH ×2 (09:00→21:00)
[2017-01-06] MEDS: DILTIAZEM-CD 120 MG CAP ER PO SCH (09:13)
[2017-01-06] MEDS: ENOXAPARIN SODIUM 40 MG/0.4 ML SYRINGE SQ SCH (09:13)
[2017-01-06] MEDS: MEGESTROL ACETATE 40 MG TAB PO SCH (09:13)
[2017-01-06] MEDS: PRAVASTATIN SOD 40 MG TAB PO SCH (09:13)
[2017-01-06] MEDS: MORPHINE SULFATE 30 MG CONTROLLED RELEASE TAB PO SCH ×2 (09:14→20:25)
--- NOTE | 2017-01-06 15:26 | HHI.PR ---
Subjective Remarks Patient feels comfortable. Denies cp/sob Objective Vitals Vital Signs Date Time Temp Pulse Resp B/P (MAP) Pulse Ox O2 Delivery O2 Flow Rate FiO2 01/06/17 08:00 99.8 102 20 100/63 (75) 91 01/06/17 04:00 99.6 140 20 102/65 (77) 95 01/06/17 04:00 116 01/06/17 00:00 98.9 139 20 92/58 (69) 93 01/06/17 00:00 128 01/05/17 20:48 18 01/05/17 20:00 99.6 142 20 109/59 (76) 92 01/05/17 20:00 138 01/05/17 16:14 97 01/05/17 16:06 98.7 109 19 95/68 (77) 91 I/O 01/05/17 01/05/17 01/05/17 01/06/17 01/06/17 01/06/17 07:00 15:00 23:00 07:00 15:00 23:00 Intake Total 1000 ml 480 ml 360 ml 1000 ml Balance 1000 ml 480 ml 360 ml 1000 ml Intake Oral 480 ml 360 ml IV Total 1000 ml 1000 ml # Voids 1 2 3 # Bowel Movements 0 0 0 Result Diagram: 01/04/1760401/04/17604 Imaging Last Impressions Chest X-Ray 01/03/171938 Signed Impressions: Service Date/Time: Tuesday, January 03, 2017 20:11 - CONCLUSION: 1. Minimal enlargement of the left perihilar mass lesion previously measured 2.6 cm in diameter now measures 5.2 cm in diameter. 2. However, previous nodules in the right perihilar distribution and left lower lobe/lingula are not definitively identified on the current exam. 3. Interval elevation of the left hemidiaphragm. 4. Stable COPD. Sunny Farfan MD CT Angiography 01/03/171938 Signed Impressions: Service Date/Time: Tuesday, January 03, 2017 21:50 - CONCLUSION: 1. Severe COPD, most prominent in the apices. Scattered areas of parenchymal scarring. 2. Large, 7.7 x 4.3 cm pleural-based mass lesion in the left lower lobe. Associated bony destruction and cortical irregularity of the left posterior seventh and eighth ribs. 3. Left hilar and mediastinal adenopathy. Largest node in the AP window measures 5.7 cm in diameter with some impingement on the left pulmonary artery but the vessel does remain patent without pulmonary embolus. Sunny Farfan MD Maxillofacial CT 01/03/17 0000 Signed Impressions: Service Date/Time: Tuesday, January 03, 2017 21:47 - CONCLUSION: No fracture. Sunny Farfan MD Head CT 01/03/17 0000 Signed Impressions: Service Date/Time: Tuesday, January 03, 2017 21:46 - CONCLUSION: Negative exam. Sunny Farfan MD Objective Remarks GENERAL:cachectic- in no acute distress. SKIN: No rashes, ecchymoses or lesions. Cool and dry. HEAD: Atraumatic. Normocephalic. No temporal or scalp tenderness. EYES: Pupils equal round and reactive. Extraocular motions intact. No scleral icterus. No injection or drainage. ENT: Nose without bleeding, purulent drainage or septal hematoma. Throat without erythema, tonsillar hypertrophy or exudate. Uvula midline. Airway patent. NECK: Trachea midline. No JVD or lymphadenopathy. Supple, nontender, no meningeal signs. CARDIOVASCULAR: Regular rate and rhythm without murmurs, gallops, or rubs. RESPIRATORY: Clear to auscultation. Breath sounds equal bilaterally. No wheezes , rales, or rhonchi. GASTROINTESTINAL: Abdomen soft, non-tender, nondistended. No hepato-splenomegaly , or palpable masses. No guarding. MUSCULOSKELETAL: Extremities without clubbing, cyanosis, or edema. No joint tenderness, effusion, or edema noted. No calf tenderness. Negative Homans sign bilaterally. NEUROLOGICAL: Awake and alert. Cranial nerves II through XII intact. Motor and sensory grossly within normal limits. Five out of 5 muscle strength in all muscle groups. Normal speech. A/P Problem List: (1) Weakness ICD Code: R53.1 - Weakness (2) Syncope ICD Code: R55 - Syncope and collapse Status: Acute (3) Atrial fibrillation with RVR ICD Code: I48.91 - Unspecified atrial fibrillation Status: Acute Assessment and Plan A/P -a-fib with RVR started on IV Cardizem drip- start on PO cardizem and will try to taper off the cardizem drip- check echo and consult cardiology. 01/05 2-D echocardiogram shows a normal left ventricular ejection fraction with an estimated EF of 55-60% and no regional wall motion abnormalities. Mild mitral valve regurgitation and mild tricuspid valve regurgitation. Appreciate Dr. Fraser consultation recommendations. 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 continue to monitor on telemetry. consult PT. 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 Hospice consult pending. -anemia due to chronic disease- will monitor for now. Hemoglobin trending down from 10.1-9.0. However patient awaiting hospice consult and requesting comfort measures only. -hypertension; hold lisinopril since she's been started on Cardizem- will monitor and adjust the regimen as needed. -DVT prophylaxis with subq Lovenox Problem Qualifiers (1) Syncope: Qualified Codes: R55 - Syncope and collapse Primitivo Medina MD Jan 06, 2017 15:26
--- NOTE | 2017-01-06 17:21 | PD.CARD.PN ---
Subjective Subjective Remarks alert in nad Objective Medications Current Medications Medications (Trade) Dose Ordered Sig/Acacia Route Start Time Stop Time Status Last Admin (NS Flush) 2 ml UNSCH PRN IV FLUSH 01/03/17 23:00 01/06/17 00:15 (NS Flush) 2 ml BID IV FLUSH 01/04/17 09:00 01/05/17 19:45 (Narcan Inj) 0.4 mg UNSCH PRN IV PUSH 01/03/17 23:00 Sodium Chloride 1,000 ml @ 84 mls/hr [id number] IV 01/03/17 23:00 01/06/17 10:15 Diltiazem HCl 125 mg/Sodium Chloride 125 ml @ 5 mls/hr TITRATE PRN IV 01/03/17 23:00 01/04/17 07:11 (Oramorph Sr) 30 mg Q12HR PO 01/04/17 09:00 01/06/17 09:14 (Xanax) 0.5 mg Q6H PRN PO 01/04/17 08:30 01/05/17 19:48 (Duragesic 25 Mcg Patch.72 Hr) 1 patch Q72H T-DERMAL 01/04/17 09:00 01/04/17 09:08 (Megace) 40 mg DAILY PO 01/04/17 09:00 01/06/17 09:13 (Roxicodone) 5 mg Q4H PRN PO 01/04/17 08:30 01/06/17 15:54 (Pravachol) 40 mg DAILY PO 01/04/17 09:00 01/06/17 09:13 (Zofran Inj) 4 mg Q8HR PRN IV PUSH 01/04/17 08:30 (Lovenox Inj) 40 mg Q24H SQ 01/04/17 09:00 01/06/17 09:13 Miscellaneous Information 1 Q3D T-DERMAL 01/07/17 09:00 (Cardizem Cd) 120 mg DAILY PO 01/06/17 09:00 01/06/17 09:13 Vital Signs / I&O Vital Signs Date Time Temp Pulse Resp B/P (MAP) Pulse Ox O2 Delivery O2 Flow Rate FiO2 01/06/17 08:00 99.8 102 20 100/63 (75) 91 01/06/17 04:00 99.6 140 20 102/65 (77) 95 01/06/17 04:00 116 01/06/17 00:00 98.9 139 20 92/58 (69) 93 01/06/17 00:00 128 01/05/17 20:48 18 01/05/17 20:00 99.6 142 20 109/59 (76) 92 01/05/17 20:00 138 I/O 01/05/17 01/05/17 01/05/17 01/06/17 01/06/17 01/06/17 07:00 15:00 23:00 07:00 15:00 23:00 Intake Total 1000 ml 480 ml 360 ml 1000 ml Balance 1000 ml 480 ml 360 ml 1000 ml Intake Oral 480 ml 360 ml IV Total 1000 ml 1000 ml # Voids 1 2 3 # Bowel Movements 0 0 0 Physical Exam GENERAL: SKIN: Warm and dry. HEAD: Normocephalic. EYES: No scleral icterus. No injection or drainage. NECK: Supple, trachea midline. No JVD or lymphadenopathy. CARDIOVASCULAR: Regular rate and rhythm without murmurs, gallops, or rubs. RESPIRATORY: Breath sounds equal bilaterally. No accessory muscle use. GASTROINTESTINAL: Abdomen soft, non-tender, nondistended. MUSCULOSKELETAL: No cyanosis, or edema. BACK: Nontender without obvious deformity. No CVA tenderness. Assessment and Plan Problem List: (1) Nutrition, metabolism, and development symptoms ICD Codes: R63.8 - Other symptoms and signs concerning food and fluid intake Status: Acute (2) Squamous cell carcinoma of neck ICD Codes: C44.42 - Squamous cell carcinoma of skin of scalp and neck Status: Acute (3) Mass of left lung ICD Codes: R91.8 - Other nonspecific abnormal finding of lung field Status: Acute (4) 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: C02.9 - Malignant neoplasm of tongue, unspecified Status: Acute (5) Atrial fibrillation with RVR ICD Codes: I48.91 - Unspecified atrial fibrillation Status: Acute Assessment and Plan 1.) PAF - rate controlled, assymptomatic, Dr Solorzano rec no ac, change cardizem to xr, f/u hospice recommendations, may need to increase cardizem cd to 180 mg qd if persistantly tachycardia Tomas Fraser MD Jan 06, 2017 17:21
[2017-01-06] MEDS: ALPRAZolam 0.5 MG TAB PO PRN (21:32)
[2017-01-07] VITALS (10 sets, daily range): BP systolic 90–111; BP diastolic 57–64; PULSE 86–133; RESP 16–20; TEMP 97.6–99.5; O2SAT 89–96
[2017-01-07] MEDS: ALPRAZolam 0.5 MG TAB PO PRN ×2 (05:28→21:05)
[2017-01-07] MEDS: SODIUM CHLOR 0.9% 1000 ML INJ 1,000 ML IV SCH (09:00)
[2017-01-07] MEDS: SODIUM CHLORIDE 0.9% FLUSH 10 ML FLUSH IV FLUSH SCH ×2 (09:00→20:18)
[2017-01-07] MEDS: REMOVE OLD DURAGESIC (FENTANYL) PATCH T-DERMAL SCH (09:00)
[2017-01-07] MEDS: DILTIAZEM-CD 120 MG CAP ER PO SCH (09:16)
[2017-01-07] MEDS: ENOXAPARIN SODIUM 40 MG/0.4 ML SYRINGE SQ SCH (09:17)
[2017-01-07] MEDS: MORPHINE SULFATE 30 MG CONTROLLED RELEASE TAB PO SCH ×2 (09:17→20:18)
[2017-01-07] MEDS: MEGESTROL ACETATE 40 MG TAB PO SCH (09:17)
[2017-01-07] MEDS: fentaNYL 25 MCG/HR PATCH T-DERMAL SCH (09:18)
[2017-01-07] MEDS: PRAVASTATIN SOD 40 MG TAB PO SCH (09:18)
--- NOTE | 2017-01-07 10:37 | PD.CARD.PN ---
Subjective Subjective Remarks alert in nad Objective Medications Current Medications Medications (Trade) Dose Ordered Sig/Acacia Route Start Time Stop Time Status Last Admin (NS Flush) 2 ml UNSCH PRN IV FLUSH 01/03/17 23:00 01/06/17 00:15 (NS Flush) 2 ml BID IV FLUSH 01/04/17 09:00 01/06/17 21:00 (Narcan Inj) 0.4 mg UNSCH PRN IV PUSH 01/03/17 23:00 Sodium Chloride 1,000 ml @ 84 mls/hr [id number] IV 01/03/17 23:00 01/06/17 00:01 Diltiazem HCl 125 mg/Sodium Chloride 125 ml @ 5 mls/hr TITRATE PRN IV 01/03/17 23:00 01/04/17 07:11 (Oramorph Sr) 30 mg Q12HR PO 01/04/17 09:00 01/07/17 09:17 (Xanax) 0.5 mg Q6H PRN PO 01/04/17 08:30 01/07/17 05:28 (Duragesic 25 Mcg Patch.72 Hr) 1 patch Q72H T-DERMAL 01/04/17 09:00 01/07/17 09:18 (Megace) 40 mg DAILY PO 01/04/17 09:00 01/07/17 09:17 (Roxicodone) 5 mg Q4H PRN PO 01/04/17 08:30 01/07/17 05:28 (Pravachol) 40 mg DAILY PO 01/04/17 09:00 01/07/17 09:18 (Zofran Inj) 4 mg Q8HR PRN IV PUSH 01/04/17 08:30 (Lovenox Inj) 40 mg Q24H SQ 01/04/17 09:00 01/07/17 09:17 Miscellaneous Information 1 Q3D T-DERMAL 01/07/17 09:00 01/07/17 09:00 (Cardizem Cd) 120 mg DAILY PO 01/06/17 09:00 01/07/17 09:16 Vital Signs / I&O Vital Signs Date Time Temp Pulse Resp B/P (MAP) Pulse Ox O2 Delivery O2 Flow Rate FiO2 01/07/17 05:00 92 16 111/64 (80) 90 01/07/17 04:13 86 01/07/17 04:00 Room Air 01/07/17 00:11 94 01/07/17 00:00 98.2 95 18 92/58 (69) 89 01/07/17 00:00 Room Air 01/06/17 20:00 99.5 99 18 110/63 (79) 90 01/06/17 20:00 Room Air 01/06/17 19:59 101 01/06/17 16:00 99.1 95 20 100/60 (73) 90 01/06/17 12:00 99.2 91 20 100/63 (75) 91 I/O 01/06/17 01/06/17 01/06/17 01/07/17 01/07/17 01/07/17 07:00 15:00 23:00 07:00 15:00 23:00 Intake Total 360 ml 1000 ml 240 ml 1142 ml Balance 360 ml 1000 ml 240 ml 1142 ml Intake Oral 360 ml 240 ml 240 ml IV Total 1000 ml 902 ml # Voids 3 2 2 # Bowel Movements 0 0 0 Physical Exam GENERAL: SKIN: Warm and dry. HEAD: Normocephalic. EYES: No scleral icterus. No injection or drainage. NECK: Supple, trachea midline. No JVD or lymphadenopathy. CARDIOVASCULAR: Regular rate and rhythm without murmurs, gallops, or rubs. RESPIRATORY: Breath sounds equal bilaterally. No accessory muscle use. GASTROINTESTINAL: Abdomen soft, non-tender, nondistended. MUSCULOSKELETAL: No cyanosis, or edema. BACK: Nontender without obvious deformity. No CVA tenderness. Assessment and Plan Problem List: (1) Nutrition, metabolism, and development symptoms ICD Codes: R63.8 - Other symptoms and signs concerning food and fluid intake Status: Acute (2) Squamous cell carcinoma of neck ICD Codes: C44.42 - Squamous cell carcinoma of skin of scalp and neck Status: Acute (3) Mass of left lung ICD Codes: R91.8 - Other nonspecific abnormal finding of lung field Status: Acute (4) 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: C02.9 - Malignant neoplasm of tongue, unspecified Status: Acute (5) Atrial fibrillation with RVR ICD Codes: I48.91 - Unspecified atrial fibrillation Status: Acute Assessment and Plan 1.) PAF - rate controlled, assymptomatic, Dr Jeanine rec no ac, change cardizem to xr, f/u hospice recommendations, consider adding dig if persistantly tachycardia, d/w Tomas Stover MD Jan 07, 2017 10:37
[2017-01-07] MEDS ORDERED: RESP: ALBUTEROL 2.5 MG/IPRATROPIUM 0.5 MG NEB (PRN) NEB (14:45)
--- NOTE | 2017-01-07 15:22 | RADRPT ---
EXAM DATE/TIME: 01/07/2017 15:01 [facility] COMPARISON: CHEST SINGLE AP, January 03, 2017, 20:11. INDICATIONS : Shortness of breath. MEDICAL HISTORY : Hypertension. Carcinoma, bone. Carcinoma, tongue. SURGICAL HISTORY : Port placement ENCOUNTER: Subsequent ACUITY: 1 week PAIN SCORE: 0/10 LOCATION: Bilateral chest FINDINGS: Right chest port remains in good position. There has been interval worsening in aeration with develop ment of diffuse bilateral coarse interstitial infiltrates. Cardiac contours are stable. Asymmetric el evation of the left diaphragm is again noted. Small effusion present at the left base. CONCLUSION: Worsening aeration Tito Hi MD on January 07, 2017 at 15:19 Board Certified Radiologist. This report was verified electronically.
[2017-01-07 17:41] LABS: AUTOMATED NEUTROPHIL # 10.9 TH/MM3 (1.8-7.7); BASOPHIL % 0.3 % (0.0-2.0); EOSINOPHIL # 0.2 TH/MM3 (0-0.4); EOSINOPHIL % 1.8 % (0.0-4.0); HEMATOCRIT 26.9 % (35.0-46.0); HEMO FLAGS DIFF FINAL; LYMPH % 1.6 % (9.0-44.0); LYMPHOCYTE # 0.2 TH/MM3 (1.0-4.8); MEAN CORPUSCULAR HEMOGLOBIN 28.8 PG (27.0-34.0); MEAN CORPUSCULAR HGB CONC 33.5 % (32.0-36.0); MONO % 6.3 % (0.0-8.0); PLATELET COUNT 382 TH/MM3 (150-450); RED BLOOD COUNT 3.13 MIL/MM3 (4.00-5.30); RED CELL DISTRIBUTION WIDTH 14.7 % (11.6-17.2); WHITE BLOOD COUNT 12.1 TH/MM3 (4.0-11.0)
[2017-01-07 18:02] LABS: ALKALINE PHOSPHATASE 159 U/L (45-117); ALT (GPT) 6 U/L (10-53); ANION GAP 10 MEQ/L (5-15); AST (GOT) 8 U/L (15-37); BICARBONATE 23.6 MEQ/L (21.0-32.0); BLOOD UREA NITROGEN 6 MG/DL (7-18); CHLORIDE 98 MEQ/L (98-107); GLOMERULAR FILTRATION RATE 225 ML/MIN (>89); SODIUM (NA) 132 MEQ/L (136-145); TOTAL BILIRUBIN ADULT 0.5 MG/DL (0.2-1.0)
[2017-01-07 18:37] LABS: POTASSIUM 2.9 MEQ/L (3.5-5.1)
--- NOTE | 2017-01-07 18:38 | HHI.PR ---
Subjective Remarks Patient c/o sob. [place]le[place] today started requiring more oxygen. Denies cp. Denies cough. Objective Vitals Vital Signs Date Time Temp Pulse Resp B/P (MAP) Pulse Ox O2 Delivery O2 Flow Rate FiO2 01/07/17 08:36 Room Air 01/07/17 05:00 92 16 111/64 (80) 90 01/07/17 04:13 86 01/07/17 04:00 Room Air 01/07/17 00:11 94 01/07/17 00:00 98.2 95 18 92/58 (69) 89 01/07/17 00:00 Room Air 01/06/17 20:00 99.5 99 18 110/63 (79) 90 01/06/17 20:00 Room Air 01/06/17 19:59 101 I/O 01/06/17 01/06/17 01/06/17 01/07/17 01/07/17 01/07/17 07:00 15:00 23:00 07:00 15:00 23:00 Intake Total 360 ml 1000 ml 240 ml 1142 ml Balance 360 ml 1000 ml 240 ml 1142 ml Intake Oral 360 ml 240 ml 240 ml IV Total 1000 ml 902 ml # Voids 3 2 2 # Bowel Movements 0 0 0 Result Diagram: 01/07/17 1719 01/04/17 0605 Imaging Last Impressions Chest X-Ray 01/07/17 0000 Signed Impressions: Service Date/Time: Saturday, January 07, 2017 15:01 - CONCLUSION: Worsening aeration Tito Hi MD CT Angiography 01/03/17 1939 Signed Impressions: Service Date/Time: Tuesday, January 03, 2017 21:50 - CONCLUSION: 1. Severe COPD, most prominent in the apices. Scattered areas of parenchymal scarring. 2. Large, 7.7 x 4.3 cm pleural-based mass lesion in the left lower lobe. Associated bony destruction and cortical irregularity of the left posterior seventh and eighth ribs. 3. Left hilar and mediastinal adenopathy. Largest node in the AP window measures 5.7 cm in diameter with some impingement on the left pulmonary artery but the vessel does remain patent without pulmonary embolus. Sunny Farfan MD Maxillofacial CT 01/03/17 0000 Signed Impressions: Service Date/Time: Tuesday, January 03, 2017 21:47 - CONCLUSION: No fracture. Sunny Farfan MD Head CT 01/03/17 0000 Signed Impressions: Service Date/Time: Tuesday, January 03, 2017 21:46 - CONCLUSION: Negative exam. Sunny Farfan MD Objective Remarks GENERAL:cachectic- in no acute distress. SKIN: No rashes, ecchymoses or lesions. Cool and dry. HEAD: Atraumatic. Normocephalic. No temporal or scalp tenderness. EYES: Pupils equal round and reactive. Extraocular motions intact. No scleral icterus. No injection or drainage. ENT: Nose without bleeding, purulent drainage or septal hematoma. Throat without erythema, tonsillar hypertrophy or exudate. Uvula midline. Airway patent. NECK: Trachea midline. No JVD or lymphadenopathy. Supple, nontender, no meningeal signs. CARDIOVASCULAR: Regular rate and rhythm without murmurs, gallops, or rubs. RESPIRATORY: Clear to auscultation. Breath sounds equal bilaterally. No wheezes , rales, or rhonchi. GASTROINTESTINAL: Abdomen soft, non-tender, nondistended. No hepato-splenomegaly , or palpable masses. No guarding. MUSCULOSKELETAL: Extremities without clubbing, cyanosis, or edema. No joint tenderness, effusion, or edema noted. No calf tenderness. Negative Homans sign bilaterally. NEUROLOGICAL: Awake and alert. Cranial nerves II through XII intact. Motor and sensory grossly within normal limits. Five out of 5 muscle strength in all muscle groups. Normal speech. Medications and IVs Current Medications Medications (Trade) Dose Ordered Sig/Acacia Route Start Time Stop Time Status Last Admin (NS Flush) 2 ml UNSCH PRN IV FLUSH 01/03/17 23:00 01/06/17 00:15 (NS Flush) 2 ml BID IV FLUSH 01/04/17 09:00 01/06/17 21:00 (Narcan Inj) 0.4 mg UNSCH PRN IV PUSH 01/03/17 23:00 Sodium Chloride 1,000 ml @ 84 mls/hr [id number] IV 01/03/17 23:00 01/07/17 09:00 Diltiazem HCl 125 mg/Sodium Chloride 125 ml @ 5 mls/hr TITRATE PRN IV 01/03/17 23:00 01/04/17 07:11 (Oramorph Sr) 30 mg Q12HR PO 01/04/17 09:00 01/07/17 09:17 (Xanax) 0.5 mg Q6H PRN PO 01/04/17 08:30 01/07/17 05:28 (Duragesic 25 Mcg Patch.72 Hr) 1 patch Q72H T-DERMAL 01/04/17 09:00 01/07/17 09:18 (Megace) 40 mg DAILY PO 01/04/17 09:00 01/07/17 09:17 (Roxicodone) 5 mg Q4H PRN PO 01/04/17 08:30 01/07/17 05:28 (Pravachol) 40 mg DAILY PO 01/04/17 09:00 01/07/17 09:18 (Zofran Inj) 4 mg Q8HR PRN IV PUSH 01/04/17 08:30 (Lovenox Inj) 40 mg Q24H SQ 01/04/17 09:00 01/07/17 09:17 Miscellaneous Information 1 Q3D T-DERMAL 01/07/17 09:00 01/07/17 09:00 (Cardizem Cd) 120 mg DAILY PO 01/06/17 09:00 01/07/17 09:16 (Duoneb Neb) 1 ampule Q2HR NEB PRN NEB 01/07/17 14:45 A/P Problem List: (1) Weakness ICD Code: R53.1 - Weakness (2) Syncope ICD Code: R55 - Syncope and collapse Status: Acute (3) Atrial fibrillation with RVR ICD Code: I48.91 - Unspecified atrial fibrillation Status: Acute (4) Acute hypoxemic respiratory failure ICD Code: J96.01 - Acute respiratory failure with hypoxia Status: Acute Plan: O2 sats dropped into the mid 80s and patient does not require 4 L nasal cannula. Chest x-ray ordered by me showed worsening aeration concordant with fluid overload. We'll discontinue IV fluids and give a dose of IV Lasix. (5) Hyponatremia ICD Code: E87.1 - Hypo-osmolality and hyponatremia Status: Resolved Plan: Acute on chronic anemia. On admission 131, improved back to 135 after IV normal saline administration. (6) Hypokalemia ICD Code: E87.6 - Hypokalemia Plan: Hypokalemia much improved, potassium 3.7. Continue to monitor BMP and replace potassium with oral potassium as needed. (7) Squamous cell cancer of tongue ICD Code: C02.9 - Malignant neoplasm of tongue, unspecified Status: Acute (8) Leukocytosis ICD Code: D72.829 - Elevated white blood cell count, unspecified Plan: No evidence of acute infection. The patient is afebrile. WBC increased up to 15 K on admission, now trending down. Assessment and Plan A/P -a-fib with RVR started on IV Cardizem drip- start on PO cardizem and will try to taper off the cardizem drip- check echo and consult cardiology. 01/05 2-D echocardiogram shows a normal left ventricular ejection fraction with an estimated EF of 55-60% and no regional wall motion abnormalities. Mild mitral valve regurgitation and mild tricuspid valve regurgitation. Appreciate Dr. Fraser consultation recommendations. -syncope/ generalized weakness- likely due to poor oral intake fall precautions- start on Megestrol and consult inside sales administrator. continue to monitor on telemetry. consult PT. 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 Hospice consult pending. -anemia due to chronic disease- will monitor for now. Hemoglobin trending down from 10.1-9.0. However patient awaiting hospice consult and requesting comfort measures only. -hypertension; hold lisinopril since she's been started on Cardizem- will monitor and adjust the regimen as needed. -DVT prophylaxis with subq Lovenox Problem Qualifiers (1) Syncope: Qualified Codes: R55 - Syncope and collapse Primitivo Medina MD Jan 07, 2017 18:38
[2017-01-07] MEDS ORDERED: FUROSEMIDE 40 MG/4 ML VIAL IV PUSH ONE (18:45)
[2017-01-07] MEDS ORDERED: POTASSIUM CHLORIDE 10 MEQ CONTROLLED RELEASE TAB PO ONE (18:45)
[2017-01-07] MEDS: POTASSIUM CHLOR 20 MEQ PREMIX 100 ML IV SCH ×2 (19:20→21:06)
[2017-01-08] VITALS (8 sets, daily range): BP systolic 91–102; BP diastolic 52–62; PULSE 92–108; RESP 14–20; TEMP 98.1–99.7; O2SAT 90–98
[2017-01-08] MEDS: SODIUM CHLORIDE 0.9% FLUSH 10 ML FLUSH IV FLUSH PRN (00:11)
[2017-01-08] MEDS: MORPHINE SULFATE 30 MG CONTROLLED RELEASE TAB PO SCH ×2 (09:09→21:17)
[2017-01-08] MEDS: PRAVASTATIN SOD 40 MG TAB PO SCH (09:09)
[2017-01-08] MEDS: DILTIAZEM-CD 120 MG CAP ER PO SCH (09:09)
[2017-01-08] MEDS: MEGESTROL ACETATE 40 MG TAB PO SCH (09:09)
[2017-01-08] MEDS: SODIUM CHLORIDE 0.9% FLUSH 10 ML FLUSH IV FLUSH SCH ×2 (09:09→21:17)
[2017-01-08] MEDS: ENOXAPARIN SODIUM 40 MG/0.4 ML SYRINGE SQ SCH (09:10)
[2017-01-08 11:54] LABS: AUTOMATED NEUTROPHIL # 9.3 TH/MM3 (1.8-7.7); BASOPHIL % 0.1 % (0.0-2.0); EOSINOPHIL # 0.2 TH/MM3 (0-0.4); EOSINOPHIL % 2.4 % (0.0-4.0); HEMATOCRIT 24.9 % (35.0-46.0); HEMO FLAGS DIFF FINAL; LYMPH % 1.9 % (9.0-44.0); LYMPHOCYTE # 0.2 TH/MM3 (1.0-4.8); MEAN CELL VOLUME 85.3 FL (80.0-100.0); MEAN CORPUSCULAR HEMOGLOBIN 28.9 PG (27.0-34.0); MEAN CORPUSCULAR HGB CONC 33.9 % (32.0-36.0); MONO % 5.9 % (0.0-8.0); NEUT % 89.7 % (16.0-70.0); PLATELET COUNT 350 TH/MM3 (150-450); RED BLOOD COUNT 2.92 MIL/MM3 (4.00-5.30); RED CELL DISTRIBUTION WIDTH 14.7 % (11.6-17.2); WHITE BLOOD COUNT 10.3 TH/MM3 (4.0-11.0)
[2017-01-08 12:23] LABS: ALKALINE PHOSPHATASE 182 U/L (45-117); ALT (GPT) 16 U/L (10-53); ANION GAP 5 MEQ/L (5-15); AST (GOT) 22 U/L (15-37); BICARBONATE 29.7 MEQ/L (21.0-32.0); BLOOD UREA NITROGEN 6 MG/DL (7-18); CHLORIDE 96 MEQ/L (98-107); GLOMERULAR FILTRATION RATE 322 ML/MIN (>89); MAGNESIUM 1.6 MG/DL (1.5-2.5); SODIUM (NA) 131 MEQ/L (136-145); TOTAL BILIRUBIN ADULT 0.4 MG/DL (0.2-1.0)
--- NOTE | 2017-01-08 14:18 | PD.CARD.PN ---
Subjective Subjective Remarks asleep in nad Objective Medications Current Medications Medications (Trade) Dose Ordered Sig/Acacia Route Start Time Stop Time Status Last Admin (NS Flush) 2 ml UNSCH PRN IV FLUSH 01/03/17 23:00 01/08/17 00:11 (NS Flush) 2 ml BID IV FLUSH 01/04/17 09:00 01/08/17 09:09 (Narcan Inj) 0.4 mg UNSCH PRN IV PUSH 01/03/17 23:00 Diltiazem HCl 125 mg/Sodium Chloride 125 ml @ 5 mls/hr TITRATE PRN IV 01/03/17 23:00 01/04/17 07:11 (Oramorph Sr) 30 mg Q12HR PO 01/04/17 09:00 01/08/17 09:09 (Xanax) 0.5 mg Q6H PRN PO 01/04/17 08:30 01/07/17 21:05 (Duragesic 25 Mcg Patch.72 Hr) 1 patch Q72H T-DERMAL 01/04/17 09:00 01/07/17 09:18 (Megace) 40 mg DAILY PO 01/04/17 09:00 01/08/17 09:09 (Roxicodone) 5 mg Q4H PRN PO 01/04/17 08:30 01/08/17 06:30 (Pravachol) 40 mg DAILY PO 01/04/17 09:00 01/08/17 09:09 (Zofran Inj) 4 mg Q8HR PRN IV PUSH 01/04/17 08:30 (Lovenox Inj) 40 mg Q24H SQ 01/04/17 09:00 01/08/17 09:10 Miscellaneous Information 1 Q3D T-DERMAL 01/07/17 09:00 01/07/17 09:00 (Cardizem Cd) 120 mg DAILY PO 01/06/17 09:00 01/08/17 09:09 (Duoneb Neb) 1 ampule Q2HR NEB PRN NEB 01/07/17 14:45 Vital Signs / I&O Vital Signs Date Time Temp Pulse Resp B/P (MAP) Pulse Ox O2 Delivery O2 Flow Rate FiO2 01/08/17 12:00 98.8 92 14 91/52 (65) 90 01/08/17 10:52 96 Nasal Cannula 4.00 01/08/17 08:00 99.7 99 14 93/57 (69) 93 01/08/17 08:00 97 01/08/17 08:00 Nasal Cannula 4.00 01/08/17 04:00 Nasal Cannula 4.00 01/08/17 04:00 98.1 101 17 93/54 (67) 96 01/08/17 00:00 Nasal Cannula 4.00 01/08/17 00:00 99.5 104 20 102/58 (73) 95 01/07/17 23:14 113 01/07/17 20:28 Nasal Cannula 4.00 01/07/17 20:02 128 01/07/17 20:00 Nasal Cannula 4.00 01/07/17 20:00 99.5 133 20 104/60 (75) 95 01/07/17 16:00 98.6 96 20 90/57 (68) 96 I/O 01/07/17 01/07/17 01/07/17 01/08/17 01/08/17 01/08/17 07:00 15:00 23:00 07:00 15:00 23:00 Intake Total 1142 ml 1440 ml 180 ml Output Total 1400 ml Balance 1142 ml 1440 ml -1220 ml Intake Oral 240 ml 240 ml 180 ml IV Total 902 ml 1200 ml Output Urine Total 1400 ml # Voids 2 1 # Bowel Movements 0 0 Physical Exam GENERAL: SKIN: Warm and dry. HEAD: Normocephalic. EYES: No scleral icterus. No injection or drainage. NECK: Supple, trachea midline. No JVD or lymphadenopathy. CARDIOVASCULAR: Regular rate and rhythm without murmurs, gallops, or rubs. RESPIRATORY: Breath sounds equal bilaterally. No accessory muscle use. GASTROINTESTINAL: Abdomen soft, non-tender, nondistended. MUSCULOSKELETAL: No cyanosis, or edema. BACK: Nontender without obvious deformity. No CVA tenderness. Laboratory Laboratory Tests Test 01/07/17 17:19 01/08/17 11:30 White Blood Count 12.1 TH/MM3 10.3 TH/MM3 Red Blood Count 3.13 MIL/MM3 2.92 MIL/MM3 Hemoglobin 9.0 GM/DL 8.4 GM/DL Hematocrit 26.9 % 24.9 % Mean Corpuscular Volume 86.0 FL 85.3 FL Mean Corpuscular Hemoglobin 28.8 PG 28.9 PG Mean Corpuscular Hemoglobin Concent 33.5 % 33.9 % Red Cell Distribution Width 14.7 % 14.7 % Platelet Count 382 TH/MM3 350 TH/MM3 Mean Platelet Volume 7.5 FL 7.6 FL Neutrophils (%) (Auto) 90.0 % 89.7 % Lymphocytes (%) (Auto) 1.6 % 1.9 % Monocytes (%) (Auto) 6.3 % 5.9 % Eosinophils (%) (Auto) 1.8 % 2.4 % Basophils (%) (Auto) 0.3 % 0.1 % Neutrophils # (Auto) 10.9 TH/MM3 9.3 TH/MM3 Lymphocytes # (Auto) 0.2 TH/MM3 0.2 TH/MM3 Monocytes # (Auto) 0.8 TH/MM3 0.6 TH/MM3 Eosinophils # (Auto) 0.2 TH/MM3 0.2 TH/MM3 Basophils # (Auto) 0.0 TH/MM3 0.0 TH/MM3 CBC Comment DIFF FINAL DIFF FINAL Differential Comment Blood Urea Nitrogen 6 MG/DL 6 MG/DL Creatinine 0.30 MG/DL 0.22 MG/DL Random Glucose 105 MG/DL 104 MG/DL Total Protein 5.0 GM/DL 5.0 GM/DL Albumin 1.5 GM/DL 1.5 GM/DL Calcium Level 7.5 MG/DL 7.8 MG/DL Alkaline Phosphatase 159 U/L 182 U/L Aspartate Amino Transf (AST/SGOT) 8 U/L 22 U/L Alanine Aminotransferase (ALT/SGPT) 6 U/L 16 U/L Total Bilirubin 0.5 MG/DL 0.4 MG/DL Sodium Level 132 MEQ/L 131 MEQ/L Potassium Level 2.9 MEQ/L 4.0 MEQ/L Chloride Level 98 MEQ/L 96 MEQ/L Carbon Dioxide Level 23.6 MEQ/L 29.7 MEQ/L Anion Gap 10 MEQ/L 5 MEQ/L Estimat Glomerular Filtration Rate 225 ML/MIN 322 ML/MIN Phosphorus Level 1.2 MG/DL Magnesium Level 1.6 MG/DL Assessment and Plan Problem List: (1) Nutrition, metabolism, and development symptoms ICD Codes: R63.8 - Other symptoms and signs concerning food and fluid intake Status: Acute (2) Squamous cell carcinoma of neck ICD Codes: C44.42 - Squamous cell carcinoma of skin of scalp and neck Status: Acute (3) Mass of left lung ICD Codes: R91.8 - Other nonspecific abnormal finding of lung field Status: Acute (4) 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: C02.9 - Malignant neoplasm of tongue, unspecified Status: Acute (5) Atrial fibrillation with RVR ICD Codes: I48.91 - Unspecified atrial fibrillation Status: Acute Assessment and Plan 1.) PAF - rate controlled, assymptomatic, Dr Solorzano rec no ac, change cardizem to xr, f/u hospice recommendations, consider adding dig if persistantly tachycardia, d/w Dr Vo 01/07/17 Tomas Fraser MD Jan 08, 2017 14:18
--- NOTE | 2017-01-08 17:06 | HHI.PR ---
Subjective Remarks Patient is required increased oxygen. Patient denies chest pain, denies shortness of breath. Bp low Tmax 99.7 this am Objective Vitals Vital Signs Date Time Temp Pulse Resp B/P (MAP) Pulse Ox O2 Delivery O2 Flow Rate FiO2 01/08/17 12:00 98.8 92 14 91/52 (65) 90 01/08/17 10:52 96 Nasal Cannula 4.00 01/08/17 08:00 99.7 99 14 93/57 (69) 93 01/08/17 08:00 97 01/08/17 08:00 Nasal Cannula 4.00 01/08/17 04:00 Nasal Cannula 4.00 01/08/17 04:00 98.1 101 17 93/54 (67) 96 01/08/17 00:00 Nasal Cannula 4.00 01/08/17 00:00 99.5 104 20 102/58 (73) 95 01/07/17 23:14 113 01/07/17 20:28 Nasal Cannula 4.00 01/07/17 20:02 128 01/07/17 20:00 Nasal Cannula 4.00 01/07/17 20:00 99.5 133 20 104/60 (75) 95 I/O 01/07/17 01/07/17 01/07/17 01/08/17 01/08/17 01/08/17 07:00 15:00 23:00 07:00 15:00 23:00 Intake Total 1142 ml 1440 ml 180 ml Output Total 1400 ml Balance 1142 ml 1440 ml -1220 ml Intake Oral 240 ml 240 ml 180 ml IV Total 902 ml 1200 ml Output Urine Total 1400 ml # Voids 2 1 # Bowel Movements 0 0 Result Diagram: 01/08/17 1130 01/08/17 1130 Imaging Last Impressions Chest X-Ray 01/07/17 0000 Signed Impressions: Service Date/Time: Saturday, January 07, 2017 15:01 - CONCLUSION: Worsening aeration Tito Hi MD CT Angiography 01/03/17 1939 Signed Impressions: Service Date/Time: Tuesday, January 03, 2017 21:50 - CONCLUSION: 1. Severe COPD, most prominent in the apices. Scattered areas of parenchymal scarring. 2. Large, 7.7 x 4.3 cm pleural-based mass lesion in the left lower lobe. Associated bony destruction and cortical irregularity of the left posterior seventh and eighth ribs. 3. Left hilar and mediastinal adenopathy. Largest node in the AP window measures 5.7 cm in diameter with some impingement on the left pulmonary artery but the vessel does remain patent without pulmonary embolus. Sunny Farfan MD Maxillofacial CT 01/03/17 0000 Signed Impressions: Service Date/Time: Tuesday, January 03, 2017 21:47 - CONCLUSION: No fracture. Sunny Farfan MD Head CT 01/03/17 0000 Signed Impressions: Service Date/Time: Tuesday, January 03, 2017 21:46 - CONCLUSION: Negative exam. Sunny Farfan MD Objective Remarks GENERAL:cachectic- in no acute distress. SKIN: No rashes, ecchymoses or lesions. Cool and dry. HEAD: Atraumatic. Normocephalic. No temporal or scalp tenderness. EYES: Pupils equal round and reactive. Extraocular motions intact. No scleral icterus. No injection or drainage. ENT: Nose without bleeding, purulent drainage or septal hematoma. Throat without erythema, tonsillar hypertrophy or exudate. Uvula midline. Airway patent. NECK: Trachea midline. No JVD or lymphadenopathy. Supple, nontender, no meningeal signs. CARDIOVASCULAR: Regular rate and rhythm without murmurs, gallops, or rubs. RESPIRATORY: Clear to auscultation. Breath sounds equal bilaterally. No wheezes , rales, or rhonchi. GASTROINTESTINAL: Abdomen soft, non-tender, nondistended. No hepato-splenomegaly , or palpable masses. No guarding. MUSCULOSKELETAL: Extremities without clubbing, cyanosis, or edema. No joint tenderness, effusion, or edema noted. No calf tenderness. Negative Homans sign bilaterally. NEUROLOGICAL: Awake and alert. Cranial nerves II through XII intact. Motor and sensory grossly within normal limits. Five out of 5 muscle strength in all muscle groups. Normal speech. Medications and IVs Current Medications Medications (Trade) Dose Ordered Sig/Acacia Route Start Time Stop Time Status Last Admin (NS Flush) 2 ml UNSCH PRN IV FLUSH 01/03/17 23:00 01/08/17 00:11 (NS Flush) 2 ml BID IV FLUSH 01/04/17 09:00 01/08/17 09:09 (Narcan Inj) 0.4 mg UNSCH PRN IV PUSH 01/03/17 23:00 Diltiazem HCl 125 mg/Sodium Chloride 125 ml @ 5 mls/hr TITRATE PRN IV 01/03/17 23:00 01/04/17 07:11 (Oramorph Sr) 30 mg Q12HR PO 01/04/17 09:00 01/08/17 09:09 (Xanax) 0.5 mg Q6H PRN PO 01/04/17 08:30 01/07/17 21:05 (Duragesic 25 Mcg Patch.72 Hr) 1 patch Q72H T-DERMAL 01/04/17 09:00 01/07/17 09:18 (Megace) 40 mg DAILY PO 01/04/17 09:00 01/08/17 09:09 (Roxicodone) 5 mg Q4H PRN PO 01/04/17 08:30 01/08/17 15:43 (Pravachol) 40 mg DAILY PO 01/04/17 09:00 01/08/17 09:09 (Zofran Inj) 4 mg Q8HR PRN IV PUSH 01/04/17 08:30 (Lovenox Inj) 40 mg Q24H SQ 01/04/17 09:00 01/08/17 09:10 Miscellaneous Information 1 Q3D T-DERMAL 01/07/17 09:00 01/07/17 09:00 (Cardizem Cd) 120 mg DAILY PO 01/06/17 09:00 01/08/17 09:09 (Duoneb Neb) 1 ampule Q2HR NEB PRN NEB 01/07/17 14:45 A/P Problem List: (1) Weakness ICD Code: R53.1 - Weakness (2) Syncope ICD Code: R55 - Syncope and collapse Status: Acute (3) Atrial fibrillation with RVR ICD Code: I48.91 - Unspecified atrial fibrillation Status: Acute (4) Acute hypoxemic respiratory failure ICD Code: J96.01 - Acute respiratory failure with hypoxia Status: Acute Plan: O2 sats dropped into the mid 80s and patient does not require 4 L nasal cannula. Chest x-ray ordered by me showed worsening aeration concordant with fluid overload. We'll discontinue IV fluids and give a dose of IV Lasix. 01/08 patient still requiring higher levels of oxygen, continue supplemental o2 to keep o2 sat >92%. Will give lasix IV. (5) Hyponatremia ICD Code: E87.1 - Hypo-osmolality and hyponatremia Status: Resolved Plan: Acute on chronic anemia. On admission 131, improved back to 135 after IV normal saline administration. 01/08 sodium back down to 131. Continue to monitor BMP. (6) Hypokalemia ICD Code: E87.6 - Hypokalemia Plan: Hypokalemia much improved, potassium 3.7. Continue to monitor BMP and replace potassium with oral potassium as needed. (7) Squamous cell cancer of tongue ICD Code: C02.9 - Malignant neoplasm of tongue, unspecified Status: Acute (8) Leukocytosis ICD Code: D72.829 - Elevated white blood cell count, unspecified Plan: Patient initially afebrile with elevated wbc count trending down. Continue to monitor cbc w diff. (9) Hypophosphatemia ICD Code: E83.39 - Other disorders of phosphorus metabolism Plan: Due to poor oral intake - Will start on oral neutraphos. (10) Severe protein-calorie malnutrition ICD Code: E43 - Unspecified severe protein-calorie malnutrition Plan: BMI of 15.1 and low albumin. Pull Worker consulted. Recommended Enlive shakes tid and Ensure pudding bid for additional calories and protein Assessment and Plan A/P -a-fib with RVR started on IV Cardizem drip- start on PO cardizem and will try to taper off the cardizem drip- check echo and consult cardiology. 01/05 2-D echocardiogram shows a normal left ventricular ejection fraction with an estimated EF of 55-60% and no regional wall motion abnormalities. Mild mitral valve regurgitation and mild tricuspid valve regurgitation. Appreciate Dr. Fraser consultation recommendations. -syncope/ generalized weakness- likely due to poor oral intake fall precautions- Conitnue Megestrol and consult delivery representative. continue to monitor on telemetry. consult PT. 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 Hospice consult pending. -anemia due to chronic disease- will monitor for now. Hemoglobin trending down from 10.1-9.0. However patient awaiting hospice consult and requesting comfort measures only. 01/08 Patient's requesting a feeding tube. -hypertension; hold lisinopril since she's been started on Cardizem- will monitor and adjust the regimen as needed. / BP on the lower side - boyd hold cardizem drip. If heart rate increases then will give digoxin. -DVT prophylaxis with subq Lovenox Problem Qualifiers (1) Syncope: Qualified Codes: R55 - Syncope and collapse Primitivo Medina MD Jan 08, 2017 17:06
[2017-01-08] MEDS: ALPRAZolam 0.5 MG TAB PO PRN (23:26)
[2017-01-08] MEDS ORDERED: SODIUM CHLORID 0.9% 500 ML INJ 500 ML IV ONE (23:45)
[2017-01-09] VITALS (11 sets, daily range): BP systolic 81–108; BP diastolic 50–61; PULSE 93–135; RESP 14–23; TEMP 97.9–99.8; O2SAT 86–98
[2017-01-09] MEDS ORDERED: FUROSEMIDE 40 MG/4 ML VIAL IV PUSH ONE (00:15)
[2017-01-09] MEDS ORDERED: SODIUM CHLORID 0.9% 500 ML INJ 500 ML IV ONE ×2 (00:58→09:15)
[2017-01-09] MEDS: POTASSIUM PHOSPHATE/SODIUM PHOSPHATE 250 MG TAB PO SCH ×5 (01:14→23:00)
[2017-01-09] MEDS: ALPRAZolam 0.5 MG TAB PO PRN ×2 (05:43→22:55)
[2017-01-09] MEDS: MORPHINE SULFATE 30 MG CONTROLLED RELEASE TAB PO SCH ×2 (08:38→21:06)
[2017-01-09] MEDS: MEGESTROL ACETATE 40 MG TAB PO SCH (08:38)
[2017-01-09] MEDS: ENOXAPARIN SODIUM 40 MG/0.4 ML SYRINGE SQ SCH (08:38)
[2017-01-09] MEDS: PRAVASTATIN SOD 40 MG TAB PO SCH (08:38)
[2017-01-09] MEDS: SODIUM CHLORIDE 0.9% FLUSH 10 ML FLUSH IV FLUSH SCH ×2 (08:39→20:10)
[2017-01-09] MEDS: VANCOMYCIN INJ 1,000 MG in SODIUM CHLOR 0.9% 250 ML INJ 250 ML IV SCH ×2 (10:17→21:17)
[2017-01-09] MEDS: PIPERACIL-TAZO 4.5 GM PREMIX 100 ML IV SCH ×2 (11:43→18:04)
--- NOTE | 2017-01-09 13:22 | PD.CONS ---
Consult Service Palliative Care . Consult Requested By Dr. Vo . Primary Care Physician Demi Olsen MD . Reason for Consultation a. To assist with evaluation and management of symptoms including: pain, debility, poor appetite b. To assist medical decision maker(s) with: better understanding of current medical conditions; weighing benefits/burdens of medical treatment options; making medical treatment decisions. . HPI History of Present Illness Mrs. 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 Of note, the patient was recently hospitalized from 11/16/2016 through 12/27/2016 at which time she completed palliative radiation treatment secondary to intractable pain. Patient 's symptoms have worsened since discharge as evidenced by poor PO intake, increased weakness and ongoing pain. While in the ED, the patient reported sharp substernal chest pain for over a month with no obvious aggravating factors. Additionally, she endorses moderate to severe lower back pain secondary to metastasis,decreased appetite as well as left-sided jaw pain from her recent fall. Additional diagnostic data includes: * Pulse: 100, BP 90/60, oxygen saturation 97% on room air, oral temperature 98.5 * WBC: 16.6, hemoglobin 10.1, hematocrit 31.4, platelets 466, neutrophils 93.7% * Sodium: 131, potassium 3.2, chloride 96, carbon dioxide 23.3, glucose 112, calcium 8.9, magnesium 1.8 * BUN: 17, creatinine 0.43, GFR 149 * Total creatine kinase: 69 * Troponin <0.02 * CT of the head and facial bones identified no acute abnormalities. * CT angiogram revealed severe COPD, most prominent in the apices and scattered areas of parenchymal scarring. Large septum 0.7 x 4.3 cm pleural-based mass lesion in the left lower lobe, associated bony destruction and cortical irregularity of the left posterior seventh and eighth rib is. Left hilar and mediastinal adenopathy. Largest node in the AP window measures 5.7 cm in diameter with some impingement on the left pulmonary artery but the vessel remains patent without pulmonary embolus. * Chest x-ray showed minimal enlargement of the left perihilar mass lesion previously measured 2.6 cm in diameter now measuring 5.2 cm in diameter. However, previous nodules in the right perihilar distribution and left lower lobe/lingula are not definitively identified on the current exam. There is interval elevation of the left hemidiaphragm. Patient was admitted for further evaluation and medical management of syncope, weakness and dehydration. Upon reexamination the patient's heart rate was noted to be in the 130s. A repeat EKG revealed atrial fibrillation with RVR, although the patient has no known history of atrial fibrillation. The patient was given a 10 mg bolus of diltiazem and her heart rate was persistently elevated in the 120 range, therefore a Cardizem drip was started. Cardiology and hematology/oncology were consulted. Patient converted back to sinus rhythm on the Cardizem drip. Cardiology evaluated the patient, and she was started on oral Cardizem. An echocardiogram on 01/04/17 showed normal LV function with an estimated EF of 55-60% and no regional wall motion abnormalities. Mild mitral valve regurgitation and mild tricuspid valve regurgitation. Decision on initiating anticoagulation was deferred to hematology/oncology as the patient is at risk for bleeding. Patient was evaluated by Dr. Solorzano, who has been following the patient for approximately 1-1/[address] Solorzano had a lengthy conversations with this patient who has been in and out of hospital over the past 6 weeks for issues stemming from her underlying malignancy including intractable pain, respiratory difficulties and now what appears to be tachycardia related to atrial fibrillation which could be due to metastatic disease to the pericardium. He talked to her about additional disease directed therapeutic options which they had previously discussed and agreed that the burdens outweigh the benefits. After their conversation, the patient was agreeable to hospice with a primary goal of comfort. Patient has had worsening shortness of breath, having increased oxygen requirements. Follow-up chest x-ray showing worsening aeration consistent with fluid overload. IV fluids were discontinued and the patient received a dose of IV Lasix. Patient's intake remains poor. BMI: 14.7 and albumin remains low at 1.5. Dietary was consulted and recommendations were made for supplemental shakes TID and Ensure pudding BID for additional calories and protein; patient is also on Megace daily. Patient's is now requesting PEG tube placement. Palliative Care was consulted to assist with symptom management and to discuss with the patient/family the benefits and burdens of her current illnesses and the options regarding future care. . Function/Cognitive Trajectory Patient was initially diagnosed with squamous cell carcinoma of the head and neck about a year and a half ago. Patient had localized disease initially that was treated with concurrent chemo and radiation therapy. In February, the patient was diagnosed with metastatic disease to the lungs which was treated with palliative systemic therapy until 10/2016; she has since been diagnosed with metastatic disease to the bone and received palliative radiation treatment in 12/2016. The patient's ECOG performance status and nutritional status have continued to declined. Current BMI 14.7; albumin 1.5. She has been in and out of the hospital over the past 6 weeks for issues stemming from her underlying malignancy including pain, respiratory difficulties and now tachycardia related to atrial fibrillation. . Review of Systems Constitutional: COMPLAINS OF: Fatigue, Weight loss, Change in appetite ( decreased appetite), Pain, Generalized weakness Gastrointestinal: COMPLAINS OF: Abdominal pain, Nausea, Anorexia Hematologic/Lymphatics: COMPLAINS OF: Bruising Neurologic: COMPLAINS OF: Poor Balance Past Family Social History Coded Allergies: No Known Allergies (Verified , 04/25/16) Past Medical History Essential hypertension Peripheral neuropathy Depression Squamous cell carcinoma of the oropharynx . Past Surgical History Colonoscopy in 2005 U/S guided left lung mass in 2017 CT-guided left lung mass biopsy in 2016 Teeth extraction in 2015 Port placement in 2016 Feeding tube in 2015 now removed . Reported Medications Omeprazole 20 Mg Tab 20 Mg PO DAILY Lisinopril 20 Mg Tab 20 Mg PO DAILY Fluoxetine (Fluoxetine HCl) 20 Mg Cap 20 Mg PO DAILY . Current Medications Medications (Trade) Dose Ordered Sig/Acacia Route Start Time Stop Time Status Last Admin (NS Flush) 2 ml UNSCH PRN IV FLUSH 01/03/17 23:00 01/08/17 00:11 (NS Flush) 2 ml BID IV FLUSH 01/04/17 09:00 01/09/17 08:39 (Narcan Inj) 0.4 mg UNSCH PRN IV PUSH 01/03/17 23:00 Diltiazem HCl 125 mg/Sodium Chloride 125 ml @ 5 mls/hr TITRATE PRN IV 01/03/17 23:00 Future Hold 01/04/17 07:11 (Oramorph Sr) 30 mg Q12HR PO 01/04/17 09:00 01/09/17 08:38 (Xanax) 0.5 mg Q6H PRN PO 01/04/17 08:30 01/09/17 05:43 (Duragesic 25 Mcg Patch.72 Hr) 1 patch Q72H T-DERMAL 01/04/17 09:00 01/07/17 09:18 (Megace) 40 mg DAILY PO 01/04/17 09:00 01/09/17 08:38 (Roxicodone) 5 mg Q4H PRN PO 01/04/17 08:30 01/09/17 11:43 (Pravachol) 40 mg DAILY PO 01/04/17 09:00 01/09/17 08:38 (Zofran Inj) 4 mg Q8HR PRN IV PUSH 01/04/17 08:30 (Lovenox Inj) 40 mg Q24H SQ 01/04/17 09:00 01/09/17 08:38 Miscellaneous Information 1 Q3D T-DERMAL 01/07/17 09:00 01/07/17 09:00 (Cardizem Cd) 120 mg DAILY PO 01/06/17 09:00 Future Hold 01/08/17 09:09 (Duoneb Neb) 1 ampule Q2HR NEB PRN NEB 01/07/17 14:45 (K-Phos Neutral) 250 mg Q6HR PO 01/09/17 00:15 01/09/17 11:43 Vancomycin HCl 1000 mg/Sodium Chloride 250 ml @ 250 mls/hr Q12H IV 01/09/17 10:00 01/09/17 10:17 Piperacillin Sod/ Tazobactam Sod 100 ml @ 200 mls/hr Q8H IV 01/09/17 11:00 01/09/17 11:43 Family History Mother with colon Carcinoma at the age of 80. No throat cancer in the family. . Substance Use Tobacco: Smoked 1 PPD x 40 years. Quit several months ago Alcohol: No excessive alcohol consumption reported Prescription med abuse: None known Illicits: None known . Psychosocial History Patient is originally from [place]. She moved to [place] in the mid 1970s. She met her , Gene, after moving to [place]. They have been for approximately 22 years. They have adult children who live locally ( Gene and Jane, ages 22 and 20). The patient and her work as a [employer]. . Spiritual/Cultural Factors Restorationism gustabo . Documented care wishes: No known documented care wishes were completed. . Today's verbally stated goals: Patient significantly lethargic. When discussing medical treatment goals the patient's asks that I speak with her . . Family/friends goals: Pending conversations with the patient's . Palliative care attempted to contact patient's spouse (Gene) via telephone. Msg were left at [phone] and [phone] with palliative care contact information; awaiting return phone call. . Ethical and Legal Issues Per [place] statutes, in the absence of written advanced directives healthcare proxy decision-making falls to the patient's (Gene Wagoner). . Physical Exam Vital Signs Date Time Temp Pulse Resp B/P (MAP) Pulse Ox O2 Delivery O2 Flow Rate FiO2 01/09/17 08:00 98.6 119 14 86/53 (64) 86 01/09/17 05:42 Nasal Cannula 4.00 01/09/17 04:20 117 01/09/17 04:00 97.9 102 23 92/58 (69) 93 01/09/17 00:00 Nasal Cannula 4.00 01/09/17 00:00 99.8 105 19 94/61 (72) 97 01/09/17 00:00 116 01/08/17 20:12 92 01/08/17 20:00 Nasal Cannula 4.00 01/08/17 20:00 99.3 98 18 96/52 (67) 98 01/08/17 16:00 98.9 108 14 94/62 (73) 94 . Exam CONSTITUTIONAL/GENERAL: This is a cachectic 61-year-old female who appears older than her stated age. TUBES/LINES/DRAINS: Implanted VAD SKIN: No jaundice, rashes, or lesions. Poor skin turgor. Skin temperature appropriate. Not diaphoretic. HEAD: Atraumatic. Normocephalic. EYES: Pupils equal and round and reactive. Extraocular motions intact. No scleral icterus. No injection or drainage. Fundi not examined. ENT: Hearing grossly normal. Nose without bleeding or purulent drainage. NECK: Trachea midline. CARDIOVASCULAR: Tachycardic with irregular rhythm. No JVD. Peripheral pulses symmetric. RESPIRATORY/CHEST: Symmetric, unlabored respirations. . Breath sounds diminished bilaterally, right >left. + Ankles GASTROINTESTINAL: Abdomen soft, non-tender, nondistended. Bowel sounds present. GENITOURINARY: Without palpable bladder distension. MUSCULOSKELETAL: Extremities without clubbing, cyanosis, or edema. No mottling or clubbing. LYMPHATICS: No palpable cervical or supraclavicular adenopathy. NEUROLOGICAL: Awake but significantly fatigued. Answers questions. Follows commands. Moves all extremities. PSYCHIATRIC: No obvious anxiety/depression. no apparent hallucinations or other psychotic thought process. . Diagnostic Tests Laboratory Laboratory Tests Test 01/07/17 17:19 01/08/17 11:30 White Blood Count 12.1 TH/MM3 (4.0-11.0) 10.3 TH/MM3 (4.0-11.0) Red Blood Count 3.13 MIL/MM3 (4.00-5.30) 2.92 MIL/MM3 (4.00-5.30) Hemoglobin 9.0 GM/DL (11.6-15.3) 8.4 GM/DL (11.6-15.3) Hematocrit 26.9 % (35.0-46.0) 24.9 % (35.0-46.0) Mean Corpuscular Volume 86.0 FL (80.0-100.0) 85.3 FL (80.0-100.0) Mean Corpuscular Hemoglobin 28.8 PG (27.0-34.0) 28.9 PG (27.0-34.0) Mean Corpuscular Hemoglobin Concent 33.5 % (32.0-36.0) 33.9 % (32.0-36.0) Red Cell Distribution Width 14.7 % (11.6-17.2) 14.7 % (11.6-17.2) Platelet Count 382 TH/MM3 (150-450) 350 TH/MM3 (150-450) Mean Platelet Volume 7.5 FL (7.0-11.0) 7.6 FL (7.0-11.0) Neutrophils (%) (Auto) 90.0 % (16.0-70.0) 89.7 % (16.0-70.0) Lymphocytes (%) (Auto) 1.6 % (9.0-44.0) 1.9 % (9.0-44.0) Monocytes (%) (Auto) 6.3 % (0.0-8.0) 5.9 % (0.0-8.0) Eosinophils (%) (Auto) 1.8 % (0.0-4.0) 2.4 % (0.0-4.0) Basophils (%) (Auto) 0.3 % (0.0-2.0) 0.1 % (0.0-2.0) Neutrophils # (Auto) 10.9 TH/MM3 (1.8-7.7) 9.3 TH/MM3 (1.8-7.7) Lymphocytes # (Auto) 0.2 TH/MM3 (1.0-4.8) 0.2 TH/MM3 (1.0-4.8) Monocytes # (Auto) 0.8 TH/MM3 (0-0.9) 0.6 TH/MM3 (0-0.9) Eosinophils # (Auto) 0.2 TH/MM3 (0-0.4) 0.2 TH/MM3 (0-0.4) Basophils # (Auto) 0.0 TH/MM3 (0-0.2) 0.0 TH/MM3 (0-0.2) CBC Comment DIFF FINAL DIFF FINAL Differential Comment Blood Urea Nitrogen 6 MG/DL (7-18) 6 MG/DL (7-18) Creatinine 0.30 MG/DL (0.50-1.00) 0.22 MG/DL (0.50-1.00) Random Glucose 105 MG/DL (74-106) 104 MG/DL (74-106) Total Protein 5.0 GM/DL (6.4-8.2) 5.0 GM/DL (6.4-8.2) Albumin 1.5 GM/DL (3.4-5.0) 1.5 GM/DL (3.4-5.0) Calcium Level 7.5 MG/DL (8.5-10.1) 7.8 MG/DL (8.5-10.1) Alkaline Phosphatase 159 U/L (45-117) 182 U/L (45-117) Aspartate Amino Transf (AST/SGOT) 8 U/L (15-37) 22 U/L (15-37) Alanine Aminotransferase (ALT/SGPT) 6 U/L (10-53) 16 U/L (10-53) Total Bilirubin 0.5 MG/DL (0.2-1.0) 0.4 MG/DL (0.2-1.0) Sodium Level 132 MEQ/L (136-145) 131 MEQ/L (136-145) Potassium Level 2.9 MEQ/L (3.5-5.1) 4.0 MEQ/L (3.5-5.1) Chloride Level 98 MEQ/L (98-107) 96 MEQ/L (98-107) Carbon Dioxide Level 23.6 MEQ/L (21.0-32.0) 29.7 MEQ/L (21.0-32.0) Anion Gap 10 MEQ/L (5-15) 5 MEQ/L (5-15) Estimat Glomerular Filtration Rate 225 ML/MIN (>89) 322 ML/MIN (>89) Phosphorus Level 1.2 MG/DL (2.5-4.9) Magnesium Level 1.6 MG/DL (1.5-2.5) . Result Diagram: 01/08/17 1130 01/08/17 1130 Imaging Last 72 hours Impressions Chest X-Ray 01/07/17 0000 Signed Impressions: Service Date/Time: Saturday, January 07, 2017 15:01 - CONCLUSION: Worsening aeration Tito Hi MD . Patient/Family Conference Present at Family Conference: Met with patient at bedside. Attempted to contact patient's , Gene, via telephone. Messages were left for Gene with palliative care contact information. . Issues Discussed: * Patients general health, functional status, and cognitive changes in the months leading up to the current hospitalization * Patient/family understanding of the current medical problems * Patient/family understanding of prognosis * Patients goals of care as best understood from advance directives and/or conversations and/or values * Current medical treatment options and benefits/burdens of those options * Likely scenarios comparing ongoing aggressive care with a transition to comfort measures only * Questions answered to the best of my ability * Palliative care contact information provided . Assessment and Plan Disease Oriented Problem List: (1) Atrial fibrillation with RVR (2) Syncope (3) Acute hypoxemic respiratory failure (4) Hyponatremia (5) Hypokalemia (6) Squamous cell carcinoma of neck (7) Squamous cell cancer of tongue (8) Protein calorie malnutrition (9) Hypophosphatemia Symptom Scale: (1) Debility (2) Pain (3) Decrease in appetite Pertinent Non-Medical Issues Psychosocial:Patient is originally from [place]. She moved to [place] in the mid 1970s. She met her , Gene, after moving to [place]. They have been for approximately 22 years. They have adult children who live locally (Gene and Jane, ages 22 and 20). 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 Spiritual: Restorationism gustabo Legal: Per [place] statutes, in the absence of written advanced directives healthcare proxy decision-making falls to the patient's spouse Ethical issues impacting care: No known ethical issues impacting care . Important Contacts Gene Wagoner, spouse: [phone] and [phone] . 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 She has had disease progression with metastatic disease to the lung and bone. In the past few months the patient's performance status and nutritional intake has declined significantly. She has been in and out of the hospital over the past 6 weeks for issues stemming from her underlying malignancy including pain, respiratory difficulties, cachexia and profound weakness. Patient's prognosis is quite poor and hospice services have been recommended. The patient verbalizes she is ready for hospice and just wants to be kept comfortable, but her continues to struggle with this decision. . Code Status: No Code Plan * NO CODE * Decision-making: Per [place] statutes,in the absence of written advanced directives healthcare proxy decision-making falls to the patient's spouse (Gene Dodsonnk). * Goals: Hospice has been consulted, but the patient's is now asking for PGT placement. Palliative Care is familiar with this patient and was reconsulted today 01/09/17 to assist with clarification of medical treatment goals. Messages have been left with the patient's spouse with palliative care contact information. Awaiting return phone call. * Discussed patient with Dr. Vo and bedside nurse. * Symptom management-pain: Patient reports severe pain in her right hip and leg ; now complaining of severe substernal chest pain. Currently on Oramorph 30 mg PO every 12 hours and Duragesic patch 25 g every 72 hours. PRN oxycodone is available every 4 hours, patient received PRN oxycodone 5mg x 2 doses in the past 24 hours. * Symptom management-debility: Patient is is increasingly symptomatic. She is having Increasing difficulty ambulating; generally failing to thrive. The patient's reports it is more difficult for the patient to be left alone. He states she is increasingly confused and has had multiple recent falls in the past week secondary to increasing with weakness in the right lower extremity. Readmitted Expected ongoing decline secondary to disease progression. * Symptom management-decreased appetite: Patient reports worsening appetite and reports a 20+ weight loss in the past 12 months. She is currently on Megace and was previously on dexamethasone but this has been discontinued. BMI: 14.7. Albumin at 1.5. * Palliative care will continue to follow this patient throughout her hospitalization to establish trust, assist with symptom management and clarification of medical treatment goals. . Thank you for the opportunity to participate in the care of Ms. Wagoner. . Attestation To help prompt me to consider important information that might be impacting today's encounter and assessment, information from prior notes written by myself or my colleagues may have been "brought forward" into today's note. My signature on this note, however, is an attestation that I personally performed the exam, history, and/or decision-making noted today, and, unless otherwise indicated, the interactions with patient, family, and staff as well as the review of records all occurred today. I also attest that the listed assessment and stated plan reflect my best clinical judgment today based on the combination of historical information, prior notes, and today's exam/ interactions. When time spent is documented, it refers only to time spent today by the signer, or if indicated, combined time spent today by collaborating physician/nurse practitioner. . Belinda Sanders Jan 09, 2017 13:22
--- NOTE | 2017-01-09 14:59 | PD.CARD.PN ---
Subjective Subjective Remarks asleep in nad Objective Medications Current Medications Medications (Trade) Dose Ordered Sig/Acacia Route Start Time Stop Time Status Last Admin (NS Flush) 2 ml UNSCH PRN IV FLUSH 01/03/17 23:00 01/08/17 00:11 (NS Flush) 2 ml BID IV FLUSH 01/04/17 09:00 01/09/17 08:39 (Narcan Inj) 0.4 mg UNSCH PRN IV PUSH 01/03/17 23:00 Diltiazem HCl 125 mg/Sodium Chloride 125 ml @ 5 mls/hr TITRATE PRN IV 01/03/17 23:00 Future Hold 01/04/17 07:11 (Oramorph Sr) 30 mg Q12HR PO 01/04/17 09:00 01/09/17 08:38 (Xanax) 0.5 mg Q6H PRN PO 01/04/17 08:30 01/09/17 05:43 (Duragesic 25 Mcg Patch.72 Hr) 1 patch Q72H T-DERMAL 01/04/17 09:00 01/07/17 09:18 (Megace) 40 mg DAILY PO 01/04/17 09:00 01/09/17 08:38 (Roxicodone) 5 mg Q4H PRN PO 01/04/17 08:30 01/09/17 11:43 (Pravachol) 40 mg DAILY PO 01/04/17 09:00 01/09/17 08:38 (Zofran Inj) 4 mg Q8HR PRN IV PUSH 01/04/17 08:30 (Lovenox Inj) 40 mg Q24H SQ 01/04/17 09:00 01/09/17 08:38 Miscellaneous Information 1 Q3D T-DERMAL 01/07/17 09:00 01/07/17 09:00 (Cardizem Cd) 120 mg DAILY PO 01/06/17 09:00 Future Hold 01/08/17 09:09 (Duoneb Neb) 1 ampule Q2HR NEB PRN NEB 01/07/17 14:45 (K-Phos Neutral) 250 mg Q6HR PO 01/09/17 00:15 01/09/17 11:43 Vancomycin HCl 1000 mg/Sodium Chloride 250 ml @ 250 mls/hr Q12H IV 01/09/17 10:00 01/09/17 10:17 Piperacillin Sod/ Tazobactam Sod 100 ml @ 200 mls/hr Q8H IV 01/09/17 11:00 01/09/17 11:43 Vital Signs / I&O Vital Signs Date Time Temp Pulse Resp B/P (MAP) Pulse Ox O2 Delivery O2 Flow Rate FiO2 01/09/17 12:22 92 Nasal Cannula 5.00 01/09/17 12:00 Nasal Cannula 6.00 01/09/17 12:00 98.1 135 14 81/56 (64) 86 01/09/17 08:00 Nasal Cannula 4.00 01/09/17 08:00 98.6 119 14 86/53 (64) 86 01/09/17 08:00 120 01/09/17 05:42 Nasal Cannula 4.00 01/09/17 04:20 117 01/09/17 04:00 97.9 102 23 92/58 (69) 93 01/09/17 00:00 Nasal Cannula 4.00 01/09/17 00:00 99.8 105 19 94/61 (72) 97 01/09/17 00:00 116 01/08/17 20:12 92 01/08/17 20:00 Nasal Cannula 4.00 01/08/17 20:00 99.3 98 18 96/52 (67) 98 01/08/17 16:00 98.9 108 14 94/62 (73) 94 I/O 01/08/17 01/08/17 01/08/17 01/09/17 01/09/17 01/09/17 07:00 15:00 23:00 07:00 15:00 23:00 Intake Total 180 ml 480 ml 960 ml Output Total 1400 ml 950 ml Balance -1220 ml 480 ml 10 ml Intake Oral 180 ml 480 ml 460 ml IV Total 500 ml Output Urine Total 1400 ml 950 ml # Voids 0 # Bowel Movements 0 1 Physical Exam GENERAL: SKIN: Warm and dry. HEAD: Normocephalic. EYES: No scleral icterus. No injection or drainage. NECK: Supple, trachea midline. No JVD or lymphadenopathy. CARDIOVASCULAR: Regular rate and rhythm without murmurs, gallops, or rubs. RESPIRATORY: Breath sounds equal bilaterally. No accessory muscle use. GASTROINTESTINAL: Abdomen soft, non-tender, nondistended. MUSCULOSKELETAL: No cyanosis, or edema. BACK: Nontender without obvious deformity. No CVA tenderness. Assessment and Plan Problem List: (1) Nutrition, metabolism, and development symptoms ICD Codes: R63.8 - Other symptoms and signs concerning food and fluid intake Status: Acute (2) Squamous cell carcinoma of neck ICD Codes: C44.42 - Squamous cell carcinoma of skin of scalp and neck Status: Acute (3) Mass of left lung ICD Codes: R91.8 - Other nonspecific abnormal finding of lung field Status: Acute (4) 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: C02.9 - Malignant neoplasm of tongue, unspecified Status: Acute (5) Atrial fibrillation with RVR ICD Codes: I48.91 - Unspecified atrial fibrillation Status: Acute Assessment and Plan 1.) PAF - rate controlled, assymptomatic, Dr Solorzano rec no ac, change cardizem to xr, patient has not committed to hospice, has deferred descision to [facility], palliative care following, consider adding dig if persistantly tachycardia, d/w Dr Vo 01/07/17; hypotension in sontraindication for higher cardizem dose Tomas Fraser MD Jan 09, 2017 14:59
--- NOTE | 2017-01-09 18:05 | HHI.PR ---
Subjective Remarks patient seen at 9 am PAtient c/o of generalized body aches. Denies cp/sob. bp low t max 99.8 Objective Vitals Vital Signs Date Time Temp Pulse Resp B/P (MAP) Pulse Ox O2 Delivery O2 Flow Rate FiO2 01/09/17 17:37 92 Nasal Cannula 6.00 01/09/17 15:53 82/60 (67) 01/09/17 12:22 92 Nasal Cannula 5.00 01/09/17 12:00 Nasal Cannula 6.00 01/09/17 12:00 98.1 135 14 81/56 (64) 86 01/09/17 08:00 Nasal Cannula 4.00 01/09/17 08:00 98.6 119 14 86/53 (64) 86 01/09/17 08:00 120 01/09/17 05:42 Nasal Cannula 4.00 01/09/17 04:20 117 01/09/17 04:00 97.9 102 23 92/58 (69) 93 01/09/17 00:00 Nasal Cannula 4.00 01/09/17 00:00 99.8 105 19 94/61 (72) 97 01/09/17 00:00 116 01/08/17 20:12 92 01/08/17 20:00 Nasal Cannula 4.00 01/08/17 20:00 99.3 98 18 96/52 (67) 98 I/O 01/08/17 01/08/17 01/08/17 01/09/17 01/09/17 01/09/17 07:00 15:00 23:00 07:00 15:00 23:00 Intake Total 180 ml 480 ml 960 ml Output Total 1400 ml 950 ml Balance -1220 ml 480 ml 10 ml Intake Oral 180 ml 480 ml 460 ml IV Total 500 ml Output Urine Total 1400 ml 950 ml # Voids 0 # Bowel Movements 0 1 Result Diagram: 01/08/17 1130 01/08/17 1130 Imaging Last Impressions Chest X-Ray 01/07/17 0000 Signed Impressions: Service Date/Time: Saturday, January 07, 2017 15:01 - CONCLUSION: Worsening aeration Tito Hi MD CT Angiography 01/03/17 1939 Signed Impressions: Service Date/Time: Tuesday, January 03, 2017 21:50 - CONCLUSION: 1. Severe COPD, most prominent in the apices. Scattered areas of parenchymal scarring. 2. Large, 7.7 x 4.3 cm pleural-based mass lesion in the left lower lobe. Associated bony destruction and cortical irregularity of the left posterior seventh and eighth ribs. 3. Left hilar and mediastinal adenopathy. Largest node in the AP window measures 5.7 cm in diameter with some impingement on the left pulmonary artery but the vessel does remain patent without pulmonary embolus. Sunny Farfan MD Maxillofacial CT 01/03/17 0000 Signed Impressions: Service Date/Time: Tuesday, January 03, 2017 21:47 - CONCLUSION: No fracture. Sunny Farfan MD Head CT 01/03/17 0000 Signed Impressions: Service Date/Time: Tuesday, January 03, 2017 21:46 - CONCLUSION: Negative exam. Sunny Farfan MD Objective Remarks GENERAL:cachectic- in no acute distress. SKIN: No rashes, ecchymoses or lesions. Cool and dry. HEAD: Atraumatic. Normocephalic. No temporal or scalp tenderness. EYES: Pupils equal round and reactive. Extraocular motions intact. No scleral icterus. No injection or drainage. ENT: Nose without bleeding, purulent drainage or septal hematoma. Throat without erythema, tonsillar hypertrophy or exudate. Uvula midline. Airway patent. NECK: Trachea midline. No JVD or lymphadenopathy. Supple, nontender, no meningeal signs. CARDIOVASCULAR: Regular rate and rhythm without murmurs, gallops, or rubs. RESPIRATORY: Clear to auscultation. Breath sounds equal bilaterally. No wheezes , rales, or rhonchi. GASTROINTESTINAL: Abdomen soft, non-tender, nondistended. No hepato-splenomegaly , or palpable masses. No guarding. MUSCULOSKELETAL: Extremities without clubbing, cyanosis, or edema. No joint tenderness, effusion, or edema noted. No calf tenderness. Negative Homans sign bilaterally. NEUROLOGICAL: Awake and alert. Cranial nerves II through XII intact. Motor and sensory grossly within normal limits. Five out of 5 muscle strength in all muscle groups. Normal speech. Medications and IVs Current Medications Medications (Trade) Dose Ordered Sig/Acacia Route Start Time Stop Time Status Last Admin (NS Flush) 2 ml UNSCH PRN IV FLUSH 01/03/17 23:00 01/08/17 00:11 (NS Flush) 2 ml BID IV FLUSH 01/04/17 09:00 01/09/17 20:10 (Narcan Inj) 0.4 mg UNSCH PRN IV PUSH 01/03/17 23:00 Diltiazem HCl 125 mg/Sodium Chloride 125 ml @ 5 mls/hr TITRATE PRN IV 01/03/17 23:00 Future Hold 01/04/17 07:11 (Oramorph Sr) 30 mg Q12HR PO 01/04/17 09:00 01/09/17 08:38 (Xanax) 0.5 mg Q6H PRN PO 01/04/17 08:30 01/09/17 05:43 (Duragesic 25 Mcg Patch.72 Hr) 1 patch Q72H T-DERMAL 01/04/17 09:00 01/07/17 09:18 (Megace) 40 mg DAILY PO 01/04/17 09:00 01/09/17 08:38 (Roxicodone) 5 mg Q4H PRN PO 01/04/17 08:30 01/09/17 17:16 (Pravachol) 40 mg DAILY PO 01/04/17 09:00 01/09/17 08:38 (Zofran Inj) 4 mg Q8HR PRN IV PUSH 01/04/17 08:30 (Lovenox Inj) 40 mg Q24H SQ 01/04/17 09:00 01/09/17 08:38 Miscellaneous Information 1 Q3D T-DERMAL 01/07/17 09:00 01/07/17 09:00 (Cardizem Cd) 120 mg DAILY PO 01/06/17 09:00 Future Hold 01/08/17 09:09 (Duoneb Neb) 1 ampule Q2HR NEB PRN NEB 01/07/17 14:45 (K-Phos Neutral) 250 mg Q6HR PO 01/09/17 00:15 01/09/17 17:15 Vancomycin HCl 1000 mg/Sodium Chloride 250 ml @ 250 mls/hr Q12H IV 01/09/17 10:00 01/09/17 10:17 Piperacillin Sod/ Tazobactam Sod 100 ml @ 200 mls/hr Q8H IV 01/09/17 11:00 01/09/17 18:04 A/P Problem List: (1) Weakness ICD Code: R53.1 - Weakness (2) Syncope ICD Code: R55 - Syncope and collapse Status: Acute (3) Atrial fibrillation with RVR ICD Code: I48.91 - Unspecified atrial fibrillation Status: Acute (4) Acute hypoxemic respiratory failure ICD Code: J96.01 - Acute respiratory failure with hypoxia Status: Acute Plan: O2 sats dropped into the mid 80s and patient does not require 4 L nasal cannula. Chest x-ray ordered by me showed worsening aeration concordant with fluid overload. We'll discontinue IV fluids and give a dose of IV Lasix. 12/ patient still requiring higher levels of oxygen, continue supplemental o2 to keep o2 sat >92%. Will give lasix IV. (5) Hyponatremia ICD Code: E87.1 - Hypo-osmolality and hyponatremia Status: Resolved Plan: Acute on chronic anemia. On admission 131, improved back to 135 after IV normal saline administration. 01/08 sodium back down to 131. Continue to monitor BMP. (6) Hypokalemia ICD Code: E87.6 - Hypokalemia Plan: Now resolved. Continue to monitor BMP and replace potassium with oral potassium as needed. (7) Squamous cell cancer of tongue ICD Code: C02.9 - Malignant neoplasm of tongue, unspecified Status: Acute (8) Leukocytosis ICD Code: D72.829 - Elevated white blood cell count, unspecified Plan: Patient initially afebrile with elevated wbc count trending down. Continue to monitor cbc w diff. (9) Hypophosphatemia ICD Code: E83.39 - Other disorders of phosphorus metabolism Plan: Due to poor oral intake - Will start on oral neutraphos. (10) Severe protein-calorie malnutrition ICD Code: E43 - Unspecified severe protein-calorie malnutrition Plan: BMI of 15.1 and low albumin. [employer] consulted. Recommended Enlive shakes tid and Ensure pudding bid for additional calories and protein (11) Sepsis ICD Code: A41.9 - Sepsis, unspecified organism Status: Acute Plan: Patient with tachycardia, hypoxemia, and hypotension. check actic acid. Will give IV fluid bolus. repeat cxr, check urinalysis, check lactic acid - will start on gentle IV fluids pending x ray. Assessment and Plan A/P -a-fib with RVR started on IV Cardizem drip- start on PO cardizem and will try to taper off the cardizem drip- check echo and consult cardiology. 01/05 2-D echocardiogram shows a normal left ventricular ejection fraction with an estimated EF of 55-60% and no regional wall motion abnormalities. Mild mitral valve regurgitation and mild tricuspid valve regurgitation. Appreciate Dr. Fraser consultation recommendations. 01/09 Heart rate uncontrolled. Will load with IV digoxin. hold IV Cardizem due to hypotension. -syncope/ generalized weakness- likely due to poor oral intake fall precautions- Continue Megestrol and consult drug safety physician. continue to monitor on telemetry. consult PT. 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 01/09 discussed case with hospice nurse - patient's is requesting feeding tube. Will consult palliative care to adress goals of care. -anemia due to chronic disease- will monitor for now. Hemoglobin trending down from 10.1-9.0. However patient awaiting hospice consult and requesting comfort measures only. 01/08 Patient's requesting a feeding tube. -hypertension; hold lisinopril since she's been started on Cardizem- will monitor and adjust the regimen as needed. 01/09 BP on the lower side - boyd hold cardizem drip. If heart rate increases then will give digoxin. -DVT prophylaxis with subq Lovenox Discharge Planning Pending palliative care consultation. Pending clinical improvement. Problem Qualifiers (1) Syncope: Qualified Codes: R55 - Syncope and collapse Primitivo Medina MD Jan 09, 2017 18:05
[2017-01-09] MEDS ORDERED: ALTEPLASE RECOMBINANT 2 MG VIAL INTRACATH ONE (19:45)
[2017-01-09] MEDS ORDERED: DIGOXIN 0.5 MG/2 ML VIAL IV PUSH ONE (20:45)
--- NOTE | 2017-01-09 23:03 | RADRPT ---
EXAM DATE/TIME: 01/09/2017 21:35 [facility] COMPARISON: CHEST SINGLE AP, January 07, 2017, 15:01. INDICATIONS : Infiltrate. MEDICAL HISTORY : Hypertension. Carcinoma, bone. Carcinoma, tongue. SURGICAL HISTORY : Infusaport. ENCOUNTER: Initial ACUITY: 1 day PAIN SCORE: 0/10 LOCATION: Bilateral chest FINDINGS: A small left pleural effusion is noted. Diffuse infiltrates are again noted bilaterally consistent wi th persistent pneumonia. Right internal jugular [id number] has its tip in the right atrium. The he art is stable. CONCLUSION: 1. Persistent diffuse infiltrates bilaterally consistent with probable pneumonia. Clinical correlatio n is recommended. 2. Small left pleural effusion. Olayinka Jones MD on January 09, 2017 at 23:00 Board Certified Radiologist. This report was verified electronically.
[2017-01-10] VITALS (13 sets, daily range): BP systolic 94–107; BP diastolic 54–66; PULSE 91–124; RESP 14–22; TEMP 97.7–98.8; O2SAT 92–98
[2017-01-10] MEDS: PIPERACIL-TAZO 4.5 GM PREMIX 100 ML IV SCH ×3 (02:39→18:40)
[2017-01-10] MEDS ORDERED: DIGOXIN 0.5 MG/2 ML VIAL IV PUSH ONE (02:45)
[2017-01-10] MEDS: POTASSIUM PHOSPHATE/SODIUM PHOSPHATE 250 MG TAB PO SCH ×3 (05:57→18:40)
[2017-01-10 06:24] LABS: AUTOMATED NEUTROPHIL # 9.3 TH/MM3 (1.8-7.7); BASOPHIL # 0.1 TH/MM3 (0-0.2); BASOPHIL % 0.5 % (0.0-2.0); EOSINOPHIL # 0.3 TH/MM3 (0-0.4); EOSINOPHIL % 2.6 % (0.0-4.0); HEMATOCRIT 27.1 % (35.0-46.0); HEMO FLAGS DIFF FINAL; LYMPHOCYTE # 0.2 TH/MM3 (1.0-4.8); MEAN CELL VOLUME 85.5 FL (80.0-100.0); MEAN CORPUSCULAR HEMOGLOBIN 28.3 PG (27.0-34.0); MEAN CORPUSCULAR HGB CONC 33.1 % (32.0-36.0); MONO % 8.5 % (0.0-8.0); NEUT % 86.4 % (16.0-70.0); PLATELET COUNT 388 TH/MM3 (150-450); RED BLOOD COUNT 3.17 MIL/MM3 (4.00-5.30); RED CELL DISTRIBUTION WIDTH 14.5 % (11.6-17.2); WHITE BLOOD COUNT 10.7 TH/MM3 (4.0-11.0)
[2017-01-10 07:04] LABS: BICARBONATE 30.9 MEQ/L (21.0-32.0); CALCIUM-PROTEIN CORRECTED 8.3 MG/DL (8.5-10.1); MAGNESIUM 1.3 MG/DL (1.5-2.5); POTASSIUM 3.2 MEQ/L (3.5-5.1); TOTAL BILIRUBIN ADULT 0.4 MG/DL (0.2-1.0)
[2017-01-10] MEDS: REMOVE OLD DURAGESIC (FENTANYL) PATCH T-DERMAL SCH (09:00)
[2017-01-10] MEDS: fentaNYL 25 MCG/HR PATCH T-DERMAL SCH (09:11)
[2017-01-10] MEDS: MEGESTROL ACETATE 40 MG TAB PO SCH (09:11)
[2017-01-10] MEDS: PRAVASTATIN SOD 40 MG TAB PO SCH (09:11)
[2017-01-10] MEDS: ENOXAPARIN SODIUM 40 MG/0.4 ML SYRINGE SQ SCH (09:11)
[2017-01-10] MEDS: MORPHINE SULFATE 30 MG CONTROLLED RELEASE TAB PO SCH ×2 (09:11→20:50)
[2017-01-10] MEDS: SODIUM CHLORIDE 0.9% FLUSH 10 ML FLUSH IV FLUSH SCH ×2 (09:15→20:50)
[2017-01-10] MEDS: VANCOMYCIN INJ 1,000 MG in SODIUM CHLOR 0.9% 250 ML INJ 250 ML IV SCH ×2 (10:02→20:50)
[2017-01-10] MEDS ORDERED: CALCIUM CHLORIDE INJ 2 GM in SODIUM CHLORIDE 0.9% INJ 100 ML IV ONE (10:30)
--- NOTE | 2017-01-10 11:28 | HHI.HCPN ---
Reason for visit a. To assist with evaluation and management of symptoms including: pain, debility, poor appetite b. To assist medical decision maker(s) with: better understanding of current medical conditions; weighing benefits/burdens of medical treatment options; making medical treatment decisions. . Subjective/Interval History Follow-up visit for symptom management and clarification of treatment goals. Patient was seen and assessed in room 1436. Also present patient's 2 children and Palliative care RN DELIVERY, Alexa Almaraz. Patient is alert and oriented to person place and time. She reports pain in her lower back and left torso that is rated 8 out of 10. Current orders for Oramorph 30 mgPO every 12 hours, fentanyl Duragesic patch 25 g every 72 hours and oxycodone PO every 4 hours as needed for breakthrough pain. Patient has required PRN oxycodone 5 mg 4 in the past 24 hours. Patient was reminded that PRN medications are available for breakthrough pain, but she needs to notify the nurse when she needs it. Patient also complaining of oral and throat pain. Tongue is bright red, no thrush noted. Patient started on Magic Mouthwash. She is cachectic and her PO intake remains poor. Current BMI 14.7 Albumin: 1.5 Per report, patient's has been requesting PEG tube placement, but I have been unable to speak to him directly despite multiple attempts. Discussed benefits and burdens of PEG tube placement with patient and her 2 adult children , and they all agree that the patient's wants to move forward with this. After discussing patient/family wishes with Dr. Vo, GI was consulted to evaluate the patient for possible PGT. Significantly debilitated with poor balance, unable to ambulate to the bathroom. Patient states she is using the BSC requires assistance to stand and pivot. Reporting intermittent dyspnea. Oxygen saturations in the low to mid 90s on 5L via nasal cannula. DuoNebs are available q2 hours as needed for SOB and wheezing. . Family/friend interactions Messages left for patient's on both cell phone and home phone. Awaiting return phone call. Patient 2 young adult children were at bedside and they were updated on the patient's condition with the patient's permission. Palliative care contact information was provided to the patient's children who stated they would give the contact information to their father. . Advance Directives Advance Directive Specifics Documented care wishes: No known documented care wishes were completed. . Objective Vital Signs Date Time Temp Pulse Resp B/P (MAP) Pulse Ox O2 Delivery O2 Flow Rate FiO2 01/10/17 10:43 92 Nasal Cannula 5.00 01/10/17 08:00 98.5 111 16 107/56 (73) 92 01/10/17 07:00 19 01/10/17 04:18 111 01/10/17 04:00 98.0 91 21 105/57 (73) 95 01/10/17 00:07 106 01/10/17 00:00 98.0 97 19 100/54 (69) 93 01/09/17 22:24 19 01/09/17 22:00 98.5 96 18 98/50 (66) 98 01/09/17 20:48 93 01/09/17 20:05 Nasal Cannula 4.00 01/09/17 17:37 92 Nasal Cannula 6.00 01/09/17 16:00 99.3 125 16 108/60 (76) 97 01/09/17 15:53 82/60 (67) 01/09/17 12:22 92 Nasal Cannula 5.00 01/09/17 12:00 Nasal Cannula 6.00 01/09/17 12:00 98.1 135 14 81/56 (64) 86 Intake & Output 01/10/17 01/10/17 07:00 19:00 Intake Total 630 ml Output Total 950 ml Balance -320 ml Intake Oral 280 ml IV Total 350 ml Output Urine Total 950 ml # Bowel Movements 0 . Physical Exam CONSTITUTIONAL/GENERAL: This is a cachectic 61-year-old female who is in now acute distress TUBES/LINES/DRAINS: Implanted VAD, nasal cannula. SKIN: No jaundice, rashes, or lesions. Poor skin turgor. Skin temperature appropriate. Not diaphoretic. HEAD: Atraumatic. Normocephalic. EYES: Pupils equal and round and reactive. Extraocular motions intact. No scleral icterus. No injection or drainage. Fundi not examined. ENT: Hearing grossly normal. Nose without bleeding or purulent drainage. Mucus membranes moist and pink; tongue red and reportedly painful. NECK: Trachea midline. CARDIOVASCULAR: Tachycardic with irregular rhythm. No JVD. Peripheral pulses symmetric. RESPIRATORY/CHEST: Symmetric, unlabored respirations. Breath sounds diminished bilaterally, right >left. GASTROINTESTINAL: Abdomen soft, non-tender, nondistended. Bowel sounds present. GENITOURINARY: Without palpable bladder distension. MUSCULOSKELETAL: Extremities without clubbing, cyanosis, or edema. No mottling or clubbing. LYMPHATICS: No palpable cervical or supraclavicular adenopathy. NEUROLOGICAL: Awake and alert. Oriented to person, place and time. Answers questions. Follows commands. Moves all extremities. PSYCHIATRIC: No obvious anxiety/depression. no apparent hallucinations or other psychotic thought process. . Diagnostic Tests Laboratory Laboratory Tests Test 01/07/17 17:19 01/08/17 11:30 01/09/17 20:36 01/10/17 05:45 White Blood Count 12.1 TH/MM3 (4.0-11.0) 10.3 TH/MM3 (4.0-11.0) 10.7 TH/MM3 (4.0-11.0) Red Blood Count 3.13 MIL/MM3 (4.00-5.30) 2.92 MIL/MM3 (4.00-5.30) 3.17 MIL/MM3 (4.00-5.30) Hemoglobin 9.0 GM/DL (11.6-15.3) 8.4 GM/DL (11.6-15.3) 9.0 GM/DL (11.6-15.3) Hematocrit 26.9 % (35.0-46.0) 24.9 % (35.0-46.0) 27.1 % (35.0-46.0) Mean Corpuscular Volume 86.0 FL (80.0-100.0) 85.3 FL (80.0-100.0) 85.5 FL (80.0-100.0) Mean Corpuscular Hemoglobin 28.8 PG (27.0-34.0) 28.9 PG (27.0-34.0) 28.3 PG (27.0-34.0) Mean Corpuscular Hemoglobin Concent 33.5 % (32.0-36.0) 33.9 % (32.0-36.0) 33.1 % (32.0-36.0) Red Cell Distribution Width 14.7 % (11.6-17.2) 14.7 % (11.6-17.2) 14.5 % (11.6-17.2) Platelet Count 382 TH/MM3 (150-450) 350 TH/MM3 (150-450) 388 TH/MM3 (150-450) Mean Platelet Volume 7.5 FL (7.0-11.0) 7.6 FL (7.0-11.0) 8.0 FL (7.0-11.0) Neutrophils (%) (Auto) 90.0 % (16.0-70.0) 89.7 % (16.0-70.0) 86.4 % (16.0-70.0) Lymphocytes (%) (Auto) 1.6 % (9.0-44.0) 1.9 % (9.0-44.0) 2.0 % (9.0-44.0) Monocytes (%) (Auto) 6.3 % (0.0-8.0) 5.9 % (0.0-8.0) 8.5 % (0.0-8.0) Eosinophils (%) (Auto) 1.8 % (0.0-4.0) 2.4 % (0.0-4.0) 2.6 % (0.0-4.0) Basophils (%) (Auto) 0.3 % (0.0-2.0) 0.1 % (0.0-2.0) 0.5 % (0.0-2.0) Neutrophils # (Auto) 10.9 TH/MM3 (1.8-7.7) 9.3 TH/MM3 (1.8-7.7) 9.3 TH/MM3 (1.8-7.7) Lymphocytes # (Auto) 0.2 TH/MM3 (1.0-4.8) 0.2 TH/MM3 (1.0-4.8) 0.2 TH/MM3 (1.0-4.8) Monocytes # (Auto) 0.8 TH/MM3 (0-0.9) 0.6 TH/MM3 (0-0.9) 0.9 TH/MM3 (0-0.9) Eosinophils # (Auto) 0.2 TH/MM3 (0-0.4) 0.2 TH/MM3 (0-0.4) 0.3 TH/MM3 (0-0.4) Basophils # (Auto) 0.0 TH/MM3 (0-0.2) 0.0 TH/MM3 (0-0.2) 0.1 TH/MM3 (0-0.2) CBC Comment DIFF FINAL DIFF FINAL DIFF FINAL Differential Comment Blood Urea Nitrogen 6 MG/DL (7-18) 6 MG/DL (7-18) 8 MG/DL (7-18) Creatinine 0.30 MG/DL (0.50-1.00) 0.22 MG/DL (0.50-1.00) 0.34 MG/DL (0.50-1.00) Random Glucose 105 MG/DL (74-106) 104 MG/DL (74-106) 89 MG/DL (74-106) Total Protein 5.0 GM/DL (6.4-8.2) 5.0 GM/DL (6.4-8.2) 5.0 GM/DL (6.4-8.2) Albumin 1.5 GM/DL (3.4-5.0) 1.5 GM/DL (3.4-5.0) 1.5 GM/DL (3.4-5.0) Calcium Level 7.5 MG/DL (8.5-10.1) 7.8 MG/DL (8.5-10.1) 7.2 MG/DL (8.5-10.1) Alkaline Phosphatase 159 U/L (45-117) 182 U/L (45-117) 138 U/L (45-117) Aspartate Amino Transf (AST/SGOT) 8 U/L (15-37) 22 U/L (15-37) 11 U/L (15-37) Alanine Aminotransferase (ALT/SGPT) 6 U/L (10-53) 16 U/L (10-53) 13 U/L (10-53) Total Bilirubin 0.5 MG/DL (0.2-1.0) 0.4 MG/DL (0.2-1.0) 0.4 MG/DL (0.2-1.0) Sodium Level 132 MEQ/L (136-145) 131 MEQ/L (136-145) 133 MEQ/L (136-145) Potassium Level 2.9 MEQ/L (3.5-5.1) 4.0 MEQ/L (3.5-5.1) 3.2 MEQ/L (3.5-5.1) Chloride Level 98 MEQ/L (98-107) 96 MEQ/L (98-107) 96 MEQ/L (98-107) Carbon Dioxide Level 23.6 MEQ/L (21.0-32.0) 29.7 MEQ/L (21.0-32.0) 30.9 MEQ/L (21.0-32.0) Anion Gap 10 MEQ/L (5-15) 5 MEQ/L (5-15) 6 MEQ/L (5-15) Estimat Glomerular Filtration Rate 225 ML/MIN (>89) 322 ML/MIN (>89) 195 ML/MIN (>89) Phosphorus Level 1.2 MG/DL (2.5-4.9) 2.7 MG/DL (2.5-4.9) Magnesium Level 1.6 MG/DL (1.5-2.5) 1.3 MG/DL (1.5-2.5) Lactic Acid Level 1.0 mmol/L (0.4-2.0) Protein Corrected Calcium 8.3 MG/DL (8.5-10.1) . Result Diagram: 01/10/17 0545 01/10/17 0545 Microbiology Microbiology Date/Time Source Procedure Growth Status 01/10/17 08:45 Blood Peripheral Aerobic Blood Culture Pending Received 01/10/17 08:45 Blood Peripheral Anaerobic Blood Culture Pending Received 01/10/17 08:40 Blood Peripheral Aerobic Blood Culture Pending Received 01/10/17 08:40 Blood Peripheral Anaerobic Blood Culture Pending Received Imaging Last 72 hours Impressions Chest X-Ray 01/09/17 0000 Signed Impressions: Service Date/Time: Monday, January 09, 2017 21:35 - CONCLUSION: 1. Persistent diffuse infiltrates bilaterally consistent with probable pneumonia. Clinical correlation is recommended. 2. Small left pleural effusion. Olayinka Jones MD . Assessment and Plan Disease Oriented Problem List: (1) Atrial fibrillation with RVR (2) Syncope (3) Acute hypoxemic respiratory failure (4) Hyponatremia (5) Hypokalemia (6) Squamous cell carcinoma of neck (7) Squamous cell cancer of tongue (8) Protein calorie malnutrition (9) Hypophosphatemia Symptom Scale: (1) Debility (2) Pain (3) Decrease in appetite Pertinent Non-Medical Issues Psychosocial:Patient is originally from [place]. She moved to [place] in the mid 1970s. She met her , Gene, after moving to [place]. They have been for approximately 22 years. They have adult children who live locally (Gene and Jane, ages 22 and 20). 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 Spiritual: Rastafari gustabo Legal: Per [place] statutes, in the absence of written advanced directives healthcare proxy decision-making falls to the patient's spouse Ethical issues impacting care: No known ethical issues impacting care . Important Contacts Gene Wagoner, spouse: [phone] and [phone] . 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 She has had disease progression with metastatic disease to the lung and bone. In the past few months the patient's performance status and nutritional intake has declined significantly. She has been in and out of the hospital over the past 6 weeks for issues stemming from her underlying malignancy including pain, respiratory difficulties, cachexia and profound weakness. Patient's prognosis is quite poor and hospice services have been recommended. The patient verbalizes she is ready for hospice and just wants to be kept comfortable, but her continues to struggle with this decision. . Code Status: No Code Plan * NO CODE * Decision-making: Per [place] statutes,in the absence of written advanced directives healthcare proxy decision-making falls to the patient's spouse (Gene Dodsonnk). * Goals: Hospice has been consulted, but the patient's is now asking for PGT placement. GI consult pending * Messages left for patient's on both cell phone and home phone again today. Awaiting return phone call. Patient 2 young adult children were at bedside and they were updated on the patient's condition with the patient's permission. Palliative care contact information was provided to the patient's children who stated they would give the contact information to their father. * Discussed patient with Dr. Vo and bedside nurse (Venus) * Symptom management-pain: Patient reporting pain in lower back and left ribs that is rated 8 out of 10. Currently on Oramorph 30 mg PO every 12 hours and Duragesic patch 25 g every 72 hours. PRN oxycodone is available every 4 hours; patient has required 4 (5mg) doses in the past 24 hours. May need to increase PRN oxycodone to 5-10mg q4 hours for breakthrough pain. Patient also complaining oral/throat pain; tongue is bright red but no thrush is noted. Started patient on Magic Mouthwash. * Symptom management-debility: Patient is is increasingly symptomatic and generally failing to thrive. Patient reports she is unable to ambulate to the bathroom. Patient states she is using the BSC requires assistance to stand and pivot. Expected ongoing decline secondary to disease progression. * Symptom management-decreased appetite: She is cachectic and her PO intake remains poor. Current BMI 14.7 Albumin: 1.5 Per report, patient's has been requesting PEG tube placement, but I have been unable to speak to him directly despite multiple attempts. Discussed benefits and burdens of PEG tube placement with patient and her 2 adult children, and they all agree that the patient's wants to move forward with this. After discussing patient/ family wishes with Dr. Vo, GI was consulted to evaluate the patient for possible PGT. * Palliative care will continue to follow this patient throughout her hospitalization to establish trust, assist with symptom management and clarification of medical treatment goals. . Belinda Sanders Jan 10, 2017 11:28
[2017-01-10] MEDS: MAGNESIUM SULFATE 1 GM PREMIX 100 ML IV SCH ×2 (12:41→13:33)
[2017-01-10] MEDS: NYSTAT/DIPHENHY/LIDO MOUTHWASH (Adult) 120ML SWISH-SWAL SCH ×3 (13:00→20:49)
--- NOTE | 2017-01-10 13:32 | PD.CARD.PN ---
Subjective Subjective Remarks asleep in nad Objective Medications Current Medications Medications (Trade) Dose Ordered Sig/Acacia Route Start Time Stop Time Status Last Admin (NS Flush) 2 ml UNSCH PRN IV FLUSH 01/03/17 23:00 01/08/17 00:11 (NS Flush) 2 ml BID IV FLUSH 01/04/17 09:00 01/10/17 09:15 (Narcan Inj) 0.4 mg UNSCH PRN IV PUSH 01/03/17 23:00 Diltiazem HCl 125 mg/Sodium Chloride 125 ml @ 5 mls/hr TITRATE PRN IV 01/03/17 23:00 Future Hold 01/04/17 07:11 (Oramorph Sr) 30 mg Q12HR PO 01/04/17 09:00 01/10/17 09:11 (Xanax) 0.5 mg Q6H PRN PO 01/04/17 08:30 01/09/17 22:55 (Duragesic 25 Mcg Patch.72 Hr) 1 patch Q72H T-DERMAL 01/04/17 09:00 01/10/17 09:11 (Megace) 40 mg DAILY PO 01/04/17 09:00 01/10/17 09:11 (Roxicodone) 5 mg Q4H PRN PO 01/04/17 08:30 01/10/17 10:35 (Pravachol) 40 mg DAILY PO 01/04/17 09:00 01/10/17 09:11 (Zofran Inj) 4 mg Q8HR PRN IV PUSH 01/04/17 08:30 (Lovenox Inj) 40 mg Q24H SQ 01/04/17 09:00 01/10/17 09:11 Miscellaneous Information 1 Q3D T-DERMAL 01/07/17 09:00 01/10/17 09:00 (Cardizem Cd) 120 mg DAILY PO 01/06/17 09:00 Future Hold 01/08/17 09:09 (Duoneb Neb) 1 ampule Q2HR NEB PRN NEB 01/07/17 14:45 (K-Phos Neutral) 250 mg Q6HR PO 01/09/17 00:15 01/10/17 05:57 Vancomycin HCl 1000 mg/Sodium Chloride 250 ml @ 250 mls/hr Q12H IV 01/09/17 10:00 01/10/17 10:02 Piperacillin Sod/ Tazobactam Sod 100 ml @ 200 mls/hr Q8H IV 01/09/17 11:00 01/10/17 11:21 (Magic Mouthwash Adult Liq) 5 ml QID SWISH-SWAL 01/10/17 13:00 Vital Signs / I&O Vital Signs Date Time Temp Pulse Resp B/P (MAP) Pulse Ox O2 Delivery O2 Flow Rate FiO2 01/10/17 10:43 92 Nasal Cannula 5.00 01/10/17 08:00 98.5 111 16 107/56 (73) 92 01/10/17 07:00 19 01/10/17 04:18 111 01/10/17 04:00 98.0 91 21 105/57 (73) 95 01/10/17 00:07 106 01/10/17 00:00 98.0 97 19 100/54 (69) 93 01/09/17 22:24 19 01/09/17 22:00 98.5 96 18 98/50 (66) 98 01/09/17 20:48 93 01/09/17 20:05 Nasal Cannula 4.00 01/09/17 17:37 92 Nasal Cannula 6.00 01/09/17 16:00 99.3 125 16 108/60 (76) 97 01/09/17 15:53 82/60 (67) I/O 01/09/17 01/09/17 01/09/17 01/10/17 01/10/17 01/10/17 07:00 15:00 23:00 07:00 15:00 23:00 Intake Total 960 ml 730 ml 380 ml Output Total 950 ml 400 ml 950 ml Balance 10 ml 330 ml -570 ml Intake Oral 460 ml 480 ml 280 ml IV Total 500 ml 250 ml 100 ml Output Urine Total 950 ml 400 ml 950 ml # Bowel Movements 1 0 0 Physical Exam GENERAL: SKIN: Warm and dry. HEAD: Normocephalic. EYES: No scleral icterus. No injection or drainage. NECK: Supple, trachea midline. No JVD or lymphadenopathy. CARDIOVASCULAR: Regular rate and rhythm without murmurs, gallops, or rubs. RESPIRATORY: Breath sounds equal bilaterally. No accessory muscle use. GASTROINTESTINAL: Abdomen soft, non-tender, nondistended. MUSCULOSKELETAL: No cyanosis, or edema. BACK: Nontender without obvious deformity. No CVA tenderness. Laboratory Laboratory Tests Test 01/09/17 20:36 01/10/17 05:45 Lactic Acid Level 1.0 mmol/L White Blood Count 10.7 TH/MM3 Red Blood Count 3.17 MIL/MM3 Hemoglobin 9.0 GM/DL Hematocrit 27.1 % Mean Corpuscular Volume 85.5 FL Mean Corpuscular Hemoglobin 28.3 PG Mean Corpuscular Hemoglobin Concent 33.1 % Red Cell Distribution Width 14.5 % Platelet Count 388 TH/MM3 Mean Platelet Volume 8.0 FL Neutrophils (%) (Auto) 86.4 % Lymphocytes (%) (Auto) 2.0 % Monocytes (%) (Auto) 8.5 % Eosinophils (%) (Auto) 2.6 % Basophils (%) (Auto) 0.5 % Neutrophils # (Auto) 9.3 TH/MM3 Lymphocytes # (Auto) 0.2 TH/MM3 Monocytes # (Auto) 0.9 TH/MM3 Eosinophils # (Auto) 0.3 TH/MM3 Basophils # (Auto) 0.1 TH/MM3 CBC Comment DIFF FINAL Differential Comment Blood Urea Nitrogen 8 MG/DL Creatinine 0.34 MG/DL Random Glucose 89 MG/DL Total Protein 5.0 GM/DL Albumin 1.5 GM/DL Calcium Level 7.2 MG/DL Phosphorus Level 2.7 MG/DL Magnesium Level 1.3 MG/DL Alkaline Phosphatase 138 U/L Aspartate Amino Transf (AST/SGOT) 11 U/L Alanine Aminotransferase (ALT/SGPT) 13 U/L Total Bilirubin 0.4 MG/DL Sodium Level 133 MEQ/L Potassium Level 3.2 MEQ/L Chloride Level 96 MEQ/L Carbon Dioxide Level 30.9 MEQ/L Anion Gap 6 MEQ/L Estimat Glomerular Filtration Rate 195 ML/MIN Protein Corrected Calcium 8.3 MG/DL Assessment and Plan Problem List: (1) Nutrition, metabolism, and development symptoms ICD Codes: R63.8 - Other symptoms and signs concerning food and fluid intake Status: Acute (2) Squamous cell carcinoma of neck ICD Codes: C44.42 - Squamous cell carcinoma of skin of scalp and neck Status: Acute (3) Mass of left lung ICD Codes: R91.8 - Other nonspecific abnormal finding of lung field Status: Acute (4) 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: C02.9 - Malignant neoplasm of tongue, unspecified Status: Acute (5) Atrial fibrillation with RVR ICD Codes: I48.91 - Unspecified atrial fibrillation Status: Acute Assessment and Plan 1.) PAF - rate intermittently controlled, assymptomatic, Dr Solorzano rec no ac, change cardizem to xr, patient has not committed to hospice, has deferred descision to [facility], palliative care following, dig loaded by Dr Vo, ; hypotension in contraindication for higher cardizem dose 2.) Cv care appears to be futile to overall prognosis and patient is assymptomatic from cv standpoint Tomas Fraser MD Jan 10, 2017 13:32
--- NOTE | 2017-01-10 13:52 | PD.CONS ---
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 GI consulted for poss PEG tube placement. Pt having poor PO intake. She tells me she does not have difficulty swallowing but just is not interested in eating. She is not experiencing sensation of hunger, or discomfort from not eating. She has had a feeding tube before but can provide me no further details. She is not sure if she wants the feeding tube and says she needs to think about it and will speak with her about it as well. (Rosy Allred) PFSH Past Medical History Essential hypertension Peripheral neuropathy Depression Squamous cell carcinoma of the oropharynx . Past Surgical History Colonoscopy in 2005 U/S guided left lung mass in 2017 CT-guided left lung mass biopsy in 2017 Teeth extraction in 2015 Port placement in 2016 Feeding tube in 2016 now removed . (Rosy Allred) Coded Allergies: No Known Allergies (Verified , 04/25/16) Family History Mother with colon Carcinoma at the age of 80. No throat cancer in the family. . Social History quit smoking a year ago. (Rosy Allred) Review of Systems ROS noncontributory (Rosy Allred) GI Exam Vitals I&O Vital Signs Date Time Temp Pulse Resp B/P (MAP) Pulse Ox O2 Delivery O2 Flow Rate FiO2 01/10/17 10:43 92 Nasal Cannula 5.00 01/10/17 08:00 98.5 111 16 107/56 (73) 92 01/10/17 07:00 19 01/10/17 04:18 111 01/10/17 04:00 98.0 91 21 105/57 (73) 95 01/10/17 00:07 106 01/10/17 00:00 98.0 97 19 100/54 (69) 93 01/09/17 22:24 19 01/09/17 22:00 98.5 96 18 98/50 (66) 98 01/09/17 20:48 93 01/09/17 20:05 Nasal Cannula 4.00 01/09/17 17:37 92 Nasal Cannula 6.00 01/09/17 16:00 99.3 125 16 108/60 (76) 97 01/09/17 15:53 82/60 (67) I/O 01/09/17 01/09/17 01/09/17 01/10/17 01/10/17 01/10/17 07:00 15:00 23:00 07:00 15:00 23:00 Intake Total 960 ml 730 ml 380 ml Output Total 950 ml 400 ml 950 ml Balance 10 ml 330 ml -570 ml Intake Oral 460 ml 480 ml 280 ml IV Total 500 ml 250 ml 100 ml Output Urine Total 950 ml 400 ml 950 ml # Bowel Movements 1 0 0 Imaging Last Impressions Chest X-Ray 01/09/17 0000 Signed Impressions: Service Date/Time: Monday, January 09, 2017 21:35 - CONCLUSION: 1. Persistent diffuse infiltrates bilaterally consistent with probable pneumonia. Clinical correlation is recommended. 2. Small left pleural effusion. Olayinka Jones MD CT Angiography 01/03/171938 Signed Impressions: Service Date/Time: Tuesday, January 03, 2017 21:50 - CONCLUSION: 1. Severe COPD, most prominent in the apices. Scattered areas of parenchymal scarring. 2. Large, 7.7 x 4.3 cm pleural-based mass lesion in the left lower lobe. Associated bony destruction and cortical irregularity of the left posterior seventh and eighth ribs. 3. Left hilar and mediastinal adenopathy. Largest node in the AP window measures 5.7 cm in diameter with some impingement on the left pulmonary artery but the vessel does remain patent without pulmonary embolus. Sunny Farfan MD Maxillofacial CT 01/03/17 0000 Signed Impressions: Service Date/Time: Tuesday, January 03, 2017 21:47 - CONCLUSION: No fracture. Sunny Farfan MD Head CT 01/03/17 0000 Signed Impressions: Service Date/Time: Tuesday, January 03, 2017 21:46 - CONCLUSION: Negative exam. Sunny Farfan MD Laboratory Test 01/09/17 20:36 01/10/17 05:45 Lactic Acid Level 1.0 mmol/L White Blood Count 10.7 TH/MM3 Red Blood Count 3.17 MIL/MM3 Hemoglobin 9.0 GM/DL Hematocrit 27.1 % Mean Corpuscular Volume 85.5 FL Mean Corpuscular Hemoglobin 28.3 PG Mean Corpuscular Hemoglobin Concent 33.1 % Red Cell Distribution Width 14.5 % Platelet Count 388 TH/MM3 Mean Platelet Volume 8.0 FL Neutrophils (%) (Auto) 86.4 % Lymphocytes (%) (Auto) 2.0 % Monocytes (%) (Auto) 8.5 % Eosinophils (%) (Auto) 2.6 % Basophils (%) (Auto) 0.5 % Neutrophils # (Auto) 9.3 TH/MM3 Lymphocytes # (Auto) 0.2 TH/MM3 Monocytes # (Auto) 0.9 TH/MM3 Eosinophils # (Auto) 0.3 TH/MM3 Basophils # (Auto) 0.1 TH/MM3 CBC Comment DIFF FINAL Differential Comment Blood Urea Nitrogen 8 MG/DL Creatinine 0.34 MG/DL Random Glucose 89 MG/DL Total Protein 5.0 GM/DL Albumin 1.5 GM/DL Calcium Level 7.2 MG/DL Phosphorus Level 2.7 MG/DL Magnesium Level 1.3 MG/DL Alkaline Phosphatase 138 U/L Aspartate Amino Transf (AST/SGOT) 11 U/L Alanine Aminotransferase (ALT/SGPT) 13 U/L Total Bilirubin 0.4 MG/DL Sodium Level 133 MEQ/L Potassium Level 3.2 MEQ/L Chloride Level 96 MEQ/L Carbon Dioxide Level 30.9 MEQ/L Anion Gap 6 MEQ/L Estimat Glomerular Filtration Rate 195 ML/MIN Protein Corrected Calcium 8.3 MG/DL Date/Time Source Procedure Growth Status 01/10/17 08:45 Blood Peripheral Aerobic Blood Culture Pending Received 01/10/17 08:45 Blood Peripheral Anaerobic Blood Culture Pending Received Physical Examination GEN: cacechtic HEENT: PERRL; normocephalic; atraumatic; no jaundice. CHEST: rhonchi, coughing CARDIAC: RRR ABDOMEN: Soft, nondistended, nontender; no hepatosplenomegaly; bowel sounds are present in all four quadrants. EXTREMITIES: No clubbing, cyanosis, or edema. SKIN: Normal; no rash; no jaundice. BUILD ENGINEER: weak, lethargic (Rosy Allred) Assessment and Plan Plan ASSESSMENT - poor po intake - pt not interested in eating. hx oropharyngeal SCCA with mets to lung and bone. pt is unsure about EGD with PEG tube placement at this time. PEG tube unlikely to change outcome. d/w palliative care - pt generally defers to for decisions, palliative care has been unable to contact today and plans to d/w him. when I asked pt if she wanted me to talk to her she said no, that she wants to talk to him. PLAN - await pt decision - supportive care - notify GI if pt desires PEG tube This pt seen by myself and Dr Quijano and this note is written on his behalf (Rosy Allred) Physician Comments Seen and examined with BELLSTAND ATTENDANT, no consensus yet regarding peg. Family meeting today. Will proceed once consents obtained perhaps on sunday. Discussed with pt. and son. Thankyou (Maddie Quijano MD) Rosy Allred Jan 10, 2017 13:52 Maddie Quijano MD Jan 10, 2017 17:02
--- NOTE | 2017-01-10 16:17 | HHI.PR ---
Subjective Remarks Patient feels tired and complains of pain all over her body. tachycardic. bp stable. Objective Vitals Vital Signs Date Time Temp Pulse Resp B/P (MAP) Pulse Ox O2 Delivery O2 Flow Rate FiO2 01/10/17 12:05 97 01/10/17 12:00 98.8 98 14 105/59 (74) 98 01/10/17 10:43 92 Nasal Cannula 5.00 01/10/17 08:05 124 01/10/17 08:00 98.5 111 16 107/56 (73) 92 01/10/17 07:15 Nasal Cannula 4.00 01/10/17 07:00 19 01/10/17 04:18 111 01/10/17 04:00 98.0 91 21 105/57 (73) 95 01/10/17 00:07 106 01/10/17 00:00 98.0 97 19 100/54 (69) 93 01/09/17 22:24 19 01/09/17 22:00 98.5 96 18 98/50 (66) 98 01/09/17 20:48 93 01/09/17 20:05 Nasal Cannula 4.00 01/09/17 17:37 92 Nasal Cannula 6.00 I/O 01/09/17 01/09/17 01/09/17 01/10/17 01/10/17 01/10/17 07:00 15:00 23:00 07:00 15:00 23:00 Intake Total 960 ml 730 ml 380 ml Output Total 950 ml 400 ml 950 ml Balance 10 ml 330 ml -570 ml Intake Oral 460 ml 480 ml 280 ml IV Total 500 ml 250 ml 100 ml Output Urine Total 950 ml 400 ml 950 ml # Bowel Movements 1 0 0 Result Diagram: 01/10/17 0545 01/10/17 0545 Imaging Last Impressions Chest X-Ray 01/09/17 0000 Signed Impressions: Service Date/Time: Monday, January 09, 2017 21:35 - CONCLUSION: 1. Persistent diffuse infiltrates bilaterally consistent with probable pneumonia. Clinical correlation is recommended. 2. Small left pleural effusion. Olayinka Jones MD CT Angiography 01/03/17 193 Signed Impressions: Service Date/Time: Tuesday, January 03, 2017 21:50 - CONCLUSION: 1. Severe COPD, most prominent in the apices. Scattered areas of parenchymal scarring. 2. Large, 7.7 x 4.3 cm pleural-based mass lesion in the left lower lobe. Associated bony destruction and cortical irregularity of the left posterior seventh and eighth ribs. 3. Left hilar and mediastinal adenopathy. Largest node in the AP window measures 5.7 cm in diameter with some impingement on the left pulmonary artery but the vessel does remain patent without pulmonary embolus. Sunny Farfan MD Maxillofacial CT 01/03/17 0000 Signed Impressions: Service Date/Time: Tuesday, January 03, 2017 21:47 - CONCLUSION: No fracture. Sunny Farfan MD Head CT 01/03/17 0000 Signed Impressions: Service Date/Time: Tuesday, January 03, 2017 21:46 - CONCLUSION: Negative exam. Sunny Farfan MD Objective Remarks GENERAL:cachectic- in no acute distress. SKIN: No rashes, ecchymoses or lesions. Cool and dry. HEAD: Atraumatic. Normocephalic. No temporal or scalp tenderness. EYES: Pupils equal round and reactive. Extraocular motions intact. No scleral icterus. No injection or drainage. ENT: Nose without bleeding, purulent drainage or septal hematoma. Throat without erythema, tonsillar hypertrophy or exudate. Uvula midline. Airway patent. NECK: Trachea midline. No JVD or lymphadenopathy. Supple, nontender, no meningeal signs. CARDIOVASCULAR: Regular rate and rhythm without murmurs, gallops, or rubs. RESPIRATORY: Clear to auscultation. Breath sounds equal bilaterally. No wheezes , rales, or rhonchi. GASTROINTESTINAL: Abdomen soft, non-tender, nondistended. No hepato-splenomegaly , or palpable masses. No guarding. MUSCULOSKELETAL: Extremities without clubbing, cyanosis, or edema. No joint tenderness, effusion, or edema noted. No calf tenderness. Negative Homans sign bilaterally. NEUROLOGICAL: Awake and alert. Cranial nerves II through XII intact. Motor and sensory grossly within normal limits. Five out of 5 muscle strength in all muscle groups. Normal speech. Medications and IVs Current Medications Medications (Trade) Dose Ordered Sig/Acacia Route Start Time Stop Time Status Last Admin (NS Flush) 2 ml UNSCH PRN IV FLUSH 01/03/17 23:00 01/08/17 00:11 (NS Flush) 2 ml BID IV FLUSH 01/04/17 09:00 01/10/17 09:15 (Narcan Inj) 0.4 mg UNSCH PRN IV PUSH 01/03/17 23:00 Diltiazem HCl 125 mg/Sodium Chloride 125 ml @ 5 mls/hr TITRATE PRN IV 01/03/17 23:00 Future Hold 01/04/17 07:11 (Oramorph Sr) 30 mg Q12HR PO 01/04/17 09:00 01/10/17 09:11 (Xanax) 0.5 mg Q6H PRN PO 01/04/17 08:30 01/09/17 22:55 (Duragesic 25 Mcg Patch.72 Hr) 1 patch Q72H T-DERMAL 01/04/17 09:00 01/10/17 09:11 (Megace) 40 mg DAILY PO 01/04/17 09:00 01/10/17 09:11 (Roxicodone) 5 mg Q4H PRN PO 01/04/17 08:30 01/10/17 10:35 (Pravachol) 40 mg DAILY PO 01/04/17 09:00 01/10/17 09:11 (Zofran Inj) 4 mg Q8HR PRN IV PUSH 01/04/17 08:30 (Lovenox Inj) 40 mg Q24H SQ 01/04/17 09:00 01/10/17 09:11 Miscellaneous Information 1 Q3D T-DERMAL 01/07/17 09:00 01/10/17 09:00 (Cardizem Cd) 120 mg DAILY PO 01/06/17 09:00 Future Hold 01/08/17 09:09 (Duoneb Neb) 1 ampule Q2HR NEB PRN NEB 01/07/17 14:45 (K-Phos Neutral) 250 mg Q6HR PO 01/09/17 00:15 01/10/17 12:00 Vancomycin HCl 1000 mg/Sodium Chloride 250 ml @ 250 mls/hr Q12H IV 01/09/17 10:00 01/10/17 10:02 Piperacillin Sod/ Tazobactam Sod 100 ml @ 200 mls/hr Q8H IV 01/09/17 11:00 01/10/17 11:21 (Magic Mouthwash Adult Liq) 5 ml QID SWISH-SWAL 01/10/17 13:00 A/P Problem List: (1) Weakness ICD Code: R53.1 - Weakness (2) Syncope ICD Code: R55 - Syncope and collapse Status: Acute (3) Atrial fibrillation with RVR ICD Code: I48.91 - Unspecified atrial fibrillation Status: Acute (4) Acute hypoxemic respiratory failure ICD Code: J96.01 - Acute respiratory failure with hypoxia Status: Acute Plan: O2 sats dropped into the mid 80s and patient does not require 4 L nasal cannula. Chest x-ray ordered by me showed worsening aeration concordant with fluid overload. We'll discontinue IV fluids and give a dose of IV Lasix. 01/08 patient still requiring higher levels of oxygen, continue supplemental o2 to keep o2 sat >92%. Will give lasix IV. 01/10 repeat chest x-ray shows bilateral lower lobe infiltrates. Continue IV vancomycin and IV Zosyn. Continue supplemental oxygen to keep oxygen saturation more than 92%. (5) Hyponatremia ICD Code: E87.1 - Hypo-osmolality and hyponatremia Status: Resolved Plan: Acute on chronic anemia. On admission 131, improved back to 135 after IV normal saline administration. 01/08 sodium back down to 131. Continue to monitor BMP. 01/10 sodium trending up, now 133. Continue to monitor BMP. (6) Hypokalemia ICD Code: E87.6 - Hypokalemia Plan: Replace with oral potassium chloride and continue to monitor BMP. (7) Squamous cell cancer of tongue ICD Code: C02.9 - Malignant neoplasm of tongue, unspecified Status: Acute (8) Leukocytosis ICD Code: D72.829 - Elevated white blood cell count, unspecified Plan: Patient initially afebrile with elevated wbc count trending down. Continue to monitor cbc w diff. (9) Hypophosphatemia ICD Code: E83.39 - Other disorders of phosphorus metabolism Plan: Due to poor oral intake - Continue oral neutraphos. (10) Severe protein-calorie malnutrition ICD Code: E43 - Unspecified severe protein-calorie malnutrition Plan: BMI of 15.1 and low albumin. Clothespin Drier Operator consulted. Recommended Enlive shakes tid and Ensure pudding bid for additional calories and protein. 01/10 Discussed the case at length with palliative care who is waiting to speak to the patient's will is now requiring a feeding tube. K will consult GI for evaluation for feeding tube placement. (11) Sepsis ICD Code: A41.9 - Sepsis, unspecified organism Status: Acute Plan: Patient with tachycardia, hypoxemia, and hypotension. check actic acid. Will give IV fluid bolus. repeat cxr, check urinalysis, check lactic acid - will start on gentle IV fluids pending x ray. sepsis due to HCAP as shown on CXR 01/09/17 - continue IV vancomycin and IV Zosyn. (12) Hypomagnesemia ICD Code: E83.42 - Hypomagnesemia Plan: Due to poor oral intake. I will replace with IV magnesium sulfate. Continue to monitor magnesium levels. (13) Hypocalcemia ICD Code: E83.51 - Hypocalcemia Plan: Also secondary to poor oral intake. Replace calcium with IV calcium chloride and monitor calcium levels. Assessment and Plan A/P -a-fib with RVR started on IV Cardizem drip- start on PO cardizem and will try to taper off the cardizem drip- check echo and consult cardiology. 01/05 2-D echocardiogram shows a normal left ventricular ejection fraction with an estimated EF of 55-60% and no regional wall motion abnormalities. Mild mitral valve regurgitation and mild tricuspid valve regurgitation. Appreciate Dr. Fraser consultation recommendations. 01/09 Heart rate uncontrolled. Will load with IV digoxin. hold IV Cardizem due to hypotension. -syncope/ generalized weakness- likely due to poor oral intake fall precautions- Continue Megestrol and consult retail administrative assistant. continue to monitor on telemetry. consult PT. 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 01/09 discussed case with hospice nurse - patient's is requesting feeding tube. Will consult palliative care to address goals of care. -anemia due to chronic disease- will monitor for now. Hemoglobin trending down from 10.1-9.0. However patient awaiting hospice consult and requesting comfort measures only. 01/08 Patient's requesting a feeding tube. -hypertension; hold lisinopril since she's been started on Cardizem- will monitor and adjust the regimen as needed. 01/09 BP on the lower side - boyd hold cardizem drip. If heart rate increases then will give digoxin. - HCAP: Repeat chest x-ray obtained on 01/09/17 shows a persistent diffuse infiltrates bilaterally consistent with probable pneumonia. Small pleural effusion. Continue IV vancomycin and IV Zosyn. Blood cultures pending. -DVT prophylaxis with subq Lovenox Discharge Planning Pending palliative care consultation. Pending clinical improvement. Problem Qualifiers (1) Syncope: Qualified Codes: R55 - Syncope and collapse Primitivo Medina MD Jan 10, 2017 16:17
[2017-01-10] MEDS ORDERED: POTASSIUM CHLORIDE 25 MEQ EFFERVESCENT TAB PO ONE (17:00)
[2017-01-11] VITALS (9 sets, daily range): BP systolic 88–111; BP diastolic 56–68; PULSE 84–98; RESP 18–24; TEMP 97.5–98.2; O2SAT 90–99
[2017-01-11] MEDS: POTASSIUM PHOSPHATE/SODIUM PHOSPHATE 250 MG TAB PO SCH ×5 (00:38→23:57)
[2017-01-11] MEDS: PIPERACIL-TAZO 4.5 GM PREMIX 100 ML IV SCH ×3 (03:10→18:10)
[2017-01-11] MEDS: ALPRAZolam 0.5 MG TAB PO PRN (05:39)
[2017-01-11] MEDS: NYSTAT/DIPHENHY/LIDO MOUTHWASH (Adult) 120ML SWISH-SWAL SCH ×4 (09:13→20:39)
[2017-01-11] MEDS: MEGESTROL ACETATE 40 MG TAB PO SCH (09:13)
[2017-01-11] MEDS: ENOXAPARIN SODIUM 40 MG/0.4 ML SYRINGE SQ SCH (09:13)
[2017-01-11] MEDS: PRAVASTATIN SOD 40 MG TAB PO SCH (09:13)
[2017-01-11] MEDS: SODIUM CHLORIDE 0.9% FLUSH 10 ML FLUSH IV FLUSH SCH ×2 (09:14→20:39)
[2017-01-11] MEDS: MORPHINE SULFATE 30 MG CONTROLLED RELEASE TAB PO SCH ×2 (09:14→20:38)
[2017-01-11] MEDS: VANCOMYCIN INJ 1,000 MG in SODIUM CHLOR 0.9% 250 ML INJ 250 ML IV SCH ×2 (10:05→21:55)
[2017-01-11 10:33] LABS: AUTOMATED NEUTROPHIL # 8.5 TH/MM3 (1.8-7.7); BASOPHIL # 0.1 TH/MM3 (0-0.2); BASOPHIL % 0.7 % (0.0-2.0); EOSINOPHIL # 0.2 TH/MM3 (0-0.4); EOSINOPHIL % 2.3 % (0.0-4.0); HEMATOCRIT 28.8 % (35.0-46.0); HEMO FLAGS DIFF FINAL; LYMPH % 1.9 % (9.0-44.0); LYMPHOCYTE # 0.2 TH/MM3 (1.0-4.8); MEAN CELL VOLUME 86.3 FL (80.0-100.0); MEAN CORPUSCULAR HEMOGLOBIN 28.4 PG (27.0-34.0); MEAN CORPUSCULAR HGB CONC 32.9 % (32.0-36.0); MONO % 9.8 % (0.0-8.0); NEUT % 85.3 % (16.0-70.0); PLATELET COUNT 390 TH/MM3 (150-450); RED BLOOD COUNT 3.33 MIL/MM3 (4.00-5.30); RED CELL DISTRIBUTION WIDTH 14.2 % (11.6-17.2); WHITE BLOOD COUNT 9.9 TH/MM3 (4.0-11.0)
[2017-01-11 10:50] LABS: ALKALINE PHOSPHATASE 131 U/L (45-117); ALT (GPT) 10 U/L (10-53); ANION GAP 8 MEQ/L (5-15); AST (GOT) 18 U/L (15-37); BLOOD UREA NITROGEN 12 MG/DL (7-18); CHLORIDE 96 MEQ/L (98-107); GLOMERULAR FILTRATION RATE 70 ML/MIN (>89); MAGNESIUM 1.8 MG/DL (1.5-2.5); POTASSIUM 3.4 MEQ/L (3.5-5.1); SODIUM (NA) 134 MEQ/L (136-145); TOTAL BILIRUBIN ADULT 0.4 MG/DL (0.2-1.0)
--- NOTE | 2017-01-11 13:25 | HHI.HCPN ---
Hospice care was consulted on this patient, however the patient's is now asking about PEG tube placement. Attempts were made to call patient's spouse (Gene Wagoner) on both available phone numbers ([phone] and [phone]) twice today to schedule a family meeting to clarify medical treatment goals. Messages were left on both voicemail with palliative care contact information. Awaiting return phone calls. . Belinda Sandres Jan 11, 2017 13:25
--- NOTE | 2017-01-11 15:13 | HHI.GIFU ---
Subjective Remarks Pt resting in bed, father-in law is in the room with her. Pt denies having anything to eat today. Pt is still unsure whether to proceed with the PEG tube. Per palliative care notes, they attempted to contact the on two separate number to schedule a family meeting, but have been unable to reach him. Awaiting call back. (Patti Salgado) Objective Vitals I&O Vital Signs Date Time Temp Pulse Resp B/P (MAP) Pulse Ox O2 Delivery O2 Flow Rate FiO2 01/11/17 12:00 92 01/11/17 12:00 98.2 93 20 104/66 (79) 97 01/11/17 08:00 97.6 91 20 111/67 (82) 93 01/11/17 08:00 88 01/11/17 07:15 Nasal Cannula 4.00 01/11/17 04:00 Nasal Cannula 4.00 01/11/17 04:00 84 01/11/17 04:00 97.5 91 20 102/68 (79) 95 01/11/17 00:00 Nasal Cannula 4.00 01/11/17 00:00 91 01/11/17 00:00 97.7 91 20 102/62 (75) 95 01/10/17 20:00 98.0 105 22 94/55 (68) 95 01/10/17 20:00 Nasal Cannula 4.00 01/10/17 19:45 108 01/10/17 16:10 98 01/10/17 16:00 97.7 107 14 100/66 (77) 98 I/O 01/10/17 01/10/17 01/10/17 01/11/17 01/11/17 01/11/17 07:00 15:00 23:00 07:00 15:00 23:00 Intake Total 380 ml 590 ml 580 ml Output Total 950 ml 700 ml Balance -570 ml -110 ml 580 ml Intake Oral 280 ml 240 ml 480 ml IV Total 100 ml 350 ml 100 ml Output Urine Total 950 ml 700 ml # Bowel Movements 0 0 Laboratory Laboratory Tests Test 01/11/17 10:10 White Blood Count 9.9 Red Blood Count 3.33 Hemoglobin 9.4 Hematocrit 28.8 Mean Corpuscular Volume 86.3 Mean Corpuscular Hemoglobin 28.4 Mean Corpuscular Hemoglobin Concent 32.9 Red Cell Distribution Width 14.2 Platelet Count 390 Mean Platelet Volume 7.9 Neutrophils (%) (Auto) 85.3 Lymphocytes (%) (Auto) 1.9 Monocytes (%) (Auto) 9.8 Eosinophils (%) (Auto) 2.3 Basophils (%) (Auto) 0.7 Neutrophils # (Auto) 8.5 Lymphocytes # (Auto) 0.2 Monocytes # (Auto) 1.0 Eosinophils # (Auto) 0.2 Basophils # (Auto) 0.1 CBC Comment DIFF FINAL Differential Comment Blood Urea Nitrogen 12 Creatinine 0.83 Random Glucose 102 Total Protein 5.6 Albumin 1.6 Calcium Level 8.8 Phosphorus Level 4.1 Magnesium Level 1.8 Alkaline Phosphatase 131 Aspartate Amino Transf (AST/SGOT) 18 Alanine Aminotransferase (ALT/SGPT) 10 Total Bilirubin 0.4 Sodium Level 134 Potassium Level 3.4 Chloride Level 96 Carbon Dioxide Level 30.0 Anion Gap 8 Estimat Glomerular Filtration Rate 70 Date/Time Source Procedure Growth Status 01/10/17 08:45 Blood Peripheral Aerobic Blood Culture - Preliminary NO GROWTH IN 1 DAY Resulted 01/10/17 08:45 Blood Peripheral Anaerobic Blood Culture - Preliminary NO GROWTH IN 1 DAY Resulted Imaging Last Impressions Chest X-Ray 01/09/17 0000 Signed Impressions: Service Date/Time: Monday, January 09, 2017 21:35 - CONCLUSION: 1. Persistent diffuse infiltrates bilaterally consistent with probable pneumonia. Clinical correlation is recommended. 2. Small left pleural effusion. Olayinka Jones MD CT Angiography 01/03/17 193 Signed Impressions: Service Date/Time: Tuesday, January 03, 2017 21:50 - CONCLUSION: 1. Severe COPD, most prominent in the apices. Scattered areas of parenchymal scarring. 2. Large, 7.7 x 4.3 cm pleural-based mass lesion in the left lower lobe. Associated bony destruction and cortical irregularity of the left posterior seventh and eighth ribs. 3. Left hilar and mediastinal adenopathy. Largest node in the AP window measures 5.7 cm in diameter with some impingement on the left pulmonary artery but the vessel does remain patent without pulmonary embolus. Sunny Farfan MD Maxillofacial CT 01/03/17 0000 Signed Impressions: Service Date/Time: Tuesday, January 03, 2017 21:47 - CONCLUSION: No fracture. Sunny Farfan MD Head CT 01/03/17 0000 Signed Impressions: Service Date/Time: Tuesday, January 03, 2017 21:46 - CONCLUSION: Negative exam. Sunny Farfan MD Physical Exam HEENT: Normocephalic; atraumatic CHEST: CTA CARDIAC: RRR ABDOMEN: cachectic, no hepatosplenomegaly; bowel sounds active x 4. EXTREMITIES: No clubbing, cyanosis, or edema. SKIN: Normal; no rash; no jaundice. 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 Pt hesitant about PEG tube placement and is not ready to make the decision at this time. Palliative care consulted- they attempted to call the on two separate numbers to schedule for family meeting with no answer- awaiting call back. Father-in law present at time of my exam. Pt is oriented x 3 and answers questions appropriately. PLAN - Pending pts decision regarding possible PEG tube - Please notify GI of pts decision - Supportive care This patient has been seen and examined by myself and Dr. Quijano and this note is written on his behalf (Patti Salgado) Physician Comments Seen and examined with MARY. decision regarding peg pending. (Maddie Quijano MD) Patti Salgado Jan 11, 2017 15:13 Maddie Quijano MD Jan 11, 2017 16:14
--- NOTE | 2017-01-11 15:34 | PD.CARD.PN ---
Subjective Subjective Remarks alert in nad Objective Medications Current Medications Medications (Trade) Dose Ordered Sig/Acacia Route Start Time Stop Time Status Last Admin (NS Flush) 2 ml UNSCH PRN IV FLUSH 01/03/17 23:00 01/08/17 00:11 (NS Flush) 2 ml BID IV FLUSH 01/04/17 09:00 01/11/17 09:14 (Narcan Inj) 0.4 mg UNSCH PRN IV PUSH 01/03/17 23:00 Diltiazem HCl 125 mg/Sodium Chloride 125 ml @ 5 mls/hr TITRATE PRN IV 01/03/17 23:00 Future Hold 01/04/17 07:11 (Oramorph Sr) 30 mg Q12HR PO 01/04/17 09:00 01/11/17 09:14 (Xanax) 0.5 mg Q6H PRN PO 01/04/17 08:30 01/11/17 05:39 (Duragesic 25 Mcg Patch.72 Hr) 1 patch Q72H T-DERMAL 01/04/17 09:00 01/10/17 09:11 (Megace) 40 mg DAILY PO 01/04/17 09:00 01/11/17 09:13 (Roxicodone) 5 mg Q4H PRN PO 01/04/17 08:30 01/11/17 12:07 (Pravachol) 40 mg DAILY PO 01/04/17 09:00 01/11/17 09:13 (Zofran Inj) 4 mg Q8HR PRN IV PUSH 01/04/17 08:30 (Lovenox Inj) 40 mg Q24H SQ 01/04/17 09:00 01/11/17 09:13 Miscellaneous Information 1 Q3D T-DERMAL 01/07/17 09:00 01/10/17 09:00 (Cardizem Cd) 120 mg DAILY PO 01/06/17 09:00 Future Hold 01/08/17 09:09 (Duoneb Neb) 1 ampule Q2HR NEB PRN NEB 01/07/17 14:45 (K-Phos Neutral) 250 mg Q6HR PO 01/09/17 00:15 01/11/17 12:06 Vancomycin HCl 1000 mg/Sodium Chloride 250 ml @ 250 mls/hr Q12H IV 01/09/17 10:00 01/11/17 10:05 Piperacillin Sod/ Tazobactam Sod 100 ml @ 200 mls/hr Q8H IV 01/09/17 11:00 01/11/17 11:36 (Magic Mouthwash Adult Liq) 5 ml QID SWISH-SWAL 01/10/17 13:00 01/11/17 12:05 Vital Signs / I&O Vital Signs Date Time Temp Pulse Resp B/P (MAP) Pulse Ox O2 Delivery O2 Flow Rate FiO2 01/11/17 12:00 92 01/11/17 12:00 98.2 93 20 104/66 (79) 97 01/11/17 08:00 97.6 91 20 111/67 (82) 93 01/11/17 08:00 88 01/11/17 07:15 Nasal Cannula 4.00 01/11/17 04:00 Nasal Cannula 4.00 01/11/17 04:00 84 01/11/17 04:00 97.5 91 20 102/68 (79) 95 01/11/17 00:00 Nasal Cannula 4.00 01/11/17 00:00 91 01/11/17 00:00 97.7 91 20 102/62 (75) 95 01/10/17 20:00 98.0 105 22 94/55 (68) 95 01/10/17 20:00 Nasal Cannula 4.00 01/10/17 19:45 108 01/10/17 16:10 98 01/10/17 16:00 97.7 107 14 100/66 (77) 98 I/O 01/10/17 01/10/17 01/10/17 01/11/17 01/11/17 01/11/17 07:00 15:00 23:00 07:00 15:00 23:00 Intake Total 380 ml 590 ml 580 ml Output Total 950 ml 700 ml Balance -570 ml -110 ml 580 ml Intake Oral 280 ml 240 ml 480 ml IV Total 100 ml 350 ml 100 ml Output Urine Total 950 ml 700 ml # Bowel Movements 0 0 Physical Exam GENERAL: SKIN: Warm and dry. HEAD: Normocephalic. EYES: No scleral icterus. No injection or drainage. NECK: Supple, trachea midline. No JVD or lymphadenopathy. CARDIOVASCULAR: Regular rate and rhythm without murmurs, gallops, or rubs. RESPIRATORY: Breath sounds equal bilaterally. No accessory muscle use. GASTROINTESTINAL: Abdomen soft, non-tender, nondistended. MUSCULOSKELETAL: No cyanosis, or edema. BACK: Nontender without obvious deformity. No CVA tenderness. Laboratory Laboratory Tests Test 01/11/17 10:10 White Blood Count 9.9 TH/MM3 Red Blood Count 3.33 MIL/MM3 Hemoglobin 9.4 GM/DL Hematocrit 28.8 % Mean Corpuscular Volume 86.3 FL Mean Corpuscular Hemoglobin 28.4 PG Mean Corpuscular Hemoglobin Concent 32.9 % Red Cell Distribution Width 14.2 % Platelet Count 390 TH/MM3 Mean Platelet Volume 7.9 FL Neutrophils (%) (Auto) 85.3 % Lymphocytes (%) (Auto) 1.9 % Monocytes (%) (Auto) 9.8 % Eosinophils (%) (Auto) 2.3 % Basophils (%) (Auto) 0.7 % Neutrophils # (Auto) 8.5 TH/MM3 Lymphocytes # (Auto) 0.2 TH/MM3 Monocytes # (Auto) 1.0 TH/MM3 Eosinophils # (Auto) 0.2 TH/MM3 Basophils # (Auto) 0.1 TH/MM3 CBC Comment DIFF FINAL Differential Comment Blood Urea Nitrogen 12 MG/DL Creatinine 0.83 MG/DL Random Glucose 102 MG/DL Total Protein 5.6 GM/DL Albumin 1.6 GM/DL Calcium Level 8.8 MG/DL Phosphorus Level 4.1 MG/DL Magnesium Level 1.8 MG/DL Alkaline Phosphatase 131 U/L Aspartate Amino Transf (AST/SGOT) 18 U/L Alanine Aminotransferase (ALT/SGPT) 10 U/L Total Bilirubin 0.4 MG/DL Sodium Level 134 MEQ/L Potassium Level 3.4 MEQ/L Chloride Level 96 MEQ/L Carbon Dioxide Level 30.0 MEQ/L Anion Gap 8 MEQ/L Estimat Glomerular Filtration Rate 70 ML/MIN Assessment and Plan Problem List: (1) Nutrition, metabolism, and development symptoms ICD Codes: R63.8 - Other symptoms and signs concerning food and fluid intake Status: Acute (2) Squamous cell carcinoma of neck ICD Codes: C44.42 - Squamous cell carcinoma of skin of scalp and neck Status: Acute (3) Mass of left lung ICD Codes: R91.8 - Other nonspecific abnormal finding of lung field Status: Acute (4) 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: C02.9 - Malignant neoplasm of tongue, unspecified Status: Acute (5) Atrial fibrillation with RVR ICD Codes: I48.91 - Unspecified atrial fibrillation Status: Acute Assessment and Plan 1.) PAF - rate intermittently controlled, assymptomatic, Dr Solorzano rec no ac, change cardizem to xr, patient has not committed to hospice, has deferred descision to [facility], palliative care following, dig loaded by Dr Vo, ; hypotension in contraindication for higher cardizem dose 2.) Cv care appears to be futile to overall prognosis and patient is assymptomatic from cv standpoint Tomas Fraser MD Jan 11, 2017 15:34
--- NOTE | 2017-01-11 19:10 | HHI.PR ---
Subjective Remarks Patient c/o generalized body aches. denies sob bp improved. Objective Vitals Vital Signs Date Time Temp Pulse Resp B/P (MAP) Pulse Ox O2 Delivery O2 Flow Rate FiO2 01/11/17 17:22 95 Nasal Cannula 5.00 01/11/17 16:00 98.2 94 18 91/60 (70) 99 01/11/17 16:00 90 01/11/17 12:00 92 01/11/17 12:00 98.2 93 20 104/66 (79) 97 01/11/17 08:00 97.6 91 20 111/67 (82) 93 01/11/17 08:00 88 01/11/17 07:15 Nasal Cannula 4.00 01/11/17 04:00 Nasal Cannula 4.00 01/11/17 04:00 84 01/11/17 04:00 97.5 91 20 102/68 (79) 95 01/11/17 00:00 Nasal Cannula 4.00 01/11/17 00:00 91 01/11/17 00:00 97.7 91 20 102/62 (75) 95 01/10/17 20:00 98.0 105 22 94/55 (68) 95 01/10/17 20:00 Nasal Cannula 4.00 01/10/17 19:45 108 I/O 01/10/17 01/10/17 01/10/17 01/11/17 01/11/17 01/11/17 07:00 15:00 23:00 07:00 15:00 23:00 Intake Total 380 ml 590 ml 580 ml 720 ml Output Total 950 ml 700 ml 600 ml Balance -570 ml -110 ml 580 ml 120 ml Intake Oral 280 ml 240 ml 480 ml 720 ml IV Total 100 ml 350 ml 100 ml Output Urine Total 950 ml 700 ml 600 ml # Bowel Movements 0 0 1 Result Diagram: 01/11/17 1010 01/11/17 1010 Objective Remarks GENERAL:cachectic- in no acute distress. SKIN: No rashes, ecchymoses or lesions. Cool and dry. HEAD: Atraumatic. Normocephalic. No temporal or scalp tenderness. EYES: Pupils equal round and reactive. Extraocular motions intact. No scleral icterus. No injection or drainage. ENT: Nose without bleeding, purulent drainage or septal hematoma. Throat without erythema, tonsillar hypertrophy or exudate. Uvula midline. Airway patent. NECK: Trachea midline. No JVD or lymphadenopathy. Supple, nontender, no meningeal signs. CARDIOVASCULAR: Regular rate and rhythm without murmurs, gallops, or rubs. RESPIRATORY: Clear to auscultation. Breath sounds equal bilaterally. No wheezes , rales, or rhonchi. GASTROINTESTINAL: Abdomen soft, non-tender, nondistended. No hepato-splenomegaly , or palpable masses. No guarding. MUSCULOSKELETAL: Extremities without clubbing, cyanosis, or edema. No joint tenderness, effusion, or edema noted. No calf tenderness. Negative Homans sign bilaterally. NEUROLOGICAL: Awake and alert. Cranial nerves II through XII intact. Motor and sensory grossly within normal limits. Five out of 5 muscle strength in all muscle groups. Normal speech. A/P Problem List: (1) Weakness ICD Code: R53.1 - Weakness (2) Syncope ICD Code: R55 - Syncope and collapse Status: Acute (3) Atrial fibrillation with RVR ICD Code: I48.91 - Unspecified atrial fibrillation Status: Acute (4) Acute hypoxemic respiratory failure ICD Code: J96.01 - Acute respiratory failure with hypoxia Status: Acute (5) Hyponatremia ICD Code: E87.1 - Hypo-osmolality and hyponatremia Status: Resolved (6) Hypokalemia ICD Code: E87.6 - Hypokalemia (7) Squamous cell cancer of tongue ICD Code: C02.9 - Malignant neoplasm of tongue, unspecified Status: Acute (8) Leukocytosis ICD Code: D72.829 - Elevated white blood cell count, unspecified (9) Hypophosphatemia ICD Code: E83.39 - Other disorders of phosphorus metabolism (10) Severe protein-calorie malnutrition ICD Code: E43 - Unspecified severe protein-calorie malnutrition (11) Sepsis ICD Code: A41.9 - Sepsis, unspecified organism Status: Acute (12) Hypomagnesemia ICD Code: E83.42 - Hypomagnesemia Status: Resolved Plan: Due to poor oral intake. I will replace with IV magnesium sulfate. Continue to monitor magnesium levels. Magnesium level within (13) Hypocalcemia ICD Code: E83.51 - Hypocalcemia Status: Resolved Plan: Also secondary to poor oral intake. Replace calcium with IV calcium chloride and monitor calcium levels. 01/11 level within normal range. Assessment and Plan A/P -a-fib with RVR started on IV Cardizem drip- start on PO cardizem and will try to taper off the cardizem drip- check echo and consult cardiology. 01/05 2-D echocardiogram shows a normal left ventricular ejection fraction with an estimated EF of 55-60% and no regional wall motion abnormalities. Mild mitral valve regurgitation and mild tricuspid valve regurgitation. Appreciate Dr. Fraser consultation recommendations. 01/09 Heart rate uncontrolled. Will load with IV digoxin. hold IV Cardizem due to hypotension. 01/11 Will continue Digoxin for rate control. -syncope/ generalized weakness- likely due to poor oral intake fall precautions- Continue Megestrol and consult carburetor repairer. continue to monitor on telemetry. consult PT. 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 01/09 discussed case with hospice nurse - patient's is requesting feeding tube. Will consult palliative care to address goals of care. 01/11 Discussed with palliative care who has been trying to get in touch with patient's . As per Rn patient was here earlier today and requested feeding tube to be placed. -anemia due to chronic disease- will monitor for now. Hemoglobin trending down from 10.1-9.0. However patient awaiting hospice consult and requesting comfort measures only. 01/08 Patient's requesting a feeding tube. -hypertension; hold lisinopril since she's been started on Cardizem- will monitor and adjust the regimen as needed. 01/09 BP on the lower side - boyd hold cardizem drip. If heart rate increases then will give digoxin. - HCAP: Repeat chest x-ray obtained on 01/09/17 shows a persistent diffuse infiltrates bilaterally consistent with probable pneumonia. Small pleural effusion. Continue IV vancomycin and IV Zosyn. Blood cultures pending. -DVT prophylaxis with subq Lovenox Discharge Planning Pending palliative care consultation. Pending clinical improvement. Problem Qualifiers (1) Syncope: Qualified Codes: R55 - Syncope and collapse Primitivo Medina MD Jan 11, 2017 19:10
[2017-01-12] VITALS (13 sets, daily range): BP systolic 91–109; BP diastolic 52–73; PULSE 87–97; RESP 16–22; TEMP 98–100.2; O2SAT 94–98
[2017-01-12] MEDS: PIPERACIL-TAZO 4.5 GM PREMIX 100 ML IV SCH ×3 (02:53→18:38)
[2017-01-12] MEDS: POTASSIUM PHOSPHATE/SODIUM PHOSPHATE 250 MG TAB PO SCH ×4 (05:14→23:03)
[2017-01-12] MEDS: NYSTAT/DIPHENHY/LIDO MOUTHWASH (Adult) 120ML SWISH-SWAL SCH ×4 (09:11→21:59)
[2017-01-12] MEDS: MORPHINE SULFATE 30 MG CONTROLLED RELEASE TAB PO SCH ×2 (09:12→21:58)
[2017-01-12] MEDS: MEGESTROL ACETATE 40 MG TAB PO SCH (09:12)
[2017-01-12] MEDS: PRAVASTATIN SOD 40 MG TAB PO SCH (09:12)
[2017-01-12] MEDS: ENOXAPARIN SODIUM 40 MG/0.4 ML SYRINGE SQ SCH (09:13)
[2017-01-12] MEDS: SODIUM CHLORIDE 0.9% FLUSH 10 ML FLUSH IV FLUSH SCH ×2 (09:13→21:00)
[2017-01-12] MEDS ORDERED: PHARMACY ORDERED LAB ONE (09:45)
--- NOTE | 2017-01-12 09:45 | PD.CARD.PN ---
Subjective Subjective Remarks alert in nad Objective Medications Current Medications Medications (Trade) Dose Ordered Sig/Acacia Route Start Time Stop Time Status Last Admin (NS Flush) 2 ml UNSCH PRN IV FLUSH 01/03/17 23:00 01/08/17 00:11 (NS Flush) 2 ml BID IV FLUSH 01/04/17 09:00 01/12/17 09:13 (Narcan Inj) 0.4 mg UNSCH PRN IV PUSH 01/03/17 23:00 Diltiazem HCl 125 mg/Sodium Chloride 125 ml @ 5 mls/hr TITRATE PRN IV 01/03/17 23:00 Future Hold 01/04/17 07:11 (Oramorph Sr) 30 mg Q12HR PO 01/04/17 09:00 01/12/17 09:12 (Xanax) 0.5 mg Q6H PRN PO 01/04/17 08:30 01/11/17 05:39 (Duragesic 25 Mcg Patch.72 Hr) 1 patch Q72H T-DERMAL 01/04/17 09:00 01/10/17 09:11 (Megace) 40 mg DAILY PO 01/04/17 09:00 01/12/17 09:12 (Roxicodone) 5 mg Q4H PRN PO 01/04/17 08:30 01/11/17 12:07 (Pravachol) 40 mg DAILY PO 01/04/17 09:00 01/12/17 09:12 (Zofran Inj) 4 mg Q8HR PRN IV PUSH 01/04/17 08:30 (Lovenox Inj) 40 mg Q24H SQ 01/04/17 09:00 01/12/17 09:13 Miscellaneous Information 1 Q3D T-DERMAL 01/07/17 09:00 01/10/17 09:00 (Cardizem Cd) 120 mg DAILY PO 01/06/17 09:00 Future Hold 01/08/17 09:09 (Duoneb Neb) 1 ampule Q2HR NEB PRN NEB 01/07/17 14:45 (K-Phos Neutral) 250 mg Q6HR PO 01/09/17 00:15 01/12/17 05:14 Vancomycin HCl 1000 mg/Sodium Chloride 250 ml @ 250 mls/hr Q12H IV 01/09/17 10:00 Future Hold 01/11/17 21:55 Piperacillin Sod/ Tazobactam Sod 100 ml @ 200 mls/hr Q8H IV 01/09/17 11:00 01/12/17 02:53 (Magic Mouthwash Adult Liq) 5 ml QID SWISH-SWAL 01/10/17 13:00 01/12/17 09:11 Miscellaneous Information SPECIFIC LAB TO BE WENDY... ONCE ONCE .XX 01/12/17 09:45 01/12/17 09:46 Vital Signs / I&O Vital Signs Date Time Temp Pulse Resp B/P (MAP) Pulse Ox O2 Delivery O2 Flow Rate FiO2 01/12/17 08:00 98.0 90 18 105/71 (82) 98 01/12/17 04:25 95 01/12/17 04:00 98.7 97 22 91/52 (65) 94 01/12/17 04:00 Nasal Cannula 4.00 01/12/17 00:00 4.00 01/12/17 00:00 98.5 94 20 99/66 (77) 98 01/11/17 23:12 91 01/11/17 20:04 92 01/11/17 20:00 98.1 98 24 88/56 (67) 90 01/11/17 20:00 Nasal Cannula 4.00 01/11/17 17:22 95 Nasal Cannula 5.00 01/11/17 16:00 98.2 94 18 91/60 (70) 99 01/11/17 16:00 90 01/11/17 12:00 92 01/11/17 12:00 98.2 93 20 104/66 (79) 97 I/O 01/11/17 01/11/17 01/11/17 01/12/17 01/12/17 01/12/17 07:00 15:00 23:00 07:00 15:00 23:00 Intake Total 580 ml 970 ml 820 ml Output Total 600 ml Balance 580 ml 370 ml 820 ml Intake Oral 480 ml 720 ml 720 ml IV Total 100 ml 250 ml 100 ml Output Urine Total 600 ml # Voids 3 # Bowel Movements 1 Physical Exam GENERAL: SKIN: Warm and dry. HEAD: Normocephalic. EYES: No scleral icterus. No injection or drainage. NECK: Supple, trachea midline. No JVD or lymphadenopathy. CARDIOVASCULAR: Regular rate and rhythm without murmurs, gallops, or rubs. RESPIRATORY: Breath sounds equal bilaterally. No accessory muscle use. GASTROINTESTINAL: Abdomen soft, non-tender, nondistended. MUSCULOSKELETAL: No cyanosis, or edema. BACK: Nontender without obvious deformity. No CVA tenderness. Laboratory Laboratory Tests Test 01/11/17 10:10 White Blood Count 9.9 TH/MM3 Red Blood Count 3.33 MIL/MM3 Hemoglobin 9.4 GM/DL Hematocrit 28.8 % Mean Corpuscular Volume 86.3 FL Mean Corpuscular Hemoglobin 28.4 PG Mean Corpuscular Hemoglobin Concent 32.9 % Red Cell Distribution Width 14.2 % Platelet Count 390 TH/MM3 Mean Platelet Volume 7.9 FL Neutrophils (%) (Auto) 85.3 % Lymphocytes (%) (Auto) 1.9 % Monocytes (%) (Auto) 9.8 % Eosinophils (%) (Auto) 2.3 % Basophils (%) (Auto) 0.7 % Neutrophils # (Auto) 8.5 TH/MM3 Lymphocytes # (Auto) 0.2 TH/MM3 Monocytes # (Auto) 1.0 TH/MM3 Eosinophils # (Auto) 0.2 TH/MM3 Basophils # (Auto) 0.1 TH/MM3 CBC Comment DIFF FINAL Differential Comment Blood Urea Nitrogen 12 MG/DL Creatinine 0.83 MG/DL Random Glucose 102 MG/DL Total Protein 5.6 GM/DL Albumin 1.6 GM/DL Calcium Level 8.8 MG/DL Phosphorus Level 4.1 MG/DL Magnesium Level 1.8 MG/DL Alkaline Phosphatase 131 U/L Aspartate Amino Transf (AST/SGOT) 18 U/L Alanine Aminotransferase (ALT/SGPT) 10 U/L Total Bilirubin 0.4 MG/DL Sodium Level 134 MEQ/L Potassium Level 3.4 MEQ/L Chloride Level 96 MEQ/L Carbon Dioxide Level 30.0 MEQ/L Anion Gap 8 MEQ/L Estimat Glomerular Filtration Rate 70 ML/MIN Assessment and Plan Problem List: (1) Nutrition, metabolism, and development symptoms ICD Codes: R63.8 - Other symptoms and signs concerning food and fluid intake Status: Acute (2) Squamous cell carcinoma of neck ICD Codes: C44.42 - Squamous cell carcinoma of skin of scalp and neck Status: Acute (3) Mass of left lung ICD Codes: R91.8 - Other nonspecific abnormal finding of lung field Status: Acute (4) 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: 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
--- NOTE | 2017-01-12 11:32 | HHI.HCPN ---
Reason for visit a. To assist with evaluation and management of symptoms including: pain, debility, poor appetite b. To assist medical decision maker(s) with: better understanding of current medical conditions; weighing benefits/burdens of medical treatment options; making medical treatment decisions. . Subjective/Interval History Follow-up visit for symptom management and clarification of treatment goals. Patient was seen and assessed in room 1436. Patient's spouse and father in law were also present. Patient is alert and oriented to person place and time. Atrial fibrillation rate is somewhat controlled on oral Cardizem; patient is asymptomatic.Blood pressure was borderline low overnight but has improved this morning. Follow-up chest x-ray on 01/09/17 showing persistent diffuse infiltrates bilaterally consistent with probable pneumonia and small left pleural effusion. Patient denies shortness of breath on exam. Oxygen saturations are in the mid to high 90s on 4-5L via nasal cannula. DuoNebs are available q2 hours as needed for SOB and wheezing. Persistent pain in her lower back and left torso that is described as aching and rated 8 out of 10, also complaining of generalized malaise. Current orders for Oramorph 30 mgPO every 12 hours, fentanyl Duragesic patch 25 g every 72 hours and oxycodone PO every 4 hours as needed for breakthrough pain. Patient has required PRN oxycodone 5 mg 1 in the past 24 hours. Patient reports her oral/throat pain has decreased since starting on Magic Mouthwash QID. Significantly debilitated with poor balance resulting in multiple falls. She is cachectic and her PO intake remains poor. Current BMI 14.1 and Albumin 1.6 Patient/spouse have to decided to proceed with PEG tube placement pending evaluation by gastroenterology. Plan is for hospice with the care center placement status post PEG tube. . Family/friend interactions Patient and her have decided to proceed with PEG tube placement if she is a candidate for the procedure, then transition to comfort focused goals with placement at a hospice care center. . Advance Directives Advance Directive Specifics Documented care wishes: No known documented care wishes were completed. . Significant change in goals: Patient and her have decided to proceed with PEG tube placement if she is a candidate for the procedure, then transition to comfort focused goals with placement at a hospice care center. . Objective Vital Signs Date Time Temp Pulse Resp B/P (MAP) Pulse Ox O2 Delivery O2 Flow Rate FiO2 12/8/17 10:25 94 Nasal Cannula 4.00 01/12/17 08:00 98.0 90 18 105/71 (82) 98 01/12/17 04:25 95 01/12/17 04:00 98.7 97 22 91/52 (65) 94 01/12/17 04:00 Nasal Cannula 4.00 01/12/17 00:00 4.00 01/12/17 00:00 98.5 94 20 99/66 (77) 98 01/11/17 23:12 91 01/11/17 20:04 92 01/11/17 20:00 98.1 98 24 88/56 (67) 90 01/11/17 20:00 Nasal Cannula 4.00 01/11/17 17:22 95 Nasal Cannula 5.00 01/11/17 16:00 98.2 94 18 91/60 (70) 99 01/11/17 16:00 90 01/11/17 12:00 92 01/11/17 12:00 98.2 93 20 104/66 (79) 97 Intake & Output 01/12/17 01/12/17 07:00 19:00 Intake Total 1070 ml Balance 1070 ml Intake Oral 720 ml IV Total 350 ml # Voids 3 Physical Exam CONSTITUTIONAL/GENERAL: This is a cachectic 61-year-old female who is in now acute distress TUBES/LINES/DRAINS: Implanted VAD, nasal cannula. SKIN: No jaundice, rashes, or lesions. Poor skin turgor. Skin temperature appropriate. Not diaphoretic. HEAD: Atraumatic. Normocephalic. EYES: Pupils equal and round and reactive. Extraocular motions intact. No scleral icterus. No injection or drainage. Fundi not examined. ENT: Hearing grossly normal. Nose without bleeding or purulent drainage. Mucus membranes moist and pink; tongue red and reportedly painful. NECK: Trachea midline. CARDIOVASCULAR: Tachycardic with irregular rhythm. No JVD. Peripheral pulses symmetric. RESPIRATORY/CHEST: Symmetric, unlabored respirations. Breath sounds diminished bilaterally, right >left. GASTROINTESTINAL: Abdomen soft, non-tender, nondistended. Bowel sounds present. GENITOURINARY: Without palpable bladder distension. MUSCULOSKELETAL: Extremities without clubbing, cyanosis, or edema. No mottling or clubbing. LYMPHATICS: No palpable cervical or supraclavicular adenopathy. NEUROLOGICAL: Awake and alert. Oriented to person, place and time. Answers questions. Follows commands. Moves all extremities. PSYCHIATRIC: No obvious anxiety/depression. no apparent hallucinations or other psychotic thought process. . Diagnostic Tests Laboratory Laboratory Tests Test 01/09/17 20:36 01/10/17 05:45 01/11/17 10:10 Lactic Acid Level 1.0 mmol/L (0.4-2.0) White Blood Count 10.7 TH/MM3 (4.0-11.0) 9.9 TH/MM3 (4.0-11.0) Red Blood Count 3.17 MIL/MM3 (4.00-5.30) 3.33 MIL/MM3 (4.00-5.30) Hemoglobin 9.0 GM/DL (11.6-15.3) 9.4 GM/DL (11.6-15.3) Hematocrit 27.1 % (35.0-46.0) 28.8 % (35.0-46.0) Mean Corpuscular Volume 85.5 FL (80.0-100.0) 86.3 FL (80.0-100.0) Mean Corpuscular Hemoglobin 28.3 PG (27.0-34.0) 28.4 PG (27.0-34.0) Mean Corpuscular Hemoglobin Concent 33.1 % (32.0-36.0) 32.9 % (32.0-36.0) Red Cell Distribution Width 14.5 % (11.6-17.2) 14.2 % (11.6-17.2) Platelet Count 388 TH/MM3 (150-450) 390 TH/MM3 (150-450) Mean Platelet Volume 8.0 FL (7.0-11.0) 7.9 FL (7.0-11.0) Neutrophils (%) (Auto) 86.4 % (16.0-70.0) 85.3 % (16.0-70.0) Lymphocytes (%) (Auto) 2.0 % (9.0-44.0) 1.9 % (9.0-44.0) Monocytes (%) (Auto) 8.5 % (0.0-8.0) 9.8 % (0.0-8.0) Eosinophils (%) (Auto) 2.6 % (0.0-4.0) 2.3 % (0.0-4.0) Basophils (%) (Auto) 0.5 % (0.0-2.0) 0.7 % (0.0-2.0) Neutrophils # (Auto) 9.3 TH/MM3 (1.8-7.7) 8.5 TH/MM3 (1.8-7.7) Lymphocytes # (Auto) 0.2 TH/MM3 (1.0-4.8) 0.2 TH/MM3 (1.0-4.8) Monocytes # (Auto) 0.9 TH/MM3 (0-0.9) 1.0 TH/MM3 (0-0.9) Eosinophils # (Auto) 0.3 TH/MM3 (0-0.4) 0.2 TH/MM3 (0-0.4) Basophils # (Auto) 0.1 TH/MM3 (0-0.2) 0.1 TH/MM3 (0-0.2) CBC Comment DIFF FINAL DIFF FINAL Differential Comment Blood Urea Nitrogen 8 MG/DL (7-18) 12 MG/DL (7-18) Creatinine 0.34 MG/DL (0.50-1.00) 0.83 MG/DL (0.50-1.00) Random Glucose 89 MG/DL (74-106) 102 MG/DL (74-106) Total Protein 5.0 GM/DL (6.4-8.2) 5.6 GM/DL (6.4-8.2) Albumin 1.5 GM/DL (3.4-5.0) 1.6 GM/DL (3.4-5.0) Calcium Level 7.2 MG/DL (8.5-10.1) 8.8 MG/DL (8.5-10.1) Phosphorus Level 2.7 MG/DL (2.5-4.9) 4.1 MG/DL (2.5-4.9) Magnesium Level 1.3 MG/DL (1.5-2.5) 1.8 MG/DL (1.5-2.5) Alkaline Phosphatase 138 U/L (45-117) 131 U/L (45-117) Aspartate Amino Transf (AST/SGOT) 11 U/L (15-37) 18 U/L (15-37) Alanine Aminotransferase (ALT/SGPT) 13 U/L (10-53) 10 U/L (10-53) Total Bilirubin 0.4 MG/DL (0.2-1.0) 0.4 MG/DL (0.2-1.0) Sodium Level 133 MEQ/L (136-145) 134 MEQ/L (136-145) Potassium Level 3.2 MEQ/L (3.5-5.1) 3.4 MEQ/L (3.5-5.1) Chloride Level 96 MEQ/L (98-107) 96 MEQ/L (98-107) Carbon Dioxide Level 30.9 MEQ/L (21.0-32.0) 30.0 MEQ/L (21.0-32.0) Anion Gap 6 MEQ/L (5-15) 8 MEQ/L (5-15) Estimat Glomerular Filtration Rate 195 ML/MIN (>89) 70 ML/MIN (>89) Protein Corrected Calcium 8.3 MG/DL (8.5-10.1) . Result Diagram: 01/11/17 1010 01/11/17 1010 Microbiology Microbiology Date/Time Source Procedure Growth Status 01/10/17 08:45 Blood Peripheral Aerobic Blood Culture - Preliminary NO GROWTH IN 2 DAYS Resulted 01/10/17 08:45 Blood Peripheral Anaerobic Blood Culture - Preliminary NO GROWTH IN 2 DAYS Resulted 01/10/17 08:40 Blood Peripheral Aerobic Blood Culture - Preliminary NO GROWTH IN 2 DAYS Resulted 01/10/17 08:40 Blood Peripheral Anaerobic Blood Culture - Preliminary NO GROWTH IN 2 DAYS Resulted Assessment and Plan Disease Oriented Problem List: (1) Atrial fibrillation with RVR (2) Syncope (3) Acute hypoxemic respiratory failure (4) Hyponatremia (5) Hypokalemia (6) Squamous cell carcinoma of neck (7) Squamous cell cancer of tongue (8) Protein calorie malnutrition (9) Hypophosphatemia Symptom Scale: (1) Debility 0-10 Scale: Unable to quantify (2) Pain 0-10 Scale: 8 (3) Decrease in appetite 0-10 Scale: Unable to quantify Pertinent Non-Medical Issues Psychosocial:Patient is originally from [place]. She moved to [place] in the mid 1970s. She met her , Gene, after moving to [place]. They have been for approximately 22 years. They have adult children who live locally (Gene and Jane, ages 22 and 20). 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 Spiritual: Sabianism gustabo Legal: Per [place] statutes, in the absence of written advanced directives healthcare proxy decision-making falls to the patient's spouse Ethical issues impacting care: No known ethical issues impacting care . Important Contacts Gene Wagoner, spouse: [phone] and [phone] . 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 She has had disease progression with metastatic disease to the lung and bone. In the past few months the patient's performance status and nutritional intake has declined significantly. She has been in and out of the hospital over the past 6 weeks for issues stemming from her underlying malignancy including pain, respiratory difficulties, cachexia and profound weakness. Patient's prognosis is quite poor and hospice services have been recommended. The patient verbalizes she is ready for hospice and just wants to be kept comfortable, but her continues to struggle with this decision. . Code Status: No Code Plan * NO CODE * Decision-making: Per [place] statutes,in the absence of written advanced directives healthcare proxy decision-making falls to the patient's spouse (Gene Pillai). * Goals: Proceed with PEG tube placement then transition to comfort focused goals with placement at a hospice care center. * Discussed patient with Dr. Vo, Rosy Allred (Gastroenterology SUPER[employer]OR [employer]) and Margarita Rodriguez (Hospice Admission RN) * Symptom management-pain: Patient reports back and left torso pain described as aching and rated 8/10. Patient also c/o generalized malaise. Currently on Oramorph 30 mg PO every 12 hours and Duragesic patch 25 g every 72 hours. PRN oxycodone is available every 4 hours, patient received one does of PRN oxycodone 5mg in the past 24 hours. Oral/throats pain has decreased since starting on Magic Mouthwash QID. * Symptom management-debility: Patient is is increasingly symptomatic. She is having Increasing difficulty ambulating; generally failing to thrive. The patient's reports it is more difficult for the patient to be left alone. He states she is increasingly confused and has had multiple recent falls in the past week secondary to increasing with weakness in the right lower extremity. Expected ongoing decline secondary to disease progression. * Symptom management-decreased appetite: Patient reports worsening appetite and reports a 20+ weight loss in the past 12 months. She is currently on Megace and was previously on dexamethasone but this has been discontinued. BMI: 14.1 and Albumin 1.6. GI has been consulted to evaluate patient for PEG tube placement. * Palliative care will continue to follow this patient throughout her hospitalization to establish trust, assist with symptom management and clarification of medical treatment goals. . Attestation To help prompt me to consider important information that might be impacting today's encounter and assessment, information from prior notes written by myself or my colleagues may have been "brought forward" into today's note. My signature on this note, however, is an attestation that I personally performed the exam, history, and/or decision-making noted today, and, unless otherwise indicated, the interactions with patient, family, and staff as well as the review of records all occurred today. I also attest that the listed assessment and stated plan reflect my best clinical judgment today based on the combination of historical information, prior notes, and today's exam/ interactions. When time spent is documented, it refers only to time spent today by the signer, or if indicated, combined time spent today by collaborating physician/nurse practitioner. . Belinda Sanders Jan 12, 2017 11:32
--- NOTE | 2017-01-12 13:11 | HHI.PR ---
Subjective Remarks patient c/o cough. Denies cp/sob. Bp borderline low overnight now better. afebrile. heart rate improving. Denies diarrhea. Poor appetite. Objective Vitals Vital Signs Date Time Temp Pulse Resp B/P (MAP) Pulse Ox O2 Delivery O2 Flow Rate FiO2 01/12/17 10:25 94 Nasal Cannula 4.00 01/12/17 08:00 98.0 90 18 105/71 (82) 98 01/12/17 04:25 95 01/12/17 04:00 98.7 97 22 91/52 (65) 94 01/12/17 04:00 Nasal Cannula 4.00 01/12/17 00:00 4.00 01/12/17 00:00 98.5 94 20 99/66 (77) 98 01/11/17 23:12 91 01/11/17 20:04 92 01/11/17 20:00 98.1 98 24 88/56 (67) 90 01/11/17 20:00 Nasal Cannula 4.00 01/11/17 17:22 95 Nasal Cannula 5.00 01/11/17 16:00 98.2 94 18 91/60 (70) 99 01/11/17 16:00 90 I/O 01/11/17 01/11/17 01/11/17 01/12/17 01/12/17 01/12/17 07:00 15:00 23:00 07:00 15:00 23:00 Intake Total 580 ml 970 ml 820 ml Output Total 600 ml Balance 580 ml 370 ml 820 ml Intake Oral 480 ml 720 ml 720 ml IV Total 100 ml 250 ml 100 ml Output Urine Total 600 ml # Voids 3 # Bowel Movements 1 Result Diagram: 01/11/17 1010 01/11/17 1010 Imaging Last Impressions Chest X-Ray 01/09/17 0000 Signed Impressions: Service Date/Time: Monday, January 09, 2017 21:35 - CONCLUSION: 1. Persistent diffuse infiltrates bilaterally consistent with probable pneumonia. Clinical correlation is recommended. 2. Small left pleural effusion. Olayinka Jones MD CT Angiography 01/03/171938 Signed Impressions: Service Date/Time: Tuesday, January 03, 2017 21:50 - CONCLUSION: 1. Severe COPD, most prominent in the apices. Scattered areas of parenchymal scarring. 2. Large, 7.7 x 4.3 cm pleural-based mass lesion in the left lower lobe. Associated bony destruction and cortical irregularity of the left posterior seventh and eighth ribs. 3. Left hilar and mediastinal adenopathy. Largest node in the AP window measures 5.7 cm in diameter with some impingement on the left pulmonary artery but the vessel does remain patent without pulmonary embolus. Sunny Farfan MD Maxillofacial CT 01/03/17 0000 Signed Impressions: Service Date/Time: Tuesday, January 03, 2017 21:47 - CONCLUSION: No fracture. Sunny Farfan MD Head CT 01/03/17 0000 Signed Impressions: Service Date/Time: Tuesday, January 03, 2017 21:46 - CONCLUSION: Negative exam. Sunny Farfan MD Objective Remarks GENERAL:cachectic- in no acute distress. SKIN: No rashes, ecchymoses or lesions. Cool and dry. HEAD: Atraumatic. Normocephalic. No temporal or scalp tenderness. EYES: Pupils equal round and reactive. Extraocular motions intact. No scleral icterus. No injection or drainage. ENT: Nose without bleeding, purulent drainage or septal hematoma. Throat without erythema, tonsillar hypertrophy or exudate. Uvula midline. Airway patent. NECK: Trachea midline. No JVD or lymphadenopathy. Supple, nontender, no meningeal signs. CARDIOVASCULAR: Regular rate and rhythm without murmurs, gallops, or rubs. RESPIRATORY: (+) mild rhonchi in BL lung bases. Breath sounds equal bilaterally. No wheezes, rales. GASTROINTESTINAL: Abdomen soft, non-tender, nondistended. No hepato-splenomegaly , or palpable masses. No guarding. MUSCULOSKELETAL: Extremities without clubbing, cyanosis, or edema. No joint tenderness, effusion, or edema noted. No calf tenderness. Negative Homans sign bilaterally. NEUROLOGICAL: Awake and alert. Cranial nerves II through XII intact. Motor and sensory grossly within normal limits. Five out of 5 muscle strength in all muscle groups. Normal speech. Medications and IVs Current Medications Medications (Trade) Dose Ordered Sig/Acacia Route Start Time Stop Time Status Last Admin (NS Flush) 2 ml UNSCH PRN IV FLUSH 01/03/17 23:00 01/08/17 00:11 (NS Flush) 2 ml BID IV FLUSH 01/04/17 09:00 01/12/17 09:13 (Narcan Inj) 0.4 mg UNSCH PRN IV PUSH 01/03/17 23:00 Diltiazem HCl 125 mg/Sodium Chloride 125 ml @ 5 mls/hr TITRATE PRN IV 01/03/17 23:00 Future Hold 01/04/17 07:11 (Oramorph Sr) 30 mg Q12HR PO 01/04/17 09:00 01/12/17 09:12 (Xanax) 0.5 mg Q6H PRN PO 01/04/17 08:30 01/11/17 05:39 (Duragesic 25 Mcg Patch.72 Hr) 1 patch Q72H T-DERMAL 01/04/17 09:00 01/10/17 09:11 (Megace) 40 mg DAILY PO 01/04/17 09:00 01/12/17 09:12 (Roxicodone) 5 mg Q4H PRN PO 01/04/17 08:30 01/11/17 12:07 (Pravachol) 40 mg DAILY PO 01/04/17 09:00 01/12/17 09:12 (Zofran Inj) 4 mg Q8HR PRN IV PUSH 01/04/17 08:30 (Lovenox Inj) 40 mg Q24H SQ 01/04/17 09:00 01/12/17 09:13 Miscellaneous Information 1 Q3D T-DERMAL 01/07/17 09:00 01/10/17 09:00 (Cardizem Cd) 120 mg DAILY PO 01/06/17 09:00 Future Hold 01/08/17 09:09 (Duoneb Neb) 1 ampule Q2HR NEB PRN NEB 01/07/17 14:45 (K-Phos Neutral) 250 mg Q6HR PO 01/09/17 00:15 01/12/17 11:19 Vancomycin HCl 1000 mg/Sodium Chloride 250 ml @ 250 mls/hr Q12H IV 01/09/17 10:00 Future Hold 01/11/17 21:55 Piperacillin Sod/ Tazobactam Sod 100 ml @ 200 mls/hr Q8H IV 01/09/17 11:00 01/12/17 11:19 (Magic Mouthwash Adult Liq) 5 ml QID SWISH-SWAL 01/10/17 13:00 01/12/17 12:45 (K-Lyte Cl Eff) 25 meq ONCE ONCE PO 01/12/17 13:00 01/12/17 13:01 UNV Urinary Catheter: No Vascular Central Line Catheter: No A/P Problem List: (1) Weakness ICD Code: R53.1 - Weakness (2) Syncope ICD Code: R55 - Syncope and collapse Status: Acute (3) Atrial fibrillation with RVR ICD Code: I48.91 - Unspecified atrial fibrillation Status: Acute (4) Acute hypoxemic respiratory failure ICD Code: J96.01 - Acute respiratory failure with hypoxia Status: Acute (5) Hyponatremia ICD Code: E87.1 - Hypo-osmolality and hyponatremia Status: Resolved (6) Hypokalemia ICD Code: E87.6 - Hypokalemia (7) Squamous cell cancer of tongue ICD Code: C02.9 - Malignant neoplasm of tongue, unspecified Status: Acute (8) Leukocytosis ICD Code: D72.829 - Elevated white blood cell count, unspecified (9) Hypophosphatemia ICD Code: E83.39 - Other disorders of phosphorus metabolism (10) Severe protein-calorie malnutrition ICD Code: E43 - Unspecified severe protein-calorie malnutrition (11) Sepsis ICD Code: A41.9 - Sepsis, unspecified organism Status: Acute (12) Hypomagnesemia ICD Code: E83.42 - Hypomagnesemia Status: Resolved Plan: Replaced with IV magnesium sulfate. Continue to monitor magnesium levels and replace as needed. (13) Hypocalcemia ICD Code: E83.51 - Hypocalcemia Status: Resolved Plan: Status post replacement with IV calcium chloride. Continue to monitor calcium levels. Assessment and Plan A/P 1. A. fib with RVR. The patient presented with atrial ablation with RVR, started on a Cardizem drip was tapered and the patient was started on by mouth Cardizem as per cardiology recommendations. 2-D echocardiogram shows a normal left ventricular ejection fraction with an estimated EF of 55-60% and no regional wall motion abnormalities. Mild mitral valve regurgitation and mild tricuspid valve regurgitation. The heart rate in January 19 was uncontrolled and the patient was loaded with IV digoxin. I will start the patient on oral digoxin for rate control while the patient's blood pressure is borderline low. 2. Syncope/ generalized weakness- likely due to poor oral intake fall precautions- Continue Megestrol and consult transportation sales consultant. continue to monitor on telemetry. consult PT. 3. Metastatic oropharyngeal squamous cell carcinoma- s/p chemo and radiation- consult oncology ( ). Initially case was discussed with hospice nurse. As per hospice nurse patient has been was requesting a feeding tube. Palliative care was consulted to Vince's of care. The patient is still no code DO NOT RESUSCITATE, however palliative care had some problem contacting the patient's . 01/12 discussed the case today with palliative care nurse Sallie. She states that has been once to proceed and have a feeding tube placed because of concerns of malnutrition and the patient not eating enough and then will have the patient go to the hospice care center. 4. Anemia of chronic disease- Continue to monitor hemoglobin. He will stable at 9.4. Patient awaiting PEG placement and hospice placement for comfort measures. 5. Hypertension. Hold lisinopril since she's been started on Cardizem- will monitor and adjust the regimen as needed. 01/12 the patient status post IV digoxin load, Cardizem held due to borderline low blood pressure. I will start the patient oral digoxin. 6. HCAP. Repeat chest x-ray obtained on 01/09/17 shows a persistent diffuse infiltrates bilaterally consistent with probable pneumonia. Small pleural effusion. Continue IV vancomycin and IV Zosyn. Blood cultures negative x2. -DVT prophylaxis with subq Lovenox 7. Severe protein-calorie malnutrition Plan: BMI of 15.1 and low albumin. Dealer Sales Rep consulted. Recommended Enlive shakes tid and Ensure pudding bid for additional calories and protein. 01/10 Discussed the case at length with palliative care who is waiting to speak to the patient's will is now requiring a feeding tube. K will consult GI for evaluation for feeding tube placement. 01/12 requesting feeding tube. Discussed with palliative care, GI reconsulted. 8. Sepsis Plan: Patient with tachycardia, hypoxemia, and hypotension. check actic acid. Patient started on IV fluids. repeat cxr, check urinalysis, check lactic acid - will start on gentle IV fluids pending x ray. sepsis due to HCAP as shown on CXR 01/09/17 - Started on IV vancomycin and IV Zosyn. Discharge Planning GI reconsulted for PEG placement. After PEG placement patient can be discharged to hospice care center. Problem Qualifiers (1) Syncope: Qualified Codes: R55 - Syncope and collapse Primitivo Medina MD Jan 12, 2017 13:11
[2017-01-12] MEDS ORDERED: POTASSIUM CHLORIDE 25 MEQ EFFERVESCENT TAB PO ONE (14:00)
--- NOTE | 2017-01-12 14:51 | HHI.GIFU ---
Subjective Remarks Pt resting in bed, father in law at bedside. NO complaints. sleepy. (Rosy Allred) Objective Vitals I&O Vital Signs Date Time Temp Pulse Resp B/P (MAP) Pulse Ox O2 Delivery O2 Flow Rate FiO2 01/12/17 12:00 98.3 91 18 109/73 (85) 96 01/12/17 10:25 94 Nasal Cannula 4.00 01/12/17 08:00 98.0 90 18 105/71 (82) 98 01/12/17 04:25 95 01/12/17 04:00 98.7 97 22 91/52 (65) 94 01/12/17 04:00 Nasal Cannula 4.00 01/12/17 00:00 4.00 01/12/17 00:00 98.5 94 20 99/66 (77) 98 01/11/17 23:12 91 01/11/17 20:04 92 01/11/17 20:00 98.1 98 24 88/56 (67) 90 01/11/17 20:00 Nasal Cannula 4.00 01/11/17 17:22 95 Nasal Cannula 5.00 01/11/17 16:00 98.2 94 18 91/60 (70) 99 01/11/17 16:00 90 I/O 01/11/17 01/11/17 01/11/17 01/12/17 01/12/17 01/12/17 07:00 15:00 23:00 07:00 15:00 23:00 Intake Total 580 ml 970 ml 820 ml Output Total 600 ml Balance 580 ml 370 ml 820 ml Intake Oral 480 ml 720 ml 720 ml IV Total 100 ml 250 ml 100 ml Output Urine Total 600 ml # Voids 3 # Bowel Movements 1 Laboratory Laboratory Tests Test 01/12/17 13:32 Date/Time Source Procedure Growth Status 01/10/17 08:45 Blood Peripheral Aerobic Blood Culture - Preliminary NO GROWTH IN 2 DAYS Resulted 01/10/17 08:45 Blood Peripheral Anaerobic Blood Culture - Preliminary NO GROWTH IN 2 DAYS Resulted Physical Exam HEENT: Normocephalic; atraumatic CHEST: CTA CARDIAC: RRR ABDOMEN: cachectic, no hepatosplenomegaly; bowel sounds active x 4. EXTREMITIES: No clubbing, cyanosis, or edema. SKIN: Normal; no rash; no jaundice. NEUROSURGICAL NURSE: lethargic, oriented times three. (Rosy Allred) Assessment and Plan Plan ASSESSMENT - Metastatic oropharyngeal squamous cell carcinoma S/P chemo and radiation- Poor PO intake- Per attendings notes pts requesting feeding tube. Father-in law present. d/w PEG placement and EGD , risks with pt. per palliative care wants to proceed, then she will go to hospice care center with PEG tube PLAN - EGD with PEG tube placement Sunday - obtain consent - NPO after midnight Sunday night - 1g Ancef commissioning manager This patient has been seen and examined by myself and Dr. Quijano and this note is written on his behalf (Rosy Allred) Physician Comments Seen and examined with MARY, egd/peg planned for sunday. (Maddie Quijano MD) Rosy Allred Jan 12, 2017 14:51 Maddie Quijano MD Jan 12, 2017 16:32
[2017-01-12 18:16] LABS: BICARBONATE 31.2 MEQ/L (21.0-32.0); POTASSIUM 3.1 MEQ/L (3.5-5.1)
[2017-01-13] VITALS (11 sets, daily range): BP systolic 82–109; BP diastolic 57–80; PULSE 91–139; RESP 14–20; TEMP 96.5–98.9; O2SAT 90–97
[2017-01-13] MEDS: PIPERACIL-TAZO 4.5 GM PREMIX 100 ML IV SCH ×3 (03:18→18:59)
[2017-01-13] MEDS: POTASSIUM PHOSPHATE/SODIUM PHOSPHATE 250 MG TAB PO SCH ×4 (05:45→23:36)
[2017-01-13] MEDS: ALPRAZolam 0.5 MG TAB PO PRN (05:45)
[2017-01-13 06:45] LABS: AUTOMATED NEUTROPHIL # 7.1 TH/MM3 (1.8-7.7); BASOPHIL % 0.5 % (0.0-2.0); EOSINOPHIL # 0.3 TH/MM3 (0-0.4); HEMO FLAGS DIFF FINAL; LYMPHOCYTE # 0.5 TH/MM3 (1.0-4.8); MEAN CELL VOLUME 85.3 FL (80.0-100.0); MEAN CORPUSCULAR HEMOGLOBIN 28.5 PG (27.0-34.0); MEAN CORPUSCULAR HGB CONC 33.5 % (32.0-36.0); MONO % 12.7 % (0.0-8.0); NEUT % 78.8 % (16.0-70.0); PLATELET COUNT 344 TH/MM3 (150-450); RED BLOOD COUNT 3.05 MIL/MM3 (4.00-5.30); RED CELL DISTRIBUTION WIDTH 14.4 % (11.6-17.2)
[2017-01-13 07:08] LABS: ALKALINE PHOSPHATASE 196 U/L (45-117); ALT (GPT) 9 U/L (10-53); ANION GAP 7 MEQ/L (5-15); AST (GOT) 11 U/L (15-37); BICARBONATE 33.9 MEQ/L (21.0-32.0); BLOOD UREA NITROGEN 9 MG/DL (7-18); CHLORIDE 94 MEQ/L (98-107); GLOMERULAR FILTRATION RATE 112 ML/MIN (>89); SODIUM (NA) 135 MEQ/L (136-145); TOTAL BILIRUBIN ADULT 0.4 MG/DL (0.2-1.0)
[2017-01-13 07:17] LABS: POTASSIUM 2.7 MEQ/L (3.5-5.1)
[2017-01-13] MEDS: fentaNYL 25 MCG/HR PATCH T-DERMAL SCH (09:00)
[2017-01-13] MEDS: NYSTAT/DIPHENHY/LIDO MOUTHWASH (Adult) 120ML SWISH-SWAL SCH ×4 (09:00→21:25)
[2017-01-13] MEDS: ENOXAPARIN SODIUM 40 MG/0.4 ML SYRINGE SQ SCH ×2 (09:00→11:48)
[2017-01-13] MEDS ORDERED: POTASSIUM CHLORIDE 10 MEQ CONTROLLED RELEASE TAB PO ONE (09:00)
[2017-01-13] MEDS: REMOVE OLD DURAGESIC (FENTANYL) PATCH T-DERMAL SCH (09:00)
[2017-01-13] MEDS ORDERED: SODIUM CHLORID 0.9% 500 ML INJ 500 ML IV ONE (09:15)
[2017-01-13] MEDS ORDERED: DIGOXIN 0.125 MG TAB PO ONE (09:15)
--- NOTE | 2017-01-13 09:19 | HHI.PR ---
Subjective Remarks Patient says she is feeling weak today. Says she is about the same as yesterday. Denies any chest pain. Objective Vital Signs Date Time Temp Pulse Resp B/P (MAP) Pulse Ox O2 Delivery O2 Flow Rate FiO2 01/13/17 05:50 19 01/13/17 05:30 108/80 (89) 01/13/17 04:06 139 01/13/17 04:00 98.9 103 16 91/59 (70) 92 01/13/17 00:34 91 01/13/17 00:00 97.9 91 14 109/69 (82) 97 01/12/17 23:01 18 01/12/17 23:00 Nasal Cannula 4.00 01/12/17 20:01 91 01/12/17 20:00 100.2 93 16 102/62 (75) 96 01/12/17 18:04 97 Nasal Cannula 4.00 01/12/17 16:30 98.3 90 21 101/64 (76) 97 01/12/17 16:28 87 01/12/17 12:07 89 01/12/17 12:00 98.3 91 18 109/73 (85) 96 01/12/17 10:25 94 Nasal Cannula 4.00 I/O 01/12/17 01/12/17 01/12/17 01/13/17 01/13/17 01/13/17 07:00 15:00 23:00 07:00 15:00 23:00 Intake Total 820 ml 240 ml 100 ml Output Total 600 ml 2 ml Balance 820 ml -360 ml 100 ml -2 ml Intake Oral 720 ml 240 ml IV Total 100 ml 100 ml Output Urine Total 600 ml 2 ml # Voids 3 # Bowel Movements 1 Result Diagram: 01/13/1745 01/13/17 0545 Objective Remarks GENERAL: Very frail, cachectic female lying in bed. Appears weak. SKIN: Warm and dry. HEAD: Normocephalic. EYES: No scleral icterus. No injection or drainage. NECK: Supple, trachea midline. No JVD. CARDIOVASCULAR: Regular rate and rhythm without murmurs, gallops, or rubs. RESPIRATORY: Breath sounds equal bilaterally. No accessory muscle use. GASTROINTESTINAL: Abdomen soft, non-tender, nondistended. MUSCULOSKELETAL: No cyanosis, or edema. BACK: Nontender without obvious deformity. No CVA tenderness. A/P Assessment and Plan //A. fib with RVR. The patient presented with atrial ablation with RVR, started on a Cardizem drip was tapered and the patient was started on by mouth Cardizem as per cardiology recommendations. 2-D echocardiogram shows a normal left ventricular ejection fraction with an estimated EF of 55-60% and no regional wall motion abnormalities. Mild mitral valve regurgitation and mild tricuspid valve regurgitation. The heart rate in January 19 was uncontrolled and the patient was loaded with IV digoxin. I will start the patient on oral digoxin for rate control while the patient's blood pressure is borderline low. = 01/13. Start patient on oral digoxin. //Hypokalemia. = 01/13 Potassium 2.7. Replaced. Follow-up level this afternoon. //Syncope/ generalized weakness- likely due to poor oral intake fall precautions- Continue Megestrol and consult pick and shovel man. continue to monitor on telemetry. Appreciate PT assistance. 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 Initially case was discussed with hospice nurse. As per hospice nurse patient has been was requesting a feeding tube. Palliative care was consulted to [facility] of care. The patient is still no code DO NOT RESUSCITATE, however palliative care had some problem contacting the patient's . 01/12 discussed the case today with palliative care nurse Sallie. She states that has been once to proceed and have a feeding tube placed because of concerns of malnutrition and the patient not eating enough and then will have the patient go to the hospice care center. = 01/13. Awaiting PEG placement Sunday, after which patient will be discharged to hospice care center. // Anemia of chronic disease- Continue to monitor hemoglobin. -01/13 Hemoglobin relatively stable 8.7. Continue to monitor. No signs of bleeding. //Hypertension. Hold lisinopril since she's been started on Cardizem- will monitor and adjust the regimen as needed. 01/12 the patient status post IV digoxin load, Cardizem held due to borderline low blood pressure. I will start the patient oral digoxin. //HCAP. Repeat chest x-ray obtained on 01/09/17 shows a persistent diffuse infiltrates bilaterally consistent with probable pneumonia. Small pleural effusion. Continue IV vancomycin and IV Zosyn. Blood cultures negative x2. = Antibiotic stop date 01/16 //Severe protein-calorie malnutrition Plan: BMI of 15.1 and low albumin. Director Of Staff Development consulted. Recommended Enlive shakes tid and Ensure pudding bid for additional calories and protein. 01/10 Discussed the case at length with palliative care who is waiting to speak to the patient's will is now requiring a feeding tube. K will consult GI for evaluation for feeding tube placement. 01/13. Planning for PEG tube placement on Sunday. Patient will be nothing by mouth at midnight on Sunday night. //Sepsis Plan: Patient with tachycardia, hypoxemia, and hypotension. check actic acid. Patient started on IV fluids. repeat cxr, check urinalysis, check lactic acid - will start on gentle IV fluids pending x ray. sepsis due to HCAP as shown on CXR 01/09/17 - Started on IV vancomycin and IV Zosyn. = Continue antibiotics for pneumonia //Hyperlipidemia. With profound weight loss, No need for statin at this time. Discontinue. -DVT prophylaxis with subq Lovenox Discharge Planning PEG placement on Sunday. After PEG placement, patient can be discharged to hospice care center. Haile Pederson MD Jan 13, 2017 09:19
[2017-01-13] MEDS: POTASSIUM CHLOR 10 MEQ PREMIX 100 ML IV SCH ×3 (09:20→13:35)
--- NOTE | 2017-01-13 10:34 | PD.CARD.PN ---
Subjective Subjective Remarks alert in nad Objective Medications Current Medications Medications (Trade) Dose Ordered Sig/Acacia Route Start Time Stop Time Status Last Admin (NS Flush) 2 ml UNSCH PRN IV FLUSH 01/03/17 23:00 01/08/17 00:11 (NS Flush) 2 ml BID IV FLUSH 01/04/17 09:00 01/12/17 21:00 (Narcan Inj) 0.4 mg UNSCH PRN IV PUSH 01/03/17 23:00 Diltiazem HCl 125 mg/Sodium Chloride 125 ml @ 5 mls/hr TITRATE PRN IV 01/03/17 23:00 Future Hold 01/04/17 07:11 (Oramorph Sr) 30 mg Q12HR PO 01/04/17 09:00 01/12/17 21:58 (Xanax) 0.5 mg Q6H PRN PO 01/04/17 08:30 01/13/17 05:45 (Duragesic 25 Mcg Patch.72 Hr) 1 patch Q72H T-DERMAL 01/04/17 09:00 01/10/17 09:11 (Megace) 40 mg DAILY PO 01/04/17 09:00 01/12/17 09:12 (Roxicodone) 5 mg Q4H PRN PO 01/04/17 08:30 01/13/17 04:28 (Zofran Inj) 4 mg Q8HR PRN IV PUSH 01/04/17 08:30 (Lovenox Inj) 40 mg Q24H SQ 01/04/17 09:00 01/12/17 09:13 Miscellaneous Information 1 Q3D T-DERMAL 01/07/17 09:00 01/10/17 09:00 (Cardizem Cd) 120 mg DAILY PO 01/06/17 09:00 Future Hold 01/08/17 09:09 (Duoneb Neb) 1 ampule Q2HR NEB PRN NEB 01/07/17 14:45 (K-Phos Neutral) 250 mg Q6HR PO 01/09/17 00:15 01/13/17 05:45 Vancomycin HCl 1000 mg/Sodium Chloride 250 ml @ 250 mls/hr Q12H IV 01/09/17 10:00 Future Hold 01/11/17 21:55 Piperacillin Sod/ Tazobactam Sod 100 ml @ 200 mls/hr Q8H IV 01/09/17 11:00 01/13/17 03:18 (Magic Mouthwash Adult Liq) 5 ml QID SWISH-SWAL 01/10/17 13:00 01/12/17 21:59 Cefazolin Sodium 1000 mg/Sodium Chloride 100 ml @ 200 mls/hr TOP ICER IV 01/12/17 15:00 01/16/17 14:59 Potassium Chloride 100 ml @ 100 mls/hr Q1H IV 01/13/17 09:00 01/13/17 11:59 01/13/17 09:20 (Lanoxin) 0.125 mg DAILY PO 01/14/17 09:00 Vital Signs / I&O Vital Signs Date Time Temp Pulse Resp B/P (MAP) Pulse Ox O2 Delivery O2 Flow Rate FiO2 01/13/17 05:50 19 01/13/17 05:30 108/80 (89) 01/13/17 04:06 139 01/13/17 04:00 98.9 103 16 91/59 (70) 92 01/13/17 00:34 91 01/13/17 00:00 97.9 91 14 109/69 (82) 97 01/12/17 23:01 18 01/12/17 23:00 Nasal Cannula 4.00 01/12/17 20:01 91 01/12/17 20:00 100.2 93 16 102/62 (75) 96 01/12/17 18:04 97 Nasal Cannula 4.00 01/12/17 16:30 98.3 90 21 101/64 (76) 97 01/12/17 16:28 87 01/12/17 12:07 89 01/12/17 12:00 98.3 91 18 109/73 (85) 96 I/O 01/12/17 01/12/17 01/12/17 01/13/17 01/13/17 01/13/17 07:00 15:00 23:00 07:00 15:00 23:00 Intake Total 820 ml 240 ml 100 ml Output Total 600 ml 2 ml Balance 820 ml -360 ml 100 ml -2 ml Intake Oral 720 ml 240 ml IV Total 100 ml 100 ml Output Urine Total 600 ml 2 ml # Voids 3 # Bowel Movements 1 Physical Exam GENERAL: SKIN: Warm and dry. HEAD: Normocephalic. EYES: No scleral icterus. No injection or drainage. NECK: Supple, trachea midline. No JVD or lymphadenopathy. CARDIOVASCULAR: Regular rate and rhythm without murmurs, gallops, or rubs. RESPIRATORY: Breath sounds equal bilaterally. No accessory muscle use. GASTROINTESTINAL: Abdomen soft, non-tender, nondistended. MUSCULOSKELETAL: No cyanosis, or edema. BACK: Nontender without obvious deformity. No CVA tenderness. Laboratory Laboratory Tests Test 01/12/17 13:32 01/13/17 05:45 Blood Urea Nitrogen 11 MG/DL 9 MG/DL Creatinine 0.68 MG/DL 0.55 MG/DL Random Glucose 94 MG/DL 99 MG/DL Calcium Level 8.2 MG/DL 8.0 MG/DL Sodium Level 135 MEQ/L 135 MEQ/L Potassium Level 3.1 MEQ/L 2.7 MEQ/L Chloride Level 97 MEQ/L 94 MEQ/L Carbon Dioxide Level 31.2 MEQ/L 33.9 MEQ/L Anion Gap 7 MEQ/L 7 MEQ/L Estimat Glomerular Filtration Rate 88 ML/MIN 112 ML/MIN Vancomycin Level Trough 20.3 MCG/ML White Blood Count 9.0 TH/MM3 Red Blood Count 3.05 MIL/MM3 Hemoglobin 8.7 GM/DL Hematocrit 26.0 % Mean Corpuscular Volume 85.3 FL Mean Corpuscular Hemoglobin 28.5 PG Mean Corpuscular Hemoglobin Concent 33.5 % Red Cell Distribution Width 14.4 % Platelet Count 344 TH/MM3 Mean Platelet Volume 8.1 FL Neutrophils (%) (Auto) 78.8 % Lymphocytes (%) (Auto) 5.0 % Monocytes (%) (Auto) 12.7 % Eosinophils (%) (Auto) 3.0 % Basophils (%) (Auto) 0.5 % Neutrophils # (Auto) 7.1 TH/MM3 Lymphocytes # (Auto) 0.5 TH/MM3 Monocytes # (Auto) 1.1 TH/MM3 Eosinophils # (Auto) 0.3 TH/MM3 Basophils # (Auto) 0.0 TH/MM3 CBC Comment DIFF FINAL Differential Comment Total Protein 5.1 GM/DL Albumin 1.5 GM/DL Alkaline Phosphatase 196 U/L Aspartate Amino Transf (AST/SGOT) 11 U/L Alanine Aminotransferase (ALT/SGPT) 9 U/L Total Bilirubin 0.4 MG/DL Magnesium Level 1.4 MG/DL Random Vancomycin Level 11.3 COMMENT Assessment and Plan Problem List: (1) Nutrition, metabolism, and development symptoms ICD Codes: R63.8 - Other symptoms and signs concerning food and fluid intake Status: Acute (2) Squamous cell carcinoma of neck ICD Codes: C44.42 - Squamous cell carcinoma of skin of scalp and neck Status: Acute (3) Mass of left lung ICD Codes: R91.8 - Other nonspecific abnormal finding of lung field Status: Acute (4) 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: 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.9 - Malignant neoplasm of tongue, unspecified Status: Acute (5) Atrial fibrillation with RVR ICD Codes: I48.91 - Unspecified atrial fibrillation Status: Acute Assessment and Plan 1.) PAF - rate intermittently controlled, assymptomatic, Dr Solorzano rec no ac, change cardizem to xr, patient has not committed to hospice, has deferred decision to her Gene, palliative care following, dig loaded by Dr Vo, ; hypotension is contraindication for higher cardizem dose 2.) Cv care appears to be futile due to overall prognosis and patient is assymptomatic from cv standpoint Tomas Fraser MD Jan 13, 2017 10:34
[2017-01-13] MEDS: MORPHINE SULFATE 30 MG CONTROLLED RELEASE TAB PO SCH ×2 (10:46→21:26)
[2017-01-13] MEDS: MEGESTROL ACETATE 40 MG TAB PO SCH (10:46)
[2017-01-13] MEDS: SODIUM CHLORIDE 0.9% FLUSH 10 ML FLUSH IV FLUSH SCH ×2 (11:00→21:25)
[2017-01-13] MEDS ORDERED: VANCOMYCIN 1,000 MG/NS 250 ML IV SCH ×2 (12:00)
--- NOTE | 2017-01-13 12:12 | HHI.GIFU ---
Subjective Remarks Pt in bed, multiple family members in room. c/o difficulty swallowing pills. (Rosy Allred) Objective Vitals I&O Vital Signs Date Time Temp Pulse Resp B/P (MAP) Pulse Ox O2 Delivery O2 Flow Rate FiO2 01/13/17 05:50 19 01/13/17 05:30 108/80 (89) 01/13/17 04:06 139 01/13/17 04:00 98.9 103 16 91/59 (70) 92 01/13/17 00:34 91 01/13/17 00:00 97.9 91 14 109/69 (82) 97 01/12/17 23:01 18 01/12/17 23:00 Nasal Cannula 4.00 01/12/17 20:01 91 01/12/17 20:00 100.2 93 16 102/62 (75) 96 01/12/17 18:04 97 Nasal Cannula 4.00 01/12/17 16:30 98.3 90 21 101/64 (76) 97 01/12/17 16:28 87 I/O 01/12/17 01/12/17 01/12/17 01/13/17 01/13/17 01/13/17 07:00 15:00 23:00 07:00 15:00 23:00 Intake Total 820 ml 240 ml 100 ml Output Total 600 ml 2 ml Balance 820 ml -360 ml 100 ml -2 ml Intake Oral 720 ml 240 ml IV Total 100 ml 100 ml Output Urine Total 600 ml 2 ml # Voids 3 # Bowel Movements 1 Laboratory Laboratory Tests Test 01/12/17 13:32 01/13/17 05:45 Blood Urea Nitrogen 11 9 Creatinine 0.68 0.55 Random Glucose 94 99 Calcium Level 8.2 8.0 Sodium Level 135 135 Potassium Level 3.1 2.7 Chloride Level 97 94 Carbon Dioxide Level 31.2 33.9 Anion Gap 7 7 Estimat Glomerular Filtration Rate 88 112 Vancomycin Level Trough 20.3 White Blood Count 9.0 Red Blood Count 3.05 Hemoglobin 8.7 Hematocrit 26.0 Mean Corpuscular Volume 85.3 Mean Corpuscular Hemoglobin 28.5 Mean Corpuscular Hemoglobin Concent 33.5 Red Cell Distribution Width 14.4 Platelet Count 344 Mean Platelet Volume 8.1 Neutrophils (%) (Auto) 78.8 Lymphocytes (%) (Auto) 5.0 Monocytes (%) (Auto) 12.7 Eosinophils (%) (Auto) 3.0 Basophils (%) (Auto) 0.5 Neutrophils # (Auto) 7.1 Lymphocytes # (Auto) 0.5 Monocytes # (Auto) 1.1 Eosinophils # (Auto) 0.3 Basophils # (Auto) 0.0 CBC Comment DIFF FINAL Differential Comment Total Protein 5.1 Albumin 1.5 Alkaline Phosphatase 196 Aspartate Amino Transf (AST/SGOT) 11 Alanine Aminotransferase (ALT/SGPT) 9 Total Bilirubin 0.4 Magnesium Level 1.4 Random Vancomycin Level 11.3 Date/Time Source Procedure Growth Status 01/10/17 08:45 Blood Peripheral Aerobic Blood Culture - Preliminary NO GROWTH IN 3 DAYS Resulted 01/10/17 08:45 Blood Peripheral Anaerobic Blood Culture - Preliminary NO GROWTH IN 3 DAYS Resulted Physical Exam HEENT: Normocephalic; atraumatic CHEST: CTA CARDIAC: RRR ABDOMEN: cachectic, no hepatosplenomegaly; bowel sounds active x 4. EXTREMITIES: No clubbing, cyanosis, or edema. cacechtic SKIN: Normal; no rash; no jaundice. FILTER TIP INSPECTOR: lethargic, oriented times three. (Rosy Allred) Assessment and Plan Plan ASSESSMENT - Metastatic oropharyngeal squamous cell carcinoma S/P chemo and radiation- Poor PO intake- PEG tube sunday then will be going to hospice care center PLAN - EGD with PEG tube placement Sunday - obtain consent - NPO after midnight Sunday night - 1g Ancef reporting process consultant This patient has been seen and examined by myself and Dr. Bowen and this note is written on his behalf (Rosy Allred) Plan Patient was seen and examined, agree with above Notes, plan for PEG tube for tomorrow morning so patient can believe to hospice (Orin Bowen MD) Rosy Allred Jan 13, 2017 12:12 Orin Bowen MD Jan 13, 2017 18:42
[2017-01-13] MEDS ORDERED: Vancomycin Consult Pharmacy 1 EA OTHER SCH (12:15)
[2017-01-13 13:40] LABS: BICARBONATE 34.2 MEQ/L (21.0-32.0); POTASSIUM 3.3 MEQ/L (3.5-5.1)
[2017-01-13] MEDS: MAGNESIUM SULFATE 1 GM PREMIX 100 ML IV SCH ×2 (17:31→21:25)
[2017-01-13] MEDS: MAGNESIUM OXIDE 400 MG TAB PO SCH (21:25)
[2017-01-14] VITALS (7 sets, daily range): BP systolic 97–120; BP diastolic 55–78; PULSE 82–111; RESP 16–18; TEMP 98–99.9; O2SAT 93–99
[2017-01-14] MEDS: PIPERACIL-TAZO 4.5 GM PREMIX 100 ML IV SCH ×2 (04:45→12:36)
[2017-01-14] MEDS: POTASSIUM PHOSPHATE/SODIUM PHOSPHATE 250 MG TAB PO SCH ×3 (05:27→17:29)
[2017-01-14] MEDS: MAGNESIUM OXIDE 400 MG TAB PO SCH ×2 (09:00→19:56)
[2017-01-14] MEDS: ENOXAPARIN SODIUM 40 MG/0.4 ML SYRINGE SQ SCH (09:00)
[2017-01-14] MEDS: NYSTAT/DIPHENHY/LIDO MOUTHWASH (Adult) 120ML SWISH-SWAL SCH ×4 (09:00→19:58)
[2017-01-14] MEDS: MEGESTROL ACETATE 40 MG TAB PO SCH (09:00)
[2017-01-14] MEDS ORDERED: MAGNESIUM SULFATE 1 GM PREMIX 100 ML IV ONE (09:00)
[2017-01-14] MEDS ORDERED: DIGOXIN 0.125 MG TAB PO SCH (09:00)
--- NOTE | 2017-01-14 09:15 | PD.CARD.PN ---
Subjective Subjective Remarks alert in nad Objective Medications Current Medications Medications (Trade) Dose Ordered Sig/Acacia Route Start Time Stop Time Status Last Admin (NS Flush) 2 ml UNSCH PRN IV FLUSH 01/03/17 23:00 01/08/17 00:11 (NS Flush) 2 ml BID IV FLUSH 01/04/17 09:00 01/13/17 21:25 (Narcan Inj) 0.4 mg UNSCH PRN IV PUSH 01/03/17 23:00 Diltiazem HCl 125 mg/Sodium Chloride 125 ml @ 5 mls/hr TITRATE PRN IV 01/03/17 23:00 Future Hold 01/04/17 07:11 (Oramorph Sr) 30 mg Q12HR PO 01/04/17 09:00 01/13/17 21:26 (Xanax) 0.5 mg Q6H PRN PO 01/04/17 08:30 01/13/17 05:45 (Duragesic 25 Mcg Patch.72 Hr) 1 patch Q72H T-DERMAL 01/04/17 09:00 01/13/17 09:00 (Megace) 40 mg DAILY PO 01/04/17 09:00 01/13/17 10:46 (Roxicodone) 5 mg Q4H PRN PO 01/04/17 08:30 01/13/17 17:31 (Zofran Inj) 4 mg Q8HR PRN IV PUSH 01/04/17 08:30 (Lovenox Inj) 40 mg Q24H SQ 01/04/17 09:00 01/12/17 09:13 Miscellaneous Information 1 Q3D T-DERMAL 01/07/17 09:00 01/13/17 09:00 (Cardizem Cd) 120 mg DAILY PO 01/06/17 09:00 Future Hold 01/08/17 09:09 (Duoneb Neb) 1 ampule Q2HR NEB PRN NEB 01/07/17 14:45 (K-Phos Neutral) 250 mg Q6HR PO 01/09/17 00:15 01/14/17 05:27 Piperacillin Sod/ Tazobactam Sod 100 ml @ 200 mls/hr Q8H IV 01/09/17 11:00 01/14/17 04:45 (Magic Mouthwash Adult Liq) 5 ml QID SWISH-SWAL 01/10/17 13:00 01/13/17 21:25 Cefazolin Sodium 1000 mg/Sodium Chloride 100 ml @ 200 mls/hr CUSTOMER SECURITY CLERK IV 01/12/17 15:00 01/16/17 14:59 (Lanoxin) 0.125 mg DAILY PO 01/14/17 09:00 (Mag-Ox) 400 mg Q12HR PO 01/13/17 21:00 01/13/17 21:25 Vancomycin HCl 1000 mg/Sodium Chloride 250 ml @ 250 mls/hr Q24H IV 01/13/17 12:00 01/13/17 14:53 Miscellaneous Information SPECIFIC LAB TO BE WENDY... ONCE ONCE .XX 01/16/17 11:45 01/16/17 11:46 Pharmacy Profile Note ml @ 0 mls/hr UNSCH OTHER 01/13/17 12:15 Magnesium Sulfate/ Dextrose 100 ml @ 100 mls/hr ONCE ONCE IV 01/14/17 09:00 01/14/17 09:59 Potassium Chloride 100 ml @ 100 mls/hr Q1H IV 01/14/17 09:00 01/14/17 11:59 Vital Signs / I&O Vital Signs Date Time Temp Pulse Resp B/P (MAP) Pulse Ox O2 Delivery O2 Flow Rate FiO2 01/14/17 04:00 91 01/14/17 04:00 Nasal Cannula 4.00 01/14/17 04:00 99.0 88 16 100/58 (72) 93 01/14/17 00:00 99.9 111 18 104/65 (78) 99 01/13/17 22:00 97.6 108 18 95/61 (72) 90 01/13/17 21:00 97.5 123 18 98/69 (79) 91 01/13/17 20:00 96.5 115 18 102/70 (81) 93 01/13/17 17:30 97.6 128 20 91/61 (71) 97 01/13/17 12:00 97.7 128 18 82/57 (65) 97 I/O 01/13/17 01/13/17 01/13/17 01/14/17 01/14/17 01/14/17 07:00 15:00 23:00 07:00 15:00 23:00 Intake Total 900 ml 1250 ml 100 ml Output Total 2 ml Balance -2 ml 900 ml 1250 ml 100 ml Intake Oral 700 ml IV Total 900 ml 550 ml 100 ml Output Urine Total 2 ml # Voids 1 # Bowel Movements 1 1 2 Physical Exam GENERAL: SKIN: Warm and dry. HEAD: Normocephalic. EYES: No scleral icterus. No injection or drainage. NECK: Supple, trachea midline. No JVD or lymphadenopathy. CARDIOVASCULAR: Regular rate and rhythm without murmurs, gallops, or rubs. RESPIRATORY: Breath sounds equal bilaterally. No accessory muscle use. GASTROINTESTINAL: Abdomen soft, non-tender, nondistended. MUSCULOSKELETAL: No cyanosis, or edema. BACK: Nontender without obvious deformity. No CVA tenderness. Laboratory Laboratory Tests Test 01/13/17 12:41 Blood Urea Nitrogen 9 MG/DL Creatinine 0.52 MG/DL Random Glucose 124 MG/DL Calcium Level 8.1 MG/DL Sodium Level 135 MEQ/L Potassium Level 3.3 MEQ/L Chloride Level 94 MEQ/L Carbon Dioxide Level 34.2 MEQ/L Anion Gap 7 MEQ/L Estimat Glomerular Filtration Rate 119 ML/MIN Assessment and Plan Problem List: (1) Nutrition, metabolism, and development symptoms ICD Codes: R63.8 - Other symptoms and signs concerning food and fluid intake Status: Acute (2) Squamous cell carcinoma of neck ICD Codes: C44.42 - Squamous cell carcinoma of skin of scalp and neck Status: Acute (3) Mass of left lung ICD Codes: R91.8 - Other nonspecific abnormal finding of lung field Status: Acute (4) 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: 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.9 - Malignant neoplasm of tongue, unspecified Status: Acute (5) Atrial fibrillation with RVR ICD Codes: I48.91 - Unspecified atrial fibrillation Status: Acute Assessment and Plan 1.) PAF - rate intermittently controlled, assymptomatic, Dr Solorzano rec no ac, change cardizem to xr, patient has not committed to hospice, has deferred decision to her Gene, palliative care following, dig loaded by Dr Vo, ; hypotension is contraindication for higher cardizem dose, continue electrolyte repletion prn, on mag ox 400 bid, dig po .125 qd 2.) Cv care appears to be futile due to overall prognosis and patient is assymptomatic from cv standpoint Tomas Fraser MD Jan 14, 2017 09:15
[2017-01-14] MEDS: POTASSIUM CHLOR 10 MEQ PREMIX 100 ML IV SCH ×3 (09:48→13:39)
[2017-01-14] MEDS: MORPHINE SULFATE 30 MG CONTROLLED RELEASE TAB PO SCH ×2 (09:59→19:57)
--- NOTE | 2017-01-14 15:02 | PD.PROCEDR ---
GI Procedure PROCEDURE PERFORMED Upper endoscopy with PEG tube placement INDICATION FOR PROCEDURE Head and neck cancer PROCEDURE: The procedure, risks and benefits were discussed with Ms. Wagoner and informed consent was obtained. Anesthesia sedated her with Diprivan. She was placed in the left lateral decubitus position. EGD: The Pentax videoscope was introduced through the oropharynx and advanced to the second portion of the duodenum under direct visualization. Retroflexion was performed in the stomach. The area will for the PICC tube was identified by the illumination and indentation, the area was sterilized by Betadine, injected with lidocaine, a catheter was passed through the abdominal wall, and then a guidewire was retrieved, small incision at the site was done and then 20 [place] Microvasive PEG tube was placed with a pull technique without any immediate complication, verification of the PEG tube was done endoscopically FINDINGS: Normal upper endoscopy, picked tube was placed as above ESTIMATED BLOOD LOSS: None SPECIMENS REMOVED: None COMPLICATIONS: None IMPRESSION: Successful PEG tube placement PLAN: Nothing by mouth for 6 hours then may use PEG tube Antibiotic was given during the procedure Orin Bowen MD Jan 14, 2017 15:02
--- NOTE | 2017-01-14 15:04 | HHI.GIFU ---
Subjective Remarks Patient laying in bed comfortably, nothing by mouth, no new complaint Objective Vitals I&O Vital Signs Date Time Temp Pulse Resp B/P (MAP) Pulse Ox O2 Delivery O2 Flow Rate FiO2 01/14/17 10:02 99 Nasal Cannula 4.00 01/14/17 08:00 84 01/14/17 08:00 96 Nasal Cannula 4.00 01/14/17 08:00 98.0 85 18 111/64 (80) 99 01/14/17 08:00 82 01/14/17 04:00 91 01/14/17 04:00 Nasal Cannula 4.00 01/14/17 04:00 99.0 88 16 100/58 (72) 93 01/14/17 00:00 99.9 111 18 104/65 (78) 99 01/13/17 22:00 97.6 108 18 95/61 (72) 90 01/13/17 21:00 97.5 123 18 98/69 (79) 91 01/13/17 20:00 96.5 115 18 102/70 (81) 93 01/13/17 17:30 97.6 128 20 91/61 (71) 97 I/O 01/13/17 01/13/17 01/13/17 01/14/17 01/14/17 01/14/17 07:00 15:00 23:00 07:00 15:00 23:00 Intake Total 900 ml 1250 ml 100 ml 200 ml Output Total 2 ml Balance -2 ml 900 ml 1250 ml 100 ml 200 ml Intake Oral 700 ml IV Total 900 ml 550 ml 100 ml Other 200 ml Output Urine Total 2 ml # Voids 1 # Bowel Movements 1 1 2 Laboratory Laboratory Tests Test 01/14/17 13:15 Date/Time Source Procedure Growth Status 01/10/17 08:45 Blood Peripheral Aerobic Blood Culture - Preliminary NO GROWTH IN 4 DAYS Resulted 01/10/17 08:45 Blood Peripheral Anaerobic Blood Culture - Preliminary NO GROWTH IN 4 DAYS Resulted Physical Exam HEENT: Normocephalic; atraumatic CHEST: CTA CARDIAC: RRR ABDOMEN: cachectic, no hepatosplenomegaly; bowel sounds active x 4. EXTREMITIES: No clubbing, cyanosis, or edema. cachectic SKIN: Normal; no rash; no jaundice. REAL TIME OPERATOR: lethargic, oriented times three. Assessment and Plan Plan Patient was seen and examined, nothing by mouth today, had PEG tube placement today IMPRESSION: Successful PEG tube placement PLAN: Nothing by mouth for 6 hours then may use PEG tube Antibiotic was given during the procedure Orin Bowen MD Jan 14, 2017 15:04
[2017-01-14] MEDS ORDERED: DO NOT ADM ANY ANTICOAGULANT DRUGS PRN (15:05)
[2017-01-14 15:45] LABS: C. DIFF EPI 027 PRESUMPTIVE NEGATIVE (NEGATIVE)
--- NOTE | 2017-01-14 21:29 | HHI.DS ---
Discharge Summary Admission Date Jan 03, 2017 at 22:52 Discharge Date: Jan 14, 2017 Admitting Diagnosis new onset atrial fibrillation, weakness, syncope, dehydration (1) Weakness ICD Code: R53.1 - Weakness (2) Syncope ICD Code: R55 - Syncope and collapse Status: Acute (3) Atrial fibrillation with RVR ICD Code: I48.91 - Unspecified atrial fibrillation Status: Acute (4) Acute hypoxemic respiratory failure ICD Code: J96.01 - Acute respiratory failure with hypoxia Status: Acute (5) Hyponatremia ICD Code: E87.1 - Hypo-osmolality and hyponatremia Status: Resolved (6) Hypokalemia ICD Code: E87.6 - Hypokalemia (7) Squamous cell cancer of tongue ICD Code: C02.9 - Malignant neoplasm of tongue, unspecified Status: Acute (8) Leukocytosis ICD Code: D72.829 - Elevated white blood cell count, unspecified (9) Hypophosphatemia ICD Code: E83.39 - Other disorders of phosphorus metabolism (10) Severe protein-calorie malnutrition ICD Code: E43 - Unspecified severe protein-calorie malnutrition (11) Sepsis ICD Code: A41.9 - Sepsis, unspecified organism Status: Acute (12) Hypomagnesemia ICD Code: E83.42 - Hypomagnesemia Status: Resolved (13) Hypocalcemia ICD Code: E83.51 - Hypocalcemia Status: Resolved Procedures PEG tube placement 01/14/17. Please see report. Brief History - From Admission patient is a 61 y/o female with history of metastatic oropharyngeal squamous cell carcinoma who was brought to ER after she passed out yesterday. she says that her chemo stopped about a month ago and she just finished her radiation treatment a week ago. she says that her appetite is poor and she doesn't eat or drink as much. she's feeling weak and had a few falls over that past year. she says that she felt weak and passed out yesterday. she denies any other prodromal symptoms like chest pain, sob, nausea prior to the incident. she has on and off occasional cough and abdominal pain. she's complaining of moderate to severe low back pain.she was found to be in a-fib with RVR for which she was started on Cardizem drip. CBC/BMP: 01/13/17 0545 01/13/17 1241 Significant Findings Laboratory Tests Test 01/12/17 13:32 01/13/17 05:45 01/13/17 12:41 01/14/17 13:15 Calcium Level 8.2 MG/DL (8.5-10.1) 8.0 MG/DL (8.5-10.1) 8.1 MG/DL (8.5-10.1) Sodium Level 135 MEQ/L (136-145) 135 MEQ/L (136-145) 135 MEQ/L (136-145) Potassium Level 3.1 MEQ/L (3.5-5.1) 2.7 MEQ/L (3.5-5.1) 3.3 MEQ/L (3.5-5.1) Chloride Level 97 MEQ/L (98-107) 94 MEQ/L (98-107) 94 MEQ/L (98-107) Estimat Glomerular Filtration Rate 88 ML/MIN (>89) Vancomycin Level Trough 20.3 MCG/ML (5.0-10.0) Red Blood Count 3.05 MIL/MM3 (4.00-5.30) Hemoglobin 8.7 GM/DL (11.6-15.3) Hematocrit 26.0 % (35.0-46.0) Neutrophils (%) (Auto) 78.8 % (16.0-70.0) Lymphocytes (%) (Auto) 5.0 % (9.0-44.0) Monocytes (%) (Auto) 12.7 % (0.0-8.0) Lymphocytes # (Auto) 0.5 TH/MM3 (1.0-4.8) Monocytes # (Auto) 1.1 TH/MM3 (0-0.9) Total Protein 5.1 GM/DL (6.4-8.2) Albumin 1.5 GM/DL (3.4-5.0) Alkaline Phosphatase 196 U/L (45-117) Aspartate Amino Transf (AST/SGOT) 11 U/L (15-37) Alanine Aminotransferase (ALT/SGPT) 9 U/L (10-53) Carbon Dioxide Level 33.9 MEQ/L (21.0-32.0) 34.2 MEQ/L (21.0-32.0) Magnesium Level 1.4 MG/DL (1.5-2.5) Random Glucose 124 MG/DL (74-106) Imaging Last Impressions Chest X-Ray 01/09/17 0000 Signed Impressions: Service Date/Time: Monday, January 09, 2017 21:35 - CONCLUSION: 1. Persistent diffuse infiltrates bilaterally consistent with probable pneumonia. Clinical correlation is recommended. 2. Small left pleural effusion. Olayinka Jones MD CT Angiography 01/03/171938 Signed Impressions: Service Date/Time: Tuesday, January 03, 2017 21:50 - CONCLUSION: 1. Severe COPD, most prominent in the apices. Scattered areas of parenchymal scarring. 2. Large, 7.7 x 4.3 cm pleural-based mass lesion in the left lower lobe. Associated bony destruction and cortical irregularity of the left posterior seventh and eighth ribs. 3. Left hilar and mediastinal adenopathy. Largest node in the AP window measures 5.7 cm in diameter with some impingement on the left pulmonary artery but the vessel does remain patent without pulmonary embolus. Sunny Farfan MD Maxillofacial CT 01/03/17 0000 Signed Impressions: Service Date/Time: Tuesday, January 03, 2017 21:47 - CONCLUSION: No fracture. Sunny Farfan MD Head CT 01/03/17 0000 Signed Impressions: Service Date/Time: Tuesday, January 03, 2017 21:46 - CONCLUSION: Negative exam. Sunny Farfan MD PE at Discharge GENERAL: cachectic female in no acute distress. SKIN: Warm and dry. HEAD: Normocephalic. EYES: No scleral icterus. No injection or drainage. NECK: Supple, trachea midline. No JVD. CARDIOVASCULAR: Regular rate and rhythm without murmurs, gallops, or rubs. RESPIRATORY: Breath sounds equal bilaterally. No accessory muscle use. GASTROINTESTINAL: Abdomen soft, non-tender, nondistended. MUSCULOSKELETAL: No cyanosis, or edema. BACK: Nontender without obvious deformity. No CVA tenderness. Hospital Course Patient was found to have elevated heart rate of 1:30, and A. fib, with RVR. This was managed on Cardizem drip with conversion to normal sinus rhythm. Cardiology was consult him and assisted with management. Echocardiogram was performed on 01/04 which showed ejection fraction 5560 percent with no regional wall motion abnormalities. Per patient and discussion with oncology, they have opted for palliative, hospice care. Patient subsequently developed worsening shortness of breath, increased oxygen requirements 01/09, chest x-ray indication of pneumonia versus CHF. Patient was started on IV antibiotics, gentle fluids with improvement. Due to hypertension on diltiazem, patient was switched to by mouth digoxin with acceptable control of heart rate Due to poor by mouth intake, PEG tube was placed by gastroenterology. This can be used for tube feeding, medications. Patient was discharged to hospice care facility For problem-based summary from most recent progress note, please see below. //A. fib with RVR. The patient presented with atrial ablation with RVR, started on a Cardizem drip was tapered and the patient was started on by mouth Cardizem as per cardiology recommendations. 2-D echocardiogram shows a normal left ventricular ejection fraction with an estimated EF of 55-60% and no regional wall motion abnormalities. Mild mitral valve regurgitation and mild tricuspid valve regurgitation. The heart rate in January 19 was uncontrolled and the patient was loaded with IV digoxin. I will start the patient on oral digoxin for rate control while the patient's blood pressure is borderline low. = 01/13. Start patient on oral digoxin. //Hypokalemia. = 01/13 Potassium 2.7. Replaced. Follow-up level this afternoon. //Syncope/ generalized weakness- likely due to poor oral intake fall precautions- Continue Megestrol and consult emergency vehicle operator. continue to monitor on telemetry. Appreciate PT assistance. 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 Initially case was discussed with hospice nurse. As per hospice nurse patient has been was requesting a feeding tube. Palliative care was consulted to [facility] of care. The patient is still no code DO NOT RESUSCITATE, however palliative care had some problem contacting the patient's . 01/12 discussed the case today with palliative care nurse Sallie. She states that has been once to proceed and have a feeding tube placed because of concerns of malnutrition and the patient not eating enough and then will have the patient go to the hospice care center. = 01/13. Awaiting PEG placement Sunday, after which patient will be discharged to hospice care center. // Anemia of chronic disease- Continue to monitor hemoglobin. -01/13 Hemoglobin relatively stable 8.7. Continue to monitor. No signs of bleeding. //Hypertension. Hold lisinopril since she's been started on Cardizem- will monitor and adjust the regimen as needed. 01/12 the patient status post IV digoxin load, Cardizem held due to borderline low blood pressure. I will start the patient oral digoxin. //HCAP. Repeat chest x-ray obtained on 01/09/17 shows a persistent diffuse infiltrates bilaterally consistent with probable pneumonia. Small pleural effusion. Continue IV vancomycin and IV Zosyn. Blood cultures negative x2. = Antibiotic stop date 01/16 //Severe protein-calorie malnutrition Plan: BMI of 15.1 and low albumin. Director Of Placement consulted. Recommended Enlive shakes tid and Ensure pudding bid for additional calories and protein. 01/10 Discussed the case at length with palliative care who is waiting to speak to the patient's will is now requiring a feeding tube. K will consult GI for evaluation for feeding tube placement. 01/13. Planning for PEG tube placement on Sunday. Patient will be nothing by mouth at midnight on Sunday night. //Sepsis Plan: Patient with tachycardia, hypoxemia, and hypotension. check actic acid. Patient started on IV fluids. repeat cxr, check urinalysis, check lactic acid - will start on gentle IV fluids pending x ray. sepsis due to HCAP as shown on CXR 01/09/17 - Started on IV vancomycin and IV Zosyn. = Continue antibiotics for pneumonia //Hyperlipidemia. With profound weight loss, No need for statin at this time. Discontinue. -DVT prophylaxis with subq Lovenox Discharge Planning PEG placement on Sunday. After PEG placement, patient can be discharged to hospice care center. Pt Condition on Discharge: Fair Discharge Disposition: Hospice/Med Facility Discharge Time: > 30 minutes Discharge Instructions DIET: Follow Instructions for: As Tolerated, No Restrictions, On Tube Feeding Activities you can perform: Regular-No Restrictions Haile Pederson MD Jan 14, 2017 21:29
[2017-01-16] MEDS ORDERED: PHARMACY ORDERED LAB ONE (11:45)
== END 2017-01-14 20:06 | disposition hospice, inpatient (51) | DRG 308 ==
LOC: NEPC 18:39 → NEDA 22:52 → NEDH 01-04 02:54 → N03A 01-04 05:01 → N04A 01-04 22:05
PROVIDERS: ADMIT Internal Medicine; ATTEND Internal Medicine
PROC: 0DH63UZ Insertion of Feeding Device into Stomach, Percutaneous Approach (ICD-10-PCS; principal; 2017-01-14 14:25)
DX: I48.0 Paroxysmal atrial fibrillation (principal); E43 Unspecified severe protein-calorie malnutrition; J96.01 Acute respiratory failure with hypoxia; A41.9 Sepsis, unspecified organism; R64 Cachexia; J18.9 Pneumonia, unspecified organism; J91.8 Pleural effusion in other conditions classified elsewhere; C78.00 Secondary malignant neoplasm of unspecified lung; C79.51 Secondary malignant neoplasm of bone; E87.1 Hypo-osmolality and hyponatremia; J44.0 Chronic obstructive pulmonary disease with (acute) lower respiratory infection; Z68.1 Body mass index [BMI] 19.9 or less, adult; E83.42 Hypomagnesemia; E83.39 Other disorders of phosphorus metabolism; Y95 Nosocomial condition; D63.8 Anemia in other chronic diseases classified elsewhere; E83.51 Hypocalcemia; E86.0 Dehydration; E87.6 Hypokalemia; E87.70 Fluid overload, unspecified; G89.3 Neoplasm related pain (acute) (chronic); I08.1 Rheumatic disorders of both mitral and tricuspid valves; I10 Essential (primary) hypertension; R29.6 Repeated falls; R62.7 Adult failure to thrive; Z51.5 Encounter for palliative care; Z66 Do not resuscitate; F32.9 Major depressive disorder, single episode, unspecified; F41.9 Anxiety disorder, unspecified; G62.9 Polyneuropathy, unspecified; I95.9 Hypotension, unspecified; R00.0 Tachycardia, unspecified; R55 Syncope and collapse; R68.84 Jaw pain; Z91.81 History of falling; Z85.818 Personal history of malignant neoplasm of other sites of lip, oral cavity, and pharynx; Z87.891 Personal history of nicotine dependence; Z92.3 Personal history of irradiation; Z92.21 Personal history of antineoplastic chemotherapy
CPT/HCPCS: 70450; 70486; 71010; 71275; 80048; 80053; 80202; 82550; 83605; 83735; 84100; 84443; 84484; 85025; 85610; 85730; 87040; 87493; 93005; 93306; 96374; J1160; J1642; J1650; J1940; J2543; J2997; J3370; J3475; J3480; J7030; J7040; J7050; Q9967